=== PATIENT | male | born 1955 | race Caucasian/White ===

== ENCOUNTER 2021-06-15 01:34 | Emergency (ER) | payer MEDICARE, SELFPAY ==
[2021-06-15 01:37] VITALS: BP 161/86; PULSE 81; RESP 18; TEMP 37; O2SAT 100; BMI 30.7
--- NOTE | 2021-06-15 02:57 | ED_ITS ---
HPI - General Adult General Chief complaint: Dental/Oral Stated complaint: trouble swallowing and breathing Time Seen by Provider: 06/15/21 02:57 Source: patient Mode of arrival: ambulatory History of Present Illness HPI narrative: 66-year-old male presents with complaints of a long-time elongated uvula and states that recently it has been bothering him significantly as he states that causes him to have sleep difficulties in the feels like it prevents him from breathing at night while he is resting. The uvula has been evaluated by his primary care provider. Patient denies any facial/tongue/lip swelling and otherwise denies any hives/rash. Related Data Home Medications Medication Instructions Recorded Confirmed amlodipine 1 tab PO DAILY 06/15/21 06/15/21 diclofenac sodium 1 tab PO BID 06/15/21 06/15/21 flash glucose sensor [FreeStyle 06/15/21 06/15/21 Tip 14 Day Sensor] hydrochlorothiazide 1 tab PO DAILY 06/15/21 06/15/21 insulin glargine [Lantus Solostar See Protocol SUBCUT BIDAC 06/15/21 06/15/21 U-100 Insulin] metformin 750 mg PO TID 06/15/21 06/15/21 simvastatin 1 tab PO BEDTIME 06/15/21 06/15/21 sitagliptin [Januvia] 1 tab PO DAILY 06/15/21 06/15/21 valsartan 1 tab PO DAILY 06/15/21 06/15/21 Allergies Allergy/AdvReac Type Severity Reaction Status Date / Time cyclobenzaprine Allergy Itching Verified 06/15/21 01:42 [From Flexeril] Review of Systems Review of Systems: Pertinent positives and negatives as stated in HPI 10 point review of systems is otherwise negative. [facility] Past Medical History Source: nursing notes reviewed Medical History Anxiety Diabetes High cholesterol HTN (hypertension) Surgical History No history of previous surgery Social History Social History Alcohol intake: never Patient Tobacco Use Status: Never used Tobacco Use of substances other than those prescribed or required for medical reasons: No Advance Directives: No Advance Directives Information Provided: No Physical Exam Vital Signs: Vital Signs: Last Vital Signs Temp 98.6 F 06/15/21 01:37 Pulse 81 06/15/21 01:37 Resp 18 06/15/21 01:37 BP 161/86 H 06/15/21 01:37 Pulse Ox 100 06/15/21 01:37 Body Mass Index 30.7 VITAL SIGNS: Reviewed. GENERAL: Well developed, well nourished, in no acute distress. HEAD: Normocephalic/atraumatic EYES: PERRLA, EOMI OROPHARYNX: no oral lesions noted, posterior pharynx clear and a noted large uvula that does not appear to be infected or ulcerated, no facial/tongue/lip swelling NECK: Supple, no adenopathy LUNGS: Normal breath sounds. No adventitious sounds or accessory muscle use. SpO2<100> CARDIOVASCULAR: Regular rate and rhythm without noted murmurs ABDOMEN: Soft, non-tender, non-distended with bowel sounds. SKIN: Inspection of the skin reveals no rashes NEUROLOGIC: Alert and oriented x 4. Course Course Course Narrative: This is a 66-year-old male with history and clinical presentation consistent with large uvula that is likely contributing to SUMAN and patient would benefit from an evaluation by ENT for possible surgical option as well as further evaluation for SUMAN. Patient was reassured and instructed follow-up with his primary care provider and given a referral to see ENT. Discharge Plan Discharge Clinical Impression: Long uvula Patient Disposition: Home, Self-Care Instructions: Uvulitis (ED) Additional Instructions: 1. Resume all home medications as prescribed. 2. Increase water hydration. 3. Gargle with warm salt water (this is mixed with warm tap water and table salt), gargle for 5-10 minutes twice a day. 4. You have been provided with a referral to ENT. Return to the ER for acute worsening of symptoms. Prescriptions: No Action amlodipine 10 mg tablet 1 tab PO DAILY RF: 0 simvastatin 20 mg tablet 1 tab PO BEDTIME RF: 0 valsartan 320 mg tablet 1 tab PO DAILY RF: 0 diclofenac sodium 75 mg tablet,delayed release (DR/EC) 1 tab PO BID RF: 0 metformin 750 mg tablet extended release 24 hr 750 mg PO TID RF: 0 Januvia 25 mg tablet 1 tab PO DAILY RF: 0 hydrochlorothiazide 12.5 mg tablet 1 tab PO DAILY RF: 0 Lantus Solostar U-100 Insulin 100 unit/mL (3 mL) insulin pen See Protocol unit subcut BIDAC RF: 0 (DME) FreeStyle Tip 14 Day Sensor Kit topical Q OTHER DAY RF: 0 Referrals: Kang Love MD [Primary Care Provider] - 2 days (Please re-evaluate the patient for enlarged uvula, may benefit from ENT referral.) Warren Paul MD [Physician] - 2 days (Patient has an enlarged uvula, please evaluate)
== END 2021-06-15 03:33 | disposition home or self-care (01) ==
PROVIDERS: Emergency Provider Student in an Organized Health Care Education/Training Program; PCP Internal Medicine
DX: K13.79 Other lesions of oral mucosa (principal); I10 Essential (primary) hypertension; E11.9 Type 2 diabetes mellitus without complications; Z79.4 Long term (current) use of insulin; Z79.899 Other long term (current) drug therapy
CPT/HCPCS: 99282; 99284

== ENCOUNTER 2021-11-24 09:28 | Emergency (ER) | payer MEDICARE, SELFPAY ==
--- NOTE | ~2021-11-24 | MR_ITS ---
EXAMINATION: MRI OF THE BRAIN WITHOUT CONTRAST CLINICAL INFORMATION: Diplopia. COMPARISON: CT scan of the head earlier 11/24/2021.. TECHNIQUE: MRI of the brain was obtained using routine sequences without contrast. FINDINGS: No diffusion abnormalities are identified to suggest an acute or subacute infarct. No mass effect or midline shift is seen. There is mild commensurate prominence of the sulci. Brain parenchymal signal is unremarkable. No extra-axial fluid collections are seen. The brainstem and cerebellum are normal. No pathologic magnetic susceptibility artifact is identified on the gradient refocused acquisition. The craniovertebral junction, marrow signal, and midline structures are normal. There are spondylitic changes in the partially visualized cervical spine. The major intracranial flow-voids at the level of the [place] are preserved. The dural venous sinus flow-voids are maintained. Bilateral frontal sinuses are hypoplastic. The other paranasal sinuses are well-aerated. No fluid is demonstrated in the mastoid air cells. MR/MR head/brain wo con IMPRESSION: 1. There are no acute bleeds or territorial infarcts. No masses are demonstrated. There is mild diffuse volume loss. Brain parenchymal signal is unremarkable.
--- NOTE | ~2021-11-24 | CT_ITS ---
EXAMINATION: CT HEAD WITHOUT CONTRAST CLINICAL INFORMATION: Double vision. Diplopia. COMPARISON: None TECHNIQUE: Contiguous axial imaging was performed from the skull base to vertex without intravenous administration of contrast. This CT examination was performed using dose optimization techniques as appropriate, variously including the following: *Automated exposure control *Adjustment of mA and/or kV according to patient size (this includes techniques or standardized protocols for targeted exams where dose is matched to indication/reason for exam; i.e. extremities or head) *Use of iterative reconstruction technique DLP: 767 mGy-cm FINDINGS: Mild diffuse commensurate prominence of ventricles and sulci is noted. No intracranial hemorrhage, tumors or acute infarcts are noted. No focal parenchymal lesions of the brain are identified. The orbits and globes are normal in appearance. The left mastoid air cells are hypoplastic. CT/CT head/brain wo con IMPRESSION: *No acute intracranial abnormalities.
[2021-11-24 09:35] VITALS: BP 158/86; PULSE 88; RESP 20; TEMP 36.7; O2SAT 99; BMI 24.3
[2021-11-24 09:57] LABS: Glucose, Whole Blood 160 mg/dL (60-115)
[2021-11-24 10:30] LABS: MANUAL DIFF FLAG NO
[2021-11-24 10:32] LABS: Basophils Percent Auto 0.5 % (0-2); Eosinophils Absolute Auto 0.1 X10*3/uL (0.0-0.4); Eosinophils Percent Auto 1.6 % (0-4); Hematocrit 38.9 % (42.0-52.0); Hemoglobin 13.7 g/dl (14.0-18.0); Imm Gran Abs Auto 0.02 X10*3/uL (0.00-0.03); Imm Gran Pct Auto 0.4 % (0.0-0.4); Lymphocytes Absolute Auto 1.9 X10*3/uL (1.2-4.9); Mean Corpuscular HGB Conc 35.2 g/dl (31.0-36.0); Mean Corpuscular Hemoglobin 29.9 pg (27.0-33.0); Mean Corpuscular Volume 84.9 fL (80.0-98.0); Mean Platelet Volume 10.2 fL (9.4-12.4); Monocytes Absolute Auto 0.5 X10*3/uL (0.1-1.2); Monocytes Percent Auto 9.1 % (2-11); Neutrophils Absolute Auto 3.1 x10*3/uL (2.0-8.3); Neutrophils Percent Auto 54.4 % (45-73); Platelet Count 193 X10*3/uL (160-400); Red Blood Count 4.58 X10*6/uL (4.60-5.80); Red Cell Distribution Width 13.3 % (11.0-16.0); White Blood Count 5.7 X10*3/uL (4.8-10.8)
--- NOTE | 2021-11-24 10:36 | ED_ITS ---
HPI - General Adult General Chief complaint: General Medical Stated complaint: double vision Time Seen by Provider: 11/24/21 11:35 Source: patient Mode of arrival: ambulatory Limitations: no limitations History of Present Illness HPI narrative: 66-year-old male with history of diabetes and high blood pressure presents to the ED for diplopia since last night. Patient states seeing double. Patient denies any headache, facial droop, slurred speech, nausea, vomiting, dizziness, chest pain, loss of vision, eye pain, weakness in extremities, or shortness of breath. Patient states he has not seen his eye doctor for over year. Patient has not had any fingerstick to measure his glucose but has been compliant with his meds. Patient states when he covers 1 eye he no longer has diplopia and vision is clear. But when both eyes are open he has diplopia. Patient denies any eye pain or photophobia. Related Data Home Medications Medication Instructions Recorded Confirmed amlodipine 10 mg tablet 1 tab PO DAILY 06/15/21 06/15/21 diclofenac sodium 75 mg 1 tab PO BID 06/15/21 06/15/21 tablet,delayed release flash glucose sensor (FreeStyle 06/15/21 06/15/21 Tip 14 Day Sensor) hydrochlorothiazide 12.5 mg tablet 1 tab PO DAILY 06/15/21 06/15/21 insulin glargine 100 unit/mL (3 See Protocol SUBCUT BIDAC 06/15/21 06/15/21 mL) subcutaneous pen (Lantus Solostar U-100 Insulin) metformin 750 mg tablet,extended 750 mg PO TID 06/15/21 06/15/21 release 24 hr simvastatin 20 mg tablet 1 tab PO BEDTIME 06/15/21 06/15/21 sitagliptin 25 mg tablet (Januvia) 1 tab PO DAILY 06/15/21 06/15/21 valsartan 320 mg tablet 1 tab PO DAILY 06/15/21 06/15/21 Allergies Allergy/AdvReac Type Severity Reaction Status Date / Time cyclobenzaprine Allergy Itching Verified 06/15/21 01:42 [From Flexeril] Review of Systems Review of Systems: Yes all other systems are reviewed and are negative Constitutional: Constitutional: Reports as per HPI and Reports no additional constitutional complaints Eyes: Eyes: Reports as per HPI and Reports no additional eye complaints Comments: Diplopia in both eyes ENT: Reports system reviewed and no additional complaints, except as documented and Reports as per HPI Cardiovascular: Cardiovascular: Reports as per HPI and Reports no additional cardiovascular complaints Respiratory: Respiratory: Reports as per HPI and Reports no additional respiratory complaints Gastrointestinal: Gastrointestinal: Reports as per HPI and Reports no additional gastrointestinal complaints Genitourinary: Genitourinary: Reports no additional male genitourinary complaints and Reports as per HPI Psychiatric: Psychiatric: Reports no additional psychiatric complaints and Reports as per HPI Endocrine: Endocrine: Reports no additional endocrine complaints and Reports as per HPI [facility] Past Medical History Medical History (Updated 11/24/21 @ 14:50 by AMBER Galindo) Anxiety Diabetes High cholesterol HTN (hypertension) Social History Social History Alcohol intake: never Patient Tobacco Use Status: Never used Tobacco Advance Directives: No Advance Directives Information Provided: No Physical Exam Vital Signs: Vital Signs: Last Vital Signs Temp 98.0 F 11/24/21 13:50 Pulse 83 11/24/21 13:50 Resp 16 11/24/21 13:50 BP 138/78 11/24/21 13:50 Pulse Ox 98 11/24/21 13:50 BMI result Body Mass Index 24.3 Const: General: cooperative, healthy appearing, comfortable, no acute distress, well developed, alert, awake and Physically active Orientation/consciousness: patient oriented x3 HENMT: Head: Yes normal to inspection, Yes No palpable skull fracture present, Yes normocephalic, Yes atraumatic and No abrasion Eyes: Other: Patient able to see fingers in all visual sanchez. Physical exam shows horizontal diplopia and negative for vertical diplopia. Negative nystagmus. Both eyes negative for erythema of conjunctiva/scleral, negative for foreign body, and negative for any eyelid swelling. Left eye visual acuity 20/40 and right eye visual acuity 20/40. Both eyes together visual acuity is 20/40. Neck: Neck: Yes normal visual inspection, Yes full ROM, Yes no lymphadenopathy, Yes no meningeal signs, Yes trachea midline, Yes supple, No anterior neck swelling and No tender Chest: Chest palpation & inspection: normal inspection of the chest and normal palpation of entire chest wall Resp: Effort & Inspection: normal respiratory effort and able to speak in complete sentences Auscultation: clear to auscultation bilaterally Cardio: Jugular venous distension: no JVD Rhythm: regular rhythm Heart sounds: S1 normal heart sound present and S2 normal heart sound present GI: Inspection: Yes normal to inspection and No abdominal wall ecchymosis Palpation (GI): Soft to palpation, not firm, nontender, no guarding and not rigid : General: No CVA tenderness and Yes no CVA tenderness Back/Spine/Pelvis: Back: no CVA tenderness, No CVA tenderness and No back tenderness Skin: General skin exam: no rashes or lesions noted and elasticity normal Neuro: Other: Negative facial droop. Negative slurred speech. Negative pronator drift. All extremities equal strength 5+. [id number] and rapid hand movement intact. Negative Romberg. NIH Score 0 General: patient oriented x3, gait normal, no meningeal signs and CN's II-XI intact bilaterally Cranial nerves: Yes CN's II-XII intact bilaterally Extrem: General: Yes normal to inspection and Yes full ROM Psych: Appearance: grossly normal, well kempt and not disheveled NIH Stroke Scale Level of Consciousness: Alert Level of Consciousness Questions: Answers both questions correctly Level of Consciousness Commands: Performs both tasks correctly Best Gaze: Normal Visual: No visual loss Facial Palsy: Normal Motor Arm (Right): No drift Motor Arm (Left): No drift Motor Leg (Right): No drift Motor Leg (Left): No drift Limb Ataxia: Absent Sensory: Normal Best Language: No aphasia Dysarthia: Normal Extinction and Inattention: No abnormality Score: 0 Course Course Course Narrative: History physical exam does not indicate stroke. NIH score 0. Still do head CT scan. Will do basic labs. Patient denies any dizziness. No need for cardiac workup. When patient covers 1 eye he no longer has diplopia. Both eyes open together and patient has diplopia. Reevaluation(s) Reevaluation #1: Head CT scan came back negative. Labs are normal. Most likely diplopia due to eye muscle/ nerve issue. unlikely patient having stroke. case discussed with Dr. Gautam recommends due to age to do MRI to make sure there is no posterior cerebellar infarct although unlikely and most likely there is an eye muscle issue/nerve. Will send for MRI. Visual acuity each eye 20/40 and ey es together is 20/40. Time: 10:59 Reevaluation #2: MRI negative for stroke. Bedside ultrasound of both eyes negative for retinal detachment and negative for lens dislocation. Patient informed to follow-up with his ophthalmologis to check his eyes Time: 14:45 Medical Decision Making MDM Narrative Medical decision making narrative: Diplopia Lab Data Result diagrams: 11/24/21 10:21 11/24/21 10:21 Labs: Lab Results 11/24/21 11/24/21 11/24/21 Range/Units 09:53 10:21 10:21 WBC 5.7 (4.8-10.8) X10*3/uL RBC 4.58 L (4.60-5.80) X10*6/uL Hgb 13.7 L (14.0-18.0) g/dl Hct 38.9 L (42.0-52.0) % MCV 84.9 (80.0-98.0) fL MCH 29.9 (27.0-33.0) pg MCHC 35.2 (31.0-36.0) g/dl RDW 13.3 (11.0-16.0) % Plt Count 193 (160-400) X10*3/uL MPV 10.2 (9.4-12.4) fL Immature Gran % (Auto) 0.4 (0.0-0.4) % Neut % (Auto) 54.4 (45-73) % Lymph % (Auto) 34.0 (20-40) % [place] % (Auto) 9.1 (2-11) % Eos % (Auto) 1.6 (0-4) % Baso % (Auto) 0.5 (0-2) % Lymph # (Auto) 1.9 (1.2-4.9) X10*3/uL [place] # (Auto) 0.5 (0.1-1.2) X10*3/uL Eos # (Auto) 0.1 (0.0-0.4) X10*3/uL Baso # (Auto) 0.0 (0.0-0.2) X10*3/uL Abs Immat Gran (auto) 0.02 (0.00-0.03) X10*3/uL Absolute Neuts (auto) 3.1 (2.0-8.3) x10*3/uL Absolute Nucleated RBC 0.000 (0.0-0.012) X10*3/uL Nucleated RBC % (auto) 0.0 (0.0-0.2) /100WBC Sodium 138 (135-145) mmol/L Potassium 3.9 (3.3-5.1) mmol/L Chloride 103 (96-108) mmol/L Carbon Dioxide 24 (22-29) mmol/L Anion Gap 15 (12-20) BUN 22 H (9-16) mg/dL Creatinine 0.96 (0.5-1.4) mg/dL Estim Creat Clear Calc 71.7 Estimated GFR > 60 POC Glucose 160 H (60-115) mg/dL Random Glucose 162 H (60-115) mg/dL Calcium 9.4 (8.4-10.2) mg/dL Total Bilirubin 1.1 H (0.0-1.0) mg/dL AST 26 (5-37) U/L ALT 42 H (0-40) U/L Alkaline Phosphatase 79 (39-117) U/L Total Protein 7.2 (6.5-8.0) g/dL Albumin 4.3 (3.5-5.0) g/dL COVID-19 (DEE) (Negative) COVID-19 Clin Com 11/24/21 Range/Units 10:26 WBC (4.8-10.8) X10*3/uL RBC (4.60-5.80) X10*6/uL Hgb (14.0-18.0) g/dl Hct (42.0-52.0) % MCV (80.0-98.0) fL MCH (27.0-33.0) pg MCHC (31.0-36.0) g/dl RDW (11.0-16.0) % Plt Count (160-400) X10*3/uL MPV (9.4-12.4) fL Immature Gran % (Auto) (0.0-0.4) % Neut % (Auto) (45-73) % Lymph % (Auto) (20-40) % [place] % (Auto) (2-11) % Eos % (Auto) (0-4) % Baso % (Auto) (0-2) % Lymph # (Auto) (1.2-4.9) X10*3/uL [place] # (Auto) (0.1-1.2) X10*3/uL Eos # (Auto) (0.0-0.4) X10*3/uL Baso # (Auto) (0.0-0.2) X10*3/uL Abs Immat Gran (auto) (0.00-0.03) X10*3/uL Absolute Neuts (auto) (2.0-8.3) x10*3/uL Absolute Nucleated RBC (0.0-0.012) X10*3/uL Nucleated RBC % (auto) (0.0-0.2) /100WBC Sodium (135-145) mmol/L Potassium (3.3-5.1) mmol/L Chloride (96-108) mmol/L Carbon Dioxide (22-29) mmol/L Anion Gap (12-20) BUN (9-16) mg/dL Creatinine (0.5-1.4) mg/dL Estim Creat Clear Calc Estimated GFR POC Glucose (60-115) mg/dL Random Glucose (60-115) mg/dL Calcium (8.4-10.2) mg/dL Total Bilirubin (0.0-1.0) mg/dL AST (5-37) U/L ALT (0-40) U/L Alkaline Phosphatase (39-117) U/L Total Protein (6.5-8.0) g/dL Albumin (3.5-5.0) g/dL COVID-19 (DEE) Negative (Negative) COVID-19 Clin Com See Note Discharge Plan Discharge Clinical Impression: Diplopia Patient Disposition: Home, Self-Care Instructions: Diplopia (ED) Additional Instructions: Your head CT scan and MRI came back negative for stroke. You need to follow-up with the eye doctor in regards to diplopia. Return to the ED for any slurred speech, loss of vision, paralysis of extremities, loss of vision, headache, dizziness, facial droop, abdominal pain, tingling in extremities, chest pain, shortness of breath, or any other concerning symptoms. Prescriptions: No Action amlodipine 10 mg tablet 1 tab PO DAILY RF: 0 simvastatin 20 mg tablet 1 tab PO BEDTIME RF: 0 valsartan 320 mg tablet 1 tab PO DAILY RF: 0 diclofenac sodium 75 mg tablet,delayed release (DR/EC) 1 tab PO BID RF: 0 metformin 750 mg tablet extended release 24 hr 750 mg PO TID RF: 0 Januvia 25 mg tablet 1 tab PO DAILY RF: 0 hydrochlorothiazide 12.5 mg tablet 1 tab PO DAILY RF: 0 Lantus Solostar U-100 Insulin 100 unit/mL (3 mL) insulin pen See Protocol unit subcut BIDAC RF: 0 (DME) FreeStyle Tip 14 Day Sensor Kit topical Q OTHER DAY RF: 0 Referrals: Tyson Scott [Physician] - 2 days (Diplopia) Interventions: ED Discharge Assessment Last Done: 11/24/21 14:55 Discharge Date/Time: 11/24/21 14:55 Print Language: Scottish
[2021-11-24 11:01] LABS: COVID-19 Test Negative (Negative); IDNOW Serial# 9DD0AD1C
[2021-11-24 11:05] LABS: Alanine Aminotransferase 42 U/L (0-40); Albumin Level 4.3 g/dL (3.5-5.0); Alkaline Phosphatase 79 U/L (39-117); Anion Gap 15 (12-20); Aspartate Amino Transferase 26 U/L (5-37); Bilirubin Total 1.1 mg/dL (0.0-1.0); Blood Urea Nitrogen 22 mg/dL (9-16); Calcium 9.4 mg/dL (8.4-10.2); Carbon Dioxide 24 mmol/L (22-29); Chloride 103 mmol/L (96-108); Creatinine Clr Calc Pharmacy 71.7; Estimated Glomerular Filt Rate > 60; Glucose Random 162 mg/dL (60-115); Potassium 3.9 mmol/L (3.3-5.1); Sodium 138 mmol/L (135-145); Total Protein 7.2 g/dL (6.5-8.0)
[2021-11-24 13:50] VITALS: BP 138/78; PULSE 83; RESP 16; TEMP 36.7; O2SAT 98
== END 2021-11-24 14:55 | disposition home or self-care (01) ==
PROVIDERS: Physician Assistant; Emergency Provider Emergency Medicine; PCP Internal Medicine
DX: H53.2 Diplopia (principal); Z20.822 Contact with and (suspected) exposure to COVID-19; E11.9 Type 2 diabetes mellitus without complications; I10 Essential (primary) hypertension; E78.5 Hyperlipidemia, unspecified; Z79.4 Long term (current) use of insulin; Z79.02 Long term (current) use of antithrombotics/antiplatelets; Z79.899 Other long term (current) drug therapy
CPT/HCPCS: 36415; 70450; 70551; 80053; 82947; 85025; 87635; 99284; 99285

== ENCOUNTER 2021-12-21 10:50 | Outpatient (REF) | payer MEDICARE, SELFPAY ==
[2021-12-21 11:09] LABS: MANUAL DIFF FLAG NO
[2021-12-21 11:39] LABS: Basophils Percent Auto 0.6 % (0-2); Eosinophils Absolute Auto 0.1 X10*3/uL (0.0-0.4); Eosinophils Percent Auto 1.9 % (0-4); Hematocrit 40.6 % (42.0-52.0); Hemoglobin 13.9 g/dl (14.0-18.0); Imm Gran Abs Auto 0.02 X10*3/uL (0.00-0.03); Imm Gran Pct Auto 0.3 % (0.0-0.4); Lymphocytes Percent Auto 31.7 % (20-40); Mean Corpuscular HGB Conc 34.2 g/dl (31.0-36.0); Mean Corpuscular Hemoglobin 29.1 pg (27.0-33.0); Mean Corpuscular Volume 84.9 fL (80.0-98.0); Mean Platelet Volume 10.5 fL (9.4-12.4); Monocytes Absolute Auto 0.5 X10*3/uL (0.1-1.2); Monocytes Percent Auto 7.9 % (2-11); Neutrophils Absolute Auto 3.6 x10*3/uL (2.0-8.3); Neutrophils Percent Auto 57.6 % (45-73); Platelet Count 218 X10*3/uL (160-400); Red Blood Count 4.78 X10*6/uL (4.60-5.80); Red Cell Distribution Width 13.2 % (11.0-16.0); White Blood Count 6.3 X10*3/uL (4.8-10.8)
[2021-12-21 11:41] LABS: Estimated Average Glucose 200 mg/dL; Hemoglobin A1c % 8.6 %
[2021-12-21 12:14] LABS: Alanine Aminotransferase 34 U/L (0-40); Albumin Level 4.7 g/dL (3.5-5.0); Alkaline Phosphatase 81 U/L (39-117); Anion Gap 16 (12-20); Aspartate Amino Transferase 21 U/L (5-37); Bilirubin Total 0.7 mg/dL (0.0-1.0); Blood Urea Nitrogen 29 mg/dL (9-16); Calcium 10.4 mg/dL (8.4-10.2); Carbon Dioxide 26 mmol/L (22-29); Chloride 103 mmol/L (96-108); Cholesterol 146 mg/dL; Estimated Glomerular Filt Rate > 60; Glucose Fasting 190 mg/dL (60-99); HDL Cholesterol 42 mg/dL; LDL Cholesterol Calculated 84 mg/dl; Potassium 4.5 mmol/L (3.3-5.1); Sodium 140 mmol/L (135-145); Total Protein 7.8 g/dL (6.5-8.0); Triglycerides 101 mg/dL
[2021-12-21 12:47] LABS: Folate 12.9 ng/mL (> or = 4.0); Vitamin B12 605 pg/mL (200-900)
[2021-12-27 16:16] LABS: Vitamin D 25-OH, D2 <4 ng/mL; Vitamin D 25-OH, D3 14 ng/mL; Vitamin D 25-OH, Total 14 ng/mL (30-100)
== END 2021-12-21 10:51 | disposition home or self-care (01) ==
LOC: HO.LAB 10:50
PROVIDERS: PCP Internal Medicine; Visit Provider Nurse Practitioner Acute Care
DX: E11.9 Type 2 diabetes mellitus without complications (principal); E78.00 Pure hypercholesterolemia, unspecified; I10 Essential (primary) hypertension
CPT/HCPCS: 36415; 80053; 80061; 82306; 82607; 82746; 83036; 84443; 85025

== ENCOUNTER → 2022-02-21 09:57 | Outpatient (BNVA) | payer MEDICARE, SELFPAY | PROVIDERS: PCP Nurse Practitioner Acute Care; Visit Provider Internal Medicine | DX: E11.65 Type 2 diabetes mellitus with hyperglycemia (principal); E78.00 Pure hypercholesterolemia, unspecified; E55.9 Vitamin D deficiency, unspecified; I10 Essential (primary) hypertension; Z79.4 Long term (current) use of insulin | CPT/HCPCS: 82947; 99202 ==

== ENCOUNTER 2022-02-26 11:57 | Outpatient (REF) | payer MEDICARE, SELFPAY ==
[2022-02-26 13:11] LABS: Alanine Aminotransferase 37 U/L (0-40); Alkaline Phosphatase 90 U/L (39-117); Anion Gap 17 (12-20); Aspartate Amino Transferase 28 U/L (5-37); Bilirubin Total 0.8 mg/dL (0.0-1.0); Blood Urea Nitrogen 20 mg/dL (9-16); Calcium 10.3 mg/dL (8.4-10.2); Carbon Dioxide 27 mmol/L (22-29); Chloride 98 mmol/L (96-108); Estimated Glomerular Filt Rate > 60; Glucose Random 186 mg/dL (60-115); Sodium 138 mmol/L (135-145); Total Protein 8.4 g/dL (6.5-8.0)
[2022-02-26 13:33] LABS: Insulin 34 uU/mL (2-29); Vitamin D 25-OH Total 30.6 ng/mL (>30)
[2022-02-26 13:43] LABS: Microalbum/Creatinine Ratio Ur 52.3 ug/mg cr
[2022-02-26 13:47] LABS: Vitamin B12 573 pg/mL (200-900)
[2022-02-27 23:46] LABS: C Peptide 2.08 ng/mL (0.80-3.85)
[2022-03-01 16:22] LABS: Glutamic acid decarboxylase Ab <5 IU/mL (<5)
[2022-03-07 18:32] LABS: Insulinoma associated 2 aatb <5.4 U/mL (<5.4)
[2022-03-11 23:56] LABS: Islet Cell Antibody Screen NEGATIVE (NEGATIVE)
== END 2022-02-26 11:58 | disposition home or self-care (01) ==
LOC: HO.LAB 11:57
PROVIDERS: PCP Nurse Practitioner Acute Care; Visit Provider Internal Medicine
DX: E11.9 Type 2 diabetes mellitus without complications (principal); E55.9 Vitamin D deficiency, unspecified
CPT/HCPCS: 36415; 80053; 82043; 82306; 82607; 83525; 84681; 86255; 86341

== ENCOUNTER → 2022-03-08 08:58 | Outpatient (BNVA) | payer MEDICARE, SELFPAY | PROVIDERS: PCP Nurse Practitioner Acute Care; Visit Provider Dietitian, Registered | DX: E11.65 Type 2 diabetes mellitus with hyperglycemia (principal); I10 Essential (primary) hypertension; E78.00 Pure hypercholesterolemia, unspecified; F41.8 Other specified anxiety disorders; Z86.73 Personal history of transient ischemic attack (TIA), and cerebral infarction without residual deficits; Z88.8 Allergy status to other drugs, medicaments and biological substances; Z79.4 Long term (current) use of insulin | CPT/HCPCS: 97802 ==

== ENCOUNTER → 2022-04-06 08:43 | Outpatient (BNVA) | payer MEDICARE, SELFPAY | PROVIDERS: PCP Nurse Practitioner Acute Care; Visit Provider Dietitian, Registered | DX: E11.65 Type 2 diabetes mellitus with hyperglycemia (principal); Z79.4 Long term (current) use of insulin | CPT/HCPCS: 97803 ==

== ENCOUNTER → 2022-04-20 08:44 | Outpatient (BNVA) | payer MEDICARE, SELFPAY | PROVIDERS: PCP Nurse Practitioner Acute Care; Visit Provider Registered Nurse Diabetes Educator | DX: E11.65 Type 2 diabetes mellitus with hyperglycemia (principal); Z79.4 Long term (current) use of insulin | CPT/HCPCS: 99211 ==

== ENCOUNTER 2022-06-01 08:45 | Outpatient (REF) | payer MEDICARE, SELFPAY ==
[2022-06-01 09:58] LABS: Estimated Average Glucose 157 mg/dL; Hemoglobin A1c % 7.1 %
[2022-06-01 10:17] LABS: Alanine Aminotransferase 43 U/L (0-40); Albumin Level 4.6 g/dL (3.5-5.0); Alkaline Phosphatase 88 U/L (39-117); Anion Gap 16 (12-20); Aspartate Amino Transferase 36 U/L (5-37); Blood Urea Nitrogen 19 mg/dL (9-16); Calcium 9.9 mg/dL (8.4-10.2); Carbon Dioxide 27 mmol/L (22-29); Chloride 101 mmol/L (96-108); Cholesterol 138 mg/dL; Estimated Glomerular Filt Rate > 60; Glucose Random 108 mg/dL (60-115); HDL Cholesterol 42 mg/dL; LDL Cholesterol Calculated 79 mg/dl; Potassium 3.9 mmol/L (3.3-5.1); Sodium 140 mmol/L (135-145); Total Protein 7.7 g/dL (6.5-8.0); Triglycerides 89 mg/dL
[2022-06-03 04:52] LABS: LDL Cholesterol Direct 92 mg/dL (<100)
== END 2022-06-01 08:46 | disposition home or self-care (01) ==
LOC: HO.10HDL 08:45
PROVIDERS: Visit Provider Internal Medicine
DX: E11.65 Type 2 diabetes mellitus with hyperglycemia (principal); Z79.4 Long term (current) use of insulin
CPT/HCPCS: 36415; 80053; 80061; 83036; 83721

== ENCOUNTER → 2022-06-06 09:38 | Outpatient (BNVA) | payer MEDICARE, SELFPAY | PROVIDERS: PCP Nurse Practitioner Acute Care; Visit Provider Internal Medicine | DX: E11.65 Type 2 diabetes mellitus with hyperglycemia (principal); Z79.4 Long term (current) use of insulin; E78.00 Pure hypercholesterolemia, unspecified; I10 Essential (primary) hypertension; E55.9 Vitamin D deficiency, unspecified | CPT/HCPCS: Q3014 ==

== ENCOUNTER 2022-10-02 09:14 | Outpatient (REF) | payer MEDICARE, SELFPAY ==
[2022-10-02 10:55] LABS: Estimated Average Glucose 143 mg/dL; Hemoglobin A1c % 6.6 %
[2022-10-02 11:18] LABS: Alanine Aminotransferase 51 U/L (0-40); Albumin Level 4.6 g/dL (3.5-5.0); Alkaline Phosphatase 91 U/L (39-117); Anion Gap 18 (12-20); Aspartate Amino Transferase 37 U/L (5-37); Bilirubin Total 0.4 mg/dL (0.0-1.0); Blood Urea Nitrogen 24 mg/dL (9-16); Calcium 10.1 mg/dL (8.4-10.2); Carbon Dioxide 28 mmol/L (22-29); Chloride 99 mmol/L (96-108); Estimated Glomerular Filt Rate > 60; Glucose Random 198 mg/dL (60-115); Potassium 3.8 mmol/L (3.3-5.1); Sodium 141 mmol/L (135-145); Total Protein 7.4 g/dL (6.5-8.0)
== END 2022-10-02 09:15 | disposition home or self-care (01) ==
LOC: HO.10HDL 09:14
PROVIDERS: Visit Provider Internal Medicine
DX: E11.65 Type 2 diabetes mellitus with hyperglycemia (principal); Z79.4 Long term (current) use of insulin
CPT/HCPCS: 36415; 80053; 83036

== ENCOUNTER → 2022-10-04 14:36 | Outpatient (BNVA) | payer MEDICARE, SELFPAY | PROVIDERS: PCP Internal Medicine; Visit Provider Internal Medicine | DX: E11.65 Type 2 diabetes mellitus with hyperglycemia (principal); E78.00 Pure hypercholesterolemia, unspecified; E55.9 Vitamin D deficiency, unspecified; I10 Essential (primary) hypertension; Z79.4 Long term (current) use of insulin | CPT/HCPCS: 82947; 99212 ==

== ENCOUNTER → 2022-10-08 09:13 | Outpatient (BNVA) | payer MEDICARE, SELFPAY | PROVIDERS: PCP Internal Medicine; Visit Provider Dietitian, Registered | DX: E11.65 Type 2 diabetes mellitus with hyperglycemia (principal); Z79.4 Long term (current) use of insulin | CPT/HCPCS: 97803 ==

== ENCOUNTER → 2022-12-05 09:34 | Outpatient (BNVA) | payer MEDICARE, SELFPAY | PROVIDERS: PCP Internal Medicine; Visit Provider Registered Nurse Diabetes Educator | DX: E11.65 Type 2 diabetes mellitus with hyperglycemia (principal); Z79.4 Long term (current) use of insulin | CPT/HCPCS: 99211 ==

== ENCOUNTER 2023-01-15 09:16 | Outpatient (REF) | payer MEDICARE, SELFPAY ==
[2023-01-15 11:17] LABS: Alanine Aminotransferase 85 U/L (0-40); Albumin Level 4.2 g/dL (3.5-5.0); Alkaline Phosphatase 109 U/L (39-117); Anion Gap 16 (12-20); Aspartate Amino Transferase 66 U/L (5-37); Bilirubin Total 0.6 mg/dL (0.0-1.0); Blood Urea Nitrogen 30 mg/dL (9-16); Calcium 9.4 mg/dL (8.4-10.2); Carbon Dioxide 26 mmol/L (22-29); Chloride 104 mmol/L (96-108); Cholesterol 150 mg/dL; Estimated Glomerular Filt Rate > 60; Glucose Random 203 mg/dL (60-115); HDL Cholesterol 35 mg/dL; LDL Cholesterol Calculated 89 mg/dl; Potassium 4.6 mmol/L (3.3-5.1); Sodium 141 mmol/L (135-145); Triglycerides 134 mg/dL
[2023-01-15 11:23] LABS: Estimated Average Glucose 169 mg/dL; Hemoglobin A1c % 7.5 %
[2023-01-15 11:34] LABS: Creatinine Urine 125.53 mg/dL; Microalbum/Creatinine Ratio Ur 16.7 ug/mg cr
[2023-01-15 11:41] LABS: Vitamin B12 623 pg/mL (200-900)
[2023-01-17 07:54] LABS: LDL Cholesterol Direct 96 mg/dL (<100)
== END 2023-01-15 09:17 | disposition home or self-care (01) ==
LOC: HO.10HDL 09:16
PROVIDERS: Visit Provider Internal Medicine
DX: E11.65 Type 2 diabetes mellitus with hyperglycemia (principal); Z79.4 Long term (current) use of insulin
CPT/HCPCS: 36415; 80053; 80061; 82043; 82607; 83036; 83721

== ENCOUNTER → 2023-03-05 08:19 | Outpatient (BNVA) | payer MEDICARE, SELFPAY | PROVIDERS: PCP Internal Medicine; Visit Provider Physician Assistant | DX: K92.1 Melena (principal); R10.9 Unspecified abdominal pain; R11.2 Nausea with vomiting, unspecified; K58.9 Irritable bowel syndrome, unspecified; R19.8 Other specified symptoms and signs involving the digestive system and abdomen; E11.9 Type 2 diabetes mellitus without complications; Z79.4 Long term (current) use of insulin | CPT/HCPCS: 99202 ==

== ENCOUNTER 2023-03-05 09:19 | Outpatient (REF) | payer MEDICARE, SELFPAY ==
[2023-03-05 11:39] LABS: MANUAL DIFF FLAG NO
[2023-03-05 11:57] LABS: Basophils Absolute Auto 0.1 X10*3/uL (0.0-0.2); Basophils Percent Auto 0.8 % (0-2); Eosinophils Absolute Auto 0.2 X10*3/uL (0.0-0.4); Eosinophils Percent Auto 1.8 % (0-4); Hematocrit 44.8 % (42.0-52.0); Hemoglobin 15.5 g/dl (14.0-18.0); Imm Gran Abs Auto 0.04 X10*3/uL (0.00-0.03); Imm Gran Pct Auto 0.3 % (0.0-0.4); Lymphocytes Percent Auto 17.4 % (20-40); Mean Corpuscular HGB Conc 34.6 g/dl (31.0-36.0); Mean Corpuscular Hemoglobin 29.8 pg (27.0-33.0); Mean Corpuscular Volume 86.2 fL (80.0-98.0); Mean Platelet Volume 10.8 fL (9.4-12.4); Monocytes Absolute Auto 1.2 X10*3/uL (0.1-1.2); Monocytes Percent Auto 10.5 % (2-11); Neutrophils Absolute Auto 8.1 x10*3/uL (2.0-8.3); Neutrophils Percent Auto 69.2 % (45-73); Platelet Count 288 X10*3/uL (160-400); Red Cell Distribution Width 13.2 % (11.0-16.0); White Blood Count 11.6 X10*3/uL (4.8-10.8)
[2023-03-05 12:31] LABS: Alanine Aminotransferase 27 U/L (0-40); Albumin Level 4.8 g/dL (3.5-5.0); Alkaline Phosphatase 94 U/L (39-117); Anion Gap 23 (12-20); Aspartate Amino Transferase 20 U/L (5-37); Bilirubin Total 1.2 mg/dL (0.0-1.0); Blood Urea Nitrogen 49 mg/dL (9-16); Calcium 9.5 mg/dL (8.4-10.2); Carbon Dioxide 20 mmol/L (22-29); Chloride 100 mmol/L (96-108); Estimated Glomerular Filt Rate 30; Glucose Random 208 mg/dL (60-115); Potassium 3.9 mmol/L (3.3-5.1); Sodium 139 mmol/L (135-145); Thyroid Stimulating Hormone 1.32 uIU/mL (0.32-4.0); Total Protein 7.9 g/dL (6.5-8.0)
== END 2023-03-05 09:20 | disposition home or self-care (01) ==
LOC: HO.WFDLDS 09:19
PROVIDERS: Visit Provider Physician Assistant
DX: R10.9 Unspecified abdominal pain (principal); R19.8 Other specified symptoms and signs involving the digestive system and abdomen; K92.1 Melena; R11.2 Nausea with vomiting, unspecified; K58.9 Irritable bowel syndrome, unspecified
CPT/HCPCS: 36415; 80053; 84443; 85025

== ENCOUNTER → 2023-03-13 08:23 | Outpatient (BNVA) | payer MEDICARE, SELFPAY | PROVIDERS: PCP Internal Medicine; Visit Provider Physician Assistant ==

== ENCOUNTER 2023-03-13 09:10 | Outpatient (REF) | payer MEDICARE, SELFPAY ==
[2023-03-13 11:41] LABS: MANUAL DIFF FLAG NO
[2023-03-13 11:49] LABS: Basophils Absolute Auto 0.1 X10*3/uL (0.0-0.2); Basophils Percent Auto 0.7 % (0-2); Eosinophils Absolute Auto 0.2 X10*3/uL (0.0-0.4); Eosinophils Percent Auto 2.2 % (0-4); Hematocrit 42.6 % (42.0-52.0); Hemoglobin 14.4 g/dl (14.0-18.0); Imm Gran Abs Auto 0.02 X10*3/uL (0.00-0.03); Imm Gran Pct Auto 0.2 % (0.0-0.4); Lymphocytes Absolute Auto 2.7 X10*3/uL (1.2-4.9); Lymphocytes Percent Auto 30.1 % (20-40); Mean Corpuscular HGB Conc 33.8 g/dl (31.0-36.0); Mean Corpuscular Volume 85.9 fL (80.0-98.0); Mean Platelet Volume 10.8 fL (9.4-12.4); Monocytes Absolute Auto 0.6 X10*3/uL (0.1-1.2); Monocytes Percent Auto 7.3 % (2-11); Neutrophils Absolute Auto 5.2 x10*3/uL (2.0-8.3); Neutrophils Percent Auto 59.5 % (45-73); Platelet Count 238 X10*3/uL (160-400); Red Blood Count 4.96 X10*6/uL (4.60-5.80); White Blood Count 8.8 X10*3/uL (4.8-10.8)
[2023-03-13 12:23] LABS: Alanine Aminotransferase 39 U/L (0-40); Albumin Level 4.5 g/dL (3.5-5.0); Alkaline Phosphatase 93 U/L (39-117); Anion Gap 16 (12-20); Aspartate Amino Transferase 33 U/L (5-37); Bilirubin Total 0.5 mg/dL (0.0-1.0); Blood Urea Nitrogen 20 mg/dL (9-16); Calcium 10.1 mg/dL (8.4-10.2); Carbon Dioxide 31 mmol/L (22-29); Chloride 99 mmol/L (96-108); Estimated Glomerular Filt Rate > 60; Glucose Random 257 mg/dL (60-115); Potassium 4.5 mmol/L (3.3-5.1); Sodium 141 mmol/L (135-145); Total Protein 7.3 g/dL (6.5-8.0)
== END 2023-03-13 09:11 | disposition home or self-care (01) ==
LOC: HO.WFDLDS 09:10
PROVIDERS: Visit Provider Physician Assistant
DX: K58.9 Irritable bowel syndrome, unspecified (principal); K21.9 Gastro-esophageal reflux disease without esophagitis; R10.9 Unspecified abdominal pain; R11.2 Nausea with vomiting, unspecified
CPT/HCPCS: 36415; 80053; 85025; 99212

== ENCOUNTER → 2023-04-01 08:32 | Outpatient (BNVA) | payer MEDICARE, SELFPAY | PROVIDERS: PCP Internal Medicine; Visit Provider Dietitian, Registered | DX: E11.65 Type 2 diabetes mellitus with hyperglycemia (principal); Z79.4 Long term (current) use of insulin | CPT/HCPCS: 97803 ==

== ENCOUNTER → 2023-04-08 07:59 | Outpatient (BNVA) | payer MEDICARE, SELFPAY | PROVIDERS: PCP Internal Medicine; Visit Provider Internal Medicine | DX: E11.65 Type 2 diabetes mellitus with hyperglycemia (principal); E78.00 Pure hypercholesterolemia, unspecified; I10 Essential (primary) hypertension; E55.9 Vitamin D deficiency, unspecified; Z79.4 Long term (current) use of insulin; Z79.899 Other long term (current) drug therapy | CPT/HCPCS: 82947; 83036; 99212 ==

== ENCOUNTER → 2023-04-25 07:36 | Outpatient (REF) | payer MEDICARE, SELFPAY ==
--- NOTE | ~2023-04-25 | NM_ITS ---
EXAMINATION: NM RADIONUCLIDE SOLID FOOD GASTRIC EMPTYING 4-HOUR STUDY CLINICAL INFORMATION: Nausea with vomiting. COMPARISON: None available. TECHNIQUE: A standard meal consisting of 4 oz of Egg Beaters brand tagged with 1 microcuries Tc-99m Sulfur Colloid, 8 oz water and 2 slices of toast with jelly was administered orally to the patient. Images were obtained using a dual head gamma camera in the anterior and posterior projections over of the stomach immediately post ingestion and at hourly intervals up to 4 hours post ingestion. The anterior and posterior counts at each time interval were averaged using the geometric mean and expressed as percentage of the immediate post ingestion counts. FINDINGS: There is good visualization of activity in the stomach immediately post ingestion. As the study progresses, there is good clearance of activity from the stomach and visualization of progressively increasing small bowel activity. By the end of the study, there is almost no retention noted in the stomach. Retention in the stomach at each time interval was: 1 hour 74% (normal 37%-90%) 2 hours 52% (normal 30%-60%) 3 hours 33% 4 hours 28% (normal 0%-10%) NM/NM gastric emptying study IMPRESSION: Abnormal 4-hour solid food gastric emptying study.
== END ==
LOC: HO.NUCMED 07:36
PROVIDERS: PCP Internal Medicine; Visit Provider Physician Assistant
DX: R11.2 Nausea with vomiting, unspecified (principal); E11.9 Type 2 diabetes mellitus without complications
CPT/HCPCS: 78264; A9541

== ENCOUNTER 2023-04-25 12:10 | Outpatient (REF) | payer MEDICARE, SELFPAY ==
[2023-04-25 13:11] LABS: MANUAL DIFF FLAG NO
[2023-04-25 13:16] LABS: Basophils Absolute Auto 0.1 X10*3/uL (0.0-0.2); Basophils Percent Auto 0.6 % (0-2); Eosinophils Absolute Auto 0.2 X10*3/uL (0.0-0.4); Eosinophils Percent Auto 2.8 % (0-4); Hematocrit 42.6 % (42.0-52.0); Hemoglobin 14.9 g/dl (14.0-18.0); Imm Gran Abs Auto 0.02 X10*3/uL (0.00-0.03); Imm Gran Pct Auto 0.3 % (0.0-0.4); Lymphocytes Absolute Auto 3.1 X10*3/uL (1.2-4.9); Lymphocytes Percent Auto 39.7 % (20-40); Mean Corpuscular Hemoglobin 29.2 pg (27.0-33.0); Mean Corpuscular Volume 83.5 fL (80.0-98.0); Mean Platelet Volume 10.3 fL (9.4-12.4); Monocytes Absolute Auto 0.8 X10*3/uL (0.1-1.2); Monocytes Percent Auto 10.7 % (2-11); Neutrophils Absolute Auto 3.6 x10*3/uL (2.0-8.3); Neutrophils Percent Auto 45.9 % (45-73); Platelet Count 272 X10*3/uL (160-400); Red Cell Distribution Width 13.1 % (11.0-16.0); White Blood Count 7.7 X10*3/uL (4.8-10.8)
[2023-04-25 13:19] LABS: Appearance Urine Clear; Color Urine Yellow; Glucose Urine UA >=1000 mg/dL (Negative); Leukocyte Esterase Urine Negative (Negative); Nitrite Urine Negative (Negative); UMIC TRIGGER UACC YES; Urine Blood Negative (Negative); Urine Ketones 15 mg/dL (Negative); Urine Protein Negative (Neg-Trace)
[2023-04-25 13:26] LABS: Estimated Average Glucose 166 mg/dL; Hemoglobin A1c % 7.4 %
[2023-04-25 13:27] LABS: Bacteria Urine None Seen (None Seen); RBC Urine 0-2 /HPF (0-2); Squamous Epithelial Cell Urine 0-2 /HPF (0-2); WBC Urine 0-5 /HPF (0-5)
[2023-04-25 13:39] LABS: Alanine Aminotransferase 45 U/L (0-40); Albumin Level 4.6 g/dL (3.5-5.0); Alkaline Phosphatase 88 U/L (39-117); Anion Gap 16 (12-20); Aspartate Amino Transferase 29 U/L (5-37); Bilirubin Total 1.1 mg/dL (0.0-1.0); Blood Urea Nitrogen 31 mg/dL (9-16); Calcium 9.8 mg/dL (8.4-10.2); Carbon Dioxide 25 mmol/L (22-29); Chloride 102 mmol/L (96-108); Cholesterol 112 mg/dL; Estimated Glomerular Filt Rate 56; Glucose Fasting 204 mg/dL (60-99); HDL Cholesterol 36 mg/dL; LDL Cholesterol Calculated 60 mg/dl; Potassium 3.7 mmol/L (3.3-5.1); Sodium 139 mmol/L (135-145); Total Protein 7.6 g/dL (6.5-8.0); Triglycerides 82 mg/dL
[2023-04-25 13:54] LABS: TSH reflex Free T4 1.85 uIU/mL (0.32-4.0); Vitamin D 25-OH Total 42.5 ng/mL (>30)
[2023-04-25 14:12] LABS: Creatinine Urine 158.17 mg/dL; Microalbum/Creatinine Ratio Ur 25.2 ug/mg cr
== END 2023-04-25 12:11 | disposition home or self-care (01) ==
LOC: HO.10HDL 12:10
PROVIDERS: Visit Provider Internal Medicine
DX: E78.00 Pure hypercholesterolemia, unspecified (principal); I10 Essential (primary) hypertension; E11.9 Type 2 diabetes mellitus without complications; E55.9 Vitamin D deficiency, unspecified; R30.0 Dysuria; R11.2 Nausea with vomiting, unspecified
CPT/HCPCS: 36415; 80053; 80061; 81001; 82043; 82306; 83036; 84443; 85025

== ENCOUNTER → 2023-06-12 08:43 | Outpatient (BNVA) | payer MEDICARE, SELFPAY | PROVIDERS: PCP Internal Medicine; Visit Provider Physician Assistant ==

== ENCOUNTER 2023-07-25 10:02 | Outpatient (REF) | payer MEDICARE, SELFPAY ==
[2023-07-25 10:37] LABS: MANUAL DIFF FLAG NO
[2023-07-25 10:42] LABS: Basophils Percent Auto 0.6 % (0-2); Eosinophils Absolute Auto 0.2 X10*3/uL (0.0-0.4); Eosinophils Percent Auto 2.1 % (0-4); Hematocrit 41.7 % (42.0-52.0); Hemoglobin 14.4 g/dl (14.0-18.0); Imm Gran Abs Auto 0.03 X10*3/uL (0.00-0.03); Imm Gran Pct Auto 0.4 % (0.0-0.4); Lymphocytes Absolute Auto 2.3 X10*3/uL (1.2-4.9); Lymphocytes Percent Auto 31.7 % (20-40); Mean Corpuscular HGB Conc 34.5 g/dl (31.0-36.0); Mean Corpuscular Volume 83.9 fL (80.0-98.0); Mean Platelet Volume 10.2 fL (9.4-12.4); Monocytes Absolute Auto 0.6 X10*3/uL (0.1-1.2); Monocytes Percent Auto 7.9 % (2-11); Neutrophils Absolute Auto 4.1 x10*3/uL (2.0-8.3); Neutrophils Percent Auto 57.3 % (45-73); Platelet Count 221 X10*3/uL (160-400); Red Blood Count 4.97 X10*6/uL (4.60-5.80); White Blood Count 7.1 X10*3/uL (4.8-10.8)
[2023-07-25 10:59] LABS: Estimated Average Glucose 157 mg/dL; Hemoglobin A1c % 7.1 % (<6.0)
[2023-07-25 11:00] LABS: Alanine Aminotransferase 60 U/L (0-40); Albumin Level 4.7 g/dL (3.5-5.0); Alkaline Phosphatase 87 U/L (39-117); Anion Gap 14 (12-20); Aspartate Amino Transferase 48 U/L (5-37); Bilirubin Total 0.7 mg/dL (0.0-1.0); Blood Urea Nitrogen 17 mg/dL (9-16); Calcium 10.2 mg/dL (8.4-10.2); Carbon Dioxide 28 mmol/L (22-29); Chloride 102 mmol/L (96-108); Cholesterol 130 mg/dL (<200); Estimated Glomerular Filt Rate > 60; Glucose Random 178 mg/dL (60-115); HDL Cholesterol 42 mg/dL (>40); LDL Cholesterol Calculated 74 mg/dL (<100); Sodium 140 mmol/L (135-145); Total Protein 8.1 g/dL (6.5-8.0); Triglycerides 74 mg/dL (<150)
[2023-07-25 11:21] LABS: TSH reflex Free T4 2.71 uIU/mL (0.32-4.0); Vitamin D 25-OH Total 50.9 ng/mL (>30)
[2023-07-25 11:31] LABS: Folate 13.5 ng/mL (> or = 4.0); Vitamin B12 557 pg/mL (200-900)
[2023-07-26 18:38] LABS: LDL Cholesterol Direct 79 mg/dL (<100)
== END 2023-07-25 10:03 | disposition home or self-care (01) ==
LOC: HO.10HDL 10:02
PROVIDERS: Internal Medicine; Visit Provider Internal Medicine
DX: E11.9 Type 2 diabetes mellitus without complications (principal); I10 Essential (primary) hypertension; E11.65 Type 2 diabetes mellitus with hyperglycemia; E53.8 Deficiency of other specified B group vitamins; E55.9 Vitamin D deficiency, unspecified; Z79.4 Long term (current) use of insulin
CPT/HCPCS: 36415; 80053; 80061; 82306; 82607; 82746; 83036; 83721; 84443; 85025

== ENCOUNTER 2023-07-26 09:42 | Outpatient (REF) | payer MEDICARE, SELFPAY ==
[2023-07-26 10:59] LABS: Appearance Urine Clear; Color Urine Yellow; Glucose Urine UA 500 mg/dL (Negative); Leukocyte Esterase Urine Negative (Negative); Nitrite Urine Negative (Negative); PH 5.5 (5.0-9.0); Specific Gravity - Urine 1.025 (1.005-1.025); Urine Blood Negative (Negative); Urine Ketones Trace mg/dL (Negative); Urine Protein Trace mg/dL (Neg-Trace)
[2023-07-26 12:50] LABS: Creatinine Urine 199.63 mg/dL
== END 2023-07-26 09:43 | disposition home or self-care (01) ==
LOC: HO.10HDLNP 09:42
PROVIDERS: Internal Medicine; Visit Provider Internal Medicine
DX: R30.0 Dysuria (principal); E11.65 Type 2 diabetes mellitus with hyperglycemia; Z79.4 Long term (current) use of insulin
CPT/HCPCS: 81003; 82043

== ENCOUNTER 2023-08-22 09:00 | Day surgery (SDC) | payer MEDICARE, SELFPAY ==
[2023-08-20 15:08] VITALS: BMI 26.5
--- NOTE | 2023-08-21 12:05 | HO.ANESPROP2 ---
Documented by User: Kaitlin Gutiérrez NP 08/21/23 12:07 HPI - Anesthesia Eval Consult details Narrative: 68yo M for Upper Endoscopy and Colonoscopy [facility] Active Problems Active Problems: All Active Problems (Updated 08/20/23 @ 15:12 by Lashanda Abreu RN) History of adenomatous polyp of colon (Acute) Complaint of melena (Acute) Nausea & vomiting (Acute) Abdominal pain (Acute) Elevated LFTs (Acute) Acid reflux (Acute) Chronic left shoulder pain (Acute) Physical exam (Acute) Long-term insulin use in type 2 diabetes (Acute) Vitamin D deficiency (Acute) Arthritis (Acute) Hyperlipidemia (Acute) Diplopia (Acute) Type II diabetes mellitus (Acute) Diabetes (Acute) Overweight (BMI 25.0-29.9) (Acute) GERD (gastroesophageal reflux disease) (Acute) Pure hypercholesterolemia (Acute) Diabetes mellitus (Acute) Benign essential hypertension (Acute) CVA (cerebral vascular accident) (Acute) T2DM (type 2 diabetes mellitus) (Acute) Long-term insulin use (Acute) HTN (hypertension) (Acute) Anxiety (Acute) High cholesterol (Acute) Past Medical History Medical History (Updated 08/20/23 @ 15:12 by Lashanda Abreu RN) Overweight (BMI 25.0-29.9) GERD (gastroesophageal reflux disease) Pure hypercholesterolemia Benign essential hypertension CVA (cerebral vascular accident) T2DM (type 2 diabetes mellitus) Long-term insulin use High cholesterol HTN (hypertension) Anxiety Family History Family History Father No problems noted. Mother Pre-diabetes Thyroid disease Surgical History Surgical History (Updated 08/20/23 @ 15:04 by Lashanda Abreu RN) H/O colonoscopy H/O uvulectomy Social History Social History Housing: Apartment Are you a primary day care aide to a significant other at home: No Do you presently have visiting nurse or other home services: No Alcohol intake: never Patient Tobacco Use Status: Former Tobacco user Tobacco use type: Cigarette Cigarette Packs Per Day: 1 Years Smoked: 12 e-Cigarette/Vaping Use: Never Used Second Hand Smoke Exposure: Yes service: No Current occupational status: retired Cognitive needs: No Hearing needs: No Vision needs: Yes (glasses) Meds Allergies Allergy/AdvReac Type Severity Reaction Status Date / Time cyclobenzaprine Allergy Itching Verified 06/12/23 08:44 [From Flexeril] Home Medications Medication Instructions Recorded Confirmed Last Taken Type insulin lispro 100 unit/mL 8 unit subcut TID 01/15/23 08/20/23 Unknown History subcutaneous pen (Humalog KwikPen (U-100) Insulin) insulin glargine 100 unit/mL (3 15 unit subcut QPM 08/20/23 08/20/23 Unknown History mL) subcutaneous pen (Lantus Solostar U-100 Insulin) Exam Exam Date and Time: August 21, 2023 1205 Height,Weight and Vital Signs: Height 5 ft 7 in Weight 76.657 kg Pertinent Lab Results Pertinent Lab Results: Laboratory Tests 07/25/23 10:10 WBC 7.1 Hgb 14.4 Hct 41.7 L Plt Count 221 Sodium 140 Potassium 4.0 Chloride 102 Carbon Dioxide 28 BUN 17 H Creatinine 0.93 Assessment and Plan Assessment Anesthesia Assessment: Chart Reviewed Documented by User: Carson Carney MD 08/22/23 17:40 HPI - Anesthesia Eval Consult details Narrative: 68yo M for Upper Endoscopy and Colonoscopy TIA in 2020 , visual changes . DM [facility] Past Medical History Medical History (Updated 08/20/23 @ 15:12 by Lashanda Abreu RN) Overweight (BMI 25.0-29.9) GERD (gastroesophageal reflux disease) Pure hypercholesterolemia Benign essential hypertension CVA (cerebral vascular accident) T2DM (type 2 diabetes mellitus) Long-term insulin use High cholesterol HTN (hypertension) Anxiety Functional capacity: independent ambulation Family History Family History Father No problems noted. Mother Pre-diabetes Thyroid disease Family history of problems with anesthesia: No Surgical History Surgical History (Updated 08/20/23 @ 15:04 by Lashanda Abreu RN) H/O colonoscopy H/O uvulectomy History of Problems with Anesthesia: No Social History Social History Housing: Apartment Are you a primary day care aide to a significant other at home: No Do you presently have visiting nurse or other home services: No Alcohol intake: never Patient Tobacco Use Status: Former Tobacco user Tobacco use type: Cigarette Cigarette Packs Per Day: 1 Years Smoked: 12 e-Cigarette/Vaping Use: Never Used Second Hand Smoke Exposure: Yes service: No Current occupational status: retired Cognitive needs: No Hearing needs: No Vision needs: Yes (glasses) Meds Allergies Allergy/AdvReac Type Severity Reaction Status Date / Time cyclobenzaprine Allergy Itching Verified 06/12/23 08:44 [From Flexeril] Home Medications Medication Instructions Recorded Confirmed Last Taken Type insulin lispro 100 unit/mL 8 unit subcut TID 01/15/23 08/20/23 Unknown History subcutaneous pen (Humalog KwikPen (U-100) Insulin) insulin glargine 100 unit/mL (3 15 unit subcut QPM 08/20/23 08/20/23 Unknown History mL) subcutaneous pen (Lantus Solostar U-100 Insulin) Exam Airway Mallampati Class: IV Denture: Upper Partial: Lower Loose/Missing/Broken Teeth: Yes Assessment and Plan Assessment Anesthesia Assessment: Anesthesia Plan Discussed Final Anesthetic Review Family History of Problems with Anesthesia: No History of Problems with Anesthesia: No NPO: Yes ASA Class: III Final Preanesthetic Review: Meds/Allgs Chart Reviewed, Consent Obtained/Reviewed and Anes Risks/Benef Reviewed Patient Risk: Intermediate Procedure Risk: Intermediate Anesthetic Plan Anesthetic Plan: MAC: and Agree w/ Assess. and Plan Disposition: Standard PACU
[2023-08-22 11:02] VITALS: BP 140/68; PULSE 77; RESP 16; TEMP 36.3; O2SAT 99; BMI 26.6
[2023-08-22 11:03] LABS: Glucose, Whole Blood 157 mg/dL (60-115)
--- NOTE | 2023-08-22 11:44 | MHC.SHP ---
Pre-Procedural Eval Section A Date of Service: 08/22/23 Section B Chief Complaint: Personal history of colonic polyps, Nausea Relevant Family History (Specify if Yes): No Relevant Social History: None Present Medications: see Short Stay Collaborative assessment Medical History: Significant History (Overweight (BMI 25.0-29.9) GERD (gastroesophageal reflux disease) Pure hypercholesterolemia Benign essential hypertension CVA (cerebral vascular accident) T2DM (type 2 diabetes mellitus) Long-term insulin use High cholesterol HTN (hypertension) Anxiety) History of Previous Operations: Relevant previous surgery/procedure and date(s) (uvulectomy ) Allergies: Allergies Allergy/AdvReac Type Severity Reaction Status Date / Time cyclobenzaprine Allergy Itching Verified 06/12/23 08:44 [From Flexeril] Review of Systems Sugical H&P ROS: Negative: Constitution, Cardiovascular, Respiratory, Neurological, Psychiatric, Hem-Onc, Allergic/Immunologic, Gastrointestinal, Genitourinary, Musculoskeletal, Integumentary, Endocrine and Eyes/Ears/Nose/Throat Exam Surgical H&P Exam: Normal: HEENT, Normal: Heart, Normal: Lungs, Normal: Extremities, Normal: Abdomen, Normal: Skin and Normal: Neurological Plan Diagnosis/Plan: Unchanged I have reviewed the history and physical and performed a pertinent physical examination on my patient. No changes have occurred unless specified. Time Spent With Patient Time: Total time managing care of this patient today ____ minutes.
--- NOTE | 2023-08-22 11:46 | P.OP_ITS ---
Operative Note Operative Note Date of Service: 08/22/23 Narrative: Operative Information Procedure Description: EGD, Colonoscopy Indication: Nausea and hx of colon polyps Anesthesia: MAC FLEXIBLE TRANSORAL UPPER GASTROINTESTINAL ENDOSCOPY AND COLONOSCOPY PROCEDURE NOTE UPPER ENDOSCOPY Consent: Indications for the procedure and potential complications of bleeding, perforation, reaction to medications and missed diagnosis were discussed with the patient and informed consent was obtained. Instrument: Olympus GIF H 190 J mid size upper endoscope Monitoring: Vital signs and clinical assessment, continuous EKG monitoring, Pulse oximetry, Carbon Dioxide monitoring and blood pressure monitoring were done throughout the procedure. Procedure: The patient was placed in the left lateral decubitis position and pre-procedure medications were administered and a bite block was placed. The endoscope was inserted into the mouth and advanced under direct vision to the third part of duodenum. A careful inspection was made as the upper endoscope was withdrawn including a retroflexed examination of the proximal stomach; Findings and interventions are described below. Findings: Larynx:normal Esophagus: GE junction at 38 cm, diaphragm hiatus at 38 cm, erosive esophagitis noted at GEJ, bx taken, as well as from proximal and distal esophagus Stomach: PAtchy erythema. Biopsies were obtained. Grade 2 flap valve on retroflexed examination of the cardia. There appeared to be reduced gastric motility Duodenum: Mild erosive duodenitis, bx taken Intervention: Biopsies as noted above COLONOSCOPY Instrument: Olympus variable stiffness pediatric scope 190L Colonoscopy Monitoring: Vital signs and clinical assessment, continuous EKG monitoring, Pulse oximetry, Carbon Dioxide monitoring and blood pressure monitoring were done throughout the procedure. Colon withdrawal time was 10 minutes. Procedure: The patient was placed in the left lateral decubitis position and pre-procedure medications were administered. After a digital rectal examination of the ano-rectum, the video colonoscope was inserted into the rectum and advanced through the colon to the cecum/TI. The colonoscope was slowly withdrawn in a retrograde panoramic fashion and the colon mucosa was carefully examined including a retroflexed view of the rectum. Findings and interventions are described below. Procedure Difficulty:moderate, pressure applied LUQ Findings: Terminal Ileum-normal Cecum:normal Ascending Colon: normal Transverse Colon -normal Descending Colon:normal Sigmoid Colon: normal Rectum: Retroflexion with moderate sized, slightly inflammed internal hemorrhoids, grade I Anorectum - normal Colon preparation: Darwin Bowel Preparation Scale Right colon; 1-2 Transverse colon: 2 Left colon; 1-2 (0 = Unprepared colon segment with mucosa not seen due to solid stool that cannot be cleared. 1 = Portion of mucosa of the colon segment seen, but other areas of the colon segment not well seen due to staining, residual stool and/or opaque liquid. 2 = Minor amount of residual staining, small fragments of stool and/or opaque liquid, but mucosa of colon segment seen well. 3 = Entire mucosa of colon segment seen well with no residual staining, small fragments of stool or opaque liquid) Impression and Post Procedure Diagnosis: Endoscopy Findings: gastritis erosive esophagitis duodenitis possible gastroparesis Colonoscopy Findings: internal hemorrhoids Plan: Await Pathology results Repeat Colonoscopy in 3-4 years due to areas of fair prep or earlier if clinically indicated High fiber diet leaflet avoid straining at stool, epsom salts and sitz bath, anusol supps or cream If H pylori treat can consider low dose PPI, might need GES if ongoing sx Above findings were reviewed with the patient and relevant handouts were provided if indicated.
[2023-08-22 12:41] VITALS: BP 102/64; PULSE 83; RESP 13; TEMP 36.4; O2SAT 99
[2023-08-22 12:56] VITALS: BP 116/73; PULSE 84; RESP 16; TEMP 36.8; O2SAT 99
== END 2023-08-22 13:23 | disposition home or self-care (01) ==
PROVIDERS: PCP Internal Medicine; Visit Provider Internal Medicine Gastroenterology
PROC: (CPT 43239; principal; 2023-08-22 11:20)
DX: Z12.11 Encounter for screening for malignant neoplasm of colon (principal); Z86.010 Personal history of colon polyps; K64.0 First degree hemorrhoids; R11.2 Nausea with vomiting, unspecified; K29.70 Gastritis, unspecified, without bleeding; K29.80 Duodenitis without bleeding; K20.80 Other esophagitis without bleeding; K44.9 Diaphragmatic hernia without obstruction or gangrene; I10 Essential (primary) hypertension; F41.1 Generalized anxiety disorder; E78.00 Pure hypercholesterolemia, unspecified; E11.9 Type 2 diabetes mellitus without complications; Z79.4 Long term (current) use of insulin; Z79.899 Other long term (current) drug therapy; Z88.8 Allergy status to other drugs, medicaments and biological substances; Z86.73 Personal history of transient ischemic attack (TIA), and cerebral infarction without residual deficits; Z87.891 Personal history of nicotine dependence
CPT/HCPCS: 43239; G0105; 82947; 88305; 88342

== ENCOUNTER → 2023-08-22 09:00 | Outpatient (BNV) | payer MEDICARE, SELFPAY | PROVIDERS: PCP Internal Medicine; Visit Provider Internal Medicine Gastroenterology | DX: Z12.11 Encounter for screening for malignant neoplasm of colon (principal); Z86.010 Personal history of colon polyps; K29.70 Gastritis, unspecified, without bleeding; K29.80 Duodenitis without bleeding; K20.90 Esophagitis, unspecified without bleeding; K64.0 First degree hemorrhoids | CPT/HCPCS: 43239; G0105 ==

== ENCOUNTER 2023-09-05 10:35 | Outpatient (AMB) | payer MEDICARE, SELFPAY ==
--- NOTE | 2023-09-05 10:40 | MHC.OFFVIS ---
Intake Vital Signs 09/05/23 10:41 Height 5 ft 7 in Weight 169 lb 12.095 oz BMI 26.6 BP 136/70 Blood Pressure Location Lt brachial Position Sitting Pulse 78 Pulse Oximetry (%) 98 Intake Visit Reasons: s/p egd/colon- Yeager Intake Note: Edmond presents in the office as a follow up egd/colo. CC: He is not having any concerns today Allergies cyclobenzaprine [From Flexeril] Allergy (Verified 09/05/23 10:45) Itching Medication List - Last Reconciled 09/05/23 by Mildred Guadarrama PA-C amlodipine 10 mg PO DAILY 90 days blood pressure monitor As directed cholecalciferol (vitamin D3) 50 mcg PO DAILY 90 days flash glucose sensor (FreeStyle Tip 14 Day Sensor kit) As directed - 12 weeks' supply hydrochlorothiazide 12.5 mg PO DAILY 90 days insulin glargine (Lantus Solostar U-100 Insulin) 15 units See Protocol subcut QPM metformin 1,000 mg PO BID pantoprazole 20 mg PO DAILY peg-electrolyte soln 420 gram 240 mL PO ONCE 1 day simvastatin 20 mg PO BEDTIME 90 days valsartan 320 mg PO DAILY 90 days HPI HPI Comments History of Present Illness Details A 68 y/o male with reflux. early satiety f/u after EGD colonoscopy He has had no further issues with nausea or vomiting- he feels he is digesting well- Bowels have been normal. Reviewed procedure report, pathology and recommendation No nausea, vomiting, hematemesis, hematochezia fever chills PFSH Medical History (Updated 09/11/23 @ 08:15 by Mildred Guadarrama PA-C) Overweight (BMI 25.0-29.9) GERD (gastroesophageal reflux disease) Pure hypercholesterolemia Benign essential hypertension CVA (cerebral vascular accident) T2DM (type 2 diabetes mellitus) Long-term insulin use High cholesterol HTN (hypertension) Anxiety Surgical History (Updated 08/28/23 @ 14:42 by Suzanne Harris) History of esophagogastroduodenoscopy (EGD) H/O colonoscopy H/O uvulectomy Family History Father No problems noted. Mother Pre-diabetes Thyroid disease Social History Housing: Apartment Are you a primary health care / medical job titles to a significant other at home: No Do you presently have visiting nurse or other home services: No Alcohol intake: never Patient Tobacco Use Status: Former Tobacco user Tobacco use type: Cigarette Cigarette Packs Per Day: 1 Years Smoked: 12 e-Cigarette/Vaping Use: Never Used Second Hand Smoke Exposure: Yes service: No Current occupational status: retired Cognitive needs: No Hearing needs: No Vision needs: Yes (glasses) Review of Systems Const All systems reviewed & are unremarkable except as noted in HPI and below Card Denies chest pain and Denies dyspnea Resp Denies dyspnea GI Denies abdominal pain Physical Exam Vital Signs: Last Vital Signs Pulse 78 09/05/23 10:41 BP 136/70 09/05/23 10:41 Pulse Ox 98 09/05/23 10:41 BMI result Body Mass Index 26.6 Results Reviewed Results Reviewed: Endoscopy Findings: gastritis erosive esophagitis duodenitis possible gastroparesis Colonoscopy Findings: internal hemorrhoids Plan: Await Pathology results Repeat Colonoscopy in 3-4 years due to areas of fair prep or earlier if clinically indicated High fiber diet leaflet avoid straining at stool, epsom salts and sitz bath, anusol supps or cream If H pylori treat can consider low dose PPI, might need GES if ongoing sx Above findings were reviewed with the patient and relevant handouts were provided if indicated. e/Sex: 68/M Attending: Dustin Yeager MD : 1955 Submitted by: Dustin Yeager MD Copies to: Mayank Darling MD MR #: [id number] Status: [facility] Collected: 08/22/23 Location: [facility] Received: 08/22/23 Diagnosis A. Duodenum, biopsy: Chronic inactive duodenitis. B. Stomach, biopsy: Antral-type and oxyntic mucosa within normal limits; no Helicobacter organisms seen. C. GE junction, biopsy: - Anthony esophagus with background mild chronic inactive inflammation. - No dysplasia seen. - Squamous mucosa within normal limits. D. Esophagus, distal, biopsy: Squamous epithelium within normal limits; no inflammation seen. E. Esophagus, proximal, biopsy: Squamous epithelium within normal limits; no inflammation seen. Clinical History Pre-Op Dx: Personal history of colonic polyps, nausea Post-Op Dx: Duodenitis, esophagitis, hemorrhoids Microscopic Description A-E. Microscopic sections reviewed. Immunostain for H. pylori is non-reactive (B). Material Received A. Duodenum bx's B. Stomach bx's C. GE junction bx's D. Distal esophagus bx's E. 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
[2023-09-05 10:41] VITALS: BP 136/70; PULSE 78; O2SAT 98; BMI 26.6
== END 2023-09-05 11:26 | disposition home or self-care (01) ==
PROVIDERS: PCP Internal Medicine; Visit Provider Physician Assistant
DX: K22.70 Barrett's esophagus without dysplasia (principal)
CPT/HCPCS: 99213

== ENCOUNTER → 2023-09-05 10:35 | Outpatient (BNVA) | payer MEDICARE, SELFPAY | PROVIDERS: PCP Internal Medicine; Visit Provider Physician Assistant | DX: K22.70 Barrett's esophagus without dysplasia (principal); K29.70 Gastritis, unspecified, without bleeding; K29.80 Duodenitis without bleeding; K64.8 Other hemorrhoids; Z98.890 Other specified postprocedural states | CPT/HCPCS: 99212 ==

== ENCOUNTER 2023-09-16 14:22 | Outpatient (AMB) | payer MEDICARE, SELFPAY ==
[2023-09-16 14:26] VITALS: BP 120/62; PULSE 68; O2SAT 97; BMI 27.4
--- NOTE | 2023-09-16 14:26 | MHC.PC.OV ---
Vital Signs 09/16/23 14:26 Height 5 ft 7 in Weight 175 lb BMI 27.4 BP 120/62 Blood Pressure Location Lt brachial Position Sitting Pulse 68 Pulse Source Pulse Oximeter Pulse Oximetry (%) 97 Oxygen Delivery Method Room Air Intake Visit Reasons: DM, hyperlipidemia, HTN Credit Operations Processor Required: No Accompanied by: Self / Same As Patient Allergies cyclobenzaprine [From Flexeril] Allergy (Verified 09/16/23 15:09) Itching Medication List - Last Reconciled 09/16/23 by Mayank Darling MD amlodipine 10 mg PO DAILY 90 days blood pressure monitor As directed cholecalciferol (vitamin D3) 50 mcg PO DAILY 90 days flash glucose sensor (FreeStyle Tip 14 Day Sensor kit) As directed - 12 weeks' supply hydrochlorothiazide 12.5 mg PO DAILY 90 days insulin glargine (Lantus Solostar U-100 Insulin) 15 units See Protocol subcut QPM insulin lispro (Humalog KwikPen (U-100) Insulin) 4 to 12 units SQ TID with meals per sliding scale metformin 1,000 mg PO BID pantoprazole 20 mg PO DAILY simvastatin 20 mg PO BEDTIME 90 days valsartan 320 mg PO DAILY 90 days Tobacco use date assessed: 09/16/23 Fall risk assessment: No Falls in past year Last assessed Fall Risk: 09/16/23 Dental Screening Dental Screen Date: 09/16/23 Did you have a dental visit in the last 12 months?: Yes Did you have a dental problem in the last 6 months where you did not have access to dental care?: No Was dental information given to patient?: Patient has dentist HPI DM, hyperlipidemia, HTN HPI Details Patient comes in today for his follow up visit States that he feels okay Had his colonoscopy done by Dr. Yeager last month - was advised that he needs repeat colonoscopy in 3 to 4 years due to areas of fair prep He denies any headaches or dizziness Denies any chest pains, no SOB No nausea/vomiting, no abdominal pain No change in bowel habits noted Had his follow up labs done a couple of months ago together with labs ordered by Dr. Allred - to discuss his results [facility] Medical History Overweight (BMI 25.0-29.9) GERD (gastroesophageal reflux disease) Pure hypercholesterolemia Benign essential hypertension CVA (cerebral vascular accident) T2DM (type 2 diabetes mellitus) Long-term insulin use High cholesterol HTN (hypertension) Anxiety Surgical History History of esophagogastroduodenoscopy (EGD) H/O colonoscopy H/O uvulectomy Family History Father No problems noted. Mother Pre-diabetes Thyroid disease Social History Housing: Apartment Are you a primary respite care provider to a significant other at home: No Do you presently have visiting nurse or other home services: No Alcohol intake: never Patient Tobacco Use Status: Former Tobacco user Tobacco use type: Cigarette Cigarette Packs Per Day: 1 Years Smoked: 12 e-Cigarette/Vaping Use: Never Used Second Hand Smoke Exposure: Yes service: No Current occupational status: retired Cognitive needs: No Hearing needs: No Vision needs: Yes (glasses) Questionnaire PHQ-9 Over the last 2 weeks, how often have you been bothered by any of the following problems? 1. Little interest or pleasure in doing things: not at all 2. Feeling down, depressed, or hopeless: not at all 3. Trouble falling or staying asleep, or sleeping too much: not at all 4. Feeling tired or having little energy: not at all 5. Poor appetite or overeating: not at all 6. Feeling bad about yourself - or that you are a failure or have let yourself or your family down: not at all 7. Trouble concentrating on things, such as reading the newspaper or watching television: not at all 8. Moving or speaking so slowly that other people could have noticed. Or the opposite - being so fidgety or restless that you have been moving around a lot more than usual: not at all 9. Thoughts that you would be better off or of hurting yourself in some way: not at all Total score: 0 Depression Screening Interpretation: Negative Depression Screening Done: Yes 42586 - PHQ-9 Billing: Yes Source: Developed by Drs. Warren King, Daphne B.Jose Antonio Hester and colleagues, with an educational marla from [employer]. Thrive Questionnaire Date Thrive assessed: 09/16/23 I am a: Patient What is your living situation today?: I have a steady place to live Within the past 12 months, did the food you bought not last and you didn't have the money to get more?: Never true Within the past 12 months, did you worry whether your food would run out before you got money to buy more?: Never true Do you have trouble paying for medicines?: No Do you have trouble getting transportation to medical appointments?: No Do you have trouble paying your heating and electricity bill?: No Do you have trouble taking care of your child, family member or friend?: No Do you have trouble with day-to-day activities such as bathing, preparing meals, shopping, managing finances, etc.?: No Are you currently unemployed and looking for a job?: No Are you interested in more education?: No Please select the resources that you would like help with: None Currently or been in a relationship where the following occur: no concerns reported AUDIT C Alcohol Use Questionnaire (AUDIT-C) 1. How often do you have a drink containing alcohol?: Never 3. How often do you have six or more drinks on one occasion?: Never Total Score: 0 Score Reviewed/Action Taken: Yes DEYVI-7 AMB Questionnaire DEYVI-7 Date DEYVI - 7 assessed: 09/16/23 Feeling nervous, anxious, or on edge: 0 = Not at all Not being able to stop or control worryin = Not at all Worrying too much about different things: 0 = Not at all Trouble relaxin = Not at all Being so restless that it is hard to sit still: 0 = Not at all Becoming easily annoyed or irritable: 0 = Not at all Feeling afraid as if something awful might happen: 0 = Not at all Total DEYVI-7 score (0-4 normal; 5-9 mild; 10-14 moderate; 15-21 severe): 0 Source: Developed by Drs. Warren King, Jose Antonio Aponte and colleagues, with an educational marla from [employer]. Review of Systems Const Denies fatigue, Denies fever(s) and Denies headache(s) ENT Denies dysphagia, Denies dizziness, Denies otalgia, Denies headache(s), Denies odynophagia and Denies sore throat Card Denies chest pain, Denies palpitations and Denies dyspnea Resp Denies cough and Denies dyspnea GI Denies abdominal pain, Denies constipation, Denies dysphagia, Denies heartburn, Denies diarrhea, Denies nausea, Denies odynophagia and Denies vomiting Denies dysuria, Denies nocturia and Denies urinary frequency Musc Denies back pain Skin/Breast Denies rash Neuro Denies dizziness and Denies headache(s) Endo Denies fatigue and Denies palpitations Physical exam (Primary Care) Vital Signs: Last Vital Signs Pulse 68 09/16/23 14:26 BP 120/62 09/16/23 14:26 Pulse Ox 97 09/16/23 14:26 Oxygen Delivery Method Room Air 09/16/23 14:26 BMI result Body Mass Index 27.4 Tobacco/Smoking Status: Tobacco use Status Tobacco use date assessed 09/16/23 09/16/23 14:29 Patient Tobacco Use Status Former Tobacco user 09/16/23 14:29 Tobacco use type Cigarette 09/16/23 14:29 e-Cigarette/Vaping Use Never Used 09/16/23 14:29 PHQ-9: PHQ-9 Score PHQ-9: Total score 0 09/16/23 14:37 Depression Screening Interpretation: Negative Thrive Assessment: Date of Thrive Assessment Date Thrive assessed 09/16/23 09/16/23 14:29 Currently or been in a relationship where the following occur: no concerns reported Const General: no acute distress and alert HENMT Ears: TM's normal bilaterally and EAC's normal Throat: Yes posterior oropharynx normal and Yes tonsils normal (no TP congestion) Neck Neck: Yes no lymphadenopathy and Yes supple Resp Auscultation: clear to auscultation bilaterally, no rales and no wheezes Cardio Rate: regular rate Rhythm: regular rhythm Heart sounds: no murmurs GI Palpation (GI): Soft to palpation and nontender Auscultation: normal bowel sounds Back/Spine/Pelvis Thoracic/Lumbar Spine: No lumbar spinal tenderness Skin Rashes: no rashes Extrem General: Yes no clubbing, cyanosis or edema Results Reviewed Results Reviewed: Laboratory Tests 07/25/23 07/25/23 07/26/23 10:10 10:10 05:00 WBC 7.1 Hgb 14.4 Hct 41.7 L Plt Count 221 Sodium 140 Potassium 4.0 Creatinine 0.93 Estimated GFR > 60 Random Glucose 178 H Hemoglobin A1c % 7.1 H Calcium 10.2 AST 48 H ALT 60 H Triglycerides 74 Cholesterol 130 LDL Cholesterol Direct 79 LDL Cholesterol, Calc 74 Vitamin B12 557 25-OH Vitamin D Total 50.9 TSH 2.71 Ur Specific Baker 1.025 Urine Protein Trace Urine Glucose (UA) 500 H Urine Blood Negative Microalb/Creat Ratio 21.0 Assessment and Plan Assessment & Plan (1) Diabetes mellitus: Code(s): E11.9 - Type 2 diabetes mellitus without complications Qualifiers: Diabetes mellitus type: type 2 Diabetes mellitus assisted insulin use: with terminal gauger use Diabetes mellitus complication status: without complication Qualified Code(s): E11.9 - Type 2 diabetes mellitus without complications; Z79.4 - correction (current) use of insulin Plan: HgbA1c was at 7.1% on her labs done back in July 2023 (in-office HgbA1c was at 7.9% on his labs done at the diabetes clinic a few months previously) - goal is at least <7.5% Recalls that he was advised by endocrinology at a previous visit with them that his sugar was too tightly controlled based on his age and he needs to loosen his control a little bit Reinforced diabetic diet Continue Lantus at 10 to 15 units SQ QD and Humalog 4 to 12 units TID with meals; continue Metformin 1000 mg BID Was also on Ozempic 0.5 mg SQ once a week previously but he could not afford the co-pay - was reportedly being asked to pay around $1100 / month for the Rx Follow up with endocrinology as scheduled (2) Benign essential hypertension: Code(s): I10 - Essential (primary) hypertension Plan: Reinforced low sodium diet - goal is systolic BP of 120 to 130 mm or less Continue Valsartan 320 mg QD, HCTZ 12.5 mg QD and Amlodipine 10 mg QD (3) Pure hypercholesterolemia: Code(s): E78.00 - Pure hypercholesterolemia, unspecified Plan: Results of his labs done a couple of months ago reviewed and discussed with patient Reinforced low cholesterol diet Continue Simvastatin 20 mg QD Will recheck his labs and fasting lipids in 4 months for fo (4) Vitamin D deficiency: Code(s): E55.9 - Vitamin D deficiency, unspecified Plan: Continue Vitamin D3 2000 units QD Will recheck Vitamin D level in a few months for follow up (5) Diplopia: Code(s): H53.2 - Diplopia Plan: Transient; occurred back in November 2021 and spontaneously resolved with NO recurrence since CT and MRI of the brain done at the time both came back negative - unlikely that his symptoms at the time were from CVA but TIA cannot be entirely ruled out States that he was seen by ophthalmology as well back then and was advised that his eye exam came out normal Continue Aspirin 81 mg QD - patient was advised that he really does not need to continue this but states that he feels more comfortable continuing on it and it is not really bothering him (6) GERD (gastroesophageal reflux disease): Code(s): K21.9 - Gastro-esophageal reflux disease without esophagitis Qualifiers: Esophagitis presence: without esophagitis Qualified Code(s): K21.9 - Gastro-esophageal reflux disease without esophagitis Plan: Dietary restrictions reinforced Continue Pantoprazole 40 mg QD (7) Elevated LFTs: Code(s): R79.89 - Other specified abnormal findings of blood chemistry Plan: Cautioned that his LFTs were still slightly elevated on his labs done a couple of months ago although they are down from previous Will recheck his LFTs in 4 months for follow up Advised again that if his LFTs remain elevated or get worse, will need to send him for abdominal sonogram for further evaluation (8) Overweight (BMI 25.0-29.9): Code(s): E66.3 - Overweight Plan: Reinforced diet/exercise as tolerated/lose weight Plan Follow up in 4 months Orders: Orders Complete Blood Count Auto Diff 4 Months I10 - Essential (primary) hypertension Comprehensive [place]. Panel Fast 4 Months E78.00 - Pure hypercholesterolemia, unspecified Lipid Panel 4 Months E78.00 - Pure hypercholesterolemia, unspecified Hemoglobin A1c 4 Months E11.9 - Type 2 diabetes mellitus without complications TSH reflex Free T4 4 Months E78.00 - Pure hypercholesterolemia, unspecified UA CC w/rflx Micro + Cult 4 Months R30.0 - Dysuria Microalbumin, Random (w Creat) 4 Months E11.9 - Type 2 diabetes mellitus without complications Vitamin D 25-OH Total 4 Months E55.9 - Vitamin D deficiency, unspecified Coding Level of Care Code Est Pt Level 4 (25621) Diagnoses Type 2 diabetes mellitus without complication, with long-term current use of insulin E11.9; Z79.4 Diabetes mellitus type: type 2 Diabetes mellitus assisted insulin use: with terminal gauger use Diabetes mellitus complication status: without complication Benign essential hypertension I10 Pure hypercholesterolemia E78.00 Vitamin D deficiency E55.9 Diplopia H53.2 Gastroesophageal reflux disease without esophagitis K21.9 Esophagitis presence: without esophagitis Elevated LFTs R79.89 Overweight (BMI 25.0-29.9) E66.3
== END 2023-09-16 15:20 | disposition home or self-care (01) ==
PROVIDERS: PCP Internal Medicine; Visit Provider Internal Medicine
DX: E11.9 Type 2 diabetes mellitus without complications (principal); Z79.4 Long term (current) use of insulin; I10 Essential (primary) hypertension; E78.00 Pure hypercholesterolemia, unspecified; E55.9 Vitamin D deficiency, unspecified; H53.2 Diplopia; K21.9 Gastro-esophageal reflux disease without esophagitis; R79.89 Other specified abnormal findings of blood chemistry; E66.3 Overweight
CPT/HCPCS: 99214

== ENCOUNTER 2023-11-06 09:03 | Outpatient (AMB) | payer MEDICARE, SELFPAY ==
[2023-11-06 09:09] VITALS: BMI 27.4
--- NOTE | 2023-11-06 09:09 | A.OFFVIS_ITS ---
Intake VS Expanded 11/06/23 09:09 Height 5 ft 7 in Weight 175 lb 0.752 oz BMI 27.4 Intake Visit Reasons: DM Allergies cyclobenzaprine [From Flexeril] Allergy (Verified 09/16/23 15:09) Itching HPI Nutrition Presentation Details Pt presents for MNT for T2DM Pt reports having elevated blood glucose- No BG record available at this time Pt reports skipping Lantus at night if taking Lispro with the meal due to concerns of hypoglycemia. Pt reports typical meals B: coffee with half and half diet sugar 10 am: home baked bread 1-2 slices L: soup (chicken noodle) Dinner: pasta/sauce with chicken or chicken with rice and green beans, water or milk snack: cereal with milk or piece of pastry and milk fish : twice/wk fruits: 0-2 x/wk milk/yogurt: 1 /day hypoglycemia protocol: Pt reports following rule of 15, verbalizes rule of 15 physical activity: daily life activities Most Recent Diabetes Results: Microalb/Creat Ratio 21.0 ug/mg cr (<30) 07/26/23 Cholesterol 130 mg/dL (<200) 07/25/23 HDL Cholesterol 42 mg/dL (>40) 07/25/23 Triglycerides 74 mg/dL (<150) 07/25/23 Creatinine 0.93 mg/dL (0.5-1.4) 07/25/23 Blood Urea Nitrogen 17 mg/dL (9-16) H 07/25/23 Sodium 140 mmol/L (135-145) 07/25/23 Potassium 4.0 mmol/L (3.3-5.1) 07/25/23 Chloride 102 mmol/L (96-108) 07/25/23 Carbon Dioxide 28 mmol/L (22-29) 07/25/23 Calcium 10.2 mg/dL (8.4-10.2) 07/25/23 AST 48 U/L (5-37) H 07/25/23 ALT 60 U/L (0-40) H 07/25/23 Total Protein 8.1 g/dL (6.5-8.0) H 07/25/23 Albumin 4.7 g/dL (3.5-5.0) 07/25/23 [facility] Medical History Overweight (BMI 25.0-29.9) GERD (gastroesophageal reflux disease) Pure hypercholesterolemia Benign essential hypertension CVA (cerebral vascular accident) T2DM (type 2 diabetes mellitus) Long-term insulin use High cholesterol HTN (hypertension) Anxiety Surgical History History of esophagogastroduodenoscopy (EGD) H/O colonoscopy H/O uvulectomy Family History Father No problems noted. Mother Pre-diabetes Thyroid disease Social History Housing: Apartment Are you a primary pet care attendant to a significant other at home: No Do you presently have visiting nurse or other home services: No Alcohol intake: never Patient Tobacco Use Status: Former Tobacco user Tobacco use type: Cigarette Cigarette Packs Per Day: 1 Years Smoked: 12 e-Cigarette/Vaping Use: Never Used Second Hand Smoke Exposure: Yes service: No Current occupational status: retired Cognitive needs: No Hearing needs: No Vision needs: Yes (glasses) Assessment & Plan Assessment & Plan (1) Type II diabetes mellitus: Code(s): E11.9 - Type 2 diabetes mellitus without complications Plan: Educate Pt on healthy plate method, relationship of foods to BG and importance of med management. Pt needs review on medication management. Has appt with breaker machine tender in 2 weeks ? Used wt : 80 kg Est kcal as per MSJ: 1800 (40% carb, 30% fat/prot) Est fluid needs: 2000 ml/d (25 ml/kg bw) Rec fiber: increase to 8-10 g per day and gradually increase to 35 g as tolerated Rec Na: < 1500 mg /d Educate patient on: (R= Reviewed, V = verbalizes understanding N/R= Needs review N/A= not applicable) * Food sources of carbohydrates and serving adequate serving sizes : R V * Difference between complex carbohydrates and simple carbohydrates, role of fiber: R V * Low fat foods : Differences between fats (MUFA/PUFA/saturated fats, trans fats) and food sources of various fats: R V * Food sources of sodium and salt and healthy modifications for heart health and kidney health: R , * Vitamins and minerals: R * How to interpret food labels: V * Healthy Plate method concept: R V * Physical activity: benefits and precaution: R V * prevention of hyperglycemia :R Patient Instructions: have a fruit in place of pastries at night time or 1/2 sand and cup of milk in place of cereal Keep hydrated by having water, decaf tea, soups Take your medications as prescribed your doctor follow up with tobacco prevention health educator and breaker machine tender Coding Level of Care Code Nutr Indiv Subseq (71553) Diagnoses Type II diabetes mellitus E11.9 Time Spent (min) 30
== END 2023-11-06 09:38 | disposition home or self-care (01) ==
PROVIDERS: PCP Internal Medicine; Visit Provider Dietitian, Registered
DX: E11.9 Type 2 diabetes mellitus without complications (principal)

== ENCOUNTER → 2023-11-06 09:03 | Outpatient (BNVA) | payer MEDICARE, SELFPAY | PROVIDERS: PCP Internal Medicine; Visit Provider Dietitian, Registered | DX: E11.9 Type 2 diabetes mellitus without complications (principal) | CPT/HCPCS: 97803 ==

== ENCOUNTER 2023-12-09 09:22 | Outpatient (AMB) | payer MEDICARE, SELFPAY ==
--- NOTE | 2023-12-09 09:26 | MHC.OFFVIS ---
Intake Vital Signs 12/09/23 09:27 Height 5 ft 7 in Weight 178 lb BMI 27.9 BP 130/58 L Blood Pressure Location Rt brachial Position Sitting Pulse 78 Intake Visit Reasons: 3 month follow up Intake Note: Patient follow up for Anthony's esophagus Patient denies any GI issues. Cut Off Machine Helper Required: No Accompanied by: Self / Same As Patient Allergies cyclobenzaprine [From Flexeril] Allergy (Verified 12/09/23 09:26) Itching Medication List - Last Reconciled 12/09/23 by Mildred Guadarrama PA-C amlodipine 10 mg PO DAILY 90 days blood pressure monitor As directed cholecalciferol (vitamin D3) 50 mcg PO DAILY 90 days flash glucose sensor (FreeStyle Tip 14 Day Sensor kit) As directed - 12 weeks' supply hydrochlorothiazide 12.5 mg PO DAILY 90 days insulin glargine (Lantus Solostar U-100 Insulin) 15 units See Protocol subcut QPM insulin lispro (Humalog KwikPen (U-100) Insulin) 4 to 12 units SQ TID with meals per sliding scale metformin 1,000 mg PO BID pantoprazole 20 mg PO DAILY simvastatin 20 mg PO BEDTIME 90 days valsartan 320 mg PO DAILY 90 days HPI HPI Comments History of Present Illness Details A 68-year-old male with history of adenomatous colon polyps, Anthony's esophagus follows up for progress with acid reflux. Well controlled reflux- dietary modifications-appetite is good- No bowel issues. Stays home- ability issue He has no nausea, vomiting, hematemesis, hematochezia fever chills PFSH Medical History Overweight (BMI 25.0-29.9) GERD (gastroesophageal reflux disease) Pure hypercholesterolemia Benign essential hypertension CVA (cerebral vascular accident) T2DM (type 2 diabetes mellitus) Long-term insulin use High cholesterol HTN (hypertension) Anxiety Surgical History History of esophagogastroduodenoscopy (EGD) H/O colonoscopy H/O uvulectomy Family History Father No problems noted. Mother Pre-diabetes Thyroid disease Social History Housing: Apartment Are you a primary critical care nurse practitioner to a significant other at home: No Do you presently have visiting nurse or other home services: No Alcohol intake: never Patient Tobacco Use Status: Former Tobacco user Tobacco use type: Cigarette Cigarette Packs Per Day: 1 Years Smoked: 12 e-Cigarette/Vaping Use: Never Used Second Hand Smoke Exposure: Yes service: No Current occupational status: retired Cognitive needs: No Hearing needs: No Vision needs: Yes (glasses) Review of Systems Const All systems reviewed & are unremarkable except as noted in HPI and below Card Denies chest pain and Denies dyspnea Resp Denies dyspnea GI Denies abdominal pain, Denies change in bowel habits and Denies heartburn Physical Exam Vital Signs: Last Vital Signs Pulse 78 12/09/23 09:27 BP 130/58 L 12/09/23 09:27 BMI result Body Mass Index 27.9 Very good spirits Const General: cooperative, healthy appearing, comfortable and no acute distress Orientation/consciousness: patient oriented x3 Limitations: no limitations Eyes Sclerae: sclerae normal Resp Effort & Inspection: normal respiratory effort and able to speak in complete sentences Auscultation: clear to auscultation bilaterally, no rales, no rhonchi and no wheezes Cardio Rate: regular rate Rhythm: regular rhythm Heart sounds: S1 normal heart sound present and S2 normal heart sound present GI Palpation (GI): Soft to palpation and nontender Auscultation: normal bowel sounds Skin General skin exam: no rashes or lesions noted Neuro General: patient oriented x3 Extrem General: Yes full ROM Psych Appearance: grossly normal and well kempt Mental Status: mental status grossly normal Speech and movement: Normal speech and movement present and Clear speech present Affect: normal affect Attitude: cooperative Thought process: Normal thought process present Thought content: Normal thought content present Insight: Good insight present (Psych) Judgement: Good judgement present (Psych) Results Reviewed Results Reviewed: Attending: Dustin Yeager MD : 1955 Submitted by: Dustin Yeager MD Copies to: Mayank Darling MD MR #: [id number] Status: [facility] Collected: 08/22/23 Location: [facility] Received: 08/22/23 Diagnosis A. Duodenum, biopsy: Chronic inactive duodenitis. B. Stomach, biopsy: Antral-type and oxyntic mucosa within normal limits; no Helicobacter organisms seen. C. GE junction, biopsy: - Anthony esophagus with background mild chronic inactive inflammation. - No dysplasia seen. - Squamous mucosa within normal limits. D. Esophagus, distal, biopsy: Squamous epithelium within normal limits; no inflammation seen. E. Esophagus, proximal, biopsy: Squamous epithelium within normal limits; no inflammation seen. Clinical History Pre-Op Dx: Personal history of colonic polyps, nausea Post-Op Dx: Duodenitis, esophagitis, hemorrhoids Microscopic Description A-E. Microscopic sections reviewed. Immunostain for H. pylori is non-reactive (B). Material Received A. Duodenum bx's B. Stomach bx's C. GE junction bx's D. Distal esophagus bx's E. Proximal esophagus bx's Assessment & Plan Assessment & Plan (1) Anthony's esophagus determined by endoscopy: Comment: Continue PPI Repeat EGD-2025 Code(s): K22.70 - Anthony's esophagus without dysplasia (2) History of adenomatous polyp of colon: Code(s): Z86.010 - Personal history of colonic polyps Plan: Colonoscopy 2025 (3) Acid reflux: Code(s): K21.9 - Gastro-esophageal reflux disease without esophagitis Plan: reflux precautions Cont ppi= Plan Inadequate prep colonoscopy as well as Anthony's revealed pathology with EGD typically repeat 2-3 year Schedule EGD colonoscopy for 3 years- 08/2026 Continue PPI Avoid culprits Medications: Changed From pantoprazole 20 mg PO DAILY 60 tabs 2RF To pantoprazole 20 mg PO DAILY 90 days 90 tabs 4RF Patient Instructions: Repeat asymptomatic colonoscopy 2025 years due to inadequate prep Inadequate prep colonoscopy as well as Anthony's revealed pathology with EGD Schedule EGD colonoscopy for 3 years- 08/2026 Continue PPI-refill sent to pharmacy Continue to Avoid culprits, reflux precautions review Call with any questions or concerns Coding Level of Care Code Est Pt Level 3 (30293) Diagnoses Anthony's esophagus determined by endoscopy K22.70 History of adenomatous polyp of colon Z86.010 Acid reflux K21.9 Time Spent (min) 20
[2023-12-09 09:27] VITALS: BP 130/58; PULSE 78; BMI 27.9
== END 2023-12-09 10:35 | disposition home or self-care (01) ==
PROVIDERS: PCP Internal Medicine; Visit Provider Physician Assistant
DX: K22.70 Barrett's esophagus without dysplasia (principal); Z86.010 Personal history of colon polyps; K21.9 Gastro-esophageal reflux disease without esophagitis
CPT/HCPCS: 99213

== ENCOUNTER → 2023-12-09 09:22 | Outpatient (BNVA) | payer MEDICARE, SELFPAY | PROVIDERS: PCP Internal Medicine; Visit Provider Physician Assistant | DX: K22.70 Barrett's esophagus without dysplasia (principal); K21.9 Gastro-esophageal reflux disease without esophagitis; Z86.010 Personal history of colon polyps | CPT/HCPCS: 99212 ==

== ENCOUNTER 2024-01-17 10:19 | Outpatient (AMB) | payer MEDICARE, SELFPAY ==
[2024-01-17 10:21] VITALS: BP 136/80; PULSE 76; O2SAT 98; BMI 27.4
--- NOTE | 2024-01-17 10:21 | MHC.PC.OV ---
Vital Signs 01/17/24 10:21 Height 5 ft 7 in Weight 175 lb 4 oz BMI 27.4 BP 136/80 Blood Pressure Location Lt brachial Position Sitting Pulse 76 Pulse Source Pulse Oximeter Pulse Oximetry (%) 98 Oxygen Delivery Method Room Air Intake Visit Reasons: DM, hyperlipidemia, HTN, OA Jewel Waxer Required: No Accompanied by: Self / Same As Patient Allergies cyclobenzaprine [From Flexeril] Allergy (Verified 01/17/24 10:45) Itching Medication List - Last Reconciled 01/17/24 by Mayank Darling MD amlodipine 10 mg PO DAILY 90 days blood pressure monitor As directed cholecalciferol (vitamin D3) 50 mcg PO DAILY 90 days flash glucose sensor (FreeStyle Tip 14 Day Sensor kit) As directed - 12 weeks' supply hydrochlorothiazide 12.5 mg PO DAILY 90 days insulin glargine (Lantus Solostar U-100 Insulin) 15 units See Protocol subcut QPM insulin lispro (Humalog KwikPen (U-100) Insulin) 4 to 12 units SQ TID with meals per sliding scale metformin 1,000 mg PO BID pantoprazole 20 mg PO DAILY 90 days simvastatin 20 mg PO BEDTIME 90 days valsartan 320 mg PO DAILY 90 days Tobacco use date assessed: 01/17/24 Fall risk assessment: No Falls in past year Last assessed Fall Risk: 01/17/24 Dental Screening Dental Screen Date: 01/17/24 Did you have a dental visit in the last 12 months?: Yes Did you have a dental problem in the last 6 months where you did not have access to dental care?: No Was dental information given to patient?: Patient has dentist HPI DM, hyperlipidemia, HTN, OA HPI Details Patient comes in today for his follow up visit States that he's had a cold for about a week now, with (+) cough and congestion but states that his cough is mostly non-productive He denies any fever but reports (+) mild sore throat States that he got all of his COVID boosters, flu shot and even his RSV vaccine recently and he did not test himself for COVID recently He denies any headaches or dizziness Denies any chest pains, no SOB No nausea/vomiting, no abdominal pain at present although he states that he spent the whole day in bed a couple of days ago when he was very nauseous and threw up a few times but these have all cleared up by the next day Recalls that he did not eat anything all day then and that he checked his blood sugars and they were very high that day No change in bowel habits noted He was not able to get his follow up labs done prior to his visit today [facility] Medical History Overweight (BMI 25.0-29.9) GERD (gastroesophageal reflux disease) Pure hypercholesterolemia Benign essential hypertension CVA (cerebral vascular accident) T2DM (type 2 diabetes mellitus) Long-term insulin use High cholesterol HTN (hypertension) Anxiety Surgical History History of esophagogastroduodenoscopy (EGD) H/O colonoscopy H/O uvulectomy Family History Father No problems noted. Mother Pre-diabetes Thyroid disease Social History Housing: Apartment Are you a primary point of care technician to a significant other at home: No Do you presently have visiting nurse or other home services: No Alcohol intake: never Patient Tobacco Use Status: Former Tobacco user Tobacco use type: Cigarette Cigarette Packs Per Day: 1 Years Smoked: 12 e-Cigarette/Vaping Use: Never Used Second Hand Smoke Exposure: Yes service: No Current occupational status: retired Cognitive needs: No Hearing needs: No Vision needs: Yes (glasses) Questionnaire PHQ-9 Over the last 2 weeks, how often have you been bothered by any of the following problems? 1. Little interest or pleasure in doing things: not at all 2. Feeling down, depressed, or hopeless: not at all 3. Trouble falling or staying asleep, or sleeping too much: not at all 4. Feeling tired or having little energy: not at all 5. Poor appetite or overeating: not at all 6. Feeling bad about yourself - or that you are a failure or have let yourself or your family down: not at all 7. Trouble concentrating on things, such as reading the newspaper or watching television: not at all 8. Moving or speaking so slowly that other people could have noticed. Or the opposite - being so fidgety or restless that you have been moving around a lot more than usual: not at all 9. Thoughts that you would be better off or of hurting yourself in some way: not at all Total score: 0 Depression Screening Interpretation: Negative Depression Screening Done: Yes 90179 - PHQ-9 Billing: Yes Source: Developed by Drs. Warren King, Daphne Loredo, Jose Antonio Washington and colleagues, with an educational marla from [employer]. Thrive Questionnaire Date Thrive assessed: 01/17/24 I am a: Patient What is your living situation today?: I have a steady place to live Within the past 12 months, did the food you bought not last and you didn't have the money to get more?: Never true Within the past 12 months, did you worry whether your food would run out before you got money to buy more?: Never true Do you have trouble paying for medicines?: No Do you have trouble getting transportation to medical appointments?: No Do you have trouble paying your heating and electricity bill?: No Do you have trouble taking care of your child, family member or friend?: No Do you have trouble with day-to-day activities such as bathing, preparing meals, shopping, managing finances, etc.?: No Are you currently unemployed and looking for a job?: No Are you interested in more education?: No Please select the resources that you would like help with: None Currently or been in a relationship where the following occur: no concerns reported THRIVE Score: 0 AUDIT C Alcohol Use Questionnaire (AUDIT-C) 1. How often do you have a drink containing alcohol?: Never 3. How often do you have six or more drinks on one occasion?: Never Total Score: 0 Score Reviewed/Action Taken: Yes DEYVI-7 AMB Questionnaire DEYVI-7 Date DEYVI - 7 assessed: 01/17/24 Feeling nervous, anxious, or on edge: 0 = Not at all Not being able to stop or control worryin = Not at all Worrying too much about different things: 0 = Not at all Trouble relaxin = Not at all Being so restless that it is hard to sit still: 0 = Not at all Becoming easily annoyed or irritable: 0 = Not at all Feeling afraid as if something awful might happen: 0 = Not at all Total DEYVI-7 score (0-4 normal; 5-9 mild; 10-14 moderate; 15-21 severe): 0 Source: Developed by Drs. Warren King, Daphne Loredo, Jose Antonio Washington and colleagues, with an educational marla from [employer]. Review of Systems Const Denies chills, Denies fatigue, Denies fever(s) and Denies headache(s) ENT Denies dysphagia, Denies dizziness, Denies otalgia, Denies headache(s), Reports nasal congestion, Denies neck pain, Denies odynophagia and Reports sore throat (mild) Card Denies chest pain, Denies palpitations and Denies dyspnea Resp Reports chest congestion (mild), Reports cough (on and off, non-productive), Denies dyspnea and Denies wheezing GI Denies abdominal pain, Denies constipation, Denies dysphagia, Denies heartburn, Denies diarrhea, Denies nausea (although he did have N/V a couple of days ago), Denies odynophagia and Denies vomiting Denies dysuria, Denies nocturia and Denies urinary frequency Musc Denies back pain and Denies neck pain Skin/Breast Denies rash Neuro Denies dizziness and Denies headache(s) Endo Denies fatigue and Denies palpitations Aller/Immun Denies wheezing Physical exam (Primary Care) Vital Signs: Last Vital Signs Pulse 76 01/17/24 10:21 BP 136/80 01/17/24 10:21 Pulse Ox 98 01/17/24 10:21 Oxygen Delivery Method Room Air 01/17/24 10:21 BMI result Body Mass Index 27.4 Tobacco/Smoking Status: Tobacco use Status Tobacco use date assessed 01/17/24 01/17/24 10:23 Patient Tobacco Use Status Former Tobacco user 01/17/24 10:23 Tobacco use type Cigarette 01/17/24 10:23 e-Cigarette/Vaping Use Never Used 01/17/24 10:23 PHQ-9: PHQ-9 Score PHQ-9: Total score 0 01/17/24 10:23 Depression Screening Interpretation: Negative Thrive Assessment: Date of Thrive Assessment Date Thrive assessed 01/17/24 01/17/24 10:23 Currently or been in a relationship where the following occur: no concerns reported Const General: no acute distress and alert HENMT Ears: TM's normal bilaterally and EAC's normal Throat: Yes tonsils normal (no TP congestion) and Yes posterior oropharynx abnormal ((+) mild erythema ) Neck Neck: Yes no lymphadenopathy and Yes supple Resp Auscultation: no crackles, no rales, rhonchi (occasional) throughout and no wheezes Cardio Rate: regular rate Rhythm: regular rhythm Heart sounds: no murmurs GI Palpation (GI): Soft to palpation and nontender Auscultation: normal bowel sounds Back/Spine/Pelvis Thoracic/Lumbar Spine: No lumbar spinal tenderness Skin Rashes: no rashes Extrem General: Yes no clubbing, cyanosis or edema Assessment and Plan Assessment & Plan (1) Upper respiratory tract infection: Code(s): J06.9 - Acute upper respiratory infection, unspecified Qualifiers: URI type: unspecified URI Qualified Code(s): J06.9 - Acute upper respiratory infection, unspecified Plan: Will send him to the lab to check for RSV, flu and COVID Will start him empirically for now on Amoxicillin 875 mg BID x 10 days (2) Diabetes mellitus: Code(s): E11.9 - Type 2 diabetes mellitus without complications Qualifiers: Diabetes mellitus type: type 2 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: with shelter use Diabetes mellitus complication status: without complication Qualified Code(s): E11.9 - Type 2 diabetes mellitus without complications; Z79.4 - assisted (current) use of insulin Plan: HgbA1c was at 7.1% on her labs done back in July 2023 (in-office HgbA1c was at 7.9% on his labs done at the diabetes clinic previously) - goal is at least <7.5% Recalls that he was advised by endocrinology at a previous visit with them that his sugar was too tightly controlled based on his age and he needs to loosen his control a little bit Reinforced diabetic diet Continue Lantus at 10 to 15 units SQ QD and Humalog 4 to 12 units TID with meals; continue Metformin 1000 mg BID Was also on Ozempic 0.5 mg SQ once a week previously but he could not afford the co-pay - was reportedly being asked to pay around $1100 / month for the Rx Follow up with endocrinology as scheduled Have explained to patient that the reason his blood sugar was high when he was sick the other day even though he did not eat anything all day was that even if one does not eat his meals on time, one's body will try to keep the blood sugar from dropping too low by breaking down the body's stores but as he is a diabetic, this mechanism is impaired and his blood sugar regulation does not work That is why I always emphasize to diabetic patients that they should NEVER skip their meals even if they do not feel like eating (3) Benign essential hypertension: Code(s): I10 - Essential (primary) hypertension Plan: Reinforced low sodium diet - goal is systolic BP of 120 to 130 mm or less Continue Valsartan 320 mg QD, HCTZ 12.5 mg QD and Amlodipine 10 mg QD (4) Pure hypercholesterolemia: Code(s): E78.00 - Pure hypercholesterolemia, unspecified Plan: Patient was not able to get his follow up labs done prior to his appt today and will have him get these done BLAISE Reinforced low cholesterol diet Continue Simvastatin 20 mg QD Will recheck his labs and fasting lipids again in 4 months for fo (5) Vitamin D deficiency: Code(s): E55.9 - Vitamin D deficiency, unspecified Plan: Continue Vitamin D3 2000 units QD Will recheck Vitamin D level in a few months for follow up (6) Diplopia: Code(s): H53.2 - Diplopia Plan: Transient; occurred back in November 2021 and spontaneously resolved with NO recurrence since CT and MRI of the brain done at the time both came back negative - unlikely that his symptoms at the time were from CVA but TIA cannot be entirely ruled out States that he was seen by ophthalmology as well back then and was advised that his eye exam came out normal Continue Aspirin 81 mg QD - patient was advised that he really does not need to continue this but states that he feels more comfortable continuing on it and it is not really bothering him (7) GERD (gastroesophageal reflux disease): Code(s): K21.9 - Gastro-esophageal reflux disease without esophagitis Qualifiers: Esophagitis presence: without esophagitis Qualified Code(s): K21.9 - Gastro-esophageal reflux disease without esophagitis Plan: Dietary restrictions reinforced Continue Pantoprazole 40 mg QD (8) Elevated LFTs: Code(s): R79.89 - Other specified abnormal findings of blood chemistry Plan: Cautioned that his LFTs were still slightly elevated on his labs done a couple of months ago although they are down from previous - will have him get his labs done BLAISE Advised again that if his LFTs remain elevated or get worse, will need to send him for abdominal sonogram for further evaluation Will recheck his LFTs in 4 months for follow up (9) Overweight (BMI 25.0-29.9): Code(s): E66.3 - Overweight Plan: Reinforced diet/exercise as tolerated/lose weight Plan Follow up in 4 months Orders: Orders Comprehensive Lutz. Panel Fast 4 Months E78.00 - Pure hypercholesterolemia, unspecified Lipid Panel 4 Months E78.00 - Pure hypercholesterolemia, unspecified TSH reflex Free T4 4 Months E78.00 - Pure hypercholesterolemia, unspecified UA CC w/rflx Micro + Cult 4 Months R30.0 - Dysuria SARS-CoV2/FLU/RSV Today J98.8 - Other specified respiratory disorders Complete Blood Count Auto Diff 4 Months D64.9 - Anemia, unspecified Microalbumin, Random (w Creat) 4 Months E11.9 - Type 2 diabetes mellitus without complications Vitamin D 25-OH Total 4 Months E55.9 - Vitamin D deficiency, unspecified Hemoglobin A1c 4 Months E11.9 - Type 2 diabetes mellitus without complications Vitamin B12 and Folate 4 Months E53.8 - Deficiency of other specified B group vitamins Medications: New amoxicillin 875 mg PO BID 10 days 20 tabs 0RF Coding Level of Care Code Est Pt Level 4 (00972) Diagnoses Upper respiratory tract infection, unspecified type J06.9 URI type: unspecified URI Type 2 diabetes mellitus without complication, with long-term current use of insulin E11.9; Z79.4 Diabetes mellitus type: type 2 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
== END 2024-01-17 10:56 | disposition home or self-care (01) ==
PROVIDERS: PCP Internal Medicine; Visit Provider Internal Medicine
DX: E11.9 Type 2 diabetes mellitus without complications (principal); Z79.4 Long term (current) use of insulin; J06.9 Acute upper respiratory infection, unspecified; I10 Essential (primary) hypertension; E78.00 Pure hypercholesterolemia, unspecified; E55.9 Vitamin D deficiency, unspecified; H53.2 Diplopia; K21.9 Gastro-esophageal reflux disease without esophagitis; R79.89 Other specified abnormal findings of blood chemistry; E66.3 Overweight
CPT/HCPCS: 99214

== ENCOUNTER 2024-01-17 11:18 | Outpatient (REF) | payer MEDICARE, SELFPAY ==
[2024-01-17 13:24] LABS: Appearance Urine Clear; Color Urine Yellow; Glucose Urine UA 100 mg/dL (Negative); Leukocyte Esterase Urine Negative (Negative); MANUAL DIFF FLAG NO; Nitrite Urine Negative (Negative); PH 5.5 (5.0-9.0); Specific Gravity - Urine 1.025 (1.005-1.025); UMIC TRIGGER UACC YES; Urine Blood Negative (Negative); Urine Ketones 15 mg/dL (Negative); Urine Protein 30 (1+) mg/dL (Neg-Trace)
[2024-01-17 13:30] LABS: Bacteria Urine None Seen (None Seen); Hyaline Casts Urine 0-2 /LPF (0-2); RBC Urine 0-2 /HPF (0-2); Squamous Epithelial Cell Urine 0-2 /HPF (0-2); WBC Urine 0-5 /HPF (0-5)
[2024-01-17 13:32] LABS: Basophils Absolute Auto 0.1 X10*3/uL (0.0-0.2); Basophils Percent Auto 0.8 % (0-2); Eosinophils Absolute Auto 0.2 X10*3/uL (0.0-0.4); Eosinophils Percent Auto 2.5 % (0-4); Hematocrit 41.8 % (42.0-52.0); Hemoglobin 14.6 g/dl (14.0-18.0); Imm Gran Abs Auto 0.02 X10*3/uL (0.00-0.03); Imm Gran Pct Auto 0.3 % (0.0-0.4); Lymphocytes Absolute Auto 1.8 X10*3/uL (1.2-4.9); Lymphocytes Percent Auto 30.6 % (20-40); Mean Corpuscular HGB Conc 34.9 g/dl (31.0-36.0); Mean Corpuscular Hemoglobin 28.9 pg (27.0-33.0); Mean Corpuscular Volume 82.8 fL (80.0-98.0); Mean Platelet Volume 10.1 fL (9.4-12.4); Monocytes Absolute Auto 0.7 X10*3/uL (0.1-1.2); Monocytes Percent Auto 11.8 % (2-11); Neutrophils Absolute Auto 3.2 x10*3/uL (2.0-8.3); Platelet Count 194 X10*3/uL (160-400); Red Blood Count 5.05 X10*6/uL (4.60-5.80); Red Cell Distribution Width 13.2 % (11.0-16.0); White Blood Count 5.9 X10*3/uL (4.8-10.8)
[2024-01-17 13:39] LABS: Estimated Average Glucose 177 mg/dL; Hemoglobin A1c % 7.8 % (<6.0)
[2024-01-17 13:56] LABS: Alanine Aminotransferase 30 U/L (0-40); Albumin Level 4.4 g/dL (3.5-5.0); Alkaline Phosphatase 95 U/L (39-117); Anion Gap 16 (12-20); Aspartate Amino Transferase 22 U/L (5-37); Bilirubin Total 0.8 mg/dL (0.0-1.0); Blood Urea Nitrogen 20 mg/dL (9-16); Calcium 9.3 mg/dL (8.4-10.2); Carbon Dioxide 24 mmol/L (22-29); Chloride 102 mmol/L (96-108); Cholesterol 137 mg/dL (<200); Estimated Glomerular Filt Rate 58; Glucose Fasting 191 mg/dL (60-99); HDL Cholesterol 39 mg/dL (>40); LDL Cholesterol Calculated 78 mg/dL (<100); Potassium 3.7 mmol/L (3.3-5.1); Sodium 138 mmol/L (135-145); Total Protein 7.7 g/dL (6.5-8.0); Triglycerides 100 mg/dL (<150)
[2024-01-17 14:07] LABS: Creatinine Urine 225.28 mg/dL; Microalbum/Creatinine Ratio Ur 43.5 ug/mg cr (<30)
[2024-01-17 14:17] LABS: TSH reflex Free T4 2.01 uIU/mL (0.32-4.0); Vitamin D 25-OH Total 37.9 ng/mL (>30)
== END 2024-01-17 11:19 | disposition home or self-care (01) ==
LOC: HO.10HDL 11:18
PROVIDERS: Visit Provider Internal Medicine
DX: I10 Essential (primary) hypertension (principal); J98.8 Other specified respiratory disorders; E55.9 Vitamin D deficiency, unspecified; R30.0 Dysuria; E78.00 Pure hypercholesterolemia, unspecified; E11.9 Type 2 diabetes mellitus without complications
CPT/HCPCS: 36415; 80053; 80061; 81001; 82043; 82306; 82570; 83036; 84443; 85025

== ENCOUNTER 2024-02-05 09:29 | Outpatient (AMB) | payer MEDICARE, SELFPAY ==
[2024-02-05 10:01] VITALS: BMI 28.1
--- NOTE | 2024-02-05 10:01 | A.OFFVIS_ITS ---
Intake VS Expanded 02/05/24 10:01 Height 5 ft 7 in Weight 179 lb 7.3 oz BMI 28.1 Intake Visit Reasons: DM/CONFIRMED Allergies cyclobenzaprine [From Flexeril] Allergy (Verified 01/17/24 10:45) Itching HPI Nutrition Presentation Details Pt presents for MNT f/u for T2DM Pt reports having had low blood glucose over night over 2 weeks ago and sensor did not alarm him but he woke up to symptoms of low blood sugar. Sensor settings were reviewed and alarm was off, this was switched to on. Pt was advised to always review settings on sensor. Pt reported drinking juice , 6 oz and within 15 minutes bg was over 70 Pt reports feeling more comfortable with blood sugars over 200 and thus keeping his blood sugars over 200 Pt reports having 3 meals per day and snacks in between meals B: coffee with milk and diet sugar breakfast sand : ham/cheese egg on wheat or white bread or bowl of low sugar cereal with 1% milk or hot cereal made iwht 1% milk Lunch: shepherds pie or sand or meatballgrinder dinner same as lunch snack on fruit or crackers, or popcorn or muffin /cookie physical activity sedentary etoh/smoking denies Pt is requesting new referral to geriatric nurse- request sent to Dr. Almodovar Most Recent Diabetes Results: Microalb/Creat Ratio 43.5 ug/mg cr (<30) H 01/17/24 Cholesterol 137 mg/dL (<200) 01/17/24 HDL Cholesterol 39 mg/dL (>40) L 01/17/24 Triglycerides 100 mg/dL (<150) 01/17/24 Creatinine 1.25 mg/dL (0.5-1.4) 01/17/24 Blood Urea Nitrogen 20 mg/dL (9-16) H 01/17/24 Sodium 138 mmol/L (135-145) 01/17/24 Potassium 3.7 mmol/L (3.3-5.1) 01/17/24 Chloride 102 mmol/L (96-108) 01/17/24 Carbon Dioxide 24 mmol/L (22-29) 01/17/24 Calcium 9.3 mg/dL (8.4-10.2) 01/17/24 AST 22 U/L (5-37) 01/17/24 ALT 30 U/L (0-40) 01/17/24 Total Protein 7.7 g/dL (6.5-8.0) 01/17/24 Albumin 4.4 g/dL (3.5-5.0) 01/17/24 [facility] Medical History Overweight (BMI 25.0-29.9) GERD (gastroesophageal reflux disease) Pure hypercholesterolemia Benign essential hypertension CVA (cerebral vascular accident) T2DM (type 2 diabetes mellitus) Long-term insulin use High cholesterol HTN (hypertension) Anxiety Surgical History History of esophagogastroduodenoscopy (EGD) H/O colonoscopy H/O uvulectomy Family History Father No problems noted. Mother Pre-diabetes Thyroid disease Social History Housing: Apartment Are you a primary disabilities caregiver to a significant other at home: No Do you presently have visiting nurse or other home services: No Alcohol intake: never Patient Tobacco Use Status: Former Tobacco user Tobacco use type: Cigarette Cigarette Packs Per Day: 1 Years Smoked: 12 e-Cigarette/Vaping Use: Never Used Second Hand Smoke Exposure: Yes service: No Current occupational status: retired Cognitive needs: No Hearing needs: No Vision needs: Yes (glasses) Assessment & Plan Assessment & Plan (1) Type II diabetes mellitus: Code(s): E11.9 - Type 2 diabetes mellitus without complications Qualifiers: Diabetes mellitus halfway insulin use: with halfway use Diabetes mellitus complication status: with hyperglycemia Qualified Code(s): E11.65 - Type 2 diabetes mellitus with hyperglycemia; Z79.4 - MCC (current) use of insulin Plan: Used wt : 80 kg Est kcal as per MSJ: 1800 (40% carb, 30% fat/prot) Est fluid needs: 2000 ml/d (25 ml/kg bw) Rec fiber: increase to 8-10 g per day and gradually increase to 35 g as tolerated Rec Na: < 1500 mg /d Educate patient on: (R= Reviewed, V = verbalizes understanding N/R= Needs review N/A= not applicable) * Food sources of carbohydrates and serving adequate serving sizes : R V * Difference between complex carbohydrates and simple carbohydrates, role of fiber: R V * Low fat foods : Differences between fats (MUFA/PUFA/saturated fats, trans fats) and food sources of various fats: R V * Food sources of sodium and salt and healthy modifications for heart health and kidney health: R , * Vitamins and minerals: R * How to interpret food labels: V * Healthy Plate method concept: R V * Physical activity: benefits and precaution: R V * prevention of hyperglycemia :R, V Patient Instructions: Keep hydrated, have 2 additional cups of water a day (total 4 cups along with other liquids : low sodium soup, tea, decaf coffee) March in place, increasing physical activity even if 10 minutes daily to help with better glucose level Choose low fat food options , reducing on fried foods, pastries and similar f oods, have a fruit in place of pastries or bread consider taking a multivitamin Coding Level of Care Code Nutr Indiv Subseq (01210) Diagnoses Type 2 diabetes mellitus with hyperglycemia, with long-term current use of insulin E11.65; Z79.4 Diabetes mellitus halfway insulin use: with long chain quiller tender use Diabetes mellitus complication status: with hyperglycemia Time Spent (min) 30
== END 2024-02-05 10:29 | disposition home or self-care (01) ==
PROVIDERS: PCP Internal Medicine; Visit Provider Dietitian, Registered
DX: E11.65 Type 2 diabetes mellitus with hyperglycemia (principal); Z79.4 Long term (current) use of insulin

== ENCOUNTER → 2024-02-05 09:29 | Outpatient (BNVA) | payer MEDICARE, SELFPAY | PROVIDERS: PCP Internal Medicine; Visit Provider Dietitian, Registered | DX: E11.65 Type 2 diabetes mellitus with hyperglycemia (principal); Z79.4 Long term (current) use of insulin | CPT/HCPCS: 97803 ==

== ENCOUNTER 2024-03-26 12:57 | Outpatient (AMB) | payer MEDICARE, SELFPAY ==
--- NOTE | 2024-03-26 13:04 | MHC.OFFVIS ---
Vital Signs 03/26/24 13:17 Height 5 ft 7 in Weight 175 lb 0.752 oz BMI 27.4 BP 122/60 Blood Pressure Location Lt brachial Position Sitting Pulse 67 Pulse Source Pulse Oximeter Intake Visit Reasons: DM-lvm Intake Note: Patient presents today to follow up on DMT. Previously seen on 04/08/[address] Allred. Last Diabetic Eye exam: A month ago at [facility] Last Podiatry Visit: No, has been trying to get in to see one. Patient requesting a referral Random Glucose: 192 mg/dl HgA1c: 7.8% 01/17/24 Diamond Die Maker Required: No Accompanied by: Self / Same As Patient Allergies cyclobenzaprine [From Flexeril] Allergy (Verified 03/26/24 13:20) Itching Medication List - Last Reconciled 03/26/24 by Vani Gilliland RN amlodipine 10 mg PO DAILY 90 days amoxicillin 875 mg PO BID 10 days blood pressure monitor As directed cholecalciferol (vitamin D3) 50 mcg PO DAILY 90 days flash glucose sensor (FreeStyle Tip 14 Day Sensor kit) As directed - 12 weeks' supply hydrochlorothiazide 12.5 mg PO DAILY 90 days insulin glargine (Lantus Solostar U-100 Insulin) 15 units See Protocol subcut QPM insulin lispro (Humalog KwikPen (U-100) Insulin) 12 units (0.12 mL) subcut TID 90 days metformin 1,000 mg PO BID pantoprazole 20 mg PO DAILY 90 days simvastatin 20 mg PO BEDTIME 90 days valsartan 320 mg PO DAILY 90 days HPI Comments Details: 67 YO M with PMHx T2DM who is seen in F/U for T2DM.. The patient last saw Dr. Allred 04/08/2023 Initially diagnosed with T2DM in 1996. Was initially started on treatment with Metformin. Insulin was added in approximately 3 years later. Current regimen Metformin 1000 mg PO BID, Lantus 15 units qHS and Novolog 12 units AC. . Ozempic was too high a copay Uses CGM Freestyle Tip. 14 days of data downloaded from 03/13/2024 through 03/26/2023. This reveals an average glucose of 192, GMI of 7.9% and CV of 33.7%. he is at goal 44% of the time, above goal 64% of the time and below goal 2% of the time. No significant lows since his last visit. Treats lows with food or juice. Has CGM to monitor for rise after treatment. Has symptoms of sweats and tremors with hypoglycemia. . Very rare hypoglycemia after dinner Denies a family history of T2DM. Mother had prediabetes. Has eyes checked yearly, last eye exam [address] Devlin, unsure if retinopathy. Denies neuropathy, last foot exam 04/08/2023. Has nephropathy, on Valsartan 320 mg PO daily. UAC 16.7 01/15/2023. Has HLD, on Simvastatin 20 mg PO daily. Last LDL 96 01/15/2023. Denies CAD. Diet: Does not follow a low carb diet. Weight: Stable. Had diabetes education many years ago. Labs: Laboratory Tests 01/15/23 01/15/23 01/15/23 08:53 09:20 09:20 Sodium Potassium Creatinine Estimated GFR Hemoglobin A1c % 7.5 LDL Cholesterol Direct LDL Cholesterol, Calc 89 HDL Cholesterol 35 Vitamin B12 623 TSH Microalb/Creat Ratio 16.7 01/15/23 03/05/23 03/13/23 09:20 09:25 09:15 Sodium 141 Potassium 4.5 Creatinine 1.14 Estimated GFR > 60 Hemoglobin A1c % LDL Cholesterol Direct 96 LDL Cholesterol, Calc HDL Cholesterol Vitamin B12 TSH 1.32 Microalb/Creat Ratio [facility] Medical History Overweight (BMI 25.0-29.9) GERD (gastroesophageal reflux disease) Pure hypercholesterolemia Benign essential hypertension CVA (cerebral vascular accident) T2DM (type 2 diabetes mellitus) Long-term insulin use High cholesterol HTN (hypertension) Anxiety Surgical History History of esophagogastroduodenoscopy (EGD) H/O colonoscopy H/O uvulectomy Family History Father No problems noted. Mother Pre-diabetes Thyroid disease Social History Housing: Apartment Are you a primary managed care analyst to a significant other at home: No Do you presently have visiting nurse or other home services: No Alcohol intake: never Patient Tobacco Use Status: Former Tobacco user Tobacco use type: Cigarette Cigarette Packs Per Day: 1 Years Smoked: 12 e-Cigarette/Vaping Use: Never Used Second Hand Smoke Exposure: Yes service: No Current occupational status: retired Cognitive needs: No Hearing needs: No Vision needs: Yes (glasses) Physical Exam Absence of Cushingoid features. Absence of acromegalic features. Neck exam reveals nl size thyroid about 15 gms. No thyroid nodules palpable. No carotid bruits present. Lungs CTA. Heart S1 S2, Reg R/R. No M/R/ G. Skin exam reveals absence of vitiligo or acanthosis nigricans. Abdominal exam reveals Soft NT/ND with NA BS. No organomegaly present. Neck Other: . Extrem Other: Visual exam of foot performed. No ulcerations or open lesions. No onchomycosis, no callouses.Pulses 2 + distally Sensation intact to monofilament exam. Vibratory sensation sensed is idecreased with 128 Hz tuning fork Assessment & Plan Assessment & Plan (1) T2DM (type 2 diabetes mellitus): Code(s): E11.9 - Type 2 diabetes mellitus without complications Category: Medical Qualifiers: Diabetes mellitus terminal superintendent insulin use: with terminal superintendent use Diabetes mellitus complication status: with hyperglycemia Qualified Code(s): E11.65 - Type 2 diabetes mellitus with hyperglycemia; Z79.4 - joint terminal attack controller (current) use of insulin Plan: This is a 68-year-old white male with a history of type 2 diabetes being treated with metformin and basal-bolus insulin with fair glycemic control and known microvascular and macrovascular complications namely micro albuminuria and CVA. The plan is to reinitiate Ozempic 0.5 mg Q weekly. Went over side effects of Ozempic including but not limited to nausea, vomiting rare risk of pancreatitis. Told patient to report any episodes of hypoglycemia for further adjustment of insulin. We will decrease the NovoLog prior to dinner by 4 units to 8 units. If Ozempic does not control post-prandial lunch, may need to increase NovoLog prior to lunch. Patient will follow up with the hospice educator. Medications: New semaglutide 0.5 mg (0.374 mL) subcut QWEEK 1.5 mL 5RF Coding Level of Care Code Est Pt Level 4 (21759) Diagnoses Type 2 diabetes mellitus with hyperglycemia, with long-term current use of insulin E11.65; Z79.4 Diabetes mellitus fci insulin use: with terminal superintendent use Diabetes mellitus complication status: with hyperglycemia
[2024-03-26 13:17] VITALS: BP 122/60; PULSE 67; BMI 27.4
[2024-03-26 13:31] LABS: Glucose, Whole Blood 192 mg/dL (60-115)
== END 2024-03-26 13:46 | disposition home or self-care (01) ==
PROVIDERS: PCP Internal Medicine; Visit Provider Internal Medicine Endocrinology, Diabetes & Metabolism
DX: E11.65 Type 2 diabetes mellitus with hyperglycemia (principal); Z79.4 Long term (current) use of insulin
CPT/HCPCS: 99214

== ENCOUNTER → 2024-03-26 12:57 | Outpatient (BNVA) | payer MEDICARE, SELFPAY | PROVIDERS: PCP Internal Medicine; Visit Provider Internal Medicine Endocrinology, Diabetes & Metabolism | DX: E11.65 Type 2 diabetes mellitus with hyperglycemia (principal); Z79.4 Long term (current) use of insulin | CPT/HCPCS: 82947; 99212 ==

== ENCOUNTER 2024-04-09 13:00 | Outpatient (AMB) | payer MEDICARE, SELFPAY ==
--- NOTE | 2024-04-09 13:47 | A.OFFVIS_ITS ---
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 Required: No Accompanied by: Self / Same As Patient Allergies cyclobenzaprine [From Flexeril] Allergy (Verified 03/26/24 13:20) Itching HPI Comprehensive Diabetes Asmnt Most Recent Diabetes Results: Microalb/Creat Ratio 43.5 ug/mg cr (<30) H 01/17/24 Cholesterol 137 mg/dL (<200) 01/17/24 HDL Cholesterol 39 mg/dL (>40) L 01/17/24 Triglycerides 100 mg/dL (<150) 01/17/24 Creatinine 1.25 mg/dL (0.5-1.4) 01/17/24 Blood Urea Nitrogen 20 mg/dL (9-16) H 01/17/24 Sodium 138 mmol/L (135-145) 01/17/24 Potassium 3.7 mmol/L (3.3-5.1) 01/17/24 Chloride 102 mmol/L (96-108) 01/17/24 Carbon Dioxide 24 mmol/L (22-29) 01/17/24 Calcium 9.3 mg/dL (8.4-10.2) 01/17/24 AST 22 U/L (5-37) 01/17/24 ALT 30 U/L (0-40) 01/17/24 Total Protein 7.7 g/dL (6.5-8.0) 01/17/24 Albumin 4.4 g/dL (3.5-5.0) 01/17/24 [facility] Medical History Overweight (BMI 25.0-29.9) GERD (gastroesophageal reflux disease) Pure hypercholesterolemia Benign essential hypertension CVA (cerebral vascular accident) T2DM (type 2 diabetes mellitus) Long-term insulin use High cholesterol HTN (hypertension) Anxiety Surgical History History of esophagogastroduodenoscopy (EGD) H/O colonoscopy H/O uvulectomy Family History Father No problems noted. Mother Pre-diabetes Thyroid disease Social History Housing: Apartment Are you a primary pharmacy customer care specialist to a significant other at home: No Do you presently have visiting nurse or other home services: No Alcohol intake: never Patient Tobacco Use Status: Former Tobacco user Tobacco use type: Cigarette Cigarette Packs Per Day: 1 Years Smoked: 12 e-Cigarette/Vaping Use: Never Used Second Hand Smoke Exposure: Yes service: No Current occupational status: retired Cognitive needs: No Hearing needs: No Vision needs: Yes (glasses) Assessment & Plan Assessment & Plan (1) Long-term insulin use in type 2 diabetes: Code(s): E11.9 - Type 2 diabetes mellitus without complications; Z79.4 - halfway (current) use of insulin Plan: Learning objectives: The patient was provided with verbal and written education on the following topics as outlined below. Assess patient education level/literacy/barriers Patient questions/concerns, patient reports he is in the 1st week of his Ozempic 0.5 mg, he stopped Ozempic previously due to medication cost. patient is using freestyle Tip to test glucose Average glucose for the past 14 days 169 mg/dL Patient above target 41% Patient at target 58% Patient below target 1% Patient has several postprandial hypoglycemic events, patient reports treating hypoglycemia with honey or orange juice Recommended to patient he carry glucose tabs with him when exercising and driving in case of hypoglycemia Patient uses Lantus 12 units NovoLog sliding scale, patient did not have sliding scale with him at today's visit Instructed patient if he has an increase in hypoglycemia, after several more weeks of Ozempic to contact endoscopy tech or provider for insulin adjustment The patient met all learning objectives and was able to verbalize understanding and provide teach back of education topics discussed . The patient was provided with the opportunity to ask questions and all questions were answered. Topics covered in today?s session included: Medications (If applicable) * Name of medication? * Dosing/administration instructions? * Mechanism of action? * Potential side effects? * Potential adverse reaction and appropriate treatment? * Review onset, peak, duration Assess for concerns re: insurance coverage, cost, barriers to compliance Insulin/Injectables (If applicable) * Storage/care of insulin?? * Injection sites? * Site rotation? * Onset, peak, duration * Drawing up insulin? * Injecting insulin/other injectables? * Sharps disposal Continuous blood glucose monitoring (if applicable) Hypoglycemia and Hyperglycemia * Signs and symptoms? * Causes?? * Treatment? * Preventing hypoglycemia? * When to seek medical attention * Blood glucose targets and how you feel when your blood glucose is in and out of your target ranges. * Monitoring and knowing your A1C. * What can make blood glucose go up and down and preventing high and low blood glucose. * Review of blood sugar targets in expected goal range and outside of expected goal range. * Problem solving and preventing hyper/hypoglycemia. * Sick day management of diabetes. * Using blood sugar results in decision making process in managing diabetes. ?Patient was receptive to information provided and participated in the discussion. Asked?appropriate questions and demonstrated good understanding of the topics discussed.? ? Educational Materials: The patient was provided with the following written educational materials: Target Goal handout New Smart Goal: Patient Response to instructions: Comprehension of Instructions: good Readiness to make changes:? Action How confident they feel about making changes: positive Patient Instructions: Include regular daily activity. ADA recommends 30 minutes of exercise 5 days a week. Weight loss talk to PCP or Drapery Seamstress before starting new plan. Test blood sugar as directed; Fasting and 2hpp largest meal. Watch trends in results. Utilize results and to assess how food, physical activity and medications affect blood sugar results. Bring glucometer or CGM to next visit. Be knowledgeable about diabetes medication, its action, side effects, efficacy, toxicity, prescribed dosage, appropriate timing and frequency of administration, effect of missed and delayed doses and instructions for storage, travel and safety. Problem solving techniques to monitor hypo/hyperglycemia episodes and treatments. Reduce risk reduction behaviors, smoking cessation, regular eye, foot and dental examinations. Follow-up with endoscopy tech in 2 months or if hypoglycemic events increase move appointment up Coding Level of Care Code Est Pt Level 1 (19908) Diagnoses Long-term insulin use in type 2 diabetes E11.9; Z79.4
== END 2024-04-09 13:57 | disposition home or self-care (01) ==
PROVIDERS: PCP Internal Medicine; Visit Provider Registered Nurse Diabetes Educator
DX: E11.9 Type 2 diabetes mellitus without complications (principal); Z79.4 Long term (current) use of insulin

== ENCOUNTER → 2024-04-09 13:00 | Outpatient (BNVA) | payer MEDICARE, SELFPAY | PROVIDERS: PCP Internal Medicine; Visit Provider Registered Nurse Diabetes Educator | DX: E11.9 Type 2 diabetes mellitus without complications (principal); Z79.4 Long term (current) use of insulin | CPT/HCPCS: 99211 ==

== ENCOUNTER 2024-04-30 09:32 | Emergency (ER) | payer MEDICARE, SELFPAY ==
[2024-04-30] VITALS (8 sets, daily range): BP systolic 119–150; BP diastolic 65–89; PULSE 80–98; RESP 16–20; TEMP 36.1–37; O2SAT 97–100; BMI 26.0
--- NOTE | ~2024-04-30 | CT_ITS ---
EXAMINATION: CT ABDOMEN AND PELVIS WITHOUT CONTRAST CLINICAL INFORMATION: Abdominal pain with hernia COMPARISON: Ultrasound renal from TECHNIQUE: Multidetector volumetric imaging was performed from the superior aspect of the liver through the pubic symphysis. Sagittal and coronal reformatted images were obtained on the technologist's workstation. This CT examination was performed using dose optimization techniques as appropriate, variously including the following: *Automated exposure control *Adjustment of mA and/or kV according to patient size (this includes techniques or standardized protocols for targeted exams where dose is matched to indication/reason for exam; i.e. extremities or head) *Use of iterative reconstruction technique DLP: 503 mGy-cm FINDINGS: LUNG BASES: The visualized lung bases are unremarkable. LIVER, GALLBLADDER, AND BILIARY TREE: The liver is normal in size, shape, and attenuation. No focal hepatic lesion or biliary ductal dilatation is present. Cholelithiasis without wall thickening or pericholecystic fluid. PANCREAS: Fatty infiltration of the pancreas. SPLEEN: Unremarkable. ADRENAL GLANDS: Nonnodular thickening of the bilateral adrenal glands. KIDNEYS AND URETERS: Exophytic focus along the anterior aspect of the left renal interpolar region measuring 3.7 x 2.2 cm incompletely characterized though may reflect a hemorrhagic/proteinaceous cyst characterized previously on ultrasound from 2018 has a cyst. The kidneys are normal in size, shape, and attenuation. No hydronephrosis, hydroureter, or calculi seen. No perinephric stranding. BLADDER: Borderline circumferential bladder wall thickening. GASTROINTESTINAL TRACT: Small hiatal hernia. The small and large bowel are unremarkable. The appendix is unremarkable. ABDOMINAL WALL: Small fat filled bilateral inguinal hernias. LYMPH NODES: No enlarged lymph nodes per size criteria. VASCULAR: Abdominal aorta is nonaneurysmal. PELVIC VISCERA: Prostate measures 5.1 x 3.5 cm. Calcification bilateral vas deferens. OSSEOUS STRUCTURES: Multilevel degenerative changes of the thoracolumbar lumbosacral spine. CT/CT abdomen pelvis wo IV con IMPRESSION: 1. No acute process of the abdomen or pelvis identified. 2. Cholelithiasis without acute cholecystitis. 3. Exophytic focus along the anterior aspect of the left renal interpolar region measuring 3.7 x 2.2 cm incompletely characterized though may reflect a hemorrhagic/proteinaceous cyst characterized previously on ultrasound from 2018 has a cyst. 4. Small hiatal hernia. 5. Small fat filled bilateral inguinal hernias. 6. Enlarged prostate with mass effect upon the urinary bladder base and circumferential wall thickening of the urinary bladder.
[2024-04-30 10:52] LABS: MANUAL DIFF FLAG NO
[2024-04-30 10:53] LABS: Basophils Absolute Auto 0.1 X10*3/uL (0.0-0.2); Basophils Percent Auto 0.9 % (0-2); Eosinophils Absolute Auto 0.2 X10*3/uL (0.0-0.4); Eosinophils Percent Auto 2.2 % (0-4); Hematocrit 44.7 % (42.0-52.0); Imm Gran Abs Auto 0.04 X10*3/uL (0.00-0.03); Imm Gran Pct Auto 0.5 % (0.0-0.4); Lymphocytes Absolute Auto 2.9 X10*3/uL (1.2-4.9); Lymphocytes Percent Auto 33.1 % (20-40); Mean Corpuscular HGB Conc 35.8 g/dl (31.0-36.0); Mean Corpuscular Volume 81.1 fL (80.0-98.0); Mean Platelet Volume 10.3 fL (9.4-12.4); Monocytes Absolute Auto 0.7 X10*3/uL (0.1-1.2); Monocytes Percent Auto 8.4 % (2-11); Neutrophils Absolute Auto 4.8 x10*3/uL (2.0-8.3); Neutrophils Percent Auto 54.9 % (45-73); Platelet Count 244 X10*3/uL (160-400); Red Blood Count 5.51 X10*6/uL (4.60-5.80); Red Cell Distribution Width 13.1 % (11.0-16.0); White Blood Count 8.7 X10*3/uL (4.8-10.8)
[2024-04-30 11:10] LABS: Alanine Aminotransferase 43 U/L (0-40); Albumin Level 4.7 g/dL (3.5-5.0); Alkaline Phosphatase 93 U/L (39-117); Anion Gap 19 (12-20); Aspartate Amino Transferase 33 U/L (5-37); Bilirubin Total 0.9 mg/dL (0.0-1.0); Blood Urea Nitrogen 32 mg/dL (9-16); Calcium 9.5 mg/dL (8.4-10.2); Carbon Dioxide 21 mmol/L (22-29); Chloride 102 mmol/L (96-108); Creatinine Clr Calc Pharmacy 40.1; Estimated Glomerular Filt Rate 41; Glucose Random 162 mg/dL (60-115); Lipase 26 U/L (8-78); Potassium 4.1 mmol/L (3.3-5.1); Sodium 138 mmol/L (135-145); Total Protein 8.2 g/dL (6.5-8.0)
--- NOTE | 2024-04-30 15:51 | ED_ITS ---
HPI - Abdominal Pain General Chief Complaint: Abdominal Pain Stated Complaint: hasn't eaten since dizzy Time Seen by Provider: 04/30/24 16:25 Source: patient Mode of arrival: ambulatory Limitations: no limitations History of Present Illness HPI narrative: Patient is a 68-year-old male who presents emergency department for evaluation of abdominal pain. He reports a history of a hernia that has been present for ?a few years?. He reports that over the past year he typically experiences diffuse abdominal pain usually 1-2 times monthly with associated nausea and vomiting that typically last for a few days and then resolves. He has always attributed this to his hernia. However, he has been experiencing pain for the past 6 days, has associated anorexia, has no desire to eat food but also is nauseous and vomits any time that he eats. He denies any hematemesis, hematochezia, or melena. He denies any diarrhea or constipation. He states that he also has not been drinking fluids as he should be due to the nausea and vomiting, he typically has a few sips of water a day. Reports that over the past 4 days he has lost a total of 10 lb. He denies associated fevers, chills, chest pain, shortness of breath, difficulty breathing, any precipitating injury or abdominal trauma, genitourinary symptoms. Related Data Home Medications ?Medication ?Instructions ?Recorded ?Confirmed insulin glargine 100 unit/mL (3 15 unit subcut QPM 08/20/23 03/26/24 mL) subcutaneous pen (Lantus Solostar U-100 Insulin) Previous Rx's ?Medication ?Instructions ?Recorded blood pressure monitor #1 ea 04/16/22 simvastatin 20 mg tablet 20 mg PO BEDTIME 90 days #90 tabs 12/07/23 pantoprazole 20 mg tablet,delayed 20 mg PO DAILY 90 days #90 tabs 12/09/23 release cholecalciferol (vitamin D3) 50 50 mcg PO DAILY 90 days #90 caps 01/04/24 mcg (2,000 unit) capsule hydrochlorothiazide 12.5 mg tablet 12.5 mg PO DAILY 90 days #90 tabs 01/10/24 amoxicillin 875 mg tablet 875 mg PO BID 10 days #20 tabs 01/17/24 amlodipine 10 mg tablet 10 mg PO DAILY 90 days #90 tabs 02/02/24 flash glucose sensor (FreeStyle #6 ea 02/04/24 Tip 14 Day Sensor kit) insulin lispro 100 unit/mL 12 unit (0.12 mL) subcut TID 90 03/07/24 subcutaneous pen (Humalog #32.4 mL (U-100) Insulin) semaglutide 0.25 mg or 0.5 mg (2 0.5 mg (0.374 mL) subcut QWEEK 03/26/24 mg/1.5 mL) subcutaneous pen #1.5 mL injector valsartan 320 mg tablet 320 mg PO DAILY 90 days #90 tabs 03/26/24 metformin 1,000 mg tablet 1,000 mg PO BID #180 tabs 04/06/24 Allergies Allergy/AdvReac Type Severity Reaction Status Date / Time cyclobenzaprine Allergy Itching Verified 04/30/24 09:54 [From Flexeril] Review of Systems Review of Systems Yes all other systems are reviewed and are negative PMFSH Past Medical History Attestation statement: The following information was validated with the patient. Source: old records reviewed Medical History Overweight (BMI 25.0-29.9) GERD (gastroesophageal reflux disease) Pure hypercholesterolemia Benign essential hypertension CVA (cerebral vascular accident) T2DM (type 2 diabetes mellitus) Long-term insulin use High cholesterol HTN (hypertension) Anxiety Surgical History History of esophagogastroduodenoscopy (EGD) H/O colonoscopy H/O uvulectomy Family History Family History Father No problems noted. Mother Pre-diabetes Thyroid disease Social History Social History Housing: Apartment Are you a primary medicare contact specialist to a significant other at home: No Do you presently have visiting nurse or other home services: No Alcohol intake: never Patient Tobacco Use Status: Former Tobacco user Tobacco use type: Cigarette Cigarette Packs Per Day: 1 Years Smoked: 12 Smoked in Last 30 Days: No e-Cigarette/Vaping Use: Never Used Second Hand Smoke Exposure: Yes Use of substances other than those prescribed or required for medical reasons: No Advance Directives: No Advance Directives Information Provided: Yes service: No Current occupational status: retired Cognitive needs: No Hearing needs: No Vision needs: Yes (glasses) Physical Exam ED Vital Signs: Vital Signs - 24 hr 04/30/24 09:51 04/30/24 15:50 04/30/24 16:56 Temperature 97.8 F 96.9 F Pulse Rate 90 97 83 Respiratory Rate 20 18 Blood Pressure 140/79 H 150/89 H 124/70 Pulse Oximetry 100 98 Oxygen Delivery Method Room Air Room Air 04/30/24 16:58 04/30/24 17:00 04/30/24 17:23 Temperature 98.6 F Pulse Rate 91 98 82 Respiratory Rate 16 Blood Pressure 119/65 125/65 126/71 Pulse Oximetry 97 Oxygen Delivery Method Room Air 04/30/24 20:25 04/30/24 22:13 05/01/24 00:30 Temperature 98.6 F 98.4 F 98.4 F Pulse Rate 87 80 84 Respiratory Rate 16 16 18 Blood Pressure 128/71 125/68 114/68 Pulse Oximetry 99 98 98 Oxygen Delivery Method Room Air Room Air Room Air 05/01/24 00:35 Temperature 98.4 F Pulse Rate 84 Respiratory Rate 18 Blood Pressure 114/68 Pulse Oximetry 98 Oxygen Delivery Method Room Air BMI result Body Mass Index 26.0 Appearance: Alert.?Oriented to person, place and time. No acute distress.?Normal affect. Eyes: Pupils equal, round and reactive to light.? ENT: Pharynx normal.?? Neck: Normal inspection.? Neck supple.?? CVS: Heart sounds normal. Normal heart rate and rhythm.? Pulses normal.?? Respiratory: No respiratory distress.? Lung sounds clear to auscultation bilaterally?? Abdomen: Soft with diffuse tenderness upon palpation. Large midline abdominal hernia from epigastric region extending to level of the umbilicus, manually reproducible without overlying skin changes. Hypoactive bowel sounds. No pulsatile mass.??No CVA tenderness Skin: Skin warm and dry.? Normal skin color.? Extremities: No lower extremity edema.? Neuro: Moves all extremities spontaneously. Sensation intact bilaterally. Ambulates with normal steady gait. Course Course Course Narrative: This is an RME done by AMBER Taylor: Additional HPI, ROS, PE not included below will be deferred to primary provider. 68 yo m hx of barretts esophagus, DM II, HLD , GERD, HTN, anxiety presents w/ abd pain, nausea, vomiting thinks abd hernia is getting wrose. Hasn't been eating well since Saturday states he has lost 10 lbs in the past 4 days. Appearance: Alert.? Oriented X3.? No acute cardiopulmonary distress distress.? Head: Normocephalic, atraumatic, no step-offs or deformities Neck: Normal inspection.? Neck supple.? CVS: Pulses normal.? Respiratory: No respiratory distress.? Abdomen: Soft and diffuse tenderness .? Skin: ? Normal skin color. Extremities: 5/5 strength to bilateral upper and lower extremities Back: No midline tenderness, no C-spine tenderness, full range of motion, No CVA tenderness bilaterally Neuro: Oriented X 3.? No motor deficit.? No sensory deficit. Reevaluation(s) Reevaluation #1: CT of the abdomen and pelvis is without acute pathology, cholelithiasis but no evidence of cholecystitis, on exam does not have overt right upper quadrant tenderness upon palpation, negative Escobar sign, LFTs and lipase within normal range, would defer ultrasound at this time have low suspicion for acute cholecystitis. CT reveals an exophytic focus along the left renal interval, may reflect a cyst previously seen on ultrasound in 2018. CT with evidence of small hiatal hernia, bilateral inguinal hernias, enlarged prostate with mass effect on the urinary bladder and circumferential wall thickening of the bladder. Urinalysis is pending at this time Time: 20:05 Reevaluation #2: ANASTACIO resolved with IV fluids. Tolerating oral intake. Urinalysis without evidence of infection. At this time feel that he is stable for discharge home, outpatient follow-up with primary care provider, discussed strict return precautions. All questions answered. Medical Decision Making Medical Decision Making MDM Narrative: Patient is a 68-year-old male with past medical history of Anthony's esophagus, type 2 diabetes, hyperlipidemia, GERD, hypertension, anxiety who presents to the emergency department for evaluation of abdominal pain that he has personally attributed to a known hernia. As per physical exam portion of this no he does have a notable mid abdominal hernia that is quite large however it is reproducible, without overlying skin changes, I have less concern for strangulation/incarceration. He has tenderness diffusely throughout his abdomen. Will obtain CBC to evaluate for leukocytosis/ anemia, CMP and lipase to evaluate for abnormal electrolytes /abnormal renal function/ abnormal hepatic/biliary function, and Urinalysis. Patient received 1 L normal saline IV fluid, Zofran IV, morphine IV Differential Diagnosis Differential Diagnoses: The differential diagnosis associated with the presentation includes (In addition to the narrative above; cholecystitis pancreatitis, SBO, diverticulitis, appendicitis, colitis, obstruction) Admission/Observation Consideration of admission/observation: Escalation of care including admission/observation considered Lab Data MDM Lab Attestation statement: I reviewed the patient's lab results. CBC is without leukocytosis or anemia, no thrombocytosis or thrombocytopenia. No electrolyte derangement. As an ANASTACIO, non-anion gap hyperglycemia with glucose of 162. LFTs overall unremarkable, lipase within normal range. 04/30/24 10:46 04/30/24 22:14 Labs: Lab Results 04/30/24 04/30/24 04/30/24 Range/Units 10:46 20:18 22:14 WBC 8.7 (4.8-10.8) X10*3/uL RBC 5.51 (4.60-5.80) X10*6/uL Hgb 16.0 (14.0-18.0) g/dl Hct 44.7 (42.0-52.0) % MCV 81.1 (80.0-98.0) fL MCH 29.0 (27.0-33.0) pg MCHC 35.8 (31.0-36.0) g/dl RDW 13.1 (11.0-16.0) % Plt Count 244 D (160-400) X10*3/uL MPV 10.3 (9.4-12.4) fL Immature Gran % (Auto) 0.5 H (0.0-0.4) % Neut % (Auto) 54.9 (45-73) % Lymph % (Auto) 33.1 (20-40) % [place] % (Auto) 8.4 (2-11) % Eos % (Auto) 2.2 (0-4) % Baso % (Auto) 0.9 (0-2) % Lymph # (Auto) 2.9 (1.2-4.9) X10*3/uL [place] # (Auto) 0.7 (0.1-1.2) X10*3/uL Eos # (Auto) 0.2 (0.0-0.4) X10*3/uL Baso # (Auto) 0.1 (0.0-0.2) X10*3/uL Abs Immat Gran (auto) 0.04 H (0.00-0.03) X10*3/uL Absolute Neuts (auto) 4.8 (2.0-8.3) x10*3/uL Absolute Nucleated RBC 0.000 (0.0-0.012) X10*3/uL Nucleated RBC % (auto) 0.0 (0.0-0.2) /100WBC Sodium 138 139 (135-145) mmol/L Potassium 4.1 4.1 (3.3-5.1) mmol/L Chloride 102 107 (96-108) mmol/L Carbon Dioxide 21 L 20 L (22-29) mmol/L Anion Gap 19 16 (12-20) BUN 32 H 31 H (9-16) mg/dL Creatinine 1.67 H 1.32 (0.5-1.4) mg/dL Estim Creat Clear Calc 40.1 50.7 Estimated GFR 41 54 Random Glucose 162 H 108 (60-115) mg/dL Calcium 9.5 9.1 (8.4-10.2) mg/dL Total Bilirubin 0.9 (0.0-1.0) mg/dL AST 33 (5-37) U/L ALT 43 H (0-40) U/L Alkaline Phosphatase 93 (39-117) U/L Total Protein 8.2 H (6.5-8.0) g/dL Albumin 4.7 (3.5-5.0) g/dL Lipase 26 (8-78) U/L Urine Color Dark Yellow Urine Appearance Clear Urine pH 5.0 (5.0-9.0) Ur Specific [place] 1.025 (1.005-1.025) Urine Protein 30 (1+) H (Neg-Trace) mg/dL Urine Glucose (UA) Negative (Negative) mg/dL Urine Ketones 15 (Negative) mg/dL Urine Blood Negative (Negative) Urine Nitrite Negative (Negative) Ur Leukocyte Esterase Negative (Negative) Urine RBC 0-2 (0-2) /HPF Urine WBC 0-5 (0-5) /HPF Ur Squamous Epith Cells 3-5 (0-2) /HPF Urine Bacteria None Seen (None Seen) Hyaline Casts >20 (0-2) /LPF Radiology Impression Discussion of test interpretation with radiology: I have reviewed the radiologist's reading. Radiologist Impression: CT/CT abdomen pelvis wo IV con IMPRESSION: 1. No acute process of the abdomen or pelvis identified. 2. Cholelithiasis without acute cholecystitis. 3. Exophytic focus along the anterior aspect of the left renal interpolar region measuring 3.7 x 2.2 cm incompletely characterized though may reflect a hemorrhagic/proteinaceous cyst characterized previously on ultrasound from 2018 has a cyst. 4. Small hiatal hernia. 5. Small fat filled bilateral inguinal hernias. 6. Enlarged prostate with mass effect upon the urinary bladder base and circumferential wall thickening of the urinary bladder. External Record Review External record reviewed: Outpatient record Medications Administered Discontinued Medications Generic Name Dose Route Start Last Admin Trade Name Freq PRN Reason Stop Dose Admin Sodium Chloride 1,000 mls @ 999 mls/hr 04/30/24 16:00 04/30/24 18:47 Ns IV 04/30/24 17:00 Infused .Q1H1M EVELIO Infusion Sodium Chloride 1,000 mls @ 999 mls/hr 04/30/24 20:15 04/30/24 22:19 Ns IV 04/30/24 21:15 Infused .Q1H1M EVELIO Infusion Morphine Sulfate 4 mg 04/30/24 16:49 04/30/24 17:07 Morphine Sulfate 4 Mg/Ml Cartridge IVPUSH 04/30/24 16:50 4 mg ONCE ONE Administration Protocol Ondansetron HCl 4 mg 04/30/24 16:49 04/30/24 17:07 Ondansetron Hcl 4 Mg/2 Ml Vial IVPUSH 04/30/24 16:50 4 mg ONCE ONE Administration Discharge Plan Discharge Clinical Impression: Abdominal pain Patient Disposition: Home, Self-Care Instructions: Abdominal Pain (ED) Additional Instructions: Your CT scan today does not show an obvious cause for the pain that you have been experiencing. As discussed, you can experience pain associated with the hernia, but there is no sign of obstruction from the hernia. You were able to tolerate eating while in the emergency department which is reassuring. It is important that you stay well hydrated, your kidney function was elevated today this is due to dehydration. After receiving IV fluids it has returned to normal. Please be sure that you are eating small frequent meals even if you do not feel hungry. Your urine test today does not show any sign of infection. Please follow-up with your primary care provider within 2-3 days. Return back to emergency department any new or worsening symptoms or concerns. Prescriptions: No Action simvastatin 20 mg tablet 20 mg PO BEDTIME 90 Days Qty: 90 1RF cholecalciferol (vitamin D3) 50 mcg (2,000 unit) capsule 50 mcg PO DAILY 90 Days Qty: 90 3RF hydrochlorothiazide 12.5 mg tablet 12.5 mg PO DAILY 90 Days Qty: 90 1RF amlodipine 10 mg tablet 10 mg PO DAILY 90 Days Qty: 90 1RF (DME) FreeStyle Tip 14 Day Sensor Kit topical Q OTHER DAY Qty: 6 3RF Rx Instructions: As directed - 12 weeks' supply insulin lispro [Humalog KwikPen Insulin] 100 unit/mL insulin pen 12 unit subcut TID 90 Days Qty: 32.4 3RF valsartan 320 mg tablet 320 mg PO DAILY 90 Days Qty: 90 1RF metformin 1,000 mg tablet 1,000 mg PO BID Qty: 180 3RF insulin glargine [Lantus Solostar U-100 Insulin] 100 unit/mL (3 mL) insulin pen 15 unit subcut QPM Protocol: Insulin Correction Scale Less than or equal to 110 ---- Give (units): 0 111 to 150 Give (units): 0 151 to 200 Give (units): 2 201 to 250 Give (units): 4 251 to 300 Give (units): 6 301 to 350 Give (units): 8 Greater than 350 Give (units): 10 Call MD if Blood Glucose > : 350 (DME) blood pressure monitor Kit See Rx Instructions .Route Qty: 1 0RF Rx Instructions: As directed amoxicillin 875 mg tablet 875 mg PO BID 10 Days Qty: 20 0RF pantoprazole 20 mg tablet,delayed release (DR/EC) 20 mg PO DAILY 90 Days Qty: 90 4RF semaglutide 0.25 mg or 0.5 mg(2 mg/1.5 mL) pen injector 0.5 mg subcut QWEEK Qty: 1.5 5RF Referrals: Mayank Darling MD [Primary Care Provider] - Interventions: ED Discharge Assessment Last Done: 05/01/24 00:35 Discharge Date/Time: 05/01/24 00:35 Print Language: Croatian
[2024-04-30] MEDS: 0.9 % Sodium Chloride 1,000 ML 999 ML IV ×2 (17:06→20:18)
[2024-04-30] MEDS: ondansetron HCL 4 MG/2 ML VIAL IVPUSH (17:07)
[2024-04-30] MEDS: Morphine Sulfate 4 MG/ML CARTRIDGE IVPUSH (17:07)
--- NOTE | 2024-04-30 20:20 | PC.NURSE ---
urine collected, IVF infusing. attempting PO trial
[2024-04-30 20:28] LABS: Appearance Urine Clear; Color Urine Dark Yellow; Glucose Urine UA Negative (Negative); Leukocyte Esterase Urine Negative (Negative); Nitrite Urine Negative (Negative); Specific Gravity - Urine 1.025 (1.005-1.025); UMIC TRIGGER UACC YES; Urine Blood Negative (Negative); Urine Ketones 15 mg/dL (Negative); Urine Protein 30 (1+) mg/dL (Neg-Trace)
[2024-04-30 20:39] LABS: Bacteria Urine None Seen (None Seen); Hyaline Casts Urine >20 /LPF (0-2); RBC Urine 0-2 /HPF (0-2); WBC Urine 0-5 /HPF (0-5)
[2024-04-30 22:41] LABS: Anion Gap 16 (12-20); Blood Urea Nitrogen 31 mg/dL (9-16); Calcium 9.1 mg/dL (8.4-10.2); Carbon Dioxide 20 mmol/L (22-29); Chloride 107 mmol/L (96-108); Creatinine Clr Calc Pharmacy 50.7; Estimated Glomerular Filt Rate 54; Glucose Random 108 mg/dL (60-115); Potassium 4.1 mmol/L (3.3-5.1); Sodium 139 mmol/L (135-145)
--- NOTE | 2024-05-01 00:28 | PC.NURSE ---
pt tolerated PO intake
[2024-05-01 00:30] VITALS: BP 114/68; PULSE 84; RESP 18; TEMP 36.9; O2SAT 98
[2024-05-01 00:35] VITALS: BP 114/68; PULSE 84; RESP 18; TEMP 36.9; O2SAT 98
== END 2024-05-01 00:35 | disposition home or self-care (01) ==
PROVIDERS: Nurse Practitioner Family; Emergency Provider Emergency Medicine; PCP Internal Medicine
DX: R10.9 Unspecified abdominal pain (principal); K40.20 Bilateral inguinal hernia, without obstruction or gangrene, not specified as recurrent; K80.20 Calculus of gallbladder without cholecystitis without obstruction; R11.2 Nausea with vomiting, unspecified; E11.8 Type 2 diabetes mellitus with unspecified complications; I10 Essential (primary) hypertension; E78.00 Pure hypercholesterolemia, unspecified; Z79.4 Long term (current) use of insulin; Z79.84 Long term (current) use of oral hypoglycemic drugs; Z87.891 Personal history of nicotine dependence
CPT/HCPCS: 36415; 74176; 80048; 80053; 81001; 83690; 85025; 96361; 96374; 96375; 99284; J2270; J2405

== ENCOUNTER 2024-05-04 15:05 | Outpatient (AMB) | payer MEDICARE, SELFPAY ==
--- NOTE | 2024-05-04 15:20 | MHC.PC.OV ---
Vital Signs 05/04/24 15:22 Height 5 ft 7 in Weight 168 lb 4 oz BMI 26.3 BP 140/70 H Blood Pressure Location Rt brachial Position Sitting Pulse 78 Pulse Source Pulse Oximeter Pulse Oximetry (%) 98 Oxygen Delivery Method Room Air Intake Visit Reasons: [facility] [place] Abdominal Pain Intake Note: Patient is here to follow-up after a visit the emergency department at [facility] [place] [facility] on 05/01/24 [employer] Supervisor Required: No Slitter And Rewinder: Not Required per policy Accompanied by: Self / Same As Patient Allergies cyclobenzaprine [From Flexeril] Allergy (Verified 05/14/24 10:55) Itching Medication List - Last Reconciled 05/04/24 by Mayank Darling MD amlodipine 10 mg PO DAILY 90 days blood pressure monitor As directed cholecalciferol (vitamin D3) 50 mcg PO DAILY 90 days flash glucose sensor (FreeStyle Tip 14 Day Sensor kit) As directed - 12 weeks' supply hydrochlorothiazide 12.5 mg PO DAILY 90 days insulin glargine (Lantus Solostar U-100 Insulin) 15 units See Protocol subcut QPM insulin lispro (Humalog KwikPen (U-100) Insulin) 12 units (0.12 mL) subcut TID 90 days metformin 1,000 mg PO BID pantoprazole 20 mg PO DAILY 90 days semaglutide 0.5 mg (0.374 mL) subcut QWEEK simvastatin 20 mg PO BEDTIME 90 days valsartan 320 mg PO DAILY 90 days Tobacco use date assessed: 05/04/24 Fall risk assessment: No Falls in past year Last assessed Fall Risk: 05/04/24 Dental Screening Dental Screen Date: 01/17/24 [facility] Abdominal Pain HPI Details Patient comes in today for his F follow up He went to the ER a few days ago for increasing abdominal pain, nausea and vomiting x 5 to 6 days He was concerned that his symptoms were related to a hernia that he's had for years He reported not eating or drinking much for several days prior to going to the ER due to his GI symptoms His labs done at the ER were mostly normal except for some findings of ANASTACIO Abdominal and pelvic CT were also mostly normal with no evidence of infection or obstruction He was able to tolerate some oral feedings and fluids while he was awaiting evaluation in the ER and as his symptoms appear to be improving, he was eventually discharged home with instructions to follow up with his PCP as soon as possible Patient currently feels okay although he states that his stomach does not feel completely well yet - still feels queasy at times He denies any fever; denies any headaches or dizziness Denies any chest pains, no SOB No nausea/vomiting, no abdominal pain No change in bowel habits noted [facility] Medical History (Updated 05/14/24 @ 14:23 by Mayank Darling MD) Overweight (BMI 25.0-29.9) GERD (gastroesophageal reflux disease) Pure hypercholesterolemia Benign essential hypertension CVA (cerebral vascular accident) T2DM (type 2 diabetes mellitus) Long-term insulin use Anxiety Surgical History (Updated 05/14/24 @ 10:59 by Mayank Darling MD) History of esophagogastroduodenoscopy (EGD) H/O colonoscopy H/O uvulectomy Family History Father No problems noted. Mother Pre-diabetes Thyroid disease Social History Housing: Apartment Are you a primary care nurse rn to a significant other at home: No Do you presently have visiting nurse or other home services: No Alcohol intake: never Patient Tobacco Use Status: Former Tobacco user Tobacco use type: Cigarette Cigarette Packs Per Day: 1 Years Smoked: 12 e-Cigarette/Vaping Use: Never Used Second Hand Smoke Exposure: Yes service: No Current occupational status: retired Cognitive needs: No Hearing needs: No Vision needs: Yes (glasses) Questionnaire Thrive Questionnaire Date Thrive assessed: 01/17/24 DEYVI-7 AMB Questionnaire DEYVI-7 Date DEYVI - 7 assessed: 01/17/24 Source: Developed by Drs. Warren King, Daphne Loredo, Jose Antonio Washington and colleagues, with an educational marla from [employer]. Review of Systems Const Denies chills, Denies fatigue, Denies fever(s) and Denies headache(s) ENT Denies dysphagia, Denies dizziness, Denies otalgia, Denies headache(s), Denies neck pain, Denies odynophagia and Denies sore throat Card Denies chest pain, Denies palpitations and Denies dyspnea Resp Denies cough and Denies dyspnea GI Denies abdominal pain (but stomach still feels queasy and bloated at times), Reports bloating (at times), Denies constipation, Denies dysphagia, Denies heartburn, Denies diarrhea, Denies nausea, Denies odynophagia and Denies vomiting Denies dysuria, Denies nocturia and Denies urinary frequency Musc Denies back pain and Denies neck pain Skin/Breast Denies rash Neuro Denies dizziness and Denies headache(s) Endo Denies fatigue and Denies palpitations Physical exam (Primary Care) Vital Signs: Last Vital Signs Pulse 78 05/04/24 15:22 BP 140/70 H 05/04/24 15:22 Pulse Ox 98 05/04/24 15:22 Oxygen Delivery Method Room Air 05/04/24 15:22 BMI result Body Mass Index 26.3 Tobacco/Smoking Status: Tobacco use Status Tobacco use date assessed 05/04/24 05/04/24 15:27 Patient Tobacco Use Status Former Tobacco user 05/04/24 15:27 Tobacco use type Cigarette 05/04/24 15:27 e-Cigarette/Vaping Use Never Used 05/04/24 15:27 Thrive Assessment: Date of Thrive Assessment Date Thrive assessed 01/17/24 05/04/24 15:27 Const General: no acute distress and alert HENMT Ears: TM's normal bilaterally and EAC's normal Throat: Yes posterior oropharynx normal and Yes tonsils normal (no TP congestion) Neck Neck: Yes no lymphadenopathy and Yes supple Thyroid: Thyroid normal Resp Auscultation: clear to auscultation bilaterally, no rales and no wheezes Cardio Rate: regular rate Rhythm: regular rhythm Heart sounds: no murmurs GI Palpation (GI): Soft to palpation and nontender (but (+) mild epigastric discomfort on palpation) Auscultation: normal bowel sounds General: Yes no CVA tenderness Back/Spine/Pelvis Back: no CVA tenderness Skin Rashes: no rashes Extrem General: Yes no clubbing, cyanosis or edema Assessment and Plan Assessment & Plan (1) Gastritis: Code(s): K29.70 - Gastritis, unspecified, without bleeding Qualifiers: Gastritis type: unspecified gastritis Chronicity: unspecified Gastritis bleeding: without bleeding Qualified Code(s): K29.70 - Gastritis, unspecified, without bleeding Plan: Patient is advised that he has Anthony's esophagitis and that is a possible etiology of his recent symptoms but gastritis is also a likely consideration Reinforced dietary restrictions Will start patient on Pantoprazole 40 mg QD Plan To return as scheduled next week for his annual physical examination Medications: Changed From pantoprazole 20 mg PO DAILY 90 days 90 tabs 4RF K22.70 - Anthony's esophagus without dysplasia To pantoprazole 40 mg PO .QD 90 tabs 3RF 90 days K22.70 - Anthony's esophagus without dysplasia Coding Level of Care Code Est Pt Level 3 (14715) Diagnoses Gastritis without bleeding, unspecified chronicity, unspecified gastritis type K29.70 Gastritis type: unspecified gastritis Chronicity: unspecified Gastritis bleeding: without bleeding
[2024-05-04 15:22] VITALS: BP 140/70; PULSE 78; O2SAT 98; BMI 26.3
== END 2024-05-04 16:10 | disposition home or self-care (01) ==
PROVIDERS: PCP Internal Medicine; Visit Provider Internal Medicine
DX: K29.70 Gastritis, unspecified, without bleeding (principal)
CPT/HCPCS: 99213

== ENCOUNTER 2024-05-07 09:25 | Outpatient (AMB) | payer MEDICARE, SELFPAY ==
--- NOTE | 2024-05-07 09:47 | A.OFFVIS_ITS ---
VS Expanded 05/07/24 09:47 Weight 173 lb 15.115 oz Intake Visit Reasons: DM Allergies cyclobenzaprine [From Flexeril] Allergy (Verified 05/04/24 16:03) Itching Nutrition Presentation Details: Pt presents for MNT f/u for T2DM Pt reports he was at the ER a week ago due to not able to eat and vomiting, became dehydrated, lost about 12 lbs. Today he reports his appetite is better. Pt reports having 3 meals per day 9-10 am B: low sugar cereal (cheerios) banan and 2% milk 1 pm L: sandwich with turkey/cheese/tomato, water or milk 5-6 pm dinner varies: pasta/chicken/tomato sauce or mashed potato/beef salad , [place] sprout,w ater snack: crackers with peanut butter or sandw or cookies , yogurt physical activity: daily life activates MVI not taking etoh/smoking: denies BS Monitoring Most Recent Diabetes Results: Microalb/Creat Ratio 43.5 ug/mg cr (<30) H 01/17/24 Cholesterol 137 mg/dL (<200) 01/17/24 HDL Cholesterol 39 mg/dL (>40) L 01/17/24 Triglycerides 100 mg/dL (<150) 01/17/24 Creatinine 1.32 mg/dL (0.5-1.4) 04/30/24 Blood Urea Nitrogen 31 mg/dL (9-16) H 04/30/24 Sodium 139 mmol/L (135-145) 04/30/24 Potassium 4.1 mmol/L (3.3-5.1) 04/30/24 Chloride 107 mmol/L (96-108) 04/30/24 Carbon Dioxide 20 mmol/L (22-29) L 04/30/24 Calcium 9.1 mg/dL (8.4-10.2) 04/30/24 AST 33 U/L (5-37) 04/30/24 ALT 43 U/L (0-40) H 04/30/24 Total Protein 8.2 g/dL (6.5-8.0) H 04/30/24 Albumin 4.7 g/dL (3.5-5.0) 04/30/24 [facility] Medical History Overweight (BMI 25.0-29.9) GERD (gastroesophageal reflux disease) Pure hypercholesterolemia Benign essential hypertension CVA (cerebral vascular accident) T2DM (type 2 diabetes mellitus) Long-term insulin use High cholesterol HTN (hypertension) Anxiety Surgical History History of esophagogastroduodenoscopy (EGD) H/O colonoscopy H/O uvulectomy Family History Father No problems noted. Mother Pre-diabetes Thyroid disease Social History Housing: Apartment Are you a primary care services manager to a significant other at home: No Do you presently have visiting nurse or other home services: No Alcohol intake: never Patient Tobacco Use Status: Former Tobacco user Tobacco use type: Cigarette Cigarette Packs Per Day: 1 Years Smoked: 12 e-Cigarette/Vaping Use: Never Used Second Hand Smoke Exposure: Yes service: No Current occupational status: retired Cognitive needs: No Hearing needs: No Vision needs: Yes (glasses) Assessment & Plan Assessment & Plan (1) Type II diabetes mellitus: Code(s): E11.9 - Type 2 diabetes mellitus without complications Category: Medical Qualifiers: 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: with skilled nursing use Diabetes mellitus complication status: with hyperglycemia Qualified Code(s): E11.65 - Type 2 diabetes mellitus with hyperglycemia; 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 Plan: Used wt : 78 kg Est kcal as per MSJ: 1800 (40% carb, 30% fat/prot) Est fluid needs: 2000 ml/d (25 ml/kg bw) Rec fiber: increase to 8-10 g per day and gradually increase to 35 g as tolerated Rec Na: < 1500 mg /d Educate patient on: (R= Reviewed, V = verbalizes understanding N/R= Needs review N/A= not applicable) * Food sources of carbohydrates and serving adequate serving sizes : R V * Difference between complex carbohydrates and simple carbohydrates, role of fiber: R V * Low fat foods : Differences between fats (MUFA/PUFA/saturated fats, trans fats) and food sources of various fats: R V * Food sources of sodium and salt and healthy modifications for heart health and kidney health: R , * Vitamins and minerals: R * How to interpret food labels: V * Healthy Plate method concept: R V * Physical activity: benefits and precaution: R V * prevention of hyperglycemia :R, V Patient Instructions: Choose low acid foods and low fat food options Choose smaller portions of meals and have 4-6 small meals per day see meal ideas and options Discuss medication and GI side effects with your doctor Coding Level of Care Code Nutr Indiv Subseq (70650) Diagnoses Type 2 diabetes mellitus with hyperglycemia, with long-term current use of insulin E11.65; Z79.4 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: with skilled nursing use Diabetes mellitus complication status: with hyperglycemia Time Spent (min) 30
== END 2024-05-07 10:08 | disposition home or self-care (01) ==
PROVIDERS: PCP Internal Medicine; Visit Provider Dietitian, Registered
DX: E11.65 Type 2 diabetes mellitus with hyperglycemia (principal); Z79.4 Long term (current) use of insulin

== ENCOUNTER → 2024-05-07 09:25 | Outpatient (BNVA) | payer MEDICARE, SELFPAY | PROVIDERS: PCP Internal Medicine; Visit Provider Dietitian, Registered | DX: E11.65 Type 2 diabetes mellitus with hyperglycemia (principal); Z79.4 Long term (current) use of insulin | CPT/HCPCS: 97803 ==

== ENCOUNTER 2024-05-08 08:30 | Outpatient (REF) | payer MEDICARE, SELFPAY ==
[2024-05-08 10:59] LABS: Appearance Urine Clear; Color Urine Yellow; Glucose Urine UA 250 mg/dL (Negative); Leukocyte Esterase Urine Negative (Negative); MANUAL DIFF FLAG NO; Nitrite Urine Negative (Negative); PH 5.5 (5.0-9.0); Specific Gravity - Urine 1.015 (1.005-1.025); Urine Blood Negative (Negative); Urine Ketones Negative (Negative); Urine Protein Negative (Neg-Trace)
[2024-05-08 11:08] LABS: Basophils Absolute Auto 0.1 X10*3/uL (0.0-0.2); Basophils Percent Auto 0.9 % (0-2); Eosinophils Absolute Auto 0.1 X10*3/uL (0.0-0.4); Eosinophils Percent Auto 2.5 % (0-4); Hematocrit 38.1 % (42.0-52.0); Hemoglobin 13.2 g/dl (14.0-18.0); Imm Gran Abs Auto 0.01 X10*3/uL (0.00-0.03); Imm Gran Pct Auto 0.2 % (0.0-0.4); Lymphocytes Absolute Auto 2.3 X10*3/uL (1.2-4.9); Lymphocytes Percent Auto 40.3 % (20-40); Mean Corpuscular HGB Conc 34.6 g/dl (31.0-36.0); Mean Corpuscular Hemoglobin 28.3 pg (27.0-33.0); Mean Corpuscular Volume 81.8 fL (80.0-98.0); Mean Platelet Volume 10.8 fL (9.4-12.4); Monocytes Absolute Auto 0.5 X10*3/uL (0.1-1.2); Monocytes Percent Auto 8.9 % (2-11); Neutrophils Absolute Auto 2.7 x10*3/uL (2.0-8.3); Neutrophils Percent Auto 47.2 % (45-73); Platelet Count 197 X10*3/uL (160-400); Red Blood Count 4.66 X10*6/uL (4.60-5.80); White Blood Count 5.6 X10*3/uL (4.8-10.8)
[2024-05-08 11:10] LABS: Estimated Average Glucose 166 mg/dL; Hemoglobin A1c % 7.4 % (<6.0)
[2024-05-08 11:14] LABS: Creatinine Urine 88.95 mg/dL; Microalbum/Creatinine Ratio Ur 30.3 ug/mg cr (<30)
[2024-05-08 11:51] LABS: Alanine Aminotransferase 25 U/L (0-40); Albumin Level 4.2 g/dL (3.5-5.0); Alkaline Phosphatase 80 U/L (39-117); Anion Gap 13 (12-20); Aspartate Amino Transferase 20 U/L (5-37); Bilirubin Total 0.3 mg/dL (0.0-1.0); Blood Urea Nitrogen 17 mg/dL (9-16); Calcium 9.9 mg/dL (8.4-10.2); Carbon Dioxide 31 mmol/L (22-29); Chloride 102 mmol/L (96-108); Cholesterol 116 mg/dL (<200); Estimated Glomerular Filt Rate > 60; Glucose Fasting 162 mg/dL (60-99); HDL Cholesterol 40 mg/dL (>40); LDL Cholesterol Calculated 57 mg/dL (<100); Potassium 3.8 mmol/L (3.3-5.1); Sodium 142 mmol/L (135-145); TSH reflex Free T4 1.38 uIU/mL (0.32-4.0); Total Protein 7.3 g/dL (6.5-8.0); Triglycerides 95 mg/dL (<150); Vitamin D 25-OH Total 38.5 ng/mL (>30)
[2024-05-08 11:59] LABS: Folate 6.1 ng/mL (> or = 4.0); Vitamin B12 425 pg/mL (200-900)
== END 2024-05-08 08:31 | disposition home or self-care (01) ==
LOC: HO.10HDL 08:30
PROVIDERS: Visit Provider Internal Medicine
DX: E78.00 Pure hypercholesterolemia, unspecified (principal); E11.9 Type 2 diabetes mellitus without complications; E53.8 Deficiency of other specified B group vitamins; R30.0 Dysuria; D64.9 Anemia, unspecified; E55.9 Vitamin D deficiency, unspecified
CPT/HCPCS: 36415; 80053; 80061; 81003; 82043; 82306; 82570; 82607; 82746; 83036; 84443; 85025

== ENCOUNTER 2024-05-14 09:45 | Outpatient (AMB) | payer MEDICARE, SELFPAY ==
--- NOTE | 2024-05-14 10:03 | A.OFFPC_ITS ---
Vital Signs 05/14/24 10:05 Height 5 ft 7 in Weight 174 lb BMI 27.2 BP 120/68 Blood Pressure Location Lt brachial Position Sitting Pulse 75 Pulse Source Pulse Oximeter Pulse Oximetry (%) 97 Oxygen Delivery Method Room Air Intake Visit Reasons: Annual Physical Intake Note: Patient here for an annual physical exam Truck Hop Required: No Accompanied by: Self / Same As Patient Allergies cyclobenzaprine [From Flexeril] Allergy (Verified 05/14/24 10:55) Itching Medication List - Last Reconciled 05/14/24 by Mayank Darling MD amlodipine 10 mg PO DAILY 90 days blood pressure monitor As directed cholecalciferol (vitamin D3) 50 mcg PO DAILY 90 days flash glucose sensor (FreeStyle Tip 14 Day Sensor kit) As directed - 12 weeks' supply hydrochlorothiazide 12.5 mg PO DAILY 90 days insulin glargine (Lantus Solostar U-100 Insulin) 15 units See Protocol subcut QPM insulin lispro (Humalog KwikPen (U-100) Insulin) 12 units (0.12 mL) subcut TID 90 days metformin 1,000 mg PO BID pantoprazole 40 mg PO .QD 90 days semaglutide 0.5 mg (0.374 mL) subcut QWEEK simvastatin 20 mg PO BEDTIME 90 days valsartan 320 mg PO DAILY 90 days Tobacco use date assessed: 05/04/24 Fall risk assessment: No Falls in past year Last assessed Fall Risk: 05/14/24 Dental Screening Dental Screen Date: 05/14/24 Did you have a dental visit in the last 12 months?: Yes Did you have a dental problem in the last 6 months where you did not have access to dental care?: No Was dental information given to patient?: Patient has dentist HPI Annual Physical HPI Details Patient comes in today for his annual physical examination States that he feels okay He denies any headaches or dizziness Denies any chest pains, no SOB No nausea/vomiting, no abdominal pain No change in bowel habits noted He denies any acute urinary symptoms He had his follow up labs done last week - to discuss his results He had his screening colonoscopy last done with Dr. Yeager last year on 08/22/2023 - was advised repeat colonoscopy in 3 to 4 years due to fair [facility] Medical History (Updated 05/14/24 @ 13:32 by Mayank Darling MD) Overweight (BMI 25.0-29.9) GERD (gastroesophageal reflux disease) Pure hypercholesterolemia Benign essential hypertension CVA (cerebral vascular accident) T2DM (type 2 diabetes mellitus) Long-term insulin use Anxiety Surgical History (Updated 05/14/24 @ 10:59 by Mayank Darling MD) History of esophagogastroduodenoscopy (EGD) H/O colonoscopy H/O uvulectomy Family History Father No problems noted. Mother Pre-diabetes Thyroid disease Social History Housing: Apartment Are you a primary home care assistant to a significant other at home: No Do you presently have visiting nurse or other home services: No Alcohol intake: never Patient Tobacco Use Status: Former Tobacco user Tobacco use type: Cigarette Cigarette Packs Per Day: 1 Years Smoked: 12 e-Cigarette/Vaping Use: Never Used Second Hand Smoke Exposure: Yes service: No Current occupational status: retired Cognitive needs: No Hearing needs: No Vision needs: Yes (glasses) Questionnaire Thrive Questionnaire Date Thrive assessed: 05/14/24 I am a: Patient What is your living situation today?: I have a steady place to live Within the past 12 months, did the food you bought not last and you didn't have the money to get more?: Never true Within the past 12 months, did you worry whether your food would run out before you got money to buy more?: Never true Do you have trouble paying for medicines?: No Do you have trouble getting transportation to medical appointments?: No Do you have trouble paying your heating and electricity bill?: No Do you have trouble taking care of your child, family member or friend?: No Do you have trouble with day-to-day activities such as bathing, preparing meals, shopping, managing finances, etc.?: No Are you currently unemployed and looking for a job?: No Are you interested in more education?: No Please select the resources that you would like help with: None Currently or been in a relationship where the following occur: no concerns reported THRIVE Score: 0 DEYVI-7 AMB Questionnaire DEYVI-7 Date DEYVI - 7 assessed: 05/14/24 Feeling nervous, anxious, or on edge: 0 = Not at all Not being able to stop or control worryin = Not at all Worrying too much about different things: 0 = Not at all Trouble relaxin = Not at all Being so restless that it is hard to sit still: 0 = Not at all Becoming easily annoyed or irritable: 0 = Not at all Feeling afraid as if something awful might happen: 0 = Not at all Total DEYVI-7 score (0-4 normal; 5-9 mild; 10-14 moderate; 15-21 severe): 0 Source: Developed by Drs. Warren King, Daphne Loredo, Jose Antonio Washington and colleagues, with an educational marla from [employer] ([employer]: [place]). Review of Systems Const Denies chills, Denies fatigue, Denies fever(s) and Denies headache(s) Eyes Denies blurry vision, Denies change in vision, Denies irritation and Denies itchy eyes ENT Denies dysphagia, Denies dizziness, Denies otalgia, Denies headache(s), Denies neck pain, Denies odynophagia and Denies sore throat Card Denies chest pain, Denies palpitations and Denies dyspnea Resp Denies cough, Denies dyspnea and Denies wheezing GI Denies abdominal pain, Denies bloating, Denies constipation, Denies dysphagia, Denies heartburn, Denies diarrhea, Denies nausea, Denies odynophagia and Denies vomiting Denies hematuria, Denies difficulty urinating, Denies dysuria, Denies nocturia, Denies urinary frequency and Denies urinary urgency Musc Denies back pain and Denies neck pain Skin/Breast Denies rash Neuro Denies dizziness and Denies headache(s) Endo Denies fatigue and Denies palpitations Aller/Immun Denies itchy eyes and Denies wheezing Physical exam (Primary Care) Vital Signs: Last Vital Signs Pulse 75 05/14/24 10:05 BP 120/68 05/14/24 10:05 Pulse Ox 97 05/14/24 10:05 Oxygen Delivery Method Room Air 05/14/24 10:05 BMI result Body Mass Index 27.2 Tobacco/Smoking Status: Tobacco use Status Tobacco use date assessed 05/04/24 05/14/24 10:09 Patient Tobacco Use Status Former Tobacco user 05/14/24 10:09 Tobacco use type Cigarette 05/14/24 10:09 e-Cigarette/Vaping Use Never Used 05/14/24 10:09 Thrive Assessment: Date of Thrive Assessment Date Thrive assessed 05/14/24 05/14/24 10:09 Currently or been in a relationship where the following occur: no concerns reported Const General: no acute distress, alert and awake Orientation/consciousness: patient oriented x3 HENMT Head: Yes normocephalic and Yes atraumatic Ears: external ears normal, TM's normal bilaterally and EAC's normal General nose exam: No nasal discharge present Face and sinus: Yes normal facial exam and Yes sinuses nontender Teeth and gingiva: dentition normal Throat: Yes posterior oropharynx normal and Yes tonsils normal (no TP congestion) Eyes Eyelids: Yes eyelids normal Conjunctivae: conjunctivae normal Pupils: Equal, round and reactive pupils present EOM: EOMs intact bilaterally Neck Neck: Yes no lymphadenopathy and Yes supple Thyroid: Thyroid normal Resp Auscultation: clear to auscultation bilaterally, no rales and no wheezes Cardio Rate: regular rate Rhythm: regular rhythm Heart sounds: no murmurs GI Palpation (GI): Soft to palpation, nontender and No hepatosplenomegaly present Auscultation: normal bowel sounds General: Yes no CVA tenderness Back/Spine/Pelvis Back: no CVA tenderness Thoracic/Lumbar Spine: thoracic and lumbar spine normal to inspection Skin Lesions: no lesions Rashes: no rashes Neuro General: patient oriented x3, moves all extremities, no focal motor deficits and CN's II-XI intact bilaterally Cranial nerves: Yes Equal, round and reactive pupils present Cognition (Neuro): normal cognition Gait exam (Neuro): Normal gait present Extrem General: Yes no clubbing, cyanosis or edema Results Reviewed Results Reviewed: Laboratory Tests 05/08/24 05/08/24 08:34 08:39 WBC 5.6 Hgb 13.2 L Hct 38.1 L Plt Count 197 Sodium 142 Potassium 3.8 Creatinine 1.11 Estimated GFR > 60 Fasting Glucose 162 H Hemoglobin A1c % 7.4 H Calcium 9.9 D AST 20 ALT 25 Triglycerides 95 Cholesterol 116 LDL Cholesterol, Calc 57 HDL Cholesterol 40 L Vitamin B12 425 25-OH Vitamin D Total 38.5 TSH 1.38 Ur Specific [place] 1.015 Urine Protein Negative Urine Glucose (UA) 250 H Urine Blood Negative Urine Nitrite Negative Ur Leukocyte Esterase Negative Microalb/Creat Ratio 30.3 H Assessment and Plan Assessment & Plan (1) Annual physical exam: Code(s): Z00.00 - Encounter for general adult medical examination without abnormal findings Plan: Results of his labs done last week reviewed and discussed with patient He is up-to-date with his cancer screenings - had his colonoscopy done with Dr. Yeager last year and recommended repeat colonoscopy in 3 to 4 years due to fair prep (2) Diabetes mellitus: Code(s): E11.9 - Type 2 diabetes mellitus without complications Qualifiers: Diabetes mellitus type: type 2 Diabetes mellitus fdc insulin use: with fdc use Diabetes mellitus complication status: without complication Qualified Code(s): E11.9 - Type 2 diabetes mellitus without complications; Z79.4 - detention (current) use of insulin Plan: His HgbA1c was at 7.4% on his labs done last week (was at 7.8% a few months ago) - goal is at least <7.5% Recalls that he was advised by endocrinology at a previous visit with them a few months ago that his blood sugar was too tightly controlled based on his age and he needs to loosen his control a little bit Reinforced diabetic diet Continue Lantus at 10 to 15 units SQ QD and Humalog 4 to 12 units TID with meals; continue Metformin 1000 mg BID He was also on Ozempic 0.5 mg SQ once a week previously but he could not afford the co-pay - was reportedly being asked to pay around $1100 / month for the Rx Follow up with endocrinology as scheduled (3) Benign essential hypertension: Code(s): I10 - Essential (primary) hypertension Plan: Reinforced low sodium diet - goal is systolic BP of 120 to 130 mm or less Continue Valsartan 320 mg QD, HCTZ 12.5 mg QD and Amlodipine 10 mg QD (4) Pure hypercholesterolemia: Code(s): E78.00 - Pure hypercholesterolemia, unspecified Plan: Reinforced low cholesterol diet Continue Simvastatin 20 mg QD Will recheck his labs and fasting lipids in 4 months for follow up (5) Vitamin D deficiency: Code(s): E55.9 - Vitamin D deficiency, unspecified Plan: Continue Vitamin D3 2000 units QD (6) Diplopia: Code(s): H53.2 - Diplopia Plan: Transient; occurred back in November 2021 and spontaneously resolved with NO recurrence since CT and MRI of the brain done at the time both came back negative - unlikely that his symptoms at the time were from CVA but TIA cannot be entirely ruled out States that he was seen by ophthalmology back then and was advised that his eye exam came out normal Continue Aspirin 81 mg QD - patient was advised that he really does not need to continue this but states that he feels more comfortable staying on it and it is not really bothering him (7) GERD (gastroesophageal reflux disease): Code(s): K21.9 - Gastro-esophageal reflux disease without esophagitis Qualifiers: Esophagitis presence: without esophagitis Qualified Code(s): K21.9 - Gastro-esophageal reflux disease without esophagitis Plan: Dietary restrictions reinforced Continue Pantoprazole 40 mg QD (8) Elevated LFTs: Code(s): R79.89 - Other specified abnormal findings of blood chemistry Plan: Patient is advised that his LFTs are now back to normal on his recent labs done last week Will monitor/recheck his LFTs in 4 months for follow up (9) Overweight (BMI 25.0-29.9): Code(s): E66.3 - Overweight Plan: Reinforced diet/exercise as tolerated/lose weight Plan Follow up in 4 months Orders: Orders Complete Blood Count Auto Diff 4 Months D64.9 - Anemia, unspecified Comprehensive Deputy. Panel Fast 4 Months E78.00 - Pure hypercholesterolemia, unspecified Microalbumin, Random (w Creat) 4 Months E11.9 - Type 2 diabetes mellitus without complications UA CC w/rflx Micro + Cult 4 Months R30.0 - Dysuria Vitamin D 25-OH Total 4 Months E55.9 - Vitamin D deficiency, unspecified Hemoglobin A1c 4 Months E11.9 - Type 2 diabetes mellitus without complications Lipid Panel 4 Months E78.00 - Pure hypercholesterolemia, unspecified TSH reflex Free T4 4 Months E78.00 - Pure hypercholesterolemia, unspecified Vitamin B12 and Folate 4 Months E53.8 - Deficiency of other specified B group vitamins Coding Level of Care Code Est Pt Prev Care >65y(52532) Diagnoses Annual physical exam Z00.00 Type 2 diabetes mellitus without complication, with long-term current use of insulin E11.9; Z79.4 Diabetes mellitus type: type 2 Diabetes mellitus long term care social worker insulin use: with fdc use Diabetes mellitus complication status: without complication Benign essential hypertension I10 Pure hypercholesterolemia E78.00 Vitamin D deficiency E55.9 Diplopia H53.2 Gastroesophageal reflux disease without esophagitis K21.9 Esophagitis presence: without esophagitis Elevated LFTs R79.89 Overweight (BMI 25.0-29.9) E66.3
[2024-05-14 10:05] VITALS: BP 120/68; PULSE 75; O2SAT 97; BMI 27.2
== END 2024-05-14 11:07 | disposition home or self-care (01) ==
PROVIDERS: PCP Internal Medicine; Visit Provider Internal Medicine
DX: Z00.00 Encounter for general adult medical examination without abnormal findings (principal); E11.9 Type 2 diabetes mellitus without complications; Z79.4 Long term (current) use of insulin; I10 Essential (primary) hypertension; E78.00 Pure hypercholesterolemia, unspecified; E55.9 Vitamin D deficiency, unspecified; H53.2 Diplopia; K21.9 Gastro-esophageal reflux disease without esophagitis; R79.89 Other specified abnormal findings of blood chemistry; E66.3 Overweight
CPT/HCPCS: 99397

== ENCOUNTER 2024-06-09 12:25 | Outpatient (AMB) | payer MEDICARE, SELFPAY ==
--- NOTE | 2024-06-09 13:46 | MHC.AMDMED ---
Intake Intake Visit Reasons: CGM-confirmed Transmission Assembler Required: No Accompanied by: Self / Same As Patient Allergies cyclobenzaprine [From Flexeril] Allergy (Verified 05/14/24 10:55) Itching HPI Comprehensive Diabetes Asmnt Most Recent Diabetes Results: Microalb/Creat Ratio 30.3 ug/mg cr (<30) H 05/08/24 Cholesterol 116 mg/dL (<200) 05/08/24 HDL Cholesterol 40 mg/dL (>40) L 05/08/24 Triglycerides 95 mg/dL (<150) 05/08/24 Creatinine 1.11 mg/dL (0.5-1.4) 05/08/24 Blood Urea Nitrogen 17 mg/dL (9-16) H 05/08/24 Sodium 142 mmol/L (135-145) 05/08/24 Potassium 3.8 mmol/L (3.3-5.1) 05/08/24 Chloride 102 mmol/L (96-108) 05/08/24 Carbon Dioxide 31 mmol/L (22-29) H 05/08/24 Calcium 9.9 mg/dL (8.4-10.2) 05/08/24 AST 20 U/L (5-37) 05/08/24 ALT 25 U/L (0-40) 05/08/24 Total Protein 7.3 g/dL (6.5-8.0) 05/08/24 Albumin 4.2 g/dL (3.5-5.0) 05/08/24 [facility] Medical History (Updated 05/14/24 @ 14:23 by Mayank Darling MD) Overweight (BMI 25.0-29.9) GERD (gastroesophageal reflux disease) Pure hypercholesterolemia Benign essential hypertension CVA (cerebral vascular accident) T2DM (type 2 diabetes mellitus) Long-term insulin use Anxiety Surgical History (Updated 05/14/24 @ 10:59 by Mayank Darling MD) History of esophagogastroduodenoscopy (EGD) H/O colonoscopy H/O uvulectomy Family History Father No problems noted. Mother Pre-diabetes Thyroid disease Social History Housing: Apartment Are you a primary child care supervisor to a significant other at home: No Do you presently have visiting nurse or other home services: No Alcohol intake: never Patient Tobacco Use Status: Former Tobacco user Tobacco use type: Cigarette Cigarette Packs Per Day: 1 Years Smoked: 12 e-Cigarette/Vaping Use: Never Used Second Hand Smoke Exposure: Yes service: No Current occupational status: retired Cognitive needs: No Hearing needs: No Vision needs: Yes (glasses) Assessment & Plan Assessment & Plan (1) Long-term insulin use in type 2 diabetes: Code(s): E11.9 - Type 2 diabetes mellitus without complications; Z79.4 - long term care administrator (current) use of insulin Plan: Personal Continuous Glucose Monitor: Patients CGM information reviewed Reviewed patient's sensor data: Hypoglycemia: ? 1% Hyperglycemia:? 89% Time in Range:? 10% Average glucose for the last 2 weeks 134? mg/dL Overall patient is glycemic control is good, last A1c in 05/21/2024 7.4% Patient is having episodes of overnight or bench grinder hypoglycemia Currently taking Lantus 12 units Humalog 10-12 units prior to meals Metformin 1000 mg b.i.d. Patient is prescribed Ozempic 0.5 mg weekly, however has been having difficulty getting due to medication being out of stock. Patient did report that Ozempic has been causing uncontrollable hiccups, and because he is on Medicare he frequently stops taking when he is in the doughnut hole. Recommended to patient he reduce Lantus to 10 units daily, if overnight and morning hypoglycemia does not resolve reduce Lantus to 8 units At visit with Dr. Almodovar in 07/2024, have discussion about cost of Ozempic, and if there is a less expensive alternative Reviewed target goals patient's A1c in glucose numbers, Patient also is viewing glucose information through the [employer] link dexter not the [employer] 2 dexter so he is unable to use alerts Recommended to patient when changing next sensor to download [employer] 2 dexter, and start sensor with [employer] 2 dexter in order to be able to use high and low alerts Reviewed how to interpret trend arrows Reminded patient that to check finger sticks if symptoms do not match sensor reading. Discussed lag time between finger stick and sensor data.? Patient able to insert sensor independently at home without issue.? Portions of this note were created using voice recognition software, please excuse any words or phrases that may have been misinterpreted. Patient Instructions: Reduce Lantus to 10 units, 8 if low glucose continues Follow-up with Diabetes Education nurse in 3 months Coding Level of Care Code Est Pt Level 1 (87392) Diagnoses Long-term insulin use in type 2 diabetes E11.9; Z79.4
== END 2024-06-09 13:53 | disposition home or self-care (01) ==
PROVIDERS: PCP Internal Medicine; Visit Provider Registered Nurse Diabetes Educator
DX: E11.9 Type 2 diabetes mellitus without complications (principal); Z79.4 Long term (current) use of insulin

== ENCOUNTER → 2024-06-09 12:25 | Outpatient (BNVA) | payer MEDICARE, SELFPAY | PROVIDERS: PCP Internal Medicine; Visit Provider Registered Nurse Diabetes Educator | DX: E11.9 Type 2 diabetes mellitus without complications (principal); Z79.4 Long term (current) use of insulin | CPT/HCPCS: 99211 ==

== ENCOUNTER 2024-07-27 09:38 | Outpatient (AMB) | payer MEDICARE, SELFPAY ==
--- NOTE | 2024-07-27 08:42 | A.OFFVIS_ITS ---
Vital Signs 07/27/24 09:56 Height 5 ft 7 in Weight 174 lb 2.643 oz BMI 27.3 BP 122/86 Blood Pressure Location Rt brachial Position Sitting Pulse 75 Pulse Source Pulse Oximeter Intake Visit Reasons: T2DM/LVM Intake Note: New patient presents today for [facility] office visit. Last Diabetic Eye exam: a few months ago Last Podiatry Visit: Patient does not see a Checkerer Hand Random Glucose: 170 mg/dL HgA1c: % 05/08/24 Air Brake Operator Required: No Accompanied by: Self / Same As Patient Allergies cyclobenzaprine [From Flexeril] Allergy (Verified 07/27/24 09:43) Itching Medication List - Last Reconciled 07/27/24 by Martha Ferrari PA-C amlodipine 10 mg PO DAILY 90 days blood pressure monitor As directed cholecalciferol (vitamin D3) 50 mcg PO DAILY 90 days flash glucose sensor (FreeStyle Tip 14 Day Sensor kit) As directed - 12 weeks' supply hydrochlorothiazide 12.5 mg PO DAILY 90 days insulin glargine (Lantus Solostar U-100 Insulin) 10 units See Protocol subcut QPM insulin lispro (Humalog KwikPen (U-100) Insulin) 4 units subcut TID metformin 1,000 mg PO BID pantoprazole 40 mg PO .QD 90 days simvastatin 20 mg PO BEDTIME 90 days valsartan 320 mg PO DAILY 90 days HPI HPI T2DM/LVM: Details: Patient is a 69-year-old male with a significant past medical history of hypertension, hyperlipidemia, obesity, type 2 diabetes uncontrolled, prior CVA, anxiety , and Anthony's esophagus presenting today for a follow-up of his diabetes. He last saw Dr. Almodovar in March. Endo: DM-his last A1c was 7.4. He is currently on Lantus 10 units nightly, Humalog 3-10 units sliding scale t.i.d., metformin 1000 mg twice a day. Previously was on Ozempic with stopped this due to high co-pays, belching, nausea, and supply issues. Last saw Tawanna in June with a sensor download showing usage 93% of the time, GMI 6.5, average glucose 134. Hyperglycemia was loaded 10%, in range 89%, hypoglycemia at 1%. She reduced his dosage of the Lantus to 10 units and reduced his Humalog. cgm- Very hyperglycemic 14%, hypergylcemic 25%, in range 69%, hypoglycemic 3% -he states that he uses a sliding scale and gets worried sometimes about correcting with insulin and and using insulin more than 3 times a day. He states that he tries to follow the scale but will sometimes underdosed the insulin and then a few hours later after give himself some more insulin. hypoglycemia- 5-6 AM, states resolves almost instantly with his coffee and toast. He has glucose tabs at home and oj. He can feel the low blood sugars sweaty and shaky. -He gets up most mornings 4-5 AM to start his day. hyperglycemia- 6 PM (and with meals but highest around supper time) CV: Blood pressure today in the office is 122/86. He is currently on amlodipine 10 mg, hydrochlorothiazide 12.5 mg daily, and valsartan 320 mg. He is compliant with simvastatin 20 mg at bedtime. Last lipids WNL. [facility] Medical History (Updated 07/27/24 @ 09:53 by Martha Ferrari PA-C) Overweight (BMI 25.0-29.9) GERD (gastroesophageal reflux disease) Pure hypercholesterolemia Benign essential hypertension CVA (cerebral vascular accident) Anxiety Surgical History (Updated 05/14/24 @ 10:59 by Mayank Darling MD) History of esophagogastroduodenoscopy (EGD) H/O colonoscopy H/O uvulectomy Family History Father No problems noted. Mother Pre-diabetes Thyroid disease Social History Housing: Apartment Are you a primary assurance services manager health care to a significant other at home: No Do you presently have visiting nurse or other home services: No Alcohol intake: never Patient Tobacco Use Status: Former Tobacco user Tobacco use type: Cigarette Cigarette Packs Per Day: 1 Years Smoked: 12 e-Cigarette/Vaping Use: Never Used Second Hand Smoke Exposure: Yes service: No Current occupational status: retired Cognitive needs: No Hearing needs: No Vision needs: Yes (glasses) Physical Exam Const Orientation/consciousness: patient oriented x3 Neck Neck: Yes no lymphadenopathy Thyroid: Thyroid normal Carotids: no bruits Resp Auscultation: clear to auscultation bilaterally Cardio Rate: regular rate Rhythm: regular rhythm Heart sounds: S1 normal heart sound present and S2 normal heart sound present Peripheral pulses: dorsalis pedis present Neuro General: patient oriented x3, gait normal and no focal motor deficits Extrem Other: Skin intact. General: Yes normal to inspection Results Reviewed Results Reviewed: Laboratory Tests 05/08/24 05/08/24 08:34 08:39 Sodium 142 Potassium 3.8 Chloride 102 Carbon Dioxide 31 H Anion Gap 13 BUN 17 H Creatinine 1.11 Estimated GFR > 60 Fasting Glucose 162 H Hemoglobin A1c % 7.4 H Calcium 9.9 D AST 20 ALT 25 Alkaline Phosphatase 80 Total Protein 7.3 Triglycerides 95 Cholesterol 116 LDL Cholesterol, Calc 57 HDL Cholesterol 40 L Assessment & Plan Assessment & Plan (1) Type II diabetes mellitus: Code(s): E11.9 - Type 2 diabetes mellitus without complications Category: Medical Qualifiers: Diabetes mellitus complication status: with hyperglycemia Diabetes mellitus care home insulin use: with care home use Qualified Code(s): E11.65 - Type 2 diabetes mellitus with hyperglycemia; Z79.4 - FPC (current) use of insulin Plan: Start trulicity 0.75 mg weekly. Discussed risks and adverse effects such as n/v. Increased risk of pancreatitis. Reduce humalog to 4 units TID. folllow up 1 month or sooner prn. Reviewed signs and symptoms of hypoglycemia. Glucose tabs order. (2) Benign essential hypertension: Code(s): I10 - Essential (primary) hypertension Category: Medical Plan: Continue current regimen (3) Pure hypercholesterolemia: Code(s): E78.00 - Pure hypercholesterolemia, unspecified Category: Medical Plan: As above. Medications: New dulaglutide (Trulicity) 0.75 mg (0.5 mL) subcut QWEEK 2 mL 3RF ROSY Hartman glucose (Dex4 Glucose) until symptoms of low blood sugar are controlled 16 grams (4 x 4 gram) PO Q15M 30 days PRN 100 tabs 3RF hypoglycemia Martha Ferrari PA-C Changed From insulin lispro (Humalog KwikPen (U-100) Insulin) 12 units (0.12 mL) subcut TID 90 days 32.4 mL 3RF To insulin lispro (Humalog KwikPen (U-100) Insulin) 4 units subcut TID Cristin Velasquez MD Coding Level of Care Code Est Pt Level 4 (38624) Diagnoses Type 2 diabetes mellitus with hyperglycemia, with long-term current use of insulin E11.65; Z79.4 Diabetes mellitus complication status: with hyperglycemia Diabetes mellitus care home insulin use: with ferry terminal supervisor use Benign essential hypertension I10 Pure hypercholesterolemia E78.00
[2024-07-27 09:54] LABS: Glucose, Whole Blood 170 mg/dL (60-115)
[2024-07-27 09:56] VITALS: BP 122/86; PULSE 75; BMI 27.3
== END 2024-07-27 10:16 | disposition home or self-care (01) ==
PROVIDERS: PCP Internal Medicine; Visit Provider Physician Assistant
DX: E11.65 Type 2 diabetes mellitus with hyperglycemia (principal); Z79.4 Long term (current) use of insulin; I10 Essential (primary) hypertension; E78.00 Pure hypercholesterolemia, unspecified
CPT/HCPCS: 99214

== ENCOUNTER → 2024-07-27 09:38 | Outpatient (BNVA) | payer MEDICARE, SELFPAY | PROVIDERS: PCP Internal Medicine; Visit Provider Physician Assistant | DX: E11.65 Type 2 diabetes mellitus with hyperglycemia (principal); E78.00 Pure hypercholesterolemia, unspecified; I10 Essential (primary) hypertension; Z79.4 Long term (current) use of insulin | CPT/HCPCS: 82947; 99212 ==

== ENCOUNTER 2024-08-06 10:08 | Outpatient (AMB) | payer MEDICARE, SELFPAY ==
[2024-08-06 10:39] VITALS: BMI 27.4
--- NOTE | 2024-08-06 10:39 | MHC.AMNUTRGE ---
VS Expanded 08/06/24 10:39 Height 5 ft 7 in Weight 175 lb 4.28 oz BMI 27.4 Intake Visit Reasons: T2DM/LVM Allergies cyclobenzaprine [From Flexeril] Allergy (Verified 07/27/24 09:43) Itching Nutrition Presentation Details: Pt presents for MNT f/u for T2DM Pt reports doing well fish : twice/wk, peanut butter fruits : 1-2 /d vegetables: 3x/wk pastries: 1-2/week beverages: water/gatorate/juice BS Monitoring Most Recent Diabetes Results: Microalb/Creat Ratio 30.3 ug/mg cr (<30) H 05/08/24 Cholesterol 116 mg/dL (<200) 05/08/24 HDL Cholesterol 40 mg/dL (>40) L 05/08/24 Triglycerides 95 mg/dL (<150) 05/08/24 Creatinine 1.11 mg/dL (0.5-1.4) 05/08/24 Blood Urea Nitrogen 17 mg/dL (9-16) H 05/08/24 Sodium 142 mmol/L (135-145) 05/08/24 Potassium 3.8 mmol/L (3.3-5.1) 05/08/24 Chloride 102 mmol/L (96-108) 05/08/24 Carbon Dioxide 31 mmol/L (22-29) H 05/08/24 Calcium 9.9 mg/dL (8.4-10.2) 05/08/24 AST 20 U/L (5-37) 05/08/24 ALT 25 U/L (0-40) 05/08/24 Total Protein 7.3 g/dL (6.5-8.0) 05/08/24 Albumin 4.2 g/dL (3.5-5.0) 05/08/24 [facility] Medical History (Updated 07/27/24 @ 09:53 by Martha Ferrari PA-C) Overweight (BMI 25.0-29.9) GERD (gastroesophageal reflux disease) Pure hypercholesterolemia Benign essential hypertension CVA (cerebral vascular accident) Anxiety Surgical History (Updated 05/14/24 @ 10:59 by Mayank Darling MD) History of esophagogastroduodenoscopy (EGD) H/O colonoscopy H/O uvulectomy Family History Father No problems noted. Mother Pre-diabetes Thyroid disease Social History Housing: Apartment Are you a primary patient centered care specialist to a significant other at home: No Do you presently have visiting nurse or other home services: No Alcohol intake: never Patient Tobacco Use Status: Former Tobacco user Tobacco use type: Cigarette Cigarette Packs Per Day: 1 Years Smoked: 12 e-Cigarette/Vaping Use: Never Used Second Hand Smoke Exposure: Yes service: No Current occupational status: retired Cognitive needs: No Hearing needs: No Vision needs: Yes (glasses) Assessment & Plan Assessment & Plan (1) Type II diabetes mellitus: Code(s): E11.9 - Type 2 diabetes mellitus without complications Category: Medical Qualifiers: Diabetes mellitus complication status: with hyperglycemia Diabetes mellitus fci insulin use: with director of undergraduate admissions use Qualified Code(s): E11.65 - Type 2 diabetes mellitus with hyperglycemia; Z79.4 - materials planner/production planner (current) use of insulin Plan: Used wt : 79 kg(08/25) Est kcal as per MSJ: 1800 (40% carb, 30% fat/prot) Est fluid needs: 2000 ml/d (25 ml/kg bw) Rec fiber: increase to 8-10 g per day and gradually increase to 35 g as tolerated Rec Na: < 1500 mg /d Educate patient on: (R= Reviewed, V = verbalizes understanding N/R= Needs review N/A= not applicable) Food sources of carbohydrates and serving adequate serving sizes : R V Difference between complex carbohydrates and simple carbohydrates, role of fiber: R V Low fat foods : Differences between fats (MUFA/PUFA/saturated fats, trans fats) and food sources of various fats: R V Food sources of sodium and salt and healthy modifications for heart health and kidney health: R , Vitamins and minerals: R How to interpret food labels: V Healthy Plate method concept: R V Physical activity: benefits and precaution: R V prevention of hyperglycemia :R, V Patient Instructions: Have a cup of milk at bedtime keep hydrated Mindful of high salt/sodium foods/beverages Coding Level of Care Code Nutr Indiv Subseq (09596) Diagnoses Type 2 diabetes mellitus with hyperglycemia, with long-term current use of insulin E11.65; Z79.4 Diabetes mellitus complication status: with hyperglycemia Diabetes mellitus fci insulin use: with director of undergraduate admissions use Time Spent (min) 25
== END 2024-08-06 10:58 | disposition home or self-care (01) ==
PROVIDERS: PCP Internal Medicine; Visit Provider Dietitian, Registered
DX: E11.65 Type 2 diabetes mellitus with hyperglycemia (principal); Z79.4 Long term (current) use of insulin

== ENCOUNTER → 2024-08-06 10:08 | Outpatient (BNVA) | payer MEDICARE, SELFPAY | PROVIDERS: PCP Internal Medicine; Visit Provider Dietitian, Registered | DX: E11.65 Type 2 diabetes mellitus with hyperglycemia (principal); Z71.3 Dietary counseling and surveillance; Z79.4 Long term (current) use of insulin | CPT/HCPCS: 97803 ==

== ENCOUNTER 2024-08-24 10:08 | Outpatient (AMB) | payer MEDICARE, SELFPAY ==
[2024-08-24 10:22] VITALS: BP 100/60; PULSE 91; BMI 25.1
--- NOTE | 2024-08-24 10:22 | MHC.OFFVIS ---
Vital Signs 08/24/24 10:22 Height 5 ft 7 in Weight 160 lb 0.889 oz BMI 25.1 BP 100/60 Blood Pressure Location Lt brachial Position Sitting Pulse 91 Pulse Source Pulse Oximeter Intake Visit Reasons: DM/LVM Intake Note: Patient presents today for D2MT follow up visit. Last Diabetic Eye exam: 01/2024 Last Podiatry Visit: 01/2024 Random Glucose: 139 mg/dl HgA1c: 7.5% Brass Molder Required: No Accompanied by: Self / Same As Patient Allergies cyclobenzaprine [From Flexeril] Allergy (Verified 08/24/24 10:27) Itching Medication List - Last Reconciled 08/24/24 by Martha Ferrari PA-C amlodipine 10 mg PO DAILY 90 days blood pressure monitor As directed cholecalciferol (vitamin D3) 50 mcg PO DAILY 90 days flash glucose sensor (FreeStyle Tip 14 Day Sensor kit) As directed - 12 weeks' supply glucose (Dex4 Glucose) 16 grams (4 x 4 gram) PO Q15M PRN 30 days hydrochlorothiazide 12.5 mg PO DAILY 90 days insulin glargine (Lantus Solostar U-100 Insulin) 10 units See Protocol subcut QPM metformin 1,000 mg PO BID pantoprazole 40 mg PO .QD 90 days simvastatin 20 mg PO BEDTIME 90 days valsartan 320 mg PO DAILY 90 days HPI HPI DM/LVM: Details: Patient is a 69-year-old male with a significant past medical history of hypertension, hyperlipidemia, obesity, type 2 diabetes uncontrolled, prior CVA, anxiety , and Anthony's esophagus presenting today for a follow-up of his diabetes. Endo: DM-his A1c is 7.5. He was diagnosed with diabetes 25 years ago. States that his mother had type 2 diabetes/prediabetes for a long time. He is currently on Lantus 10 units nightly, Humalog 4 units t.i.d., metformin 1000 mg twice a day, and Trulicity 0.75 mg weekly. tolerating the trulicity well. -Previously was on Ozempic with stopped this due to high co-pays, belching, nausea, and supply issues. CGM- showing usage 93% of the time, GMI 6.5, average glucose 134. Hyperglycemia was loaded 9%, in range 90%, hypoglycemia at 1%. hypoglycemia- rare but overnight, evening, or morning. He has glucose tabs at home and oj. He can feel the low blood sugars sweaty and shaky. -He gets up most mornings 4-5 AM to start his day. CV: Blood pressure today in the office is 100/60. He is currently on amlodipine 10 mg, hydrochlorothiazide 12.5 mg daily, and valsartan 320 mg. He is compliant with simvastatin 20 mg at bedtime. Last lipids WNL. [facility] Medical History (Updated 08/24/24 @ 10:48 by Martha Ferrari PA-C) Overweight (BMI 25.0-29.9) GERD (gastroesophageal reflux disease) Pure hypercholesterolemia Benign essential hypertension CVA (cerebral vascular accident) Anxiety Surgical History (Updated 05/14/24 @ 10:59 by Mayank Darling MD) History of esophagogastroduodenoscopy (EGD) H/O colonoscopy H/O uvulectomy Family History Father No problems noted. Mother Pre-diabetes Thyroid disease Social History Housing: Apartment Are you a primary care transition coordinator to a significant other at home: No Do you presently have visiting nurse or other home services: No Alcohol intake: never Patient Tobacco Use Status: Former Tobacco user Tobacco use type: Cigarette Cigarette Packs Per Day: 1 Years Smoked: 12 e-Cigarette/Vaping Use: Never Used Second Hand Smoke Exposure: Yes service: No Current occupational status: retired Cognitive needs: No Hearing needs: No Vision needs: Yes (glasses) Physical Exam Vital Signs: Last Vital Signs Pulse 91 08/24/24 10:22 BP 100/60 08/24/24 10:22 BMI result Body Mass Index 25.1 Const Orientation/consciousness: patient oriented x3 Neck Neck: Yes no lymphadenopathy Thyroid: Thyroid normal Carotids: no bruits Resp Auscultation: clear to auscultation bilaterally Cardio Rate: regular rate Rhythm: regular rhythm Heart sounds: S1 normal heart sound present and S2 normal heart sound present Peripheral pulses: dorsalis pedis present Neuro General: patient oriented x3, gait normal and no focal motor deficits Extrem Other: Skin intact. General: Yes normal to inspection Office Procedures Glucose Monitoring Details Details: See HPI 03660 - Glucose monitoring, continuous-physician I&R Procedure code (CPT) selection complete Results AMB Hemoglobin A1c AMB Hemoglobin A1c 7.5 % Last Edit by MORENITA Betts on 08/24/24 10:43 Results Reviewed Results Reviewed: Laboratory Last Values Glucose (Clinic) 139 mg/dL (60-115) H 08/24/24 10:30 Hgb A1c (Clinic) 7.5 % (4.0-6.0) H 08/24/24 10:42 Laboratory Tests 05/08/24 05/08/24 07/27/24 08:34 08:39 09:52 Sodium 142 Potassium 3.8 Chloride 102 Carbon Dioxide 31 H Anion Gap 13 BUN 17 H Creatinine 1.11 Estimated GFR > 60 Glucose (Clinic) 170 H Hemoglobin A1c % 7.4 H AST 20 ALT 25 Triglycerides 95 Cholesterol 116 LDL Cholesterol, Calc 57 HDL Cholesterol 40 L Assessment & Plan Assessment & Plan (1) Uncontrolled type 2 diabetes mellitus with hyperglycemia, with long-term current use of insulin: Code(s): E11.65 - Type 2 diabetes mellitus with hyperglycemia; Z79.4 - custodial (current) use of insulin Category: Medical Plan: I will increase the Trulicity to 1.5 mg weekly. Continue metformin. Continue Lantus 10 units. We will discontinue the Humalog. Advised patient to contact me if he still has any hypoglycemic events. He has glucose tabs at home. Does not need a refill. Understands the rule of 15. (2) Benign essential hypertension: Code(s): I10 - Essential (primary) hypertension Category: Medical Plan: WNL. Continue current regimen (3) Pure hypercholesterolemia: Code(s): E78.00 - Pure hypercholesterolemia, unspecified Category: Medical Plan: Continue simvastatin. Orders: Orders AMB Hemoglobin A1c Today E11.65 - Type 2 diabetes mellitus with hyperglycemia, Z13.9 - Encounter for screening, unspecified, Z79.4 - custodial (current) use of insulin Medications: New dulaglutide (Trulicity) 1.5 mg (0.5 mL) subcut QWEEK 2 mL 4RF Coding Level of Care Code Est Pt Level 4 (65220) Diagnoses Uncontrolled type 2 diabetes mellitus with hyperglycemia, with long-term current use of insulin E11.65; Z79.4 Benign essential hypertension I10 Pure hypercholesterolemia E78.00 CPT Codes Details - CPT: 11916 - Glucose monitoring, continuous-physician I&R ([id number])
[2024-08-24 10:33] LABS: Glucose, Whole Blood 139 mg/dL (60-115)
== END 2024-08-24 10:49 | disposition home or self-care (01) ==
PROVIDERS: PCP Internal Medicine; Visit Provider Physician Assistant
DX: E11.65 Type 2 diabetes mellitus with hyperglycemia (principal); Z79.4 Long term (current) use of insulin; I10 Essential (primary) hypertension; E78.00 Pure hypercholesterolemia, unspecified; Z13.9 Encounter for screening, unspecified

== ENCOUNTER → 2024-08-24 10:08 | Outpatient (BNVA) | payer MEDICARE, SELFPAY | PROVIDERS: PCP Internal Medicine; Visit Provider Physician Assistant | DX: E11.65 Type 2 diabetes mellitus with hyperglycemia (principal); I10 Essential (primary) hypertension; E78.00 Pure hypercholesterolemia, unspecified; Z79.4 Long term (current) use of insulin; Z71.3 Dietary counseling and surveillance | CPT/HCPCS: 82947; 83036; 99212 ==

== ENCOUNTER 2024-09-07 09:12 | Outpatient (REF) | payer MEDICARE, SELFPAY ==
[2024-09-07 10:37] LABS: MANUAL DIFF FLAG NO
[2024-09-07 10:44] LABS: Basophils Absolute Auto 0.1 X10*3/uL (0.0-0.2); Eosinophils Absolute Auto 0.1 X10*3/uL (0.0-0.4); Eosinophils Percent Auto 2.1 % (0-4); Hematocrit 37.3 % (42.0-52.0); Imm Gran Abs Auto 0.02 X10*3/uL (0.00-0.03); Imm Gran Pct Auto 0.3 % (0.0-0.4); Lymphocytes Absolute Auto 2.3 X10*3/uL (1.2-4.9); Lymphocytes Percent Auto 37.2 % (20-40); Mean Corpuscular HGB Conc 34.9 g/dl (31.0-36.0); Mean Corpuscular Hemoglobin 29.3 pg (27.0-33.0); Mean Platelet Volume 10.5 fL (9.4-12.4); Monocytes Absolute Auto 0.6 X10*3/uL (0.1-1.2); Monocytes Percent Auto 8.9 % (2-11); Neutrophils Absolute Auto 3.2 x10*3/uL (2.0-8.3); Neutrophils Percent Auto 50.5 % (45-73); Platelet Count 219 X10*3/uL (160-400); Red Blood Count 4.44 X10*6/uL (4.60-5.80); Red Cell Distribution Width 13.3 % (11.0-16.0); White Blood Count 6.3 X10*3/uL (4.8-10.8)
[2024-09-07 10:53] LABS: Estimated Average Glucose 148 mg/dL; Hemoglobin A1C 169.6952 umol/L; Hemoglobin A1c % 6.8 % (<6.0)
[2024-09-07 10:55] LABS: Appearance Urine Clear; Color Urine Yellow; Glucose Urine UA >=1000 mg/dL (Negative); Leukocyte Esterase Urine Negative (Negative); Nitrite Urine Negative (Negative); PH 5.5 (5.0-9.0); Specific Gravity - Urine 1.025 (1.005-1.025); UMIC TRIGGER UACC YES; Urine Blood Negative (Negative); Urine Ketones Negative (Negative); Urine Protein Negative (Neg-Trace)
[2024-09-07 11:01] LABS: Bacteria Urine None Seen (None Seen); Hyaline Casts Urine 0-2 /LPF (0-2); RBC Urine 0-2 /HPF (0-2); Squamous Epithelial Cell Urine 0-2 /HPF (0-2); WBC Urine 0-5 /HPF (0-5)
[2024-09-07 11:09] LABS: Creatinine Urine 74.14 mg/dL; Microalbum/Creatinine Ratio Ur 20.2 ug/mg cr (<30)
[2024-09-07 11:15] LABS: Alanine Aminotransferase 28 U/L (0-40); Albumin Level 4.4 g/dL (3.5-5.0); Alkaline Phosphatase 95 U/L (39-117); Anion Gap 14 (12-20); Aspartate Amino Transferase 19 U/L (5-37); Bilirubin Total 0.3 mg/dL (0.0-1.0); Blood Urea Nitrogen 28 mg/dL (9-16); Calcium 10.2 mg/dL (8.4-10.2); Carbon Dioxide 27 mmol/L (22-29); Chloride 107 mmol/L (96-108); Cholesterol 115 mg/dL (<200); Estimated Glomerular Filt Rate 60; Glucose Fasting 177 mg/dL (60-99); HDL Cholesterol 44 mg/dL (>40); LDL Cholesterol Calculated 54 mg/dL (<100); Potassium 3.5 mmol/L (3.3-5.1); Sodium 144 mmol/L (135-145); Total Protein 7.5 g/dL (6.5-8.0); Triglycerides 88 mg/dL (<150)
[2024-09-07 11:22] LABS: TSH reflex Free T4 1.23 uIU/mL (0.32-4.0); Vitamin D 25-OH Total 45.3 ng/mL (>30)
[2024-09-07 11:31] LABS: Vitamin B12 418 pg/mL (200-900)
== END 2024-09-07 09:13 | disposition home or self-care (01) ==
LOC: HO.10HDL 09:12
PROVIDERS: Visit Provider Internal Medicine
DX: D64.9 Anemia, unspecified (principal); E53.8 Deficiency of other specified B group vitamins; E78.00 Pure hypercholesterolemia, unspecified; E11.9 Type 2 diabetes mellitus without complications; E55.9 Vitamin D deficiency, unspecified; R30.0 Dysuria
CPT/HCPCS: 36415; 80053; 80061; 81001; 82043; 82306; 82570; 82607; 82746; 83036; 84443; 85025

== ENCOUNTER 2024-09-09 11:04 | Outpatient (AMB) | payer MEDICARE, SELFPAY ==
--- NOTE | 2024-09-09 11:28 | A.OFFVIS_ITS ---
Intake Vital Signs 09/09/24 11:37 Weight 172 lb 4 oz Intake Visit Reasons: DM-conf Personnel Consultant Required: No Accompanied by: Self / Same As Patient Allergies cyclobenzaprine [From Flexeril] Allergy (Verified 08/24/24 10:27) Itching HPI Comprehensive Diabetes Asmnt Most Recent Diabetes Results: Microalb/Creat Ratio 20.2 ug/mg cr (<30) 09/07/24 Cholesterol 115 mg/dL (<200) 09/07/24 HDL Cholesterol 44 mg/dL (>40) 09/07/24 Triglycerides 88 mg/dL (<150) 09/07/24 Creatinine 1.21 mg/dL (0.5-1.4) 09/07/24 Blood Urea Nitrogen 28 mg/dL (9-16) H 09/07/24 Sodium 144 mmol/L (135-145) 09/07/24 Potassium 3.5 mmol/L (3.3-5.1) 09/07/24 Chloride 107 mmol/L (96-108) 09/07/24 Carbon Dioxide 27 mmol/L (22-29) 09/07/24 Calcium 10.2 mg/dL (8.4-10.2) 09/07/24 AST 19 U/L (5-37) 09/07/24 ALT 28 U/L (0-40) 09/07/24 Total Protein 7.5 g/dL (6.5-8.0) 09/07/24 Albumin 4.4 g/dL (3.5-5.0) 09/07/24 [facility] Medical History (Updated 08/24/24 @ 10:48 by Martha Ferrari PA-C) Overweight (BMI 25.0-29.9) GERD (gastroesophageal reflux disease) Pure hypercholesterolemia Benign essential hypertension CVA (cerebral vascular accident) Anxiety Surgical History History of esophagogastroduodenoscopy (EGD) H/O colonoscopy H/O uvulectomy Family History Father No problems noted. Mother Pre-diabetes Thyroid disease Social History Housing: Apartment Are you a primary primary care nurse to a significant other at home: No Do you presently have visiting nurse or other home services: No Alcohol intake: never Patient Tobacco Use Status: Former Tobacco user Tobacco use type: Cigarette Cigarette Packs Per Day: 1 Years Smoked: 12 e-Cigarette/Vaping Use: Never Used Second Hand Smoke Exposure: Yes service: No Current occupational status: retired Cognitive needs: No Hearing needs: No Vision needs: Yes (glasses) Assessment & Plan Assessment & Plan (1) Long-term insulin use in type 2 diabetes: Code(s): E11.9 - Type 2 diabetes mellitus without complications; Z79.4 - [facility] (current) use of insulin Plan: Personal Continuous Glucose Monitor: Patients CGM information reviewed Reviewed patient's sensor data: Hypoglycemia: ? 0% Hyperglycemia:? 23% Time in Range:? 77% Average glucose for the last 2 weeks? 153 mg/dL Last A1c on 06/10/2024 6.8% Patient reports he has been taken mealtime insulin, but is still occasionally using when he is experiencing hyperglycemia. Reviewed with patient action Humalog, caution patient using Humalog as correction, instead of before meals Reviewed with patient to treat hypoglycemia with rule of 15s Following topics discussed at today's visit Hypoglycemia and Hyperglycemia * Signs and symptoms * Causes * Treatment * Preventing hypoglycemia * When to seek medical attentionMedical alert bracelet Lifestyle * Work * Travel * Stress management * Problem solving Know your goals * A1C * Blood sugar targets * Blood pressure * Cholesterol/LDLUrine microalbumin Patient giving AADE Reducing Risk handout Patient able to insert sensor independently at home without issue.? Portions of this note were created using voice recognition software, please excuse any words or phrases that may have been misinterpreted. Patient Instructions: People with diabetes can develop many different foot problems. Even ordinary problems can get worse and lead to serious complications. Foot problems most often happen when there is nerve damage, also called neuropathy. This can cause tingling, pain (burning or stinging), or weakness in the foot. It can also cause loss of feeling in the foot, so you can injure it and not know it. Poor blood flow or changes in the shape of your feet or toes may also cause problems. Take good care of your feet and see your doctor right away if you see any signs of foot problems. Take care of your feet. When you have diabetes, caring for your feet is very important in avoiding serious foot complications. Take care of your feet by doing the following:? * Wash your feet thoroughly everyday * Dry them thoroughly, and don?t forget to dry between your toes * Moisturize your feet, but avoid moisturizing between your toes? * Keep your toenails trim, and use an emery board to file down sharp edges * Check your feet for sores, cuts, blisters, corns, or redness daily. Let your doctor know if you find any of these.? * Wear moisture-wicking socks? * Before putting your shoes on, check for sharp objects (i.e. small rocks)? * Wear shoes that fit well and don?t rub your feet While you?re at it, avoid these: * Don?t walk around barefoot * Don?t soak your feet * Don?t smoke [email or web address] Patient will follow-up with certified diabetes educator as needed Coding Level of Care Code Est Pt Level 1 (15572) Diagnoses Long-term insulin use in type 2 diabetes E11.9; Z79.4
== END 2024-09-09 11:39 | disposition home or self-care (01) ==
PROVIDERS: PCP Internal Medicine; Visit Provider Registered Nurse Diabetes Educator
DX: E11.9 Type 2 diabetes mellitus without complications (principal); Z79.4 Long term (current) use of insulin

== ENCOUNTER → 2024-09-09 11:04 | Outpatient (BNVA) | payer MEDICARE, SELFPAY | PROVIDERS: PCP Internal Medicine; Visit Provider Registered Nurse Diabetes Educator | DX: E11.9 Type 2 diabetes mellitus without complications (principal); Z71.89 Other specified counseling; Z79.4 Long term (current) use of insulin | CPT/HCPCS: 99211 ==

== ENCOUNTER 2024-09-14 12:06 | Outpatient (AMB) | payer MEDICARE, SELFPAY ==
[2024-09-14 12:32] VITALS: BP 112/68; PULSE 70; O2SAT 98; BMI 27.1
--- NOTE | 2024-09-14 12:32 | A.OFFPC_ITS ---
Vital Signs 09/14/24 12:32 Height 5 ft 7 in Weight 173 lb BMI 27.1 BP 112/68 Blood Pressure Location Lt brachial Position Sitting Pulse 70 Pulse Source Pulse Oximeter Pulse Oximetry (%) 98 Oxygen Delivery Method Room Air Intake Visit Reasons: DM, hyperlipidemia, HTN Energy Audit Advisor Required: No Accompanied by: Self / Same As Patient Allergies cyclobenzaprine [From Flexeril] Allergy (Verified 09/14/24 12:49) Itching Medication List - Last Reconciled 09/14/24 by Mayank Darling MD amlodipine 10 mg PO DAILY 90 days blood pressure monitor As directed cholecalciferol (vitamin D3) 50 mcg PO DAILY 90 days dulaglutide (Trulicity) 1.5 mg (0.5 mL) subcut QWEEK flash glucose sensor (FreeStyle Tip 14 Day Sensor kit) As directed - 12 weeks' supply glucose (Dex4 Glucose) 16 grams (4 x 4 gram) PO Q15M PRN 30 days hydrochlorothiazide 12.5 mg PO DAILY 90 days insulin glargine (Lantus Solostar U-100 Insulin) 10 units See Protocol subcut QPM metformin 1,000 mg PO BID pantoprazole 40 mg PO .QD 90 days simvastatin 20 mg PO BEDTIME 90 days valsartan 320 mg PO DAILY 90 days Tobacco use date assessed: 09/14/24 Fall risk assessment: No Falls in past year Last assessed Fall Risk: 09/14/24 Dental Screening Dental Screen Date: 09/14/24 Did you have a dental visit in the last 12 months?: Yes Did you have a dental problem in the last 6 months where you did not have access to dental care?: No Was dental information given to patient?: Patient has dentist HPI DM, hyperlipidemia, HTN HPI Details Patient comes in today for his follow up visit States that he feels okay He denies any headaches or dizziness Denies any chest pains, no SOB No nausea/vomiting, no abdominal pain No change in bowel habits noted He was seen by endocrinology about 3 weeks ago and had his Trulicity dose increased to 1.5 mg Q week and Humalog discontinued He had his follow up labs done last week - to discuss his results [facility] Medical History (Updated 09/14/24 @ 13:00 by Mayank Darling MD) Diabetes mellitus Overweight (BMI 25.0-29.9) GERD (gastroesophageal reflux disease) Pure hypercholesterolemia Benign essential hypertension CVA (cerebral vascular accident) Anxiety Surgical History History of esophagogastroduodenoscopy (EGD) H/O colonoscopy H/O uvulectomy Family History Father No problems noted. Mother Pre-diabetes Thyroid disease Social History Housing: Apartment Are you a primary director of healthcare systems to a significant other at home: No Do you presently have visiting nurse or other home services: No Alcohol intake: never Patient Tobacco Use Status: Former Tobacco user Tobacco use type: Cigarette Cigarette Packs Per Day: 1 Years Smoked: 12 e-Cigarette/Vaping Use: Never Used Second Hand Smoke Exposure: Yes service: No Current occupational status: retired Cognitive needs: No Hearing needs: No Vision needs: Yes (glasses) Questionnaire PHQ-9 Over the last 2 weeks, how often have you been bothered by any of the following problems? 1. Little interest or pleasure in doing things: not at all 2. Feeling down, depressed, or hopeless: not at all 3. Trouble falling or staying asleep, or sleeping too much: not at all 4. Feeling tired or having little energy: not at all 5. Poor appetite or overeating: not at all 6. Feeling bad about yourself - or that you are a failure or have let yourself or your family down: not at all 7. Trouble concentrating on things, such as reading the newspaper or watching television: not at all 8. Moving or speaking so slowly that other people could have noticed. Or the opposite - being so fidgety or restless that you have been moving around a lot more than usual: not at all 9. Thoughts that you would be better off or of hurting yourself in some way: not at all Total score: 0 Depression Screening Interpretation: Negative Depression Screening Done: Yes 25108 - PHQ-9 Billing: Yes Source: Developed by Drs. Warren King, Daphne Loredo, Jose Antonio Washington and colleagues, with an educational marla from [employer]. Thrive Questionnaire Date Thrive assessed: 09/14/24 I am a: Patient What is your living situation today?: I have a steady place to live Within the past 12 months, did the food you bought not last and you didn't have the money to get more?: Never true Within the past 12 months, did you worry whether your food would run out before you got money to buy more?: Never true Do you have trouble paying for medicines?: No Do you have trouble getting transportation to medical appointments?: No Do you have trouble paying your heating and electricity bill?: No Do you have trouble taking care of your child, family member or friend?: No Do you have trouble with day-to-day activities such as bathing, preparing meals, shopping, managing finances, etc.?: No Are you currently unemployed and looking for a job?: No Are you interested in more education?: No Please select the resources that you would like help with: None Currently or been in a relationship where the following occur: No concerns reported THRIVE Score: 0 AUDIT C Alcohol Use Questionnaire (AUDIT-C) 1. How often do you have a drink containing alcohol?: Never 3. How often do you have six or more drinks on one occasion?: Never Total Score: 0 Score Reviewed/Action Taken: Yes DEYVI-7 AMB Questionnaire DEYVI-7 Date DEYVI - 7 assessed: 09/14/24 Feeling nervous, anxious, or on edge: 0 = Not at all Not being able to stop or control worryin = Not at all Worrying too much about different things: 0 = Not at all Trouble relaxin = Not at all Being so restless that it is hard to sit still: 0 = Not at all Becoming easily annoyed or irritable: 0 = Not at all Feeling afraid as if something awful might happen: 0 = Not at all Total DEYVI-7 score (0-4 normal; 5-9 mild; 10-14 moderate; 15-21 severe): 0 Source: Developed by Drs. Warren King, Daphne Loredo, Jose Antonio Washington and colleagues, with an educational marla from [employer]. Review of Systems Const Denies chills, Denies fatigue, Denies fever(s) and Denies headache(s) ENT Denies dysphagia, Denies dizziness, Denies otalgia, Denies headache(s), Denies neck pain, Denies odynophagia and Denies sore throat Card Denies chest pain, Denies palpitations and Denies dyspnea Resp Denies cough, Denies dyspnea and Denies wheezing GI Denies abdominal pain, Denies constipation, Denies dysphagia, Denies heartburn, Denies diarrhea, Denies nausea, Denies odynophagia and Denies vomiting Denies dysuria, Denies nocturia, Denies urinary frequency and Denies urinary urgency Musc Denies back pain and Denies neck pain Skin/Breast Denies rash Neuro Denies dizziness and Denies headache(s) Endo Denies fatigue and Denies palpitations Aller/Immun Denies wheezing Physical exam (Primary Care) Vital Signs: Last Vital Signs Pulse 70 09/14/24 12:32 BP 112/68 09/14/24 12:32 Pulse Ox 98 09/14/24 12:32 Oxygen Delivery Method Room Air 09/14/24 12:32 BMI result Body Mass Index 27.1 Tobacco/Smoking Status: Tobacco use Status Tobacco use date assessed 09/14/24 09/14/24 12:37 Patient Tobacco Use Status Former Tobacco user 09/14/24 12:37 Tobacco use type Cigarette 09/14/24 12:37 e-Cigarette/Vaping Use Never Used 09/14/24 12:37 PHQ-9: PHQ-9 Score PHQ-9: Total score 0 09/14/24 12:53 Depression Screening Interpretation: Negative Thrive Assessment: Date of Thrive Assessment Date Thrive assessed 09/14/24 09/14/24 12:37 Currently or been in a relationship where the following occur: No concerns reported Const General: no acute distress and alert HENMT Ears: TM's normal bilaterally and EAC's normal Throat: Yes posterior oropharynx normal and Yes tonsils normal (no TP congestion) Neck Neck: Yes no lymphadenopathy and Yes supple Thyroid: Thyroid normal Resp Auscultation: clear to auscultation bilaterally, no rales and no wheezes Cardio Rate: regular rate Rhythm: regular rhythm Heart sounds: no murmurs GI Palpation (GI): Soft to palpation and nontender Auscultation: normal bowel sounds General: Yes no CVA tenderness Back/Spine/Pelvis Back: no CVA tenderness Thoracic/Lumbar Spine: No lumbar spinal tenderness Skin Rashes: no rashes Extrem General: Yes no clubbing, cyanosis or edema Office Procedures Flu Questionnaire Does the patient have a severe egg allergy?: No Immunizations Fluarix Triv [id number] (PF) 45 mcg (15 mcg x 3)/0.5 mL IM syringe Performing Provider: Mayank Darling MD [place] [facility] [place] [facility] Documented (not given) by: MORENITA Gee on 09/14/24 12:38 Reason Not Given: Received Previously Results Reviewed Results Reviewed: Laboratory Tests 09/07/24 09/07/24 09:10 09:16 WBC 6.3 Hgb 13.0 L Hct 37.3 L Plt Count 219 Sodium 144 Potassium 3.5 Creatinine 1.21 Estimated GFR 60 Fasting Glucose 177 H Hemoglobin A1c % 6.8 H Calcium 10.2 AST 19 ALT 28 Triglycerides 88 Cholesterol 115 LDL Cholesterol, Calc 54 HDL Cholesterol 44 Vitamin B12 418 25-OH Vitamin D Total 45.3 TSH 1.23 Ur Specific [place] 1.025 Urine Protein Negative Urine Glucose (UA) >=1000 H Urine Blood Negative Urine Nitrite Negative Ur Leukocyte Esterase Negative Microalb/Creat Ratio 20.2 Coding Level of Care Code Est Pt Level 4 (88848) Diagnoses Type 2 diabetes mellitus without complication, with long-term current use of insulin E11.9; Z79.4 Diabetes mellitus type: type 2 Diabetes mellitus 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 Diabetes mellitus complication status: without complication Pure hypercholesterolemia E78.00 Benign essential hypertension I10 Vitamin D deficiency E55.9 Diplopia H53.2 Gastroesophageal reflux disease without esophagitis K21.9 Esophagitis presence: without esophagitis Elevated LFTs R79.89 Overweight (BMI 25.0-29.9) E66.3 Assessment & Plan Assessment & Plan (1) Diabetes mellitus: Code(s): E11.9 - Type 2 diabetes mellitus without complications Category: Medical Qualifiers: Diabetes mellitus type: type 2 Diabetes mellitus usp insulin use: with usp use Diabetes mellitus complication status: without complication Qualified Code(s): E11.9 - Type 2 diabetes mellitus without complications; Z79.4 - USP (current) use of insulin Plan: His HgbA1c was at 6.8% on his labs done last week (was at 7.4% a few months ago) - goal is at least <7.5% Recalls that he was advised by endocrinology at a previous visit with them a few months ago that his blood sugar was too tightly controlled based on his age and he needs to loosen his control a little bit Reinforced diabetic diet Continue Lantus at 10 units SQ QD, Trulicity, which was increased to 1.5 mg once a week and Metformin 1000 mg BID; his Humalog 4 to 12 units TID with meals was discontinued Follow up with endocrinology as scheduled (2) Pure hypercholesterolemia: Code(s): E78.00 - Pure hypercholesterolemia, unspecified Category: Medical Plan: Results of his labs done last week reviewed and discussed with patient Reinforced low cholesterol diet Continue Simvastatin 20 mg QD Will recheck his labs and fasting lipids in 4 months for follow up (3) Benign essential hypertension: Code(s): I10 - Essential (primary) hypertension Category: Medical Plan: Reinforced low sodium diet - goal is systolic BP of 120 to 130 mm or less Continue Valsartan 320 mg QD, HCTZ 12.5 mg QD and Amlodipine 10 mg QD (4) Vitamin D deficiency: Code(s): E55.9 - Vitamin D deficiency, unspecified Category: Medical Plan: Continue Vitamin D3 2000 units QD (5) Diplopia: Code(s): H53.2 - Diplopia Category: Medical Plan: Transient; occurred back in November 2021 and spontaneously resolved with NO recurrence since CT and MRI of the brain done at the time both came back negative - unlikely that his symptoms at the time were from CVA but TIA cannot be entirely ruled out States that he was seen by ophthalmology back then and was advised that his eye exam came out normal Continue Aspirin 81 mg QD - patient was advised that he really does not need to continue this but states that he feels more comfortable staying on it and it is not really bothering him (6) GERD (gastroesophageal reflux disease): Code(s): K21.9 - Gastro-esophageal reflux disease without esophagitis Category: Medical Qualifiers: Esophagitis presence: without esophagitis Qualified Code(s): K21.9 - Gastro-esophageal reflux disease without esophagitis Plan: Dietary restrictions reinforced Continue Pantoprazole 40 mg QD (7) Elevated LFTs: Code(s): R79.89 - Other specified abnormal findings of blood chemistry Category: Medical Plan: His LFTs have remained normal on his recent labs - were likely related to his weight Will continue to monitor his LFTs regularly (8) Overweight (BMI 25.0-29.9): Code(s): E66.3 - Overweight Category: Medical Plan: Reinforced diet/exercise as tolerated/lose weight Plan Follow up in 4 months Orders: Orders Influenza [id number] Immunization Today Z23 - Encounter for immunization Complete Blood Count Auto Diff 4 Months D64.9 - Anemia, unspecified Lipid Panel 4 Months E78.00 - Pure hypercholesterolemia, unspecified Comprehensive [place]. Panel Fast 4 Months E78.00 - Pure hypercholesterolemia, unspecified Hemoglobin A1c 4 Months E11.9 - Type 2 diabetes mellitus without complications Vitamin D 25-OH Total 4 Months E55.9 - Vitamin D deficiency, unspecified Vitamin B12 and Folate 4 Months E53.8 - Deficiency of other specified B group vitamins UA CC w/rflx Micro + Cult 4 Months R30.0 - Dysuria Microalbumin, Random (w Creat) 4 Months E11.9 - Type 2 diabetes mellitus without complications TSH reflex Free T4 4 Months E78.00 - Pure hypercholesterolemia, unspecified
== END 2024-09-14 12:58 | disposition home or self-care (01) ==
PROVIDERS: PCP Internal Medicine; Visit Provider Internal Medicine
DX: E11.9 Type 2 diabetes mellitus without complications (principal); Z79.4 Long term (current) use of insulin; E78.00 Pure hypercholesterolemia, unspecified; I10 Essential (primary) hypertension; E55.9 Vitamin D deficiency, unspecified; H53.2 Diplopia; K21.9 Gastro-esophageal reflux disease without esophagitis; R79.89 Other specified abnormal findings of blood chemistry; E66.3 Overweight; Z23 Encounter for immunization

== ENCOUNTER → 2024-09-14 12:06 | Outpatient (BNVA) | payer MEDICARE, SELFPAY | PROVIDERS: PCP Internal Medicine; Visit Provider Internal Medicine | DX: E11.9 Type 2 diabetes mellitus without complications (principal); Z79.4 Long term (current) use of insulin; E78.00 Pure hypercholesterolemia, unspecified; E55.9 Vitamin D deficiency, unspecified; I10 Essential (primary) hypertension; K21.9 Gastro-esophageal reflux disease without esophagitis; R79.89 Other specified abnormal findings of blood chemistry; E66.3 Overweight | CPT/HCPCS: 90471; 96127; 99212 ==

== ENCOUNTER 2024-09-21 09:13 | Outpatient (AMB) | payer MEDICARE, SELFPAY ==
--- NOTE | 2024-09-21 09:16 | A.OFFVIS_ITS ---
Vital Signs 09/21/24 09:23 Height 5 ft 7 in Weight 171 lb 15.369 oz BMI 26.9 BP 120/68 Blood Pressure Location Rt brachial Position Sitting Pulse 80 Pulse Source Pulse Oximeter Intake Visit Reasons: DM/CONFIRMED Intake Note: Patient presents today for D2CT follow up visit. 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: No Accompanied by: Self / Same As Patient Allergies cyclobenzaprine [From Flexeril] Allergy (Verified 09/14/24 12:49) Itching Medication List - Last Reconciled 09/21/24 by Martha Ferrari PA-C amlodipine 10 mg PO DAILY 90 days blood pressure monitor As directed cholecalciferol (vitamin D3) 50 mcg PO DAILY 90 days dulaglutide (Trulicity) 3 mg (0.5 mL) subcut QWEEK flash glucose sensor (FreeStyle Tip 14 Day Sensor kit) As directed - 12 weeks' supply glucose (Dex4 Glucose) 16 grams (4 x 4 gram) PO Q15M PRN 30 days hydrochlorothiazide 12.5 mg PO DAILY 90 days insulin glargine (Lantus Solostar U-100 Insulin) 10 units See Protocol subcut QPM metformin 1,000 mg PO BID pantoprazole 40 mg PO .QD 90 days simvastatin 20 mg PO BEDTIME 90 days valsartan 320 mg PO DAILY 90 days HPI HPI DM/CONFIRMED: Details: Patient is a 69-year-old male with a significant past medical history of hypertension, hyperlipidemia, obesity, type 2 diabetes uncontrolled, prior CVA, anxiety , and Anthony's esophagus presenting today for a follow-up of his diabetes. Endo: DM-his A1c is 6.8. He was diagnosed with diabetes 25 years ago. States that his mother had type 2 diabetes/prediabetes for a long time. He is currently on Lantus 10 units nightly, metformin 1000 mg twice a day, and Trulicity 1.5 mg weekly. -At our last visit I d/c'd the humalog due to hypogylcemia. He states overall it has been fine but using 2-4 units of humalog if needed with larger meals. He has only needed it a few times a week at most. -Previously was on Ozempic with stopped this due to high co-pays, belching, nausea, and supply issues. CGM- showing usage 89% of the time, GMI 7.5, average glucose 174. H yperglycemia was loaded 41%, in range 59%, hypoglycemia at 0%. hypoglycemia- rare but overnight, evening, or morning. He has glucose tabs at home and oj. He can feel the low blood sugars sweaty and shaky. -He gets up most mornings 4-5 AM to start his day. CV: Blood pressure today in the office is 120/68. He is currently on amlodipine 10 mg, hydrochlorothiazide 12.5 mg daily, and valsartan 320 mg. He is compliant with simvastatin 20 mg at bedtime. Last lipids WNL. [facility] Medical History (Updated 09/14/24 @ 13:00 by Mayank Darling MD) Diabetes mellitus Overweight (BMI 25.0-29.9) GERD (gastroesophageal reflux disease) Pure hypercholesterolemia Benign essential hypertension CVA (cerebral vascular accident) Anxiety Surgical History History of esophagogastroduodenoscopy (EGD) H/O colonoscopy H/O uvulectomy Family History Father No problems noted. Mother Pre-diabetes Thyroid disease Social History Housing: Apartment Are you a primary director of healthcare systems to a significant other at home: No Do you presently have visiting nurse or other home services: No Alcohol intake: never Patient Tobacco Use Status: Former Tobacco user Tobacco use type: Cigarette Cigarette Packs Per Day: 1 Years Smoked: 12 e-Cigarette/Vaping Use: Never Used Second Hand Smoke Exposure: Yes service: No Current occupational status: retired Cognitive needs: No Hearing needs: No Vision needs: Yes (glasses) Physical Exam Vital Signs: Last Vital Signs Pulse 80 09/21/24 09:23 BP 120/68 09/21/24 09:23 BMI result Body Mass Index 26.9 Office Procedures Glucose Monitoring Details Details: See HPI 32044 - Glucose monitoring, continuous-physician I&R Procedure code (CPT) selection complete Results Reviewed Results Reviewed: Laboratory Tests 08/24/24 09/07/24 09/07/24 10:42 09:10 09:16 Sodium 144 Potassium 3.5 Chloride 107 Carbon Dioxide 27 Anion Gap 14 BUN 28 H Creatinine 1.21 Estimated GFR 60 Glucose (Clinic) Hgb A1c (Clinic) 7.5 H Hemoglobin A1c % 6.8 H AST 19 ALT 28 Triglycerides 88 Cholesterol 115 LDL Cholesterol, Calc 54 HDL Cholesterol 44 09/21/24 09:24 Sodium Potassium Chloride Carbon Dioxide Anion Gap BUN Creatinine Estimated GFR Glucose (Clinic) 100 Hgb A1c (Clinic) Hemoglobin A1c % AST ALT Triglycerides Cholesterol LDL Cholesterol, Calc HDL Cholesterol Laboratory Tests 09/07/24 09:16 Urine Creatinine 74.14 Urine Microalbumin 15.0 Microalb/Creat Ratio 20.2 Assessment & Plan Assessment & Plan (1) Uncontrolled type 2 diabetes mellitus with hyperglycemia, with long-term current use of insulin: Code(s): E11.65 - Type 2 diabetes mellitus with hyperglycemia; Z79.4 - terminal clerk (current) use of insulin Category: Medical Plan: Continue lantus 10 units, metformin 1000 mg bid, humalog prn. Increase trulicity to 3 mg week. Follow up in 3 months. Sooner if needed. Labs prior to appointment. (2) Benign essential hypertension: Code(s): I10 - Essential (primary) hypertension Category: Medical Plan: WNL. Continue current regimen (3) Pure hypercholesterolemia: Code(s): E78.00 - Pure hypercholesterolemia, unspecified Category: Medical Plan: Well-controlled. Reviewed last labs with patient today. Orders: Orders Basic Metabolic Panel 3 Months E11.65 - Type 2 diabetes mellitus with hyperglycemia, E78.00 - Pure hypercholesterolemia, unspecified, I10 - Essential (primary) hypertension, Z79.4 - care home (current) use of insulin Hemoglobin A1c 3 Months E11.65 - Type 2 diabetes mellitus with hyperglycemia, E78.00 - Pure hypercholesterolemia, unspecified, I10 - Essential (primary) hypertension, Z79.4 - care home (current) use of insulin B Type Natriuretic Peptide 3 Months E11.65 - Type 2 diabetes mellitus with hyperglycemia, E78.00 - Pure hypercholesterolemia, unspecified, I10 - Essential (primary) hypertension, Z79.4 - terminal clerk (current) use of insulin Medications: New dulaglutide (Trulicity) 3 mg (0.5 mL) subcut QWEEK 2 mL 6RF insulin lispro (Humalog KwikPen (U-100) Insulin) with meals 2 units (0.02 mL) subcut TID 15 mL 2RF Discontinued dulaglutide (Trulicity) Discontinued Reason: Doctor's Order 1.5 mg (0.5 mL) subcut QWEEK 2 mL 4RF Coding Level of Care Code Est Pt Level 4 (63432) Diagnoses Uncontrolled type 2 diabetes mellitus with hyperglycemia, with long-term current use of insulin E11.65; Z79.4 Benign essential hypertension I10 Pure hypercholesterolemia E78.00 CPT Codes Details - CPT: 51515 - Glucose monitoring, continuous-physician I&R ([id number])
[2024-09-21 09:23] VITALS: BP 120/68; PULSE 80; BMI 26.9
[2024-09-21 09:29] LABS: Glucose, Whole Blood 100 mg/dL (60-115)
== END 2024-09-21 09:51 | disposition home or self-care (01) ==
PROVIDERS: PCP Internal Medicine; Visit Provider Physician Assistant
DX: E11.65 Type 2 diabetes mellitus with hyperglycemia (principal); Z79.4 Long term (current) use of insulin; I10 Essential (primary) hypertension; E78.00 Pure hypercholesterolemia, unspecified

== ENCOUNTER → 2024-09-21 09:13 | Outpatient (BNVA) | payer MEDICARE, SELFPAY | PROVIDERS: PCP Internal Medicine; Visit Provider Physician Assistant | DX: E11.65 Type 2 diabetes mellitus with hyperglycemia (principal); I10 Essential (primary) hypertension; E78.00 Pure hypercholesterolemia, unspecified; Z79.4 Long term (current) use of insulin | CPT/HCPCS: 82947; 99212 ==

== ENCOUNTER 2024-12-28 12:31 | Outpatient (AMB) | payer MEDICARE, SELFPAY ==
[2024-12-28 12:53] VITALS: BP 120/52; PULSE 69; BMI 25.9
--- NOTE | 2024-12-28 12:53 | A.OFFVIS_ITS ---
Vital Signs 12/28/24 12:53 Height 5 ft 7 in Weight 165 lb 9.074 oz BMI 25.9 BP 120/52 L Blood Pressure Location Rt brachial Position Sitting Pulse 69 Pulse Source Pulse Oximeter Intake Visit Reasons: DM Intake Note: Patient present today for Type 2 Diabetes Mellitus Last Diabetic eye exam: 01/2024 Last Podiatry Visit: Doesn't have one Random Glucose: 275 mg/dl HgA1C: 8.1% Dye Stand Loader Required: No Accompanied by: Self / Same As Patient Allergies cyclobenzaprine [From Flexeril] Allergy (Verified 12/28/24 12:57) Itching Medication List - Last Reconciled 12/28/24 by Martha Ferrari PA-C amlodipine 10 mg PO DAILY 90 days blood pressure monitor As directed cholecalciferol (vitamin D3) 50 mcg PO DAILY 90 days dulaglutide (Trulicity) 0.75 mg (0.5 mL) subcut QWEEK flash glucose sensor (FreeStyle Tip 14 Day Sensor kit) As directed - 12 weeks' supply glucose (Dex4 Glucose) 16 grams (4 x 4 gram) PO Q15M PRN 30 days hydrochlorothiazide 12.5 mg PO DAILY 90 days insulin glargine (Lantus Solostar U-100 Insulin) 14 units See Protocol subcut QPM 90 days insulin lispro (Humalog KwikPen (U-100) Insulin) 4 units (0.04 mL) subcut BID metformin 1,000 mg PO BID pantoprazole 40 mg PO .QD 90 days simvastatin 20 mg PO BEDTIME 90 days valsartan 320 mg PO DAILY 90 days HPI HPI DM: Details: Patient is a 69-year-old male with a significant past medical history of hypertension, hyperlipidemia, obesity, type 2 diabetes uncontrolled, prior CVA, anxiety , and Anthony's esophagus presenting today for a follow-up of his diabetes. Endo: DM-his A1c is 8.1 from 6.8. He was diagnosed with diabetes 25 years ago. States that his mother had type 2 diabetes/prediabetes for a long time. He is currently on Lantus 10 units nightly, Humalog 2 units with dinner, and metformin 1000 mg twice a day. -Previously was on Trulicity but states that it was too expensive last month. He has been off of it for a couple of months. Ozempic with stopped this due to high co-pays, belching, nausea, and supply issues. CGM- showing usage 88% of the time, GMI 7.4, average glucose 170. Very Hyperglycemia 8%, hypergylcemia 28%, in range 64%, hypoglycemia at 0%. hypoglycemia- has not noted any hypoglycemia since stopping Trulicity. -He gets up most mornings 4-5 AM to start his day. CV: Blood pressure today in the office is 120/52. He is currently on amlodipine 10 mg, hydrochlorothiazide 12.5 mg daily, and valsartan 320 mg. He is compliant with simvastatin 20 mg at bedtime. Last lipids WNL. [facility] Medical History (Updated 12/28/24 @ 13:32 by Martha Ferrari PA-C) Diabetes mellitus Overweight (BMI 25.0-29.9) GERD (gastroesophageal reflux disease) Pure hypercholesterolemia Benign essential hypertension CVA (cerebral vascular accident) Anxiety Surgical History History of esophagogastroduodenoscopy (EGD) H/O colonoscopy H/O uvulectomy Family History Father No problems noted. Mother Pre-diabetes Thyroid disease Social History Housing: Apartment Are you a primary career information specialist to a significant other at home: No Do you presently have visiting nurse or other home services: No Alcohol intake: never Patient Tobacco Use Status: Former Tobacco user Tobacco use type: Cigarette Cigarette Packs Per Day: 1 Years Smoked: 12 e-Cigarette/Vaping Use: Never Used Second Hand Smoke Exposure: Yes service: No Current occupational status: retired Cognitive needs: No Hearing needs: No Vision needs: Yes (glasses) Physical Exam Vital Signs: Last Vital Signs Pulse 69 12/28/24 12:53 BP 120/52 L 12/28/24 12:53 BMI result Body Mass Index 25.9 Const Orientation/consciousness: patient oriented x3 Neck Neck: Yes no lymphadenopathy Thyroid: Thyroid normal Carotids: no bruits Resp Auscultation: clear to auscultation bilaterally Cardio Rate: regular rate Rhythm: regular rhythm Heart sounds: S1 normal heart sound present and S2 normal heart sound present Neuro General: patient oriented x3, gait normal and no focal motor deficits Results AMB Hemoglobin A1c AMB Hemoglobin A1c 8.1 % Last Edit by MORENITA Betts on 12/28/24 13:11 Results Reviewed Results Reviewed: Laboratory Last Values Glucose (Clinic) 275 mg/dL (60-115) H 12/28/24 13:00 Hgb A1c (Clinic) 8.1 % (4.0-6.0) H 12/28/24 13:04 Laboratory Tests 09/07/24 09/07/24 09/21/24 09:10 09:16 09:24 Creatinine 1.21 Estimated GFR 60 Glucose (Clinic) 100 Hemoglobin A1c % 6.8 H Triglycerides 88 Cholesterol 115 LDL Cholesterol, Calc 54 HDL Cholesterol 44 Urine Creatinine 74.14 Urine Microalbumin 15.0 Microalb/Creat Ratio 20.2 Assessment & Plan Assessment & Plan (1) Uncontrolled type 2 diabetes mellitus with hyperglycemia, with long-term current use of insulin: Code(s): E11.65 - Type 2 diabetes mellitus with hyperglycemia; Z79.4 - extermination inspector (current) use of insulin Category: Medical Plan: increase lantus to 14 units nightly be consistent with humalog 4 units with lunch and dinner continue metformin will resend in [facility] and let me know if too expensive. If it is not covered, he will call me and not pick it up. complete labs prior to next appointment. (2) HTN (hypertension): Code(s): I10 - Essential (primary) hypertension Category: Medical Qualifiers: Hypertension type: primary hypertension Qualified Code(s): I10 - Essential (primary) hypertension Plan: bp on lower side today. will see pcp in a couple weeks and adjust meds if needed. Last time bp was wnl. (3) High cholesterol: Code(s): E78.00 - Pure hypercholesterolemia, unspecified Category: Medical Plan: Continue current regimen. Orders: Orders AMB Hemoglobin A1c Today E11.65 - Type 2 diabetes mellitus with hyperglycemia, Z13.9 - Encounter for screening, unspecified, Z79.4 - extermination inspector (current) use of insulin Medications: New dulaglutide (Trulicity) 0.75 mg (0.5 mL) subcut QWEEK 2 mL 4RF Changed From insulin glargine (Lantus Solostar U-100 Insulin) 10 units See Protocol subcut QPM 90 days 15 mL 0RF To insulin glargine (Lantus Solostar U-100 Insulin) 14 units See Protocol subcut QPM 90 days 15 mL 3RF From insulin lispro (Humalog KwikPen (U-100) Insulin) with meals 2 units (0.02 mL) subcut TID 15 mL 2RF To insulin lispro (Humalog KwikPen (U-100) Insulin) with lunch and supper 4 units (0.04 mL) subcut BID 15 mL 2RF Discontinued dulaglutide (Trulicity) Discontinued Reason: Doctor's Order 3 mg (0.5 mL) subcut QWEEK 2 mL 6RF Coding Level of Care Code Est Pt Level 4 (41889) Complex EM visit Add On G2211 Diagnoses Uncontrolled type 2 diabetes mellitus with hyperglycemia, with long-term current use of insulin E11.65; Z79.4 Primary hypertension I10 Hypertension type: primary hypertension High cholesterol E78.00
[2024-12-28 13:05] LABS: Glucose, Whole Blood 275 mg/dL (60-115)
--- OUTSIDE RECORDS SUMMARY | 2024-12-28 17:15 | XMS_ITS | Clinical Summary ---
Author Organization [facility] it Address [address] [place] [address] Care Team Providers Care Adviser Sales Name Role Phone Kang Love MD Primary Care Provider [phone] Surgical History Surgery Date Site/Laterality Comments COLONOSCOPY 06/24/2006 PROCEDURE: HISTORICAL COLONOSCOPY; COMMENT: hyperplastic polyp; diverticulosis COLONOSCOPY 11/19/2018 PROCEDURE: HISTORICAL COLONOSCOPY; COMMENT: colon polyp-tubular adenoma; path report only Medical History Medical History Date Comments HTN (hypertension) DX:HTN (hyper tension) Hyperlipidemia DX:Hyperlipidemi a Tubular adenoma of colon 06/11/2019 DX:Tubu lar adenoma of colon Microalbuminuria 06/11/2019 DX:Microalbumin uria Type 2 diabetes mellitus wit h renal manifestations (CMS/HCC) DX:Type 2 diabetes mellitus with renal manifestations (HCC) Diverticulosis 06/11/2019 DX:Diverticulosi s Family History Medical History Relation Name Comments Heart attack Father Lung cancer Father Relation Name Status Comments Father Social History Tobacco Use Types Packs/Day Years Used Date Smoking Tobacco: Former Cigarettes Q uit: 08/22/1984 Smokeless Tobacco: Never Alcohol Use Standard Drinks/Week Comments Yes 1 (1 standard drink = 0.6 oz pur e alcohol) Sex and Gender Information Value Date Recorded Sex Assigned at Not on file Gender Identity Not on file Sexual Orientation Not on file Obstetrics History Plan of Treatment Health Maintenance Due Date Last Done Comments Diabetes: Annual GFR (Glomerular Filtration Rate) 1956 Diabetes: Annual Foot Exam 1966 Diabetes: Annual Retina Eye Exam 1966 Zoster Vaccines (1 of 2) 2006 RSV Immunization Patients 60 + Years Old (1 - Risk 60-74 years 1-dose series) 2016 Pneumococcal Vaccine: 65+ Years (2 of 2 - PCV) 10/03/2021 10/03/2020, 10/31/2007 COVID-19 Vaccine ( - 2023-2 5 season) 2024 Influenza Vaccine (#1) 2024 9, 07/23/2018 Abdominal Aortic Aneurysm (AAA) Screen 10/25/2024 Cholesterol Screening (Lipid Panel) 10/25/2024 Depression Screening 10/25/2024 Diabetes: Annual Urine Albumin-Creatinine Ratio (uACR) 10/25/2024 Diabetes: Blood Sugar Contro l Test (HGBA1C) 10/25/2024 Falls Risk Assessment 10/25/2024 Hepatitis C Screening 10/25/2024 Hypertension/CHF/CAD Annual BMP Blood Test 10/25/2024 Social Influencers of Health Screening 10/25/2024 Colorectal Cancer Screening: Colonoscopy 11/01/2025 11/01/2020 DTaP,Tdap,and Td Vaccines (3 - Td or Tdap) 10/03/2030 10/03/2020, 08/14/2006 HIB Vaccines Aged Out No longer eligi ble based on patient's age to complete this topic HPV Vaccines Aged Out No longer eligi ble based on patient's age to complete this topic Hepatitis A Vaccines Aged Out No long er eligible based on patient's age to complete this topic Hepatitis B Vaccines Aged Out No long er eligible based on patient's age to complete this topic IPV Vaccines Aged Out No longer eligi ble based on patient's age to complete this topic MMR Vaccines Aged Out No longer eligi ble based on patient's age to complete this topic Meningococcal ACWY Vaccine Aged Out N o longer eligible based on patient's age to complete this topic RSV Immunization Patients Under 20 months Aged Out No longer eligible b ased on patient's age to complete this topic Varicella Vaccines Aged Out No longer eligible based on patient's age to complete this topic Care Teams Adviser Sales Relationship Specialty Start Date End Date Kang Love MD PCP - General Internal Medicine 02/16/19
== END 2024-12-28 13:35 | disposition home or self-care (01) ==
PROVIDERS: PCP Internal Medicine; Visit Provider Physician Assistant
DX: E11.65 Type 2 diabetes mellitus with hyperglycemia (principal); Z79.4 Long term (current) use of insulin; I10 Essential (primary) hypertension; E78.00 Pure hypercholesterolemia, unspecified; Z13.9 Encounter for screening, unspecified

== ENCOUNTER → 2024-12-28 12:31 | Outpatient (BNVA) | payer MEDICARE, SELFPAY | PROVIDERS: PCP Internal Medicine; Visit Provider Physician Assistant | DX: E11.65 Type 2 diabetes mellitus with hyperglycemia (principal); E78.00 Pure hypercholesterolemia, unspecified; I10 Essential (primary) hypertension; Z79.4 Long term (current) use of insulin | CPT/HCPCS: 82947; 83036; 99212 ==

== ENCOUNTER 2025-01-13 07:38 | Outpatient (REF) | payer MEDICARE, SELFPAY ==
--- OUTSIDE RECORDS SUMMARY | 2025-01-13 07:40 | XMS_ITS | Clinical Summary ---
Author Organization [facility] it Address [address] [place] [address] Care Team Providers Care Frame Gate Mortiser Operator Name Role Phone Kang Love MD Primary Care Provider [phone] Surgical History Surgery Date Site/Laterality Comments COLONOSCOPY [...] Recorded Sex Assigned at Not on file Legal Sex Male 5:38 PM EST Gender Identity Not on file Sexual Orientation Not on file Obstetrics History Plan of Treatment Health Maintenance Due Date Last Done Comments Diabetes: Annual GFR (Glomerular Filtration Rate) 1956 Diabetes: Annual Foot Exam 1966 Diabetes: Annual Retina Eye Exam 1966 Zoster Vaccines (1 of 2) 2006 RSV Immunization Patients 60 + Years Old (1 - Risk 60-74 years 1-dose series) 2016 Pneumococcal Vaccine: 50+ Years (2 of 2 - PCV) 10/03/2021 [...] age to complete this topic Care Teams Frame Gate Mortiser Operator Relationship Specialty Start Date End Date Kang Love MD PCP - General Internal Medicine 02/16/19
[2025-01-13 07:57] LABS: MANUAL DIFF FLAG NO
[2025-01-13 08:27] LABS: Basophils Percent Auto 0.7 % (0-2); Eosinophils Absolute Auto 0.2 X10*3/uL (0.0-0.4); Eosinophils Percent Auto 2.6 % (0-4); Hematocrit 38.8 % (42.0-52.0); Hemoglobin 13.3 g/dl (14.0-18.0); Imm Gran Abs Auto 0.01 X10*3/uL (0.00-0.03); Imm Gran Pct Auto 0.2 % (0.0-0.4); Lymphocytes Absolute Auto 2.1 X10*3/uL (1.2-4.9); Lymphocytes Percent Auto 35.7 % (20-40); Mean Corpuscular HGB Conc 34.3 g/dl (31.0-36.0); Mean Corpuscular Hemoglobin 28.7 pg (27.0-33.0); Mean Corpuscular Volume 83.6 fL (80.0-98.0); Monocytes Absolute Auto 0.4 X10*3/uL (0.1-1.2); Monocytes Percent Auto 7.2 % (2-11); Neutrophils Absolute Auto 3.2 x10*3/uL (2.0-8.3); Neutrophils Percent Auto 53.6 % (45-73); Platelet Count 203 X10*3/uL (160-400); Red Blood Count 4.64 X10*6/uL (4.60-5.80); Red Cell Distribution Width 13.2 % (11.0-16.0); White Blood Count 5.9 X10*3/uL (4.8-10.8)
[2025-01-13 08:37] LABS: Estimated Average Glucose 180 mg/dL; Hemoglobin A1C 218.3924 umol/L; Hemoglobin A1c % 7.9 % (<6.0); Total Hemoglobin (HGBA1C) 3460.8255 umol/L
[2025-01-13 09:07] LABS: B Type Natriuretic Peptide 69 pg/mL (<100)
[2025-01-13 09:08] LABS: Alanine Aminotransferase 42 U/L (0-40); Albumin Level 4.5 g/dL (3.5-5.0); Alkaline Phosphatase 98 U/L (39-117); Anion Gap 15 (12-20); Aspartate Amino Transferase 34 U/L (5-37); Bilirubin Total 0.4 mg/dL (0.0-1.0); Blood Urea Nitrogen 24 mg/dL (9-16); Calcium 9.6 mg/dL (8.4-10.2); Carbon Dioxide 26 mmol/L (22-29); Chloride 104 mmol/L (96-108); Cholesterol 151 mg/dL (<200); Estimated Glomerular Filt Rate > 60; Glucose Fasting 191 mg/dL (60-99); HDL Cholesterol 46 mg/dL (>40); LDL Cholesterol Calculated 90 mg/dL (<100); Potassium 4.8 mmol/L (3.3-5.1); Sodium 140 mmol/L (135-145); Triglycerides 78 mg/dL (<150)
[2025-01-13 09:28] LABS: TSH reflex Free T4 2.74 uIU/mL (0.32-4.0); Vitamin D 25-OH Total 45.5 ng/mL (>30)
[2025-01-13 09:41] LABS: Folate 7.6 ng/mL (> or = 4.0); Vitamin B12 419 pg/mL (200-900)
[2025-01-13 09:50] LABS: Appearance Urine Clear; Color Urine Yellow; Glucose Urine UA >=1000 mg/dL (Negative); Leukocyte Esterase Urine Negative (Negative); Nitrite Urine Negative (Negative); PH 5.5 (5.0-9.0); UMIC TRIGGER UACC YES; Urine Blood Negative (Negative); Urine Ketones Negative (Negative); Urine Protein Negative (Neg-Trace)
[2025-01-13 09:55] LABS: Bacteria Urine None Seen (None Seen); Hyaline Casts Urine 0-2 /LPF (0-2); RBC Urine 0-2 /HPF (0-2); Squamous Epithelial Cell Urine 0-2 /HPF (0-2); WBC Urine 0-5 /HPF (0-5)
[2025-01-13 11:20] LABS: Creatinine Urine 72.06 mg/dL; Microalbum/Creatinine Ratio Ur 49.9 ug/mg cr (<30)
== END 2025-01-13 07:39 | disposition home or self-care (01) ==
LOC: HO.LAB 07:38
PROVIDERS: Physician Assistant; PCP Internal Medicine; Visit Provider Internal Medicine
DX: E11.65 Type 2 diabetes mellitus with hyperglycemia (principal); D64.9 Anemia, unspecified; E78.00 Pure hypercholesterolemia, unspecified; E55.9 Vitamin D deficiency, unspecified; E53.8 Deficiency of other specified B group vitamins; Z79.4 Long term (current) use of insulin; I10 Essential (primary) hypertension
CPT/HCPCS: 36415; 80053; 80061; 81001; 82043; 82306; 82570; 82607; 82746; 83036; 83880; 84443; 85025

== ENCOUNTER 2025-01-15 12:02 | Outpatient (AMB) | payer MEDICARE, SELFPAY ==
[2025-01-15 12:30] VITALS: BP 120/74; PULSE 74; O2SAT 98; BMI 26.0
--- NOTE | 2025-01-15 12:30 | A.OFFPC_ITS ---
Vital Signs 01/15/25 12:30 Height 5 ft 7 in Weight 166 lb 4 oz BMI 26.0 BP 120/74 Blood Pressure Location Lt brachial Position Sitting Pulse 74 Pulse Source Pulse Oximeter Pulse Oximetry (%) 98 Oxygen Delivery Method Room Air Intake Visit Reasons: DM, hyperlipidemia Mammographer Required: No Accompanied by: Self / Same As Patient Allergies cyclobenzaprine [From Flexeril] Allergy (Verified 01/15/25 12:48) Itching Medication List - Last Reconciled 01/15/25 by Mayank Darling MD amlodipine 10 mg PO DAILY 90 days blood pressure monitor As directed cholecalciferol (vitamin D3) 50 mcg PO DAILY 90 days flash glucose sensor (FreeStyle Tip 14 Day Sensor kit) As directed - 12 weeks' supply glucose (Dex4 Glucose) 16 grams (4 x 4 gram) PO Q15M PRN 30 days hydrochlorothiazide 12.5 mg PO DAILY 90 days insulin glargine (Lantus Solostar U-100 Insulin) 14 units See Protocol subcut QPM 90 days insulin lispro (Humalog KwikPen (U-100) Insulin) 4 units (0.04 mL) subcut BID metformin 1,000 mg PO BID pantoprazole 40 mg PO .QD 90 days simvastatin 20 mg PO BEDTIME 90 days valsartan 320 mg PO DAILY 90 days Tobacco use date assessed: 01/15/25 Fall risk assessment: No Falls in past year Last assessed Fall Risk: 01/15/25 Dental Screening Dental Screen Date: 01/15/25 Did you have a dental visit in the last 12 months?: Yes Did you have a dental problem in the last 6 months where you did not have access to dental care?: No Was dental information given to patient?: Patient has dentist HPI DM, hyperlipidemia HPI Details Patient comes in today for his follow up visit States that he feels okay He denies any headaches or dizziness Denies any chest pains, no SOB No nausa/vomiting, no abdominal pain No change in bowel habits noted States that he has not been able to get his Trulicity Rx filled as he is being asked to put up a co-pay of over $400 per Rx States that h tried arguing with his insurance company over the phone for a period of time recently and was supposedly told that he has no other choice but to pay up or !?! He had his follow up labs done a couple of days ago - to discuss his results [facility] Medical History Diabetes mellitus Overweight (BMI 25.0-29.9) GERD (gastroesophageal reflux disease) Pure hypercholesterolemia Benign essential hypertension CVA (cerebral vascular accident) Anxiety Surgical History History of esophagogastroduodenoscopy (EGD) H/O colonoscopy H/O uvulectomy Family History Father No problems noted. Mother Pre-diabetes Thyroid disease Social History Housing: Apartment Are you a primary healthcare network consultant to a significant other at home: No Do you presently have visiting nurse or other home services: No Alcohol intake: never Patient Tobacco Use Status: Former Tobacco user Tobacco use type: Cigarette Cigarette Packs Per Day: 1 Years Smoked: 12 e-Cigarette/Vaping Use: Never Used Second Hand Smoke Exposure: Yes service: No Current occupational status: retired Cognitive needs: No Hearing needs: No Vision needs: Yes (glasses) Questionnaire PHQ-9 Over the last 2 weeks, how often have you been bothered by any of the following problems? 1. Little interest or pleasure in doing things: not at all 2. Feeling down, depressed, or hopeless: not at all 3. Trouble falling or staying asleep, or sleeping too much: not at all 4. Feeling tired or having little energy: not at all 5. Poor appetite or overeating: not at all 6. Feeling bad about yourself - or that you are a failure or have let yourself or your family down: not at all 7. Trouble concentrating on things, such as reading the newspaper or watching television: not at all 8. Moving or speaking so slowly that other people could have noticed. Or the opposite - being so fidgety or restless that you have been moving around a lot more than usual: not at all 9. Thoughts that you would be better off or of hurting yourself in some way: not at all Total score: 0 Depression Screening Interpretation: Negative Depression Screening Done: Yes 52336 - PHQ-9 Billing: Yes Source: Developed by Drs. Warren King, Daphne Loredo, Jose Antonio Washington and colleagues, with an educational marla from [employer]. Thrive Questionnaire Date Thrive assessed: 01/15/25 I am a: Patient What is your living situation today?: I have a steady place to live Within the past 12 months, did the food you bought not last and you didn't have the money to get more?: Never true Within the past 12 months, did you worry whether your food would run out before you got money to buy more?: Never true Do you have trouble paying for medicines?: No Do you have trouble getting transportation to medical appointments?: No Do you have trouble paying your heating and electricity bill?: No Do you have trouble taking care of your child, family member or friend?: No Do you have trouble with day-to-day activities such as bathing, preparing meals, shopping, managing finances, etc.?: No Are you currently unemployed and looking for a job?: No Are you interested in more education?: No Please select the resources that you would like help with: None Currently or been in a relationship where the following occur: No concerns reported THRIVE Score: 0 AUDIT C Alcohol Use Questionnaire (AUDIT-C) 1. How often do you have a drink containing alcohol?: Monthly or less 2. How many drinks containing alcohol do you have on a typical day when you are drinking?: 1 or 2 3. How often do you have six or more drinks on one occasion?: Never Total Score: 1 Score Reviewed/Action Taken: Yes DEYVI-7 AMB Questionnaire DEYVI-7 Date DEYVI - 7 assessed: 01/15/25 Feeling nervous, anxious, or on edge: 0 = Not at all Not being able to stop or control worryin = Not at all Worrying too much about different things: 0 = Not at all Trouble relaxin = Not at all Being so restless that it is hard to sit still: 0 = Not at all Becoming easily annoyed or irritable: 0 = Not at all Feeling afraid as if something awful might happen: 0 = Not at all Total DEYVI-7 score (0-4 normal; 5-9 mild; 10-14 moderate; 15-21 severe): 0 Source: Developed by Drs. Warren King, Daphne Loredo, Jose Antonio Washington and colleagues, with an educational marla from [employer]. Review of Systems Const Denies chills, Denies fatigue, Denies fever(s) and Denies headache(s) ENT Denies dysphagia, Denies dizziness, Denies otalgia, Denies headache(s), Denies neck pain, Denies odynophagia and Denies sore throat Card Denies chest pain, Denies palpitations and Denies dyspnea Resp Denies chest congestion, Denies cough and Denies dyspnea GI Denies abdominal pain, Denies constipation, Denies dysphagia, Denies heartburn, Denies diarrhea, Denies nausea, Denies odynophagia and Denies vomiting Denies dysuria, Denies nocturia, Denies urinary frequency and Denies urinary urgency Musc Denies back pain and Denies neck pain Skin/Breast Denies rash Neuro Denies dizziness and Denies headache(s) Endo Denies fatigue and Denies palpitations Physical exam (Primary Care) Vital Signs: Last Vital Signs Pulse 74 01/15/25 12:30 BP 120/74 01/15/25 12:30 Pulse Ox 98 01/15/25 12:30 Oxygen Delivery Method Room Air 01/15/25 12:30 BMI result Body Mass Index 26.0 Tobacco/Smoking Status: Tobacco use Status Tobacco use date assessed 01/15/25 01/15/25 12:33 Patient Tobacco Use Status Former Tobacco user 01/15/25 12:33 Tobacco use type Cigarette 01/15/25 12:33 e-Cigarette/Vaping Use Never Used 01/15/25 12:33 PHQ-9: PHQ-9 Score PHQ-9: Total score 0 01/15/25 12:33 Depression Screening Interpretation: Negative Thrive Assessment: Date of Thrive Assessment Date Thrive assessed 01/15/25 01/15/25 12:33 Currently or been in a relationship where the following occur: No concerns reported Const General: no acute distress and alert HENMT Ears: TM's normal bilaterally and EAC's normal Throat: Yes posterior oropharynx normal and Yes tonsils normal (no TP congestion) Neck Neck: Yes no lymphadenopathy and Yes supple Thyroid: Thyroid normal Resp Auscultation: clear to auscultation bilaterally, no rales and no wheezes Cardio Rate: regular rate Rhythm: regular rhythm Heart sounds: no murmurs GI Palpation (GI): Soft to palpation and nontender Auscultation: normal bowel sounds General: Yes no CVA tenderness Back/Spine/Pelvis Back: no CVA tenderness Thoracic/Lumbar Spine: No lumbar spinal tenderness Skin Rashes: no rashes Extrem General: Yes no clubbing, cyanosis or edema Results Reviewed Results Reviewed: Laboratory Tests 01/13/25 01/13/25 07:54 07:55 WBC 5.9 Hgb 13.3 L Hct 38.8 L Plt Count 203 Sodium 140 Potassium 4.8 D Creatinine 1.12 Estimated GFR > 60 Fasting Glucose 191 H Hemoglobin A1c % 7.9 H Calcium 9.6 AST 34 ALT 42 H B-Natriuretic Peptide 69 Triglycerides 78 Cholesterol 151 LDL Cholesterol, Calc 90 HDL Cholesterol 46 Vitamin B12 419 25-OH Vitamin D Total 45.5 TSH 2.74 Ur Specific [place] 1.020 Urine Protein Negative Urine Glucose (UA) >=1000 H Urine Blood Negative Urine Nitrite Negative Ur Leukocyte Esterase Negative Microalb/Creat Ratio 49.9 H Coding Level of Care Code Est Pt Level 4 (22481) Diagnoses Type 2 diabetes mellitus without complication, with long-term current use of insulin E11.9; Z79.4 Diabetes mellitus type: type 2 Diabetes mellitus nursing home insulin use: with nursing home use Diabetes mellitus complication status: without complication Pure hypercholesterolemia E78.00 Benign essential hypertension I10 Vitamin D deficiency E55.9 Diplopia H53.2 Gastroesophageal reflux disease without esophagitis K21.9 Esophagitis presence: without esophagitis Elevated LFTs R79.89 Overweight (BMI 25.0-29.9) E66.3 Additional Codes PHQ-9 - 91219 - PHQ-9 Billing: Yes ([id number]) Assessment & Plan Assessment & Plan (1) Diabetes mellitus: Code(s): E11.9 - Type 2 diabetes mellitus without complications Category: Medical Qualifiers: Diabetes mellitus type: type 2 Diabetes mellitus computer terminal operator insulin use: with computer terminal operator use Diabetes mellitus complication status: without complication Qualified Code(s): E11.9 - Type 2 diabetes mellitus without complications; Z79.4 - senior care (current) use of insulin Plan: His HgbA1c was at 7.9% on his labs done a couple of weeks ago (he was previously at 6.8% a few months ago although it went up to 8.1% last month when he was seen by endocrinology) - goal is at least <7.5% Recalls that he was advised by endocrinology at a previous visit with them a few months ago that his blood sugar was too tightly controlled based on his age and he needs to loosen his control a little bit but his numbers are now significantly up, likely due to his being unable to afford his Trulicity Rx for the past few months Reinforced diabetic diet Continue Lantus at 14 units SQ QD, Metformin 1000 mg BID and Humalog 4 units BID He has been advised to reach out to endocrinology BLAISE about alternative(s) to his Trulicity Follow up with endocrinology as scheduled (2) Pure hypercholesterolemia: Code(s): E78.00 - Pure hypercholesterolemia, unspecified Category: Medical Plan: Results of his labs done a couple of days ago reviewed and discussed with patient - he is cautioned that his cholesterol levels have increased significantly from previous Reinforced low cholesterol diet - patient admits to some indiscretions over holidays Continue Simvastatin 20 mg QD Will recheck his labs and fasting lipids in 4 months for follow up (3) Benign essential hypertension: Code(s): I10 - Essential (primary) hypertension Category: Medical Plan: Reinforced low sodium diet - goal is systolic BP of 120 to 130 mm or less Continue Valsartan 320 mg QD, HCTZ 12.5 mg QD and Amlodipine 10 mg QD (4) Vitamin D deficiency: Code(s): E55.9 - Vitamin D deficiency, unspecified Category: Medical Plan: Continue Vitamin D3 2000 units QD (5) Diplopia: Code(s): H53.2 - Diplopia Category: Medical Plan: Transient; occurred back in November 2021 and spontaneously resolved with NO recurrence since CT and MRI of the brain done at the time both came back negative - unlikely that his symptoms at the time were from CVA but TIA cannot be entirely ruled out States that he was seen by ophthalmology back then and was advised that his eye exam came out normal Continue Aspirin 81 mg QD - patient was advised that he really does not need to continue this but states that he feels more comfortable staying on it and that the Rx is not really bothering him at all (6) GERD (gastroesophageal reflux disease): Code(s): K21.9 - Gastro-esophageal reflux disease without esophagitis Category: Medical Qualifiers: Esophagitis presence: without esophagitis Qualified Code(s): K21.9 - Gastro-esophageal reflux disease without esophagitis Plan: Dietary restrictions reinforced Continue Pantoprazole 40 mg QD (7) Elevated LFTs: Code(s): R79.89 - Other specified abnormal findings of blood chemistry Category: Medical Plan: His LFTs have remained normal on his recent labs - were likely related to his weight Will continue to monitor his LFTs regularly (8) Overweight (BMI 25.0-29.9): Code(s): E66.3 - Overweight Category: Medical Plan: Reinforced diet/exercise as tolerated/lose weight Plan Follow up in 4 months Orders: Orders Comprehensive [place]. Panel Fast 4 Months E78.00 - Pure hypercholesterolemia, unspecified Lipid Panel 4 Months E78.00 - Pure hypercholesterolemia, unspecified Hemoglobin A1c 4 Months E11.9 - Type 2 diabetes mellitus without complications TSH reflex Free T4 4 Months E78.00 - Pure hypercholesterolemia, unspecified UA CC w/rflx Micro + Cult 4 Months R30.0 - Dysuria Complete Blood Count Auto Diff 4 Months D64.9 - Anemia, unspecified Microalbumin, Random (w Creat) 4 Months E11.9 - Type 2 diabetes mellitus without complications Vitamin D 25-OH Total 4 Months E55.9 - Vitamin D deficiency, unspecified
--- OUTSIDE RECORDS SUMMARY | 2025-01-15 12:41 | XMS_ITS | Clinical Summary ---
Author Organization [facility] it Address [address] [place] [address] Care Team Providers Care Shale Miner Blasting Name Role Phone Kang Love MD Primary Care Provider [phone] Surgical History Surgery Date Site/Laterality Comments COLONOSCOPY [...] - PCV) 10/03/2021 10/03/2020, 10/31/2007 COVID-19 Vaccine (2023-2 5 season) 2024 Influenza Vaccine (#1) 2024 [...] patient's age to complete this topic Meningococcal B Vacine Aged Out No lo nger eligible based on patient's age to complete this topic RSV Immunization Patients Under 20 months Aged Out No longer eligible b ased on patient's age to complete this topic Varicella Vaccines Aged Out No longer eligible based on patient's age to complete this topic Care Teams Shale [employer]er Blasting Relationship Specialty Start Date End Date Kang Love MD PCP - General Internal Medicine 02/16/19
== END 2025-01-15 13:00 | disposition home or self-care (01) ==
PROVIDERS: PCP Internal Medicine; Visit Provider Internal Medicine
DX: E11.9 Type 2 diabetes mellitus without complications (principal); Z79.4 Long term (current) use of insulin; E78.00 Pure hypercholesterolemia, unspecified; I10 Essential (primary) hypertension; E55.9 Vitamin D deficiency, unspecified; H53.2 Diplopia; K21.9 Gastro-esophageal reflux disease without esophagitis; R79.89 Other specified abnormal findings of blood chemistry; E66.3 Overweight

== ENCOUNTER → 2025-01-15 12:02 | Outpatient (BNVA) | payer MEDICARE, SELFPAY | PROVIDERS: PCP Internal Medicine; Visit Provider Internal Medicine | DX: E11.9 Type 2 diabetes mellitus without complications (principal); Z79.4 Long term (current) use of insulin; E78.00 Pure hypercholesterolemia, unspecified; I10 Essential (primary) hypertension; E55.9 Vitamin D deficiency, unspecified; H53.2 Diplopia; K21.9 Gastro-esophageal reflux disease without esophagitis; R79.89 Other specified abnormal findings of blood chemistry; E66.3 Overweight | CPT/HCPCS: 96127; 99212 ==

== ENCOUNTER 2025-02-03 10:12 | Outpatient (AMB) | payer MEDICARE, SELFPAY ==
[2025-02-03 10:45] VITALS: BMI 27.1
--- NOTE | 2025-02-03 10:45 | A.OFFVIS_ITS ---
VS Expanded 02/03/25 10:45 02/11/25 21:30 Height 5 ft 6 in 5 ft 6 in Weight 167 lb 15.876 oz 168 lb BMI 27.1 27.1 Intake Visit Reasons: T2DM Allergies cyclobenzaprine [From Flexeril] Allergy (Verified 01/15/25 12:48) Itching Nutrition Presentation Details: Pt presents for MNT f/u for T2DM Pt reports doing ok, no concerns expressed today Reports having 3 meal/day food frequency fruits: 0-1/d vex/d dairy : 0-1/d starches >16 servings/d fish :0-1/wk, poultry majority of the time pastries and similar >1/d Fluids: water, diet beverages, juice : 25 oz/d Etoh: reports abstaining diarrhea/constipation: denies BS Monitoring Most Recent Diabetes Results: Microalb/Creat Ratio 49.9 ug/mg cr (<30) H 01/13/25 Cholesterol 151 mg/dL (<200) 01/13/25 HDL Cholesterol 46 mg/dL (>40) 01/13/25 Triglycerides 78 mg/dL (<150) 01/13/25 Creatinine 1.12 mg/dL (0.5-1.4) 01/13/25 Blood Urea Nitrogen 24 mg/dL (9-16) H 01/13/25 Sodium 140 mmol/L (135-145) 01/13/25 Potassium 4.8 mmol/L (3.3-5.1) 01/13/25 Chloride 104 mmol/L (96-108) 01/13/25 Carbon Dioxide 26 mmol/L (22-29) 01/13/25 Calcium 9.6 mg/dL (8.4-10.2) 01/13/25 AST 34 U/L (5-37) 01/13/25 ALT 42 U/L (0-40) H 01/13/25 Total Protein 8.0 g/dL (6.5-8.0) 01/13/25 Albumin 4.5 g/dL (3.5-5.0) 01/13/25 [facility] Equation Height: 5 ft 6 in Weight: 168 lb Resting Metabolic Rate: 1479.46 Calculated Activity Level: Sedentary Calories Needed to Maintain Weight: 1775.35 [facility] Medical History Diabetes mellitus Overweight (BMI 25.0-29.9) GERD (gastroesophageal reflux disease) Pure hypercholesterolemia Benign essential hypertension CVA (cerebral vascular accident) Anxiety Surgical History History of esophagogastroduodenoscopy (EGD) H/O colonoscopy H/O uvulectomy Family History Father No problems noted. Mother Pre-diabetes Thyroid disease Social History Housing: Apartment Are you a primary plant health care technician to a significant other at home: No Do you presently have visiting nurse or other home services: No Alcohol intake: never Patient Tobacco Use Status: Former Tobacco user Tobacco use type: Cigarette Cigarette Packs Per Day: 1 Years Smoked: 12 e-Cigarette/Vaping Use: Never Used Second Hand Smoke Exposure: Yes service: No Current occupational status: retired Cognitive needs: No Hearing needs: No Vision needs: Yes (glasses) Assessment & Plan Assessment & Plan (1) Type II diabetes mellitus: Code(s): E11.9 - Type 2 diabetes mellitus without complications Category: Medical Qualifiers: Diabetes mellitus complication status: with hyperglycemia Diabetes mellitus ocean transportation intermediary insulin use: with ocean transportation intermediary use Qualified Code(s): E11.65 - Type 2 diabetes mellitus with hyperglycemia; Z79.4 - intermodal customer service (current) use of insulin Plan: Used wt : 76 kg(08/25), 76 kg (02/23) Est kcal as per MSJ: 1800 (40% carb, 30% fat/prot) Est fluid needs: 2000 ml/d (25 ml/kg bw) Rec fiber: increase to 8-10 g per day and gradually increase to 35 g as tolerated Rec Na: < 1500 mg /d Educate patient on: (R= Reviewed, V = verbalizes understanding N/R= Needs review N/A= not applicable) * Food sources of carbohydrates and serving adequate serving sizes : R V * Difference between complex carbohydrates and simple carbohydrates, role of fiber: R V * Low fat foods : Differences between fats (MUFA/PUFA/saturated fats, trans fats) and food sources of various fats: R V * Food sources of sodium and salt and healthy modifications for heart health and kidney health: R , * Vitamins and minerals: R * How to interpret food labels: V * Healthy Plate method concept: R V * Physical activity: benefits and precaution: R V * prevention of hyperglycemia :R, V Patient Instructions: Keep hydrated by having water/juice diluted with water, milk, soups keep physically active, walking goal 150 minutes/wk or as tolerated Coding Level of Care Code Nutr Indiv Subseq (50344) Diagnoses Type 2 diabetes mellitus with hyperglycemia, with long-term current use of insulin E11.65; Z79.4 Diabetes mellitus complication status: with hyperglycemia Diabetes mellitus penitentiary insulin use: with ocean transportation intermediary use Time Spent (min) 30
--- OUTSIDE RECORDS SUMMARY | 2025-02-03 12:04 | XMS_ITS | Clinical Summary ---
Author Organization [facility] it Address [address] [place] [address] Care Team Providers Care Gate Person Name Role Phone Kang Love MD Primary Care Provider [phone] Surgical History Surgery Date Site/Laterality Comments COLONOSCOPY [...] age to complete this topic Care Teams Gate Person Relationship Specialty Start Date End Date Kang Love MD PCP - General Internal Medicine 02/16/19
[2025-02-11 21:30] VITALS: BMI 27.1
== END 2025-02-03 11:00 | disposition home or self-care (01) ==
PROVIDERS: PCP Internal Medicine; Visit Provider Dietitian, Registered
DX: E11.65 Type 2 diabetes mellitus with hyperglycemia (principal); Z79.4 Long term (current) use of insulin

== ENCOUNTER → 2025-02-03 10:12 | Outpatient (BNVA) | payer MEDICARE, SELFPAY | PROVIDERS: PCP Internal Medicine; Visit Provider Dietitian, Registered | DX: E11.65 Type 2 diabetes mellitus with hyperglycemia (principal); Z71.3 Dietary counseling and surveillance; Z79.4 Long term (current) use of insulin | CPT/HCPCS: 97803 ==

== ENCOUNTER 2025-03-29 12:27 | Outpatient (AMB) | payer MEDICARE, SELFPAY ==
[2025-03-29 12:43] VITALS: BP 114/78; PULSE 71; O2SAT 98; BMI 28.0
--- NOTE | 2025-03-29 12:43 | A.OFFVIS_ITS ---
Vital Signs 03/29/25 12:43 Height 5 ft 6 in Weight 173 lb 8.061 oz BMI 28.0 BP 114/78 Blood Pressure Location Rt brachial Position Sitting Pulse 71 Pulse Source Pulse Oximeter Pulse Oximetry (%) 98 Oxygen Delivery Method Room Air Intake Visit Reasons: DM Intake Note: Patient present today for Type 2 Diabetes Mellitus Last Diabetic eye exam: 01/2024 Last Podiatry Visit: Doesn't have one Random Glucose: 218 mg/dl HgA1C: 7.9% 01/13/25 Software Lead Required: No Accompanied by: Self / Same As Patient Allergies cyclobenzaprine [From Flexeril] Allergy (Verified 03/29/25 12:47) Itching Medication List - Last Reconciled 03/29/25 by Martha Ferrari PA-C amlodipine 10 mg PO DAILY 90 days blood pressure monitor As directed cholecalciferol (vitamin D3) 50 mcg PO DAILY 90 days glucose (Dex4 Glucose) 16 grams (4 x 4 gram) PO Q15M PRN 30 days hydrochlorothiazide 12.5 mg PO DAILY 90 days insulin glargine (Lantus Solostar U-100 Insulin) 14 units See Protocol subcut QPM 90 days insulin lispro (Humalog KwikPen (U-100) Insulin) 4 units (0.04 mL) subcut BID metformin 1,000 mg PO BID pantoprazole 40 mg PO .QD 90 days simvastatin 20 mg PO BEDTIME 90 days valsartan 320 mg PO DAILY 90 days HPI HPI DM: Details: Patient is a 69-year-old male with a significant past medical history of hypert ension, hyperlipidemia, obesity, type 2 diabetes uncontrolled, prior CVA, anxiety , and Anthony's esophagus presenting today for a follow-up of his diabetes. Endo: DM-his A1c was 7.9. He was diagnosed with diabetes around 1999. States that his mother had type 2 diabetes/prediabetes for a long time. He is currently on Lantus 14 units nightly, Humalog 4-6 units BID, and metformin 1000 mg twice a day. -Previously was on Trulicity but states that it was too expensive last month. He has been off of it for a couple of months. Ozempic with stopped this due to high co-pays, belching, nausea, and supply issues. Januvia stopped due to cost. CGM- showing usage 86% of the time, GMI 7.8, average glucose 187. Very Hyperglycemia 15%, hypergylcemia 37%, in range 48%, hypoglycemia at 0%. -He gets up most mornings 4-5 AM to start his day. CV: Blood pressure today in the office is 114/78. He is currently on amlodipine 10 mg, hydrochlorothiazide 12.5 mg daily, and valsartan 320 mg. He is compliant with simvastatin 20 mg at bedtime. Last lipids WNL. Psych: He has had some increase stressors with the passing of an old ex- fiance and this causing issues with his current . He does have an appointment booked with . COUNT INCLUDES [facility] Medical History Diabetes mellitus Overweight (BMI 25.0-29.9) GERD (gastroesophageal reflux disease) Pure hypercholesterolemia Benign essential hypertension CVA (cerebral vascular accident) Anxiety Surgical History History of esophagogastroduodenoscopy (EGD) H/O colonoscopy H/O uvulectomy Family History Father No problems noted. Mother Pre-diabetes Thyroid disease Social History Housing: Apartment Are you a primary wound care coordinator to a significant other at home: No Do you presently have visiting nurse or other home services: No Alcohol intake: never Patient Tobacco Use Status: Former Tobacco user Tobacco use type: Cigarette Cigarette Packs Per Day: 1 Years Smoked: 12 e-Cigarette/Vaping Use: Never Used Second Hand Smoke Exposure: Yes service: No Current occupational status: retired Cognitive needs: No Hearing needs: No Vision needs: Yes (glasses) Physical Exam Vital Signs: Last Vital Signs Pulse 71 03/29/25 12:43 BP 114/78 03/29/25 12:43 Pulse Ox 98 03/29/25 12:43 Oxygen Delivery Method Room Air 03/29/25 12:43 BMI result Body Mass Index 28.0 Const Orientation/consciousness: patient oriented x3 Neck Neck: Yes no lymphadenopathy Thyroid: Thyroid normal Carotids: no bruits Resp Auscultation: clear to auscultation bilaterally Cardio Rate: regular rate Rhythm: regular rhythm Heart sounds: S1 normal heart sound present and S2 normal heart sound present Peripheral pulses: dorsalis pedis present Neuro General: patient oriented x3, gait normal and no focal motor deficits Extrem Other: Monofilament sensation intact bilaterally. Vibratory sensation intact bilaterally. Skin intact. 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 discussed risks and benefits and adverse effects. advised to contact me for any UTI sx/yeast infections. check bmp in 2-3 weeks after starting it labs ordered f/u 2-3 months sooner if needed (2) HTN (hypertension): Code(s): I10 - Essential (primary) hypertension Category: Medical Qualifiers: Hypertension type: primary hypertension Qualified Code(s): I10 - Essential (primary) hypertension Plan: wnl continue current plan (3) High cholesterol: Code(s): E78.00 - Pure hypercholesterolemia, unspecified Category: Medical Plan: continue current plan Orders: Orders Comprehensive [place]. 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 of insulin Hemoglobin A1c Today E11.65 - Type 2 diabetes mellitus with hyperglycemia, E78.00 - Pure hypercholesterolemia, unspecified, I10 - Essential (primary) hypertension, R73.01 - Impaired fasting glucose, Z79.4 - jail (current) use of insulin Microalbumin, Random (w Creat) Today E11.65 - Type 2 diabetes mellitus with hyperglycemia, E78.00 - Pure hypercholesterolemia, unspecified, I10 - Essential (primary) hypertension, Z79.4 - termite inspector (current) use of insulin Medications: New empagliflozin (Jardiance) 10 mg PO QAM 90 tabs 0RF Changed From insulin glargine (Lantus Solostar U-100 Insulin) 14 units See Protocol subcut QPM 90 days 15 mL 3RF To insulin glargine (Lantus Solostar U-100 Insulin) 20 units See Protocol subcut QPM 90 days 18 mL 3RF Coding Level of Care Code Est Pt Level 4 (00990) Complex EM visit Add On G2211 Diagnoses Uncontrolled type 2 diabetes mellitus with hyperglycemia, with long-term current use of insulin E11.65; Z79.4 Primary hypertension I10 Hypertension type: primary hypertension High cholesterol E78.00
[2025-03-29 12:52] LABS: Glucose, Whole Blood 218 mg/dL (60-115)
--- OUTSIDE RECORDS SUMMARY | 2025-03-29 14:52 | XMS_ITS | Clinical Summary ---
Author Organization [facility] it Address [address] [place] [address] Care Team Providers Care Senior Sales Director Name Role Phone Kang Love MD Primary Care Provider [phone] Surgical History Surgery Date Site/Laterality Comments COLONOSCOPY 06/24/2006 PROCEDURE: HISTORICAL COLONOSCOPY; COMMENT: hyperplastic polyp; diverticulosis COLONOSCOPY 11/19/2018 PROCEDURE: HISTORICAL COLONOSCOPY; COMMENT: colon polyp-tubular adenoma; path report only Medical History Medical History Date Comments HTN (hypertension) DX:HTN (hyper tension) Hyperlipidemia DX:Hyperlipidemi a Tubular adenoma of colon 06/11/2019 DX:Tubu lar adenoma of colon Microalbuminuria 06/11/2019 DX:Microalbumin uria Type 2 diabetes mellitus wit h renal manifestations (CMS/HCC V24, CMS/HCC V28) DX:Type 2 diabetes mellitus with renal manifestations [...] Vaccines (1 of 2) 2006 RSV Immunization Adult Patients (1 - Risk 60-74 years 1-dose series) 2016 Pneumococcal Vaccine: 50+ Years (2 of 2 - PCV) 10/03/2021 10/03/2020, 10/31/2007 COVID-19 Vaccine ( - 2023-2 5 season) 2024 Abdominal Aortic Aneurysm (AAA) Screen 10/25/2024 Cholesterol Screening (Lipid Panel) 10/25/2024 Depression Screening 10/25/2024 Diabetes: Annual Urine Albumin-Creatinine Ratio (uACR) 10/25/2024 Diabetes: Blood Sugar Contro l Test (HGBA1C) 10/25/2024 Falls Risk Assessment 10/25/2024 Hepatitis C Screening 10/25/2024 Hypertension/CHF/CAD Annual BMP Blood Test 10/25/2024 Social Influencers of Health Screening 10/25/2024 Influenza Vaccine (Season Ended) 2025 10/09/2019, 07/23/2018 Colorectal Cancer Screening: Colonoscopy 11/01/2025 11/01/2020 DTaP,Tdap,and [...] age to complete this topic Meningococcal B Vaccine Aged Out No l onger eligible based on patient's age to complete this topic RSV Immunization Patients Under 20 months Aged Out No longer eligible b ased on patient's age to complete this topic Varicella Vaccines Aged Out No longer eligible based on patient's age to complete this topic Care Teams Senior Sales Director Relationship Specialty Start Date End Date Kang Love MD PCP - General Internal Medicine 02/16/19
== END 2025-03-29 13:31 | disposition home or self-care (01) ==
LOC: HO.ENCR 12:28
PROVIDERS: PCP Internal Medicine; Visit Provider Physician Assistant
DX: E11.65 Type 2 diabetes mellitus with hyperglycemia (principal); Z79.4 Long term (current) use of insulin; I10 Essential (primary) hypertension; E78.00 Pure hypercholesterolemia, unspecified

== ENCOUNTER → 2025-03-29 12:27 | Outpatient (BNVA) | payer MEDICARE, SELFPAY | PROVIDERS: PCP Internal Medicine; Visit Provider Physician Assistant | DX: E11.65 Type 2 diabetes mellitus with hyperglycemia (principal); I10 Essential (primary) hypertension; E78.00 Pure hypercholesterolemia, unspecified; Z79.4 Long term (current) use of insulin | CPT/HCPCS: 82947; 99212 ==

== ENCOUNTER 2025-05-06 09:14 | Outpatient (REF) | payer MEDICARE, SELFPAY ==
--- OUTSIDE RECORDS SUMMARY | 2025-05-06 09:56 | XMS_ITS | Clinical Summary ---
Author Organization [facility] it Address [address] [place] [address] Care Team Providers Care Marine Engineer Name Role Phone Kang Love MD Primary Care Provider [phone] Surgical History Surgery Date Site/Laterality Comments COLONOSCOPY [...] age to complete this topic Care Teams Marine Engineer Relationship Specialty Start Date End Date Kang Love MD PCP - General Internal Medicine 02/16/19
[2025-05-06 10:22] LABS: MANUAL DIFF FLAG NO
[2025-05-06 10:39] LABS: Appearance Urine Clear; Color Urine Yellow; Glucose Urine UA Negative (Negative); Leukocyte Esterase Urine Negative (Negative); Nitrite Urine Negative (Negative); PH 6.5 (5.0-9.0); Urine Blood Negative (Negative); Urine Ketones Negative (Negative); Urine Protein Negative (Neg-Trace)
[2025-05-06 10:43] LABS: Estimated Average Glucose 192 mg/dL; Hemoglobin A1c % 8.3 % (<6.0)
[2025-05-06 10:44] LABS: Basophils Absolute Auto 0.1 X10*3/uL (0.0-0.2); Basophils Percent Auto 0.8 % (0-2); Eosinophils Absolute Auto 0.2 X10*3/uL (0.0-0.4); Hemoglobin 12.9 g/dl (14.0-18.0); Imm Gran Abs Auto 0.02 X10*3/uL (0.00-0.03); Imm Gran Pct Auto 0.3 % (0.0-0.4); Lymphocytes Absolute Auto 2.5 X10*3/uL (1.2-4.9); Lymphocytes Percent Auto 33.6 % (20-40); Mean Corpuscular HGB Conc 33.9 g/dl (31.0-36.0); Mean Corpuscular Hemoglobin 27.7 pg (27.0-33.0); Mean Corpuscular Volume 81.5 fL (80.0-98.0); Mean Platelet Volume 10.4 fL (9.4-12.4); Monocytes Absolute Auto 0.6 X10*3/uL (0.1-1.2); Monocytes Percent Auto 8.5 % (2-11); Neutrophils Absolute Auto 4.1 x10*3/uL (2.0-8.3); Neutrophils Percent Auto 54.8 % (45-73); Platelet Count 244 X10*3/uL (160-400); Red Blood Count 4.66 X10*6/uL (4.60-5.80); Red Cell Distribution Width 13.6 % (11.0-16.0); White Blood Count 7.4 X10*3/uL (4.8-10.8)
[2025-05-06 11:11] LABS: Alanine Aminotransferase 26 U/L (0-40); Albumin Level 4.6 g/dL (3.5-5.0); Alkaline Phosphatase 95 U/L (39-117); Anion Gap 13 (12-20); Aspartate Amino Transferase 29 U/L (5-37); Bilirubin Total 0.5 mg/dL (0.0-1.0); Blood Urea Nitrogen 21 mg/dL (9-16); Calcium 10.1 mg/dL (8.4-10.2); Carbon Dioxide 28 mmol/L (22-29); Chloride 103 mmol/L (96-108); Cholesterol 144 mg/dL (<200); Estimated Glomerular Filt Rate > 60; Glucose Fasting 151 mg/dL (60-99); HDL Cholesterol 37 mg/dL (>40); LDL Cholesterol Calculated 85 mg/dL (<100); Potassium 4.1 mmol/L (3.3-5.1); Sodium 140 mmol/L (135-145); TSH reflex Free T4 1.74 uIU/mL (0.32-4.0); Total Protein 7.8 g/dL (6.5-8.0); Triglycerides 111 mg/dL (<150); Vitamin D 25-OH Total 53.8 ng/mL (>30)
[2025-05-06 11:21] LABS: Creatinine Urine 77.84 mg/dL; Microalbum/Creatinine Ratio Ur 53.9 ug/mg cr (<30)
== END 2025-05-06 09:15 | disposition home or self-care (01) ==
LOC: HO.10HDL 09:14
PROVIDERS: Visit Provider Internal Medicine
DX: D64.9 Anemia, unspecified (principal); E78.00 Pure hypercholesterolemia, unspecified; E11.9 Type 2 diabetes mellitus without complications; R30.0 Dysuria; E55.9 Vitamin D deficiency, unspecified
CPT/HCPCS: 36415; 80053; 80061; 81003; 82043; 82306; 82570; 83036; 84443; 85025

== ENCOUNTER 2025-05-18 11:07 | Outpatient (REF) | payer MEDICARE, SELFPAY ==
--- NOTE | ~2025-05-18 | XR_ITS ---
EXAMINATION: XR ELBOW, LEFT CLINICAL INFORMATION: M25.522 - Pain in left elbow COMPARISON: None available. TECHNIQUE: AP, lateral, and oblique views of the left elbow. FINDINGS: The bones and soft tissues are normal. No fracture or joint effusion. Alignment is anatomic. Joint spaces are maintained. Trace spurring of the ulnar coronoid process. Minimal enthesopathic spurring of the lateral epicondyle. XR/XR elbow LT 2V IMPRESSION: No acute findings left elbow. Electronically signed by: Can Godinez MD 05/18/2025 12:40 PM EDT
== END 2025-05-18 11:08 | disposition home or self-care (01) ==
LOC: HO.XRAY 11:07
PROVIDERS: PCP Internal Medicine
DX: Z00.01 Encounter for general adult medical examination with abnormal findings (principal); H61.23 Impacted cerumen, bilateral; M25.522 Pain in left elbow; E55.9 Vitamin D deficiency, unspecified; H53.2 Diplopia; E66.3 Overweight; K21.9 Gastro-esophageal reflux disease without esophagitis; E78.00 Pure hypercholesterolemia, unspecified; I10 Essential (primary) hypertension; E11.9 Type 2 diabetes mellitus without complications; R79.89 Other specified abnormal findings of blood chemistry; Z86.73 Personal history of transient ischemic attack (TIA), and cerebral infarction without residual deficits; Z79.4 Long term (current) use of insulin; Z79.82 Long term (current) use of aspirin; Z79.84 Long term (current) use of oral hypoglycemic drugs; Z79.899 Other long term (current) drug therapy; Z13.30 Encounter for screening examination for mental health and behavioral disorders, unspecified; Z13.31 Encounter for screening for depression
CPT/HCPCS: 69210; 73070; 96127; 99397

== ENCOUNTER 2025-05-18 11:07 | Outpatient (AMB) | payer MEDICARE, SELFPAY ==
[2025-05-18 11:10] VITALS: BP 152/64; PULSE 81; RESP 20; TEMP 36.8; O2SAT 96; BMI 28.4
--- NOTE | 2025-05-18 11:10 | MHC.PC.OV ---
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 Required: No Accompanied by: Self / Same As Patient Allergies cyclobenzaprine (From Flexeril) Allergy (Verified 05/26/25 00:33) Itching Medication List - Last Reconciled 05/18/25 by JORGE L Soto amlodipine 10 mg PO DAILY 90 days blood pressure monitor As directed cholecalciferol (vitamin D3) 50 mcg PO DAILY 90 days glucose (Dex4 Glucose) 16 grams (4 x 4 gram) PO Q15M PRN 30 days hydrochlorothiazide 12.5 mg PO DAILY 90 days insulin glargine (Lantus Solostar U-100 Insulin) 20 units See Protocol subcut QPM insulin lispro (Humalog KwikPen (U-100) Insulin) 4 units (0.04 mL) subcut BID metformin 1,000 mg PO BID pantoprazole 40 mg PO .QD 90 days simvastatin 20 mg PO BEDTIME 90 days valsartan 320 mg PO DAILY 90 days Tobacco use date assessed: 05/18/25 Fall risk assessment: No Falls in past year Last assessed Fall Risk: 05/18/25 Dental Screening Dental Screen Date: 05/18/25 Did you have a dental visit in the last 12 months?: Yes Did you have a dental problem in the last 6 months where you did not have access to dental care?: No Was dental information given to patient?: Patient has dentist HPI annual exam HPI Details Dentist: up to date, went couple months Eye:up to date Snellen: Right: Left: Corrected vision: yes, glasses STI screening:n/a Colonoscopy: due 2026 Pap Smer:n/a PHQ-9: Flu: up to date COVID: x4 Tdap:completed 2019 Diet: Tries to limit sugar in his diet Exercise:walks about 2-3 times a week left elbow pain: reports that it feels like bone fragments in his arm scraping with movements reports that this had been going on for the last 2 months. reports that he thought that he bumped it and thought that it would get better tx: tried heating pad, ice, aspercreme without any changes in the pain Reports that the pain is intermittent and when it happens, he feel numbness done the anterior portion of the arm reports that this arm feels weaker and he feels like he is unable to push off with it bilateral ear impaction: removed the superficial wax with lighted curette. Will start debrox and return for ear cleaning [facility] Medical History Diabetes mellitus Overweight (BMI 25.0-29.9) GERD (gastroesophageal reflux disease) Pure hypercholesterolemia Benign essential hypertension CVA (cerebral vascular accident) Anxiety Surgical History History of esophagogastroduodenoscopy (EGD) H/O colonoscopy H/O uvulectomy Family History Father No problems noted. Mother Pre-diabetes Thyroid disease Social History Housing: Apartment Are you a primary nonfarm animal caretaker to a significant other at home: No Do you presently have visiting nurse or other home services: No Alcohol intake: never Patient Tobacco Use Status: Former Tobacco user Tobacco use type: Cigarette Cigarette Packs Per Day: 1 Cigarettes Per Day: 20 Years Smoked: 12 Smoked in Last 30 Days: No e-Cigarette/Vaping Use: Never Used Second Hand Smoke Exposure: Yes Use of substances other than those prescribed or required for medical reasons: No Advance Directives: No Advance Directives Information Provided: Yes Do you have a plan to hurt others: No Plan service: No Current occupational status: retired Cognitive needs: No Hearing needs: No Vision needs: Yes (glasses) Questionnaire PHQ-9 Over the last 2 weeks, how often have you been bothered by any of the following problems? 1. Little interest or pleasure in doing things: not at all 2. Feeling down, depressed, or hopeless: not at all 3. Trouble falling or staying asleep, or sleeping too much: not at all 4. Feeling tired or having little energy: not at all 5. Poor appetite or overeating: not at all 6. Feeling bad about yourself - or that you are a failure or have let yourself or your family down: not at all 7. Trouble concentrating on things, such as reading the newspaper or watching television: not at all 8. Moving or speaking so slowly that other people could have noticed. Or the opposite - being so fidgety or restless that you have been moving around a lot more than usual: not at all 9. Thoughts that you would be better off or of hurting yourself in some way: not at all Total score: 0 Depression Screening Interpretation: Negative Depression Screening Done: Yes Source: Developed by Drs. Warren King, Daphne Loredo, Jose Antonio Washington and colleagues, with an educational marla from [employer]. Thrive Questionnaire Date Thrive assessed: 05/18/25 I am a: Patient What is your living situation today?: I have a steady place to live Within the past 12 months, did the food you bought not last and you didn't have the money to get more?: Never true Within the past 12 months, did you worry whether your food would run out before you got money to buy more?: Sometimes True Do you have trouble paying for medicines?: Yes Do you have trouble getting transportation to medical appointments?: No Do you have trouble paying your heating and electricity bill?: No Do you have trouble taking care of your child, family member or friend?: Yes Do you have trouble with day-to-day activities such as bathing, preparing meals, shopping, managing finances, etc.?: No Are you currently unemployed and looking for a job?: No Are you interested in more education?: No Please select the resources that you would like help with: Paying for medicine and Daily support Currently or been in a relationship where the following occur: No concerns reported THRIVE Score: 1 AUDIT C Alcohol Use Questionnaire (AUDIT-C) 1. How often do you have a drink containing alcohol?: Never Total Score: 0 Score Reviewed/Action Taken: No DEYVI-7 AMB Questionnaire DEYVI-7 Date DEYVI - 7 assessed: 05/18/25 Feeling nervous, anxious, or on edge: 1 = Several days Not being able to stop or control worryin = Not at all Worrying too much about different things: 0 = Not at all Trouble relaxin = Several days Being so restless that it is hard to sit still: 1 = Several days Becoming easily annoyed or irritable: 1 = Several days Feeling afraid as if something awful might happen: 0 = Not at all Total DEYVI-7 score (0-4 normal; 5-9 mild; 10-14 moderate; 15-21 severe): 4 Source: Developed by Drs. Warren King, Daphne Loredo, Jose Antonio Washington and colleagues, with an educational marla from [employer]. Review of Systems Const Denies headache(s) Eyes Denies loss of vision ENT Denies vertigo, Denies dizziness, Denies headache(s) and Denies sore throat Card Denies chest pain, Denies leg edema and Denies lightheadedness Resp Denies cough, Denies hemoptysis and Denies wheezing GI Denies abdominal pain, Denies melena, Denies constipation, Denies diarrhea and Denies vomiting Denies dysuria, Denies urinary frequency and Denies urinary urgency Musc Reports arthralgias (Left elbow), Denies joint swelling, Denies numbness and Denies tingling Neuro Denies behavioral changes, Denies vertigo, Denies dizziness, Denies headache(s), Denies loss of vision, Denies memory loss, Denies numbness and Denies tingling Psych Denies anxiety, Denies behavioral changes, Denies depression, Denies memory loss and Denies panic attacks William/Lymph Denies easy bleeding and Denies easy bruising Aller/Immun Denies wheezing Physical exam (Primary Care) Vital Signs: Last Vital Signs Temp 98.3 F 05/18/25 11:10 Pulse 81 05/18/25 11:10 Resp 20 05/18/25 11:10 BP 142/68 H 05/18/25 11:55 Pulse Ox 96 05/18/25 11:10 Oxygen Delivery Method Room Air 05/18/25 11:10 BMI result Body Mass Index 28.4 Tobacco/Smoking Status: Tobacco use Status Tobacco use date assessed 05/18/25 05/18/25 11:12 Patient Tobacco Use Status Former Tobacco user 05/18/25 11:12 Tobacco use type Cigarette 05/18/25 11:12 e-Cigarette/Vaping Use Never Used 05/18/25 11:12 PHQ-9: PHQ-9 Score PHQ-9: Total score 0 05/18/25 11:29 Depression Screening Interpretation: Negative Thrive Assessment: Date of Thrive Assessment Date Thrive assessed 05/18/25 05/18/25 11:12 Currently or been in a relationship where the following occur: No concerns reported Results Reviewed Results Reviewed: Laboratory Tests 05/06/25 09:18 WBC 7.4 RBC 4.66 Hgb 12.9 L Hct 38.0 L MCV 81.5 MCH 27.7 MCHC 33.9 RDW 13.6 Plt Count 244 Sodium 140 Potassium 4.1 Chloride 103 Carbon Dioxide 28 Anion Gap 13 BUN 21 H Creatinine 1.15 Estimated GFR > 60 Fasting Glucose 151 H Estimat Average Glucose 192 Hemoglobin A1c % 8.3 H Calcium 10.1 Total Bilirubin 0.5 AST 29 ALT 26 Alkaline Phosphatase 95 Total Protein 7.8 Albumin 4.6 Triglycerides 111 Cholesterol 144 LDL Cholesterol, Calc 85 HDL Cholesterol 37 L 25-OH Vitamin D Total 53.8 TSH 1.74 Urine Color Yellow Urine Appearance Clear Urine pH 6.5 Ur Specific Lebeau 1.010 Urine Protein Negative Urine Glucose (UA) Negative Urine Ketones Negative Urine Blood Negative Urine Nitrite Negative Ur Leukocyte Esterase Negative Urine Creatinine 77.84 Urine Microalbumin 42.0 Microalb/Creat Ratio 53.9 H Coding Level of Care Code Est Pt Prev Care >65y(85964) Diagnoses Annual physical exam Z00.00 Vitamin D deficiency E55.9 Diplopia H53.2 Overweight (BMI 25.0-29.9) E66.3 Gastroesophageal reflux disease without esophagitis K21.9 Esophagitis presence: without esophagitis Pure hypercholesterolemia E78.00 Benign essential hypertension I10 Cerebrovascular accident (CVA), unspecified mechanism I63.9 CVA mechanism: unspecified Primary hypertension I10 Hypertension type: primary hypertension Type 2 diabetes mellitus without complication, with long-term current use of insulin E11.9; Z79.4 Diabetes mellitus type: type 2 Diabetes mellitus nursing home insulin use: with cellular biologist use Diabetes mellitus complication status: without complication Elevated LFTs R79.89 Time Spent (min) 35 Assessment & Plan Assessment & Plan (1) Annual physical exam: Code(s): Z00.00 - Encounter for general adult medical examination without abnormal findings Category: Medical Plan: Preventive guideline and recent labs reviewed with patient (2) Vitamin D deficiency: Code(s): E55.9 - Vitamin D deficiency, unspecified Category: Medical Plan: Continue Vitamin D3 50 mcg QD (3) Diplopia: Code(s): H53.2 - Diplopia Category: Medical Plan: Transient; occurred back in November 2021 and spontaneously resolved with NO recurrence since CT and MRI of the brain done at the time both came back negative - unlikely that his symptoms at the time were from CVA but TIA cannot be entirely ruled out States that he was seen by ophthalmology back then and was advised that his eye exam came out normal Continue Aspirin 81 mg QD - patient was advised that he really does not need to continue this but states that he feels more comfortable staying on it and that the Rx is not really bothering him at all (4) Overweight (BMI 25.0-29.9): Code(s): E66.3 - Overweight Category: Medical Plan: Reinforced diet/exercise as tolerated/lose weight (5) GERD (gastroesophageal reflux disease): Code(s): K21.9 - Gastro-esophageal reflux disease without esophagitis Category: Medical Qualifiers: Esophagitis presence: without esophagitis Qualified Code(s): K21.9 - Gastro-esophageal reflux disease without esophagitis Plan: Dietary restrictions reinforced Continue Pantoprazole 40 mg QD (6) Pure hypercholesterolemia: Code(s): E78.00 - Pure hypercholesterolemia, unspecified Category: Medical Plan: Results of his recent labs reviewed, mild decreased from last labs Reinforced low cholesterol diet Continue Simvastatin 20 mg QD Will recheck his labs and fasting lipids in 4 months for follow up (7) Benign essential hypertension: Code(s): I10 - Essential (primary) hypertension Category: Medical Plan: Reinforced low sodium diet - goal is systolic BP of 120 to 130 mm or less Continue Valsartan 320 mg QD, HCTZ 12.5 mg QD and Amlodipine 10 mg QD (8) CVA (cerebral vascular accident): Comment: possible TIA 2020-see PCP note 05/15/23 Code(s): I63.9 - Cerebral infarction, unspecified Category: Medical Qualifiers: CVA mechanism: unspecified Qualified Code(s): I63.9 - Cerebral infarction, unspecified (9) HTN (hypertension): Code(s): I10 - Essential (primary) hypertension Category: Medical Qualifiers: Hypertension type: primary hypertension Qualified Code(s): I10 - Essential (primary) hypertension (10) Diabetes mellitus: Code(s): E11.9 - Type 2 diabetes mellitus without complications Category: Medical Qualifiers: Diabetes mellitus type: type 2 Diabetes mellitus cellular biologist insulin use: with nursing home use Diabetes mellitus complication status: without complication Qualified Code(s): E11.9 - Type 2 diabetes mellitus without complications; Z79.4 - thermodynamics engineer (current) use of insulin Plan: His HgbA1c was at 8.3% on his labs done a couple of weeks ago (he was previously at 7.9% a few months ago goal is at least <7.5% Reinforced your sugar/carbohydrate diet and activity as tolerated He saw endocrine recently and his Lantus was increased to 20 units SQ QD, Metformin 1000 mg BID and Humalog 4 units BID Endocrine also ordered Jardiance 10 mg but the patient did not start this medication Follow up with endocrinology as scheduled (11) Elevated LFTs: Code(s): R79.89 - Other specified abnormal findings of blood chemistry Category: Medical Plan: His LFTs have remained normal on his recent labs - were likely related to his weight Will continue to monitor his LFTs regularly Plan Follow up in 4 months Orders: Orders Lipid Panel 4 Months JORGE L Soto E11.65 - Type 2 diabetes mellitus with hyperglycemia, Z79.4 - group home (current) use of insulin, R79.89 - Other specified abnormal findings of blood chemistry, E55.9 - Vitamin D deficiency, unspecified, E66.3 - Overweight, K21.9 - Gastro-esophageal reflux disease without esophagitis, E78.00 - Pure hypercholesterolemia, unspecified, I10 - Essential (primary) hypertension, F41.9 - Anxiety disorder, unspecified TSH reflex Free T4 4 Months JORGE L Soto E11.65 - Type 2 diabetes mellitus with hyperglycemia, Z79.4 - group home (current) use of insulin, R79.89 - Other specified abnormal findings of blood chemistry, E55.9 - Vitamin D deficiency, unspecified, E66.3 - Overweight, K21.9 - Gastro-esophageal reflux disease without esophagitis, E78.00 - Pure hypercholesterolemia, unspecified, I10 - Essential (primary) hypertension, F41.9 - Anxiety disorder, unspecified UA CC w/rflx Micro + Cult 4 Months JORGE L Soto E11.65 - Type 2 diabetes mellitus with hyperglycemia, Z79.4 - group home (current) use of insulin, R79.89 - Other specified abnormal findings of blood chemistry, E55.9 - Vitamin D deficiency, unspecified, E66.3 - Overweight, K21.9 - Gastro-esophageal reflux disease without esophagitis, E78.00 - Pure hypercholesterolemia, unspecified, I10 - Essential (primary) hypertension, F41.9 - Anxiety disorder, unspecified Microalbumin, Random (w Creat) 4 Months JORGE L Soto E11.65 - Type 2 diabetes mellitus with hyperglycemia, Z79.4 - group home (current) use of insulin, R79.89 - Other specified abnormal findings of blood chemistry, E55.9 - Vitamin D deficiency, unspecified, E66.3 - Overweight, K21.9 - Gastro-esophageal reflux disease without esophagitis, E78.00 - Pure hypercholesterolemia, unspecified, I10 - Essential (primary) hypertension, F41.9 - Anxiety disorder, unspecified Hemoglobin A1c 4 Months JORGE L Soto E11.65 - Type 2 diabetes mellitus with hyperglycemia, Z79.4 - thermodynamics engineer (current) use of insulin, R79.89 - Other specified abnormal findings of blood chemistry, E55.9 - Vitamin D deficiency, unspecified, E66.3 - Overweight, K21.9 - Gastro-esophageal reflux disease without esophagitis, E78.00 - Pure hypercholesterolemia, unspecified, I10 - Essential (primary) hypertension, F41.9 - Anxiety disorder, unspecified Complete Blood Count Auto Diff 4 Months JORGE L Soto E11.65 - Type 2 diabetes mellitus with hyperglycemia, Z79.4 - group home (current) use of insulin, R79.89 - Other specified abnormal findings of blood chemistry, E55.9 - Vitamin D deficiency, unspecified, E66.3 - Overweight, K21.9 - Gastro-esophageal reflux disease without esophagitis, E78.00 - Pure hypercholesterolemia, unspecified, I10 - Essential (primary) hypertension, F41.9 - Anxiety disorder, unspecified Comprehensive [place]. Panel Fast 4 Months ZONIA SotoC E11.65 - Type 2 diabetes mellitus with hyperglycemia, Z79.4 - thermodynamics engineer (current) use of insulin, R79.89 - Other specified abnormal findings of blood chemistry, E55.9 - Vitamin D deficiency, unspecified, E66.3 - Overweight, K21.9 - Gastro-esophageal reflux disease without esophagitis, E78.00 - Pure hypercholesterolemia, unspecified, I10 - Essential (primary) hypertension, F41.9 - Anxiety disorder, unspecified Vitamin D 25-OH Total 4 Months ZONIA SotoC E11.65 - Type 2 diabetes mellitus with hyperglycemia, Z79.4 - group home (current) use of insulin, R79.89 - Other specified abnormal findings of blood chemistry, E55.9 - Vitamin D deficiency, unspecified, E66.3 - Overweight, K21.9 - Gastro-esophageal reflux disease without esophagitis, E78.00 - Pure hypercholesterolemia, unspecified, I10 - Essential (primary) hypertension, F41.9 - Anxiety disorder, unspecified XR elbow LT 2V 05/18/25 ZONIA SotoC M25.522 - Pain in left elbow Medications: Changed From insulin glargine 20 units See Protocol subcut QPM 90 days 18 mL 3RF To insulin glargine (Lantus Solostar U-100 Insulin) 20 units See Protocol subcut QPM Martha Ferrari PA-C
[2025-05-18 11:55] VITALS: BP 142/68
== END 2025-05-18 12:06 | disposition home or self-care (01) ==
LOC: HO.HMCH 11:08
PROVIDERS: PCP Internal Medicine
DX: Z00.00 Encounter for general adult medical examination without abnormal findings (principal); E11.9 Type 2 diabetes mellitus without complications; I63.9 Cerebral infarction, unspecified; Z79.4 Long term (current) use of insulin; E55.9 Vitamin D deficiency, unspecified; H53.2 Diplopia; E66.3 Overweight; K21.9 Gastro-esophageal reflux disease without esophagitis; E78.00 Pure hypercholesterolemia, unspecified; I10 Essential (primary) hypertension; R79.89 Other specified abnormal findings of blood chemistry

== ENCOUNTER → 2025-05-18 12:19 | Outpatient (BNV) | payer MEDICARE, SELFPAY | PROVIDERS: PCP Internal Medicine; Visit Provider Radiology Diagnostic Radiology | DX: M25.522 Pain in left elbow (principal) | CPT/HCPCS: 73070 ==

== ENCOUNTER 2025-05-24 12:22 | Outpatient (AMB) | payer MEDICARE, SELFPAY ==
--- NOTE | 2025-05-24 12:42 | A.OFFPC_ITS ---
Vital Signs 05/24/25 12:44 Height 5 ft 6 in Weight 175 lb 4 oz BMI 28.3 BP 122/68 Blood Pressure Location Rt brachial Position Sitting Pulse 74 Pulse Source Pulse Oximeter Temp 96.8 F Temp Source Temporal Artery Scan Pulse Oximetry (%) 95 Oxygen Delivery Method Room Air Intake Visit Reasons: ear cleaning per [facility] Intake Note: Patient is here to follow up on Ear cleaning. 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 [facility] Medical History Diabetes mellitus Overweight (BMI 25.0-29.9) GERD (gastroesophageal reflux disease) Pure hypercholesterolemia Benign essential hypertension CVA (cerebral vascular accident) Anxiety Surgical History History of esophagogastroduodenoscopy (EGD) H/O colonoscopy H/O uvulectomy Family History Father No problems noted. Mother Pre-diabetes Thyroid disease Social History Housing: Apartment Are you a primary care process manager to a significant other at home: No Do you presently have visiting nurse or other home services: No Alcohol intake: never Patient Tobacco Use Status: Former Tobacco user Tobacco use type: Cigarette Cigarette Packs Per Day: 1 Cigarettes Per Day: 20 Years Smoked: 12 e-Cigarette/Vaping Use: Never Used Second Hand Smoke Exposure: Yes service: No Current occupational status: retired Cognitive needs: No Hearing needs: No Vision needs: Yes (glasses) Questionnaire Thrive Questionnaire Date Thrive assessed: 05/11/25 I am a: Patient What is your living situation today?: I have a steady place to live Within the past 12 months, did the food you bought not last and you didn't have the money to get more?: Never true Within the past 12 months, did you worry whether your food would run out before you got money to buy more?: Sometimes True Do you have trouble paying for medicines?: Yes Do you have trouble getting transportation to medical appointments?: No Do you have trouble paying your heating and electricity bill?: No Do you have trouble taking care of your child, family member or friend?: Yes Do you have trouble with day-to-day activities such as bathing, preparing meals, shopping, managing finances, etc.?: No Are you currently unemployed and looking for a job?: No Are you interested in more education?: No Currently or been in a relationship where the following occur: No concerns reported THRIVE Score: 1 DEYVI-7 AMB Questionnaire DEYVI-7 Date DEYVI - 7 assessed: 05/18/25 Source: Developed by Drs. Warren King, Daphne Loredo, Jose Antonio Washington and colleagues, with an educational marla from [employer]. Review of Systems ENT Details: Ear clogged feeling and decreased hearing bilaterally Physical exam (Primary Care) Vital Signs: Last Vital Signs Temp 96.8 F 05/24/25 12:44 Pulse 74 05/24/25 12:44 BP 122/68 05/24/25 12:44 Pulse Ox 95 05/24/25 12:44 Oxygen Delivery Method Room Air 05/24/25 12:44 BMI result Body Mass Index 28.3 Tobacco/Smoking Status: Tobacco use Status Tobacco use date assessed 05/24/25 05/24/25 12:50 Patient Tobacco Use Status Former Tobacco user 05/24/25 12:50 Tobacco use type Cigarette 05/24/25 12:50 e-Cigarette/Vaping Use Never Used 05/24/25 12:50 Thrive Assessment: Date of Thrive Assessment Date Thrive assessed 05/11/25 05/24/25 12:50 Currently or been in a relationship where the following occur: No concerns reported Const General: cooperative, healthy appearing, comfortable and no acute distress Orientation/consciousness: patient oriented x3 HENMT Head: Yes normocephalic Ears: hearing grossly normal bilaterally and Abnormal EAC present excessive cerumen bilateral General nose exam: Normal external nose present Resp Effort & Inspection: normal respiratory effort Cardio Rate: regular rate Neuro General: patient oriented x3 Gait exam (Neuro): Normal gait present Psych Affect: normal affect Attitude: cooperative Office Procedures Cerumen Removal From which ear canal was the cerumen removed: bilateral Removal: irrigation and cerumen loop/spoon Notes: patient tolerated procedure well, no complications and ear canal clear [id number] Irrigation/Lavage Coding Level of Care Code Procedure Only Diagnoses Impacted cerumen, bilateral H61.23 CPT Codes Office Procedure - CPT: 10792-Duu Irrigation/Lavage ([id number]) Assessment & Plan Assessment & Plan (1) Impacted cerumen, bilateral: Code(s): H61.23 - Impacted cerumen, bilateral Category: Medical Plan: Cerumen was successfully removed using lighted curette and irrigation. Patient tolerated the procedure well and TMs were visualized as intact with well aerated middle ear spaces without perforation or retraction. Ear canals are clean. Follow up as needed for this concern Plan This note was constructed using voice recognition software. While every effort has been made to ensure accuracy and installer metal flooring, still areas may have been included sometimes these areas may affect the content or meeting of the given symptoms. Total time spent caring for the patient today was 20 minutes. This includes time spent before the visit reviewing the chart, time spent during the visit, and time spent after the visit and documentation.
[2025-05-24 12:44] VITALS: BP 122/68; PULSE 74; TEMP 36; O2SAT 95; BMI 28.3
--- OUTSIDE RECORDS SUMMARY | 2025-05-24 13:43 | XMS_ITS | Encounter Summary ---
Author Organization [employer] [facility] Address [address] [place] [address] Care Team Providers Care Day Care Supervisor Name Role Phone Kang Love MD Primary Care Provider [phone] Encounter Details Date Type Department Care Team Description 02/26/2019 Release of Information Medical Records [address] [place] [id number] Abstract, Provider Social History Tobacco Use Types Packs/Day Years Used Date Smoking Tobacco: Former Smokeless Tobacco: Never Alcohol Use Standard Drinks/Week Comments Yes 1 (1 standard drink = 0.6 oz pur e alcohol) 1-2 times a week Sex Assigned at Date Recorded Not on file documented as of this encounter Plan of Treatment Not on file documented as of this encounter Visit Diagnoses Not on filedocumented in this encounter Care Teams Day Care Supervisor Relationship Specialty Start Date End Date Kang Love MD PCP - General Internal Medicine 02/16/19 documented as of this encounter
== END 2025-05-24 13:24 | disposition home or self-care (01) ==
LOC: HO.HMCH 12:23
PROVIDERS: PCP Internal Medicine
DX: H61.23 Impacted cerumen, bilateral (principal)

== ENCOUNTER → 2025-05-24 12:22 | Outpatient (BNVA) | payer MEDICARE, SELFPAY | PROVIDERS: PCP Internal Medicine | DX: H61.23 Impacted cerumen, bilateral (principal) | CPT/HCPCS: 69210; 99212 ==

== ENCOUNTER 2025-05-26 00:26 | Emergency (ER) | payer MEDICARE, SELFPAY ==
--- NOTE | ~2025-05-26 | XR_ITS ---
CLINICAL HISTORY: feels like food is stuck 2 view soft tissue neck Comparison: None Findings: Visualized airway appears widely patent. There is no evidence of a radiopaque foreign body. Epiglottis is not well profiled, but grossly within normal limits. There is no prevertebral soft tissue swelling. There are degenerative changes of the cervical spine. IMPRESSION: No evidence of a radiopaque foreign body. This document has been electronically signed by: William Hilario MD on 05/26/2025 02:19:24
[2025-05-26 00:30] VITALS: BP 138/72; PULSE 73; RESP 24; TEMP 36.1; O2SAT 98; BMI 26.6
[2025-05-26 00:48] VITALS: BP 149/74; PULSE 70; RESP 22; TEMP 36.5; O2SAT 98
[2025-05-26 02:29] VITALS: BP 130/72; PULSE 61; RESP 18; TEMP 36.4; O2SAT 95
--- NOTE | 2025-05-26 02:55 | ED.GENADULT ---
HPI - General Adult General Chief complaint: Skin/Abscess/Foreign Body Stated complaint: throat swelling Time Seen by Provider: 05/26/25 01:50 History of Present Illness ED Provider: lyndsey HPI narrative: 70-year-old male with a history of a uvulectomy reports the subjective sensation of something stuck in his throat. Patient had a cookie about an hour prior to feeling this sensation now he feels right sided foreign body sensation with swallowing. He had a transient episode at home of difficulty breathing that was 1-2 seconds long. He is swallowing tolerating p.o. well prior to my evaluation. Denies cough voice change difficulty breathing stridor. Related Data Home Medications ?Medication ?Instructions ?Recorded ?Confirmed insulin glargine 100 unit/mL (3 20 unit subcut QPM 05/18/25 05/18/25 mL) subcutaneous pen (Lantus Solostar U-100 Insulin) Previous Rx's ?Medication ?Instructions ?Recorded blood pressure monitor #1 ea 04/16/22 glucose 4 gram chewable tablet 16 g (4 x 4 gram) PO Q15M PRN 07/27/24 (Dex4 Glucose) hypoglycemia 30 days #100 tabs cholecalciferol (vitamin D3) 50 50 mcg PO DAILY 90 days #90 caps 12/20/24 mcg (2,000 unit) capsule insulin lispro 100 unit/mL 4 unit (0.04 mL) subcut BID #15 mL 12/28/24 subcutaneous pen (Humalog KwikPen (U-100) Insulin) hydrochlorothiazide 12.5 mg tablet 12.5 mg PO DAILY 90 days #90 tabs 01/11/25 amlodipine 10 mg tablet 10 mg PO DAILY 90 days #90 tabs 02/05/25 metformin 1,000 mg tablet 1,000 mg PO BID #180 tabs 02/23/25 simvastatin 20 mg tablet 20 mg PO BEDTIME 90 days #90 tabs 03/15/25 valsartan 320 mg tablet 320 mg PO DAILY 90 days #90 tabs 03/15/25 pantoprazole 40 mg tablet,delayed 40 mg PO .QD 90 days #90 tabs 04/27/25 release Allergies Allergy/AdvReac Type Severity Reaction Status Date / Time cyclobenzaprine (From Allergy Itching Verified 05/26/25 00:33 Flexeril) [facility] Past Medical History Medical History Diabetes mellitus Overweight (BMI 25.0-29.9) GERD (gastroesophageal reflux disease) Pure hypercholesterolemia Benign essential hypertension CVA (cerebral vascular accident) Anxiety Surgical History History of esophagogastroduodenoscopy (EGD) H/O colonoscopy H/O uvulectomy Family History Family History Father No problems noted. Mother Pre-diabetes Thyroid disease Social History Social History Housing: Apartment Are you a primary ocular care technician to a significant other at home: No Do you presently have visiting nurse or other home services: No Alcohol intake: never Patient Tobacco Use Status: Former Tobacco user Tobacco use type: Cigarette Cigarette Packs Per Day: 1 Cigarettes Per Day: 20 Years Smoked: 12 Smoked in Last 30 Days: No e-Cigarette/Vaping Use: Never Used Second Hand Smoke Exposure: Yes Use of substances other than those prescribed or required for medical reasons: No Advance Directives: No Advance Directives Information Provided: Yes Do you have a plan to hurt others: No Plan service: No Current occupational status: retired Cognitive needs: No Hearing needs: No Vision needs: Yes (glasses) Physical Exam ED Vital Signs: Vital Signs - 24 hr 05/26/25 00:30 05/26/25 00:48 05/26/25 02:29 Temperature 97 F 97.7 F 97.6 F Pulse Rate 73 70 61 Respiratory Rate 24 H 22 H 18 Blood Pressure 138/72 149/74 H 130/72 Pulse Oximetry 98 98 95 Oxygen Delivery Method Room Air Room Air Room Air BMI result Body Mass Index 26.6 Const Other: EXAM: Gen: Alert, awake, well appearing, well hydrated. Head: Atraumatic Eyes: Anicteric, Normal conjunctiva. ENT: Moist mucosa, no pallor. ?Status post uvulectomy. No soft palate petechia exudates or masses. Patent oropharynx. Well visualized posterior oropharynx which is normal. The neck is supple. He has no neck masses or lymph nodes. Trachea is midline voice is clear there was no stridor he is swallowing liquids easily Neck: Supple. Skin: ?No observable rash or bruising on exposed or examined skin Respiratory: Breathing comfortably, No distress.Clear to auscultation bilaterally, symmetric chest expansion, No wheeze, rales, ronchi. Cardiovascular: Regular rate and rhythm. No murmurs or rub. Well perfused periphery, warm extremities. No edema. ? Abdominal: No FOCAL TENDERNESS. Soft, no objective distension. No palpable masses or obvious organomegaly. ?No guarding, no rebound tenderness or other peritoneal findings. : No flank tenderness. Neuro: Alert. Gross movement of all extremities intact. ? Psych: Calm. Cooperative. MSK: No grossly visible deformity. Vital signs: See flowsheet Medications Administered Discontinued Medications Generic Name Dose Route Start Last Admin Trade Name Freq PRN Reason Stop Dose Admin Benzonatate 200 mg 05/26/25 02:56 05/26/25 03:08 Benzonatate 100 Mg Capsule PO 05/26/25 02:57 200 mg ONCE ONE Administration Lidocaine HCl 15 ml 05/26/25 03:05 05/26/25 03:08 Lidocaine Hcl Viscous 2 % 15 Ml Solution MUCOUS MEM 05/26/25 03:06 15 ml ONCE ONE Administration Medical Decision Making Medical Decision Making MDM Narrative: This is a 70-year-old male with a history of uvulectomy. Feels a scratch or foreign body sensation in the right mid throat. He had a transient sensation that he could not breathe when lying flat earlier but currently feels his voice is normal and he looks well he has no drooling no signs of epiglottitis or retroperitoneal inflammation or edema on x-ray. He is tolerating mirella barbi while in the ED. Strict return precautions were provided but you can be discharged Differential Diagnosis Differential Diagnoses: The differential diagnosis associated with the presentation includes Foreign body in the pharynx, pharyngeal abrasion, pharyngitis Independent Interpretation I performed an independent interpretation of an: Plain X-Ray (No evidence of RPA. Normal epiglottis, no radiopaque foreign body) Discharge Plan Discharge Clinical Impression: Abrasion of pharynx Patient Disposition: Home, Self-Care Instructions: Abrasion (ED) Additional Instructions: DISCHARGE DIAGNOSES: Suspected abrasion or scratch of the back of the throat HISTORY OF PRESENTATION: ?Sensation of foreign body in the throat EMERGENCY DEPARTMENT COURSE,TESTS, TREATMENTS: While in the ED today you had a reassuring x-ray and examination. You were given lidocaine and Tessalon Perle to anesthetize the throat and airway DISCHARGE MEDICATIONS: ?[We have made no changes to your regular medication regimen] FOLLOW-UP: ?Call your primary or general physician soon as possible to discuss your symptoms, your ED visit and to discuss follow up plans Call your primary doctor for follow up INSTRUCTIONS ?& RETURN PRECAUTIONS: If any symptoms change first call your primary physician, if it is after-hours your primary doctors office should have a provider cash applications analyst you can speak with. If the symptoms are severe or very concerning to you then call 911 or return to the ED. If you still feel that you have something in your throat and several days call ENT for follow up ENT follow up: [facility]?[phone] Phani Narayan MD Emergency Physician [facility] Prescriptions: No Action cholecalciferol (vitamin D3) 50 mcg (2,000 unit) capsule 50 mcg PO DAILY 90 Days Qty: 90 3RF hydrochlorothiazide 12.5 mg tablet 12.5 mg PO DAILY 90 Days Qty: 90 1RF amlodipine 10 mg tablet 10 mg PO DAILY 90 Days Qty: 90 1RF metformin 1,000 mg tablet 1,000 mg PO BID Qty: 180 3RF simvastatin 20 mg tablet 20 mg PO BEDTIME 90 Days Qty: 90 1RF valsartan 320 mg tablet 320 mg PO DAILY 90 Days Qty: 90 1RF pantoprazole 40 mg tablet,delayed release (DR/EC) 40 mg PO .QD 90 Days Qty: 90 3RF (DME) blood pressure monitor Kit See Rx Instructions .Route Qty: 1 0RF Rx Instructions: As directed glucose [Dex4 Glucose] 4 gram tablet,chewable 16 g PO Q15M PRN (Reason: hypoglycemia) 30 Days Qty: 100 3RF Rx Instructions: until symptoms of low blood sugar are controlled insulin lispro [Humalog KwikPen Insulin] 100 unit/mL insulin pen 4 unit subcut BID Qty: 15 2RF Rx Instructions: with lunch and supper insulin glargine [Lantus Solostar U-100 Insulin] 100 unit/mL (3 mL) insulin pen 20 unit subcut QPM Protocol: Insulin Correction Scale Less than or equal to 110 ---- Give (units): 0 111 to 150 Give (units): 0 151 to 200 Give (units): 2 201 to 250 Give (units): 4 251 to 300 Give (units): 6 301 to 350 Give (units): 8 Greater than 350 Give (units): 10 Call MD if Blood Glucose > : 350 Interventions: ED Discharge Assessment Last Done: 05/26/25 03:15 Discharge Date/Time: 05/26/25 03:16 Print Language: Japanese
[2025-05-26] MEDS: Lidocaine HCl Viscous 2 % 15 ML SOLUTION MUCOUS MEM (03:08)
[2025-05-26] MEDS: Benzonatate 100 MG CAPSULE 200 MG PO (03:08)
[2025-05-26 03:15] VITALS: BP 130/72; PULSE 61; RESP 18; TEMP 36.4; O2SAT 95
== END 2025-05-26 03:16 | disposition home or self-care (01) ==
PROVIDERS: Emergency Provider Emergency Medicine; PCP Internal Medicine
DX: S10.11XA Abrasion of throat, initial encounter (principal); M54.2 Cervicalgia; X58.XXXA Exposure to other specified factors, initial encounter; Y93.9 Activity, unspecified; Y92.9 Unspecified place or not applicable; Y99.8 Other external cause status
CPT/HCPCS: 70360; 99283; 99284

== ENCOUNTER → 2025-05-26 00:27 | Outpatient (BNV) | payer MEDICARE, SELFPAY | PROVIDERS: Emergency Provider Emergency Medicine; PCP Internal Medicine; Visit Provider Radiology Diagnostic Radiology | DX: R09.A2 Foreign body sensation, throat (principal) | CPT/HCPCS: 70360 ==

== ENCOUNTER 2025-06-28 13:07 | Outpatient (AMB) | payer MEDICARE, SELFPAY ==
[2025-06-28 13:17] VITALS: BP 130/62; PULSE 80; O2SAT 96; BMI 27.5
--- NOTE | 2025-06-28 13:17 | A.OFFVIS_ITS ---
Vital Signs 06/28/25 13:17 Height 5 ft 7 in Weight 175 lb 11.335 oz BMI 27.5 BP 130/62 Blood Pressure Location Lt brachial Position Sitting Pulse 80 Pulse Source Pulse Oximeter Pulse Oximetry (%) 96 Oxygen Delivery Method Room Air Intake Visit Reasons: DM Intake Note: Patient present today for Type 2 Diabetes Mellitus Last Diabetic eye exam: 05/2025 Last Podiatry Visit: Doesn't have one Random Glucose: 206 mg/dl HgA1C: 8.3% 05/06/25 Picking Belt Operator Required: No Accompanied by: Self / Same As Patient Allergies cyclobenzaprine (From Flexeril) Allergy (Verified 06/28/25 13:26) Itching Medication List - Last Reconciled 06/28/25 by Martha Ferrari PA-C amlodipine 10 mg PO DAILY 90 days blood pressure monitor As directed cholecalciferol (vitamin D3) 50 mcg PO DAILY 90 days flash glucose sensor (FreeStyle Tip 14 Day Sensor kit) As directed glucose (Dex4 Glucose) 16 grams (4 x 4 gram) PO Q15M PRN 30 days hydrochlorothiazide 12.5 mg PO DAILY 90 days insulin glargine (Lantus Solostar U-100 Insulin) 20 units See Protocol subcut QPM insulin lispro (Humalog KwikPen (U-100) Insulin) 4 units (0.04 mL) subcut BID metformin 1,000 mg PO BID pantoprazole 40 mg PO .QD 90 days simvastatin 20 mg PO BEDTIME 90 days valsartan 320 mg PO DAILY 90 days HPI HPI DM: Details: Patient is a 69-year-old male with a significant past medical history of hypertension, hyperlipidemia, obesity, type 2 diabetes uncontrolled, prior CVA, anxiety , and Anthony's esophagus presenting today for a follow-up of his diabetes. Endo: DM-his A1c was 8.3. He was diagnosed with diabetes around 1999. States that his mother had type 2 diabetes/prediabetes for a long time. He is currently on Lantus 20 units nightly, Humalog 4 units BID, and metformin 1000 mg twice a day. -Previously was on Trulicity but expensive and caused nausea. He has been off of it for a couple of months. Ozempic with stopped this due to high co-pays, belching, nausea, and supply issues. Januvia stopped due to cost. CGM- showing usage 86% of the time, GMI 7.8, average glucose 187. Very Hypergl ycemia 12%, hypergylcemia 48%, in range 40%, hypoglycemia at 0%. -He states that his blood sugars have been more elevated recently because of the increased stress at home. 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 CV: Blood pressure today in the office is 130/62. He is currently on amlodipine 10 mg, hydrochlorothiazide 12.5 mg daily, and valsartan 320 mg. He is compliant with simvastatin 20 mg at bedtime. Last lipids WNL. Psych: He has had some increase stressors with the passing of an old ex- fiance and this causing issues with his current . He does have an appointment booked with . [facility] Medical History Diabetes mellitus Overweight (BMI 25.0-29.9) GERD (gastroesophageal reflux disease) Pure hypercholesterolemia Benign essential hypertension CVA (cerebral vascular accident) Anxiety Surgical History History of esophagogastroduodenoscopy (EGD) H/O colonoscopy H/O uvulectomy Family History Father No problems noted. Mother Pre-diabetes Thyroid disease Social History Housing: Apartment Are you a primary home health care social worker to a significant other at home: No Do you presently have visiting nurse or other home services: No Alcohol intake: never Patient Tobacco Use Status: Former Tobacco user Tobacco use type: Cigarette Cigarette Packs Per Day: 1 Cigarettes Per Day: 20 Years Smoked: 12 e-Cigarette/Vaping Use: Never Used Second Hand Smoke Exposure: Yes service: No Current occupational status: retired Cognitive needs: No Hearing needs: No Vision needs: Yes (glasses) Physical Exam Const Orientation/consciousness: patient oriented x3 HEENT Ears: hearing grossly normal bilaterally Neck Thyroid: Thyroid normal Lymphatic: no lymphadenopathy noted Resp Auscultation: clear to auscultation bilaterally Cardio Rate: regular rate Rhythm: regular rhythm Heart sounds: S1 normal heart sound present and S2 normal heart sound present Skin General skin exam: no rashes or lesions noted Neuro General: patient oriented x3, gait normal and no focal motor deficits Results Reviewed Results Reviewed: Laboratory Tests 05/06/25 09:18 Sodium 140 Potassium 4.1 Chloride 103 Carbon Dioxide 28 Anion Gap 13 BUN 21 H Creatinine 1.15 Estimated GFR > 60 Fasting Glucose 151 H Estimat Average Glucose 192 Hemoglobin A1c % 8.3 H AST 29 ALT 26 Triglycerides 111 Cholesterol 144 LDL Cholesterol, Calc 85 HDL Cholesterol 37 L Urine Creatinine 77.84 Urine Microalbumin 42.0 Microalb/Creat Ratio 53.9 H Assessment & Plan Assessment & Plan (1) Uncontrolled type 2 diabetes mellitus with hyperglycemia, with long-term current use of insulin: Code(s): E11.65 - Type 2 diabetes mellitus with hyperglycemia; Z79.4 - ad terminal makeup operator (current) use of insulin Category: Medical Plan: We will try Mounjaro. He will let me know if this is too expensive. We reviewed risks and benefits and adverse effects such as nausea and vomiting. He will let me know if he develops any complications using this medication. I have increase Lantus to 30 units Increase Humalog to 6 units Continue metformin Upgrade from Tip 2 to Tip 3+. Reviewed how to use this on his phone Back up testing supplies ordered Reviewed rule of 15 Follow up in 3 months. Labs prior. (2) HTN (hypertension): Code(s): I10 - Essential (primary) hypertension Category: Medical Qualifiers: Hypertension type: primary hypertension Qualified Code(s): I10 - Essential (primary) hypertension Plan: WNL. Continue current regimen (3) Pure hypercholesterolemia: Code(s): E78.00 - Pure hypercholesterolemia, unspecified Category: Medical Plan: Continue current regimen Medications: New lancets (FreeStyle Lancets) use daily as directed to check blood glucose 100 ea 3RF E11.65 - Type 2 diabetes mellitus with hyperglycemia, Z79.4 - ad terminal makeup operator (current) use of insulin tirzepatide (Mounjaro) for 4 weeks 2.5 mg (0.5 mL) subcut QWEEK 2 mL 3RF blood-glucose sensor (365 Retail MarketsStyle Tip 3 Plus Sensor device) Use daily As directed to monitor glucose 6 ea 3RF E08.29 - Diabetes mellitus due to underlying condition with other diabetic kidney complication, R80.9 - Proteinuria, unspecified, Z79.4 - care home (current) use of insulin blood sugar diagnostic (FreeStyle Lite Strips) Use daily As directed to check blood glucose 100 ea 3RF E11.9 - Type 2 diabetes mellitus without complications Changed From insulin lispro (Humalog KwikPen (U-100) Insulin) with lunch and supper 4 units (0.04 mL) subcut BID 15 mL 2RF To insulin lispro (Humalog KwikPen (U-100) Insulin) with lunch and supper 6 units (0.06 mL) subcut BID 15 mL 2RF From insulin glargine (Lantus Solostar U-100 Insulin) 20 units See Protocol subcut QPM To insulin glargine (Lantus Solostar U-100 Insulin) 30 units See Protocol subcut QPM Coding Level of Care Code Est Pt Level 4 (34771) Complex EM visit Add On G2211 Diagnoses Uncontrolled type 2 diabetes mellitus with hyperglycemia, with long-term current use of insulin E11.65; Z79.4 Primary hypertension I10 Hypertension type: primary hypertension Pure hypercholesterolemia E78.00
[2025-06-28 13:29] LABS: Glucose, Whole Blood 206 mg/dL (60-115)
--- OUTSIDE RECORDS SUMMARY | 2025-06-28 13:47 | XMS_ITS | Clinical Summary ---
Author Organization [facility] it Address [address] [place] [address] Care Team Providers Care Metal Grader Name Role Phone Kang Love MD Primary Care Provider Surgical History Surgery Date Site/Laterality Comments COLONOSCOPY [...] Screen 10/25/2024 Cholesterol Screening (Lipid Panel) 10/25/2024 Diabetes: Annual Urine Albumin-Creatinine Ratio (uACR) 10/25/2024 Diabetes: Blood Sugar Contro l Test (HGBA1C) 10/25/2024 Falls Risk Assessment 10/25/2024 Hepatitis C Screening 10/25/2024 Hypertension/CHF/CAD Annual BMP Blood Test 10/25/2024 Social Influencers of Health Screening 10/25/2024 Depression Screening 12/02/2024 Influenza Vaccine (#1) 2025 9, 07/23/2018 Colorectal Cancer Screening: Colonoscopy 11/01/2025 11/01/2020 [...] age to complete this topic Care Teams Metal Grader Relationship Specialty Start Date End Date Kang Love MD PCP - General Internal Medicine 02/16/19
== END 2025-06-28 14:25 | disposition home or self-care (01) ==
LOC: HO.ENCR 13:08
PROVIDERS: PCP Internal Medicine; Visit Provider Physician Assistant
DX: E11.65 Type 2 diabetes mellitus with hyperglycemia (principal); Z79.4 Long term (current) use of insulin; I10 Essential (primary) hypertension; E78.00 Pure hypercholesterolemia, unspecified

== ENCOUNTER → 2025-06-28 13:07 | Outpatient (BNVA) | payer MEDICARE, SELFPAY | PROVIDERS: PCP Internal Medicine; Visit Provider Physician Assistant | DX: E11.65 Type 2 diabetes mellitus with hyperglycemia (principal); I10 Essential (primary) hypertension; E78.00 Pure hypercholesterolemia, unspecified; Z79.4 Long term (current) use of insulin | CPT/HCPCS: 82947; 99212 ==

== ENCOUNTER 2025-08-05 09:17 | Outpatient (AMB) | payer MEDICARE, SELFPAY ==
--- OUTSIDE RECORDS SUMMARY | 2025-08-05 09:54 | XMS_ITS | Clinical Summary ---
Author Organization [facility] it Address [address] [place] [address] Care Team Providers Care Mammography Tech Name Role Phone Kang Love MD Primary Care Provider Unavailab le Surgical History Surgery Date Site/Laterality Comments COLONOSCOPY [...] of 2 - PCV) 10/03/2021 10/03/2020, 10/31/2007 Abdominal Aortic Aneurysm (AAA) Screen 10/25/2024 Cholesterol Screening (Lipid Panel) 10/25/2024 Diabetes: Annual Urine Albumin-Creatinine Ratio (uACR) 10/25/2024 Diabetes: Blood Sugar Contro l Test (HGBA1C) 10/25/2024 Falls Risk Assessment 10/25/2024 Hepatitis C Screening 10/25/2024 Hypertension/CHF/CAD Annual BMP Blood Test 10/25/2024 Social Influencers of Health Screening 10/25/2024 Depression Screening 12/02/2024 COVID-19 Vaccine (1 - 2023-2 5 season) 2025 Influenza Vaccine (#1) 2025 9, 07/23/2018 Colorectal [...] age to complete this topic Care Teams Mammography Tech Relationship Specialty Start Date End Date Kang Love MD PCP - General Internal Medicine 02/16/19
[2025-08-05 10:11] VITALS: BMI 27.3
--- NOTE | 2025-08-05 10:11 | A.OFFVIS_ITS ---
VS Expanded 08/05/25 10:11 Height 5 ft 7 in Weight 174 lb 6.17 oz BMI 27.3 Intake Visit Reasons: T2DM Allergies cyclobenzaprine (From Flexeril) Allergy (Verified 06/28/25 13:26) Itching Nutrition Presentation Details: Pt presents for MNT f/u for T2DM Pt has freestyle karlos 3 gluc sensor and 14 d bg average at 169 mg/dl 65% within range, no hypoglycemia , 32% between 180-250 , 3% above 250 mg/dl food frequency dairy: cottage cheese/yogurt /milk, daily 2-3/d fruits: 0-1/d fish : 2x/kw veg: daily beverages: water, milk ,diet soda Noted elevated bg at 200s from noon until 3 pm , pt reports typically keeping sedentary post lunch meal or having higher fat meals or snacks s Participates in senior center/community activities: no , 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 Mother Pre-diabetes Thyroid disease Social History Housing: Apartment Are you a primary day care attendant to a significant other at home: No Do you presently have visiting nurse or other home services: No Alcohol intake: never Patient Tobacco Use Status: Former Tobacco user Tobacco use type: Cigarette Cigarette Packs Per Day: 1 Cigarettes Per Day: 20 Years Smoked: 12 e-Cigarette/Vaping Use: Never Used Second Hand Smoke Exposure: Yes service: No Current occupational status: retired Cognitive needs: No Hearing needs: No Vision needs: Yes (glasses) Assessment & Plan Assessment & Plan (1) Type II diabetes mellitus: Code(s): E11.9 - Type 2 diabetes mellitus without complications Category: Medical Qualifiers: Diabetes mellitus watermelon inspector insulin use: with watermelon inspector use Diabetes mellitus complication status: with hyperglycemia Qualified Code(s): E11.65 - Type 2 diabetes mellitus with hyperglycemia; Z79.4 - nursing home (current) use of insulin Plan: Used wt : 76 kg(08/25), 76 kg (02/23) Est kcal as per MSJ: 1800 (40% carb, 30% fat/prot) Est fluid needs: 2000 ml/d (25 ml/kg bw) Rec fiber: increase to 8-10 g per day and gradually increase to 35 g as tolerated Rec Na: < 1500 mg /d Educate patient on: (R= Reviewed, V = verbalizes understanding N/R= Needs review N/A= not applicable) * Food sources of carbohydrates and serving adequate serving sizes : R V * Difference between complex carbohydrates and simple carbohydrates, role of fiber: R V * Low fat foods : Differences between fats (MUFA/PUFA/saturated fats, trans fats) and food sources of various fats: R V * Food sources of sodium and salt and healthy modifications for heart health and kidney health: R , * Vitamins and minerals: R * How to interpret food labels: V * Healthy Plate method concept: R V * Physical activity: benefits and precaution: R V * prevention of hyperglycemia :R, V Patient Instructions: have a baked potato or mashed vs fried 2 times a week at lunch time Engage in pjysical activity daily walk 30-40 minutes or as tolerated unless otherwise specified by MD Coding Level of Care Code Nutr Indiv Subseq (41244) Diagnoses Type 2 diabetes mellitus with hyperglycemia, with long-term current use of insulin E11.65; Z79.4 Diabetes mellitus fpc insulin use: with watermelon inspector use Diabetes mellitus complication status: with hyperglycemia Time Spent (min) 30
== END 2025-08-05 11:17 | disposition home or self-care (01) ==
LOC: HO.ENCR 09:17
PROVIDERS: PCP Internal Medicine; Visit Provider Dietitian, Registered
DX: E11.65 Type 2 diabetes mellitus with hyperglycemia (principal); Z79.4 Long term (current) use of insulin

== ENCOUNTER → 2025-08-05 09:17 | Outpatient (BNVA) | payer MEDICARE, SELFPAY | PROVIDERS: PCP Internal Medicine; Visit Provider Dietitian, Registered | DX: E11.65 Type 2 diabetes mellitus with hyperglycemia (principal); Z79.4 Long term (current) use of insulin; Z71.3 Dietary counseling and surveillance | CPT/HCPCS: 97803 ==

== ENCOUNTER 2025-09-14 08:01 | Outpatient (REF) | payer MEDICARE, SELFPAY ==
--- OUTSIDE RECORDS SUMMARY | 2025-09-14 08:03 | XMS_ITS | Clinical Summary ---
Author Organization [facility] it Address [address] [place] [address] Care Team Providers Care Reimbursement Counselor Name Role Phone Kang Love MD Primary Care Provider [phone] Surgical History Surgery Date Site/Laterality Comments COLONOSCOPY [...] 1966 Diabetes: Annual Retina Eye Exam 1966 RSV Immunization Adult Patients (1 - Risk 50-74 years 1-dose series) 2006 Zoster Vaccines (1 of 2) 2006 Pneumococcal Vaccine: 50+ Years (2 of 2 [...] age to complete this topic Care Teams Reimbursement Counselor Relationship Specialty Start Date End Date Kang Love MD PCP - General Internal Medicine 02/16/19
[2025-09-14 09:46] LABS: MANUAL DIFF FLAG NO
[2025-09-14 09:52] LABS: Appearance Urine Clear; Glucose Urine UA 500 mg/dL (Negative); PH 5.5 (5.0-9.0); Specific Gravity - Urine 1.015 (1.005-1.025)
[2025-09-14 09:54] LABS: Hematocrit 41.3 % (42.0-52.0); Hemoglobin 13.5 g/dl (14.0-18.0); Imm Gran Abs Auto 0.01 X10*3/uL (0.00-0.03); Imm Gran Pct Auto 0.2 % (0.0-0.4); Lymphocytes Absolute Auto 2.4 X10*3/uL (1.2-4.9); Mean Corpuscular HGB Conc 32.7 g/dl (31.0-36.0); Mean Corpuscular Hemoglobin 27.1 pg (27.0-33.0); Mean Corpuscular Volume 82.9 fL (80.0-98.0); NRBC Abs Auto 0.000 X10*3/uL (0.0-0.012); NRBC Pct Auto 0.0 /100WBC (0.0-0.2); Platelet Count 237 X10*3/uL (160-400); Red Blood Count 4.98 X10*6/uL (4.60-5.80); White Blood Count 6.4 X10*3/uL (4.8-10.8)
[2025-09-14 10:02] LABS: Hemoglobin A1C 204.9570 umol/L; Total Hemoglobin (HGBA1C) 3504.7421 umol/L
[2025-09-14 10:06] LABS: Alanine Aminotransferase 43 U/L (0-40); Albumin Level 4.9 g/dL (3.5-5.0); Alkaline Phosphatase 104 U/L (39-117); Anion Gap 15 (12-20); Aspartate Amino Transferase 32 U/L (5-37); Blood Urea Nitrogen 19 mg/dL (9-16); Calcium 9.5 mg/dL (8.4-10.2); Carbon Dioxide 27 mmol/L (22-29); Chloride 103 mmol/L (96-108); Cholesterol 158 mg/dL (<200); Estimated Glomerular Filt Rate > 60; HDL Cholesterol 40 mg/dL (>40); Potassium 3.8 mmol/L (3.3-5.1); Sodium 141 mmol/L (135-145); Total Protein 7.9 g/dL (6.5-8.0); Triglycerides 112 mg/dL (<150)
[2025-09-14 10:40] LABS: Microalbum/Creatinine Ratio Ur 56.5 ug/mg cr (<30)
== END 2025-09-14 08:02 | disposition home or self-care (01) ==
LOC: HO.10HDL 08:01
DX: I10 Essential (primary) hypertension (principal); F41.9 Anxiety disorder, unspecified; E78.00 Pure hypercholesterolemia, unspecified; K21.9 Gastro-esophageal reflux disease without esophagitis; E66.3 Overweight; E55.9 Vitamin D deficiency, unspecified; R79.89 Other specified abnormal findings of blood chemistry; E11.65 Type 2 diabetes mellitus with hyperglycemia; Z79.4 Long term (current) use of insulin
CPT/HCPCS: 36415; 80053; 80061; 81003; 82043; 82306; 82570; 83036; 84443; 85025

== ENCOUNTER 2025-09-17 13:57 | Outpatient (AMB) | payer MEDICARE, SELFPAY ==
--- NOTE | 2025-09-17 13:58 | MHC.PC.OV ---
Vital Signs 09/17/25 13:59 Height 5 ft 7 in Weight 180 lb 6 oz BMI 28.2 BP 130/72 Blood Pressure Location Lt brachial Position Sitting Pulse 74 Pulse Source Pulse Oximeter Pulse Oximetry (%) 97 Oxygen Delivery Method Room Air Intake Visit Reasons: DM/HTN/HLD Level Vial Inside Grinder Required: No Accompanied by: Self / Same As Patient Allergies cyclobenzaprine (From Flexeril) Allergy (Verified 09/17/25 14:34) Itching Medication List - Last Reconciled 09/17/25 by Mayank Darling MD amlodipine 10 mg PO DAILY 90 days blood pressure monitor As directed blood sugar diagnostic (FreeStyle Lite Strips) Use daily As directed to check blood glucose blood-glucose sensor (FreeStyle Tip 3 Plus Sensor device) Use daily As directed to monitor glucose cholecalciferol (vitamin D3) 50 mcg PO DAILY 90 days glucose (Dex4 Glucose) 16 grams (4 x 4 gram) PO Q15M PRN 30 days hydrochlorothiazide 12.5 mg PO DAILY 90 days insulin glargine (Lantus Solostar U-100 Insulin) 30 units See Protocol subcut QPM insulin lispro (Humalog KwikPen (U-100) Insulin) 6 units (0.06 mL) subcut BID lancets (FreeStyle Lancets) use daily as directed to check blood glucose metformin 1,000 mg PO BID pantoprazole 40 mg PO .QD 90 days simvastatin 20 mg PO BEDTIME 90 days valsartan 320 mg PO DAILY 90 days Tobacco use date assessed: 09/17/25 Last assessed Fall Risk: 09/17/25 Dental Screening Dental Screen Date: 09/17/25 HPI DM/HTN/HLD HPI Details Patient comes in today for his follow up visit States that he feels okay He denies any headaches or dizziness Denies any chest pains, no SOB No nausea/vomiting, no abdominal pain No change in bowel habits noted States that he continues to have trouble sleeping at night - wakes up after 3 hours of sleep and states that he has trouble going back to sleep States that he has tried some OTC Sleep aids recently but he feels groggy and drowsy the next day and states that they really do not help much in terms of his sleep He had his follow up labs done a few days ago - to discuss his results PFSH Medical History (Updated 09/17/25 @ 14:56 by Mayank Darling MD) Insomnia Diabetes mellitus Overweight (BMI 25.0-29.9) GERD (gastroesophageal reflux disease) Pure hypercholesterolemia Benign essential hypertension CVA (cerebral vascular accident) Anxiety Surgical History History of esophagogastroduodenoscopy (EGD) H/O colonoscopy H/O uvulectomy Family History Father No problems noted. Mother Pre-diabetes Thyroid disease Social History Housing: Apartment Are you a primary caregiver services home to a significant other at home: No Do you presently have visiting nurse or other home services: No Alcohol intake: never Patient Tobacco Use Status: Former Tobacco user Tobacco use type: Cigarette Cigarette Packs Per Day: 1 Cigarettes Per Day: 20 Years Smoked: 12 e-Cigarette/Vaping Use: Never Used Second Hand Smoke Exposure: Yes service: No Current occupational status: retired Cognitive needs: No Hearing needs: No Vision needs: Yes (glasses) Questionnaire Thrive Questionnaire Date Thrive assessed: 05/11/25 I am a: Patient What is your living situation today?: I have a steady place to live Within the past 12 months, did the food you bought not last and you didn't have the money to get more?: Never true Within the past 12 months, did you worry whether your food would run out before you got money to buy more?: Sometimes True Do you have trouble paying for medicines?: Yes Do you have trouble getting transportation to medical appointments?: No Do you have trouble paying your heating and electricity bill?: No Do you have trouble taking care of your child, family member or friend?: Yes Do you have trouble with day-to-day activities such as bathing, preparing meals, shopping, managing finances, etc.?: No Are you currently unemployed and looking for a job?: No Are you interested in more education?: No Currently or been in a relationship where the following occur: No concerns reported THRIVE Score: 1 AUDIT C Alcohol Use Questionnaire (AUDIT-C) 1. How often do you have a drink containing alcohol?: Never 3. How often do you have six or more drinks on one occasion?: Never Total Score: 0 Score Reviewed/Action Taken: Yes DEYVI-7 AMB Questionnaire DEYVI-7 Date DEYVI - 7 assessed: 05/18/25 Source: Developed by Drs. Warren King, Daphne Loredo, Jose Antonio Washington and colleagues, with an educational marla from [employer]. Review of Systems Const Denies chills, Reports difficulty sleeping (see HPI), Denies fatigue, Denies fever(s) and Denies headache(s) ENT Denies dysphagia, Denies dizziness, Denies otalgia, Denies headache(s), Denies neck pain, Denies odynophagia and Denies sore throat Card Denies chest pain, Denies palpitations and Denies dyspnea Resp Denies chest congestion, Denies cough and Denies dyspnea GI Denies abdominal pain, Denies constipation, Denies dysphagia, Denies heartburn, Denies diarrhea, Denies nausea, Denies odynophagia and Denies vomiting Denies difficulty urinating, Denies dysuria, Denies nocturia, Denies urinary frequency and Denies urinary urgency Musc Denies back pain and Denies neck pain Skin/Breast Denies rash Neuro Denies dizziness and Denies headache(s) Psych Denies anxiety Endo Denies fatigue and Denies palpitations Physical exam (Primary Care) Vital Signs: Last Vital Signs Pulse 74 09/17/25 13:59 BP 130/72 09/17/25 13:59 Pulse Ox 97 09/17/25 13:59 Oxygen Delivery Method Room Air 09/17/25 13:59 BMI result Body Mass Index 28.2 Tobacco/Smoking Status: Tobacco use Status Tobacco use date assessed 09/17/25 09/17/25 14:00 Patient Tobacco Use Status Former Tobacco user 09/17/25 14:00 Tobacco use type Cigarette 09/17/25 14:00 e-Cigarette/Vaping Use Never Used 09/17/25 14:00 Thrive Assessment: Date of Thrive Assessment Date Thrive assessed 05/11/25 09/17/25 14:00 Currently or been in a relationship where the following occur: No concerns reported Const General: no acute distress and alert HENMT Ears: TM's normal bilaterally and EAC's normal Throat: Yes posterior oropharynx normal and Yes tonsils normal (no TP congestion) Neck Neck: Yes supple and No lymphadenopathy Thyroid: Thyroid normal Resp Auscultation: clear to auscultation bilaterally, no rales and no wheezes Cardio Rate: regular rate Rhythm: regular rhythm Heart sounds: no murmurs GI Palpation (GI): Soft to palpation and nontender Auscultation: normal bowel sounds General: Yes no CVA tenderness Back/Spine/Pelvis Back: no CVA tenderness Thoracic/Lumbar Spine: No lumbar spinal tenderness Skin Rashes: no rashes Extrem General: Yes no clubbing, cyanosis or edema Results Reviewed Results Reviewed: Laboratory Tests 09/14/25 08:06 WBC 6.4 Hgb 13.5 L Hct 41.3 L Plt Count 237 Sodium 141 Potassium 3.8 Creatinine 1.11 Estimated GFR > 60 Fasting Glucose 246 H Hemoglobin A1c % 7.5 H Calcium 9.5 AST 32 ALT 43 H Triglycerides 112 Cholesterol 158 LDL Cholesterol, Calc 96 HDL Cholesterol 40 L 25-OH Vitamin D Total 56.7 TSH 3.58 Ur Specific [place] 1.015 Urine Protein Negative Urine Glucose (UA) 500 H Urine Blood Negative Urine Nitrite Negative Ur Leukocyte Esterase Negative Microalb/Creat Ratio 56.5 H Coding Level of Care Code Est Pt Level 4 (78121) Diagnoses Type 2 diabetes mellitus without complication, with long-term current use of insulin E11.9; Z79.4 Diabetes mellitus type: type 2 Diabetes mellitus termite technician insulin use: with custodial use Diabetes mellitus complication status: without complication Pure hypercholesterolemia E78.00 Benign essential hypertension I10 Vitamin D deficiency E55.9 Diplopia H53.2 Gastroesophageal reflux disease without esophagitis K21.9 Esophagitis presence: without esophagitis Elevated LFTs R79.89 Insomnia, unspecified type G47.00 Insomnia type: unspecified Overweight (BMI 25.0-29.9) E66.3 Assessment & Plan Assessment & Plan (1) Diabetes mellitus: Code(s): E11.9 - Type 2 diabetes mellitus without complications Category: Medical Qualifiers: Diabetes mellitus type: type 2 Diabetes mellitus termite technician insulin use: with custodial use Diabetes mellitus complication status: without complication Qualified Code(s): E11.9 - Type 2 diabetes mellitus without complications; Z79.4 - FDC (current) use of insulin Plan: His HgbA1c was at 7.5% on his labs done a few days ago (he was previously at 8.3% a few months ago) - goal is at least <7.5% Reinforced diabetic diet Continue Lantus 30 units SQ QD, Metformin 1000 mg BID and Humalog 6 units TID with meals per sliding scale States that endocrinology has tried him on a couple of GLP-1s a few months ago but he could not afford the co-pay on these Rx Follow up with endocrinology as scheduled (2) Pure hypercholesterolemia: Code(s): E78.00 - Pure hypercholesterolemia, unspecified Category: Medical Plan: Results of his labs done a few days ago reviewed and discussed with patient Reinforced low cholesterol diet Continue Simvastatin 20 mg QD Will recheck his labs and fasting lipids in 4 months for follow up (3) Benign essential hypertension: Code(s): I10 - Essential (primary) hypertension Category: Medical Plan: Reinforced low sodium diet - goal is systolic BP of 120 to 130 mm or less Continue Valsartan 320 mg QD, HCTZ 12.5 mg QD and Amlodipine 10 mg QD (4) Vitamin D deficiency: Code(s): E55.9 - Vitamin D deficiency, unspecified Category: Medical Plan: Continue Vitamin D3 2000 units QD (5) Diplopia: Code(s): H53.2 - Diplopia Category: Medical Plan: Transient; occurred back in November 2021 and spontaneously resolved with NO recurrence since CT and MRI of the brain done at the time both came back negative - unlikely that his symptoms at the time were from CVA but TIA cannot be entirely ruled out States that he was seen by ophthalmology back then and was advised that his eye exam came out normal Continue Aspirin 81 mg QD - patient was advised that he really does not need to continue this but states that he feels more comfortable staying on it and that the Rx is not really bothering him at all (6) GERD (gastroesophageal reflux disease): Code(s): K21.9 - Gastro-esophageal reflux disease without esophagitis Category: Medical Qualifiers: Esophagitis presence: without esophagitis Qualified Code(s): K21.9 - Gastro-esophageal reflux disease without esophagitis Plan: Dietary restrictions reinforced Continue Pantoprazole 40 mg QD (7) Elevated LFTs: Code(s): R79.89 - Other specified abnormal findings of blood chemistry Category: Medical Plan: His LFTs have remained normal on his recent labs - were likely related to his weight Will continue to monitor his LFTs regularly (8) Insomnia: Code(s): G47.00 - Insomnia, unspecified Category: Medical Qualifiers: Insomnia type: unspecified Qualified Code(s): G47.00 - Insomnia, unspecified Plan: Sleep hygiene discussed Will start him on a trial of Trazodone 50 mg Q HS PRN (9) Overweight (BMI 25.0-29.9): Code(s): E66.3 - Overweight Category: Medical Plan: Reinforced diet/exercise as tolerated/lose weight Plan Follow up in 4 months Orders: Orders Hemoglobin A1c 4 Months E11.9 - Type 2 diabetes mellitus without complications Lipid Panel 4 Months E78.00 - Pure hypercholesterolemia, unspecified Vitamin D 25-OH Total 4 Months E55.9 - Vitamin D deficiency, unspecified Microalbumin, Random (w Creat) 4 Months E11.9 - Type 2 diabetes mellitus without complications Complete Blood Count Auto Diff 4 Months D64.9 - Anemia, unspecified Comprehensive [place]. Panel Fast 4 Months E78.00 - Pure hypercholesterolemia, unspecified TSH reflex Free T4 4 Months E78.00 - Pure hypercholesterolemia, unspecified UA CC w/rflx Micro + Cult 4 Months R30.0 - Dysuria Vitamin B12 and Folate 4 Months E53.8 - Deficiency of other specified B group vitamins Medications: New trazodone 50 mg PO BEDTIME PRN 30 tabs 3RF sleep 30 days
[2025-09-17 13:59] VITALS: BP 130/72; PULSE 74; O2SAT 97; BMI 28.2
--- OUTSIDE RECORDS SUMMARY | 2025-09-17 16:25 | XMS_ITS | Encounter Summary ---
Author Organization [facility] Address [address] [place] [address] Care Team Providers Care Industrial Equipment Mechanic Name Role Phone Kang Love MD Primary Care Provider [phone] Encounter Details Date Type Department Care Team Description 02/26/2019 Release of Information Medical Records [address] [place] [id number] Abstract, Provider Social History Tobacco Use Types [...] on filedocumented in this encounter Care Teams Industrial Equipment Mechanic Relationship Specialty Start Date End Date Kang Love MD PCP - General Internal Medicine 02/16/19 documented as of this encounter
--- OUTSIDE RECORDS SUMMARY | 2025-09-17 16:26 | XMS_ITS | Encounter Summary ---
Author Organization [facility] Address [address] [place] [address] Care Team Providers Care Players Club Representative Name Role Phone Kang Love MD Primary Care Provider [phone] Reason for Visit * Reason Comments E-prescribe Rx Request Encounter Details Date Type Department Care Team Description 08/01/2020 Refill Adult Med - [place] [address] [place], [place] [id number] Kang Love MD [address] [place], [place] [phone] E-prescribe Rx Request Social History Tobacco Use Types Packs/Day Years Used Date Smoking Tobacco: Former Smokeless Tobacco: Never Alcohol Use Standard Drinks/Week Comments Yes 1 (1 standard drink = 0.6 oz pur e alcohol) 1-2 times a week Sex Assigned at Date Recorded Not on file documented as of this encounter Miscellaneous Notes * Telephone Encounter - Deepa Ivey M.A. - 08/02/2020 10:44 AM EDT BP Readings from Last 3 Encounters: 01/15/20 (!) 158/81 09/17/19 116/72 08/05/19 (!) 144/78 Lab Results Component Value Date NA 134 01/15/2020 K 3.9 01/15/2020 CO2 29 01/15/2020 CL 100 01/15/2020 BUN 20 01/15/2020 CREAT 0.93 01/15/2020 GLU 269 01/15/2020 CA 10.0 01/15/2020 GFR > 60 01/15/2020 * Telephone Encounter - Shani Paresh - 08/02/2020 10:40 AM EDT ERICA 04/20/2020 NOV 08/22/2020 One 30 and one 90 day supply documented in this encounter Plan of Treatment Not on file documented as of this encounter Visit Diagnoses Not on filedocumented in this encounter Care Teams Players Club Representative Relationship Specialty Start Date End Date Kang Love MD PCP - General Internal Medicine 02/16/19 documented as of this encounter
--- OUTSIDE RECORDS SUMMARY | 2025-09-17 16:26 | XMS_ITS | Encounter Summary ---
Author Organization [facility] Address [address] [place] [address] Care Team Providers Care Paper Pattern Folder Name Role Phone Kang Love MD Primary Care Provider [phone] Reason for Visit * Reason Comments E-prescribe Rx Request Encounter Details Date Type Department Care Team Description 12/19/2019 Refill Adult Med - [place] [address] [place], [place] [phone] Radha Magaña PA-C E-prescribe Rx Request Social History Tobacco Use Types Packs/Day Years Used Date Smoking Tobacco: Former Smokeless Tobacco: Never Alcohol Use Standard Drinks/Week Comments Yes 1 (1 standard drink = 0.6 oz pur e alcohol) 1-2 times a week Sex Assigned at Date Recorded Not on file documented as of this encounter Miscellaneous Notes * Telephone Encounter - Edinson Gasca M.A. - 12/21/2019 1:37 PM EST Covering provider Pt contacted about provider and an appt., refill due beginning of January * Telephone Encounter - Samantha Ana - 12/21/2019 1:03 PM EST Patient would like script to be: E-PRESCRIBED/FAXED TO PHARMACY WHEN WAS THE PATIENT'S LAST APPOINTMENT IN ADULT MEDICINE? 9.4.19 WHEN WAS THE LAST TIME THE PATIENT SAW THEIR PCP? Same as above Does patient have an upcoming appointment? [facility]ill [facility]. Appt due (THE MEDICATION REQUESTED IS ON THE MED LIST ABOVE) All of the medications requested were on the CURRENT MEDS list Did you check the Pharmacy information above?: YES Patient wants: 30 -day supply Is this a mail order prescription request ? NO If the refill is from a FAXED refill request what is the RX # listed on the fax? N/A Patients current [facility] is: [facility] / Plan: [facility] SILVER TYPE 3 / Product Type: HMO [id number] documented in this encounter Plan of Treatment Not on file documented as of this encounter Visit Diagnoses Not on filedocumented in this encounter Care Teams Paper Pattern Folder Relationship Specialty Start Date End Date Kang Love MD PCP - General Internal Medicine 02/16/19 documented as of this encounter
--- OUTSIDE RECORDS SUMMARY | 2025-09-17 16:26 | XMS_ITS | Encounter Summary ---
Author Organization [facility] Address [address] [place] [address] Care Team Providers Care Biomass Boiler Operator Name Role Phone Kang Love MD Primary Care Provider [phone] Reason for Visit * Reason Onset Date Comments refill request 07/21/2020 Encounter Details Date Type Department Care Team Description 07/21/2020 Refill Adult Medicine [address] [address] Kang Love MD [address] [place], [place] [phone] refill request Social History Tobacco Use Types Packs/Day Years Used Date Smoking Tobacco: Former Smokeless Tobacco: Never Alcohol Use Standard Drinks/Week Comments Yes 1 (1 standard drink = 0.6 oz pur e alcohol) 1-2 times a week Sex Assigned at Date Recorded Not on file documented as of this encounter Miscellaneous Notes * Telephone Encounter - Deepa Ivey M.A. - 07/21/2020 3:06 PM EDT Lab Results Component Value Date HGBA1C 6.8 01/15/2020 MALBUR 85.8 01/15/2020 MALBCR 71.5 01/15/2020 CHOL 149 01/15/2020 LDL 83 01/15/2020 HDL 43 01/15/2020 TRIG 118 01/15/2020 GLU 269 01/15/2020 CREAT 0.93 01/15/2020 * Telephone Encounter - Graeme Cheng - 07/21/2020 2:07 PM EDT Patient would like script to be: E-PRESCRIBED/FAXED TO PHARMACY WHEN WAS THE PATIENT'S LAST APPOINTMENT IN ADULT MEDICINE? 04/20/2020 WHEN WAS THE LAST TIME THE PATIENT SAW THEIR PCP? Same as above Does patient have an upcoming appointment? Yes 08/22/2020 (THE MEDICATION REQUESTED IS ON THE MED LIST ABOVE) All of the medications requested were on the CURRENT MEDS list Did you check the Pharmacy information above?: YES Patient wants: 90 -day supply Is this a mail order prescription request ? NO If the refill is from a FAXED refill request what is the RX # listed on the fax? N/A Patients current insurance carrier is: Payor: [employer] / Plan: [employer] SILVER TYPE 3 / Product Type: HMO [id number] documented in this encounter Plan of Treatment Not on file documented as of this encounter Visit Diagnoses Diagnosis Diabetes mellitus type 2, insulin dependent (HCC) Type II or unspecified type diabetes mellitus without mention of complication, not stated as uncontrolled documented in this encounter Care Teams Biomass Boiler Operator Relationship Specialty Start Date End Date Kang Love MD PCP - General Internal Medicine 02/16/19 documented as of this encounter
--- OUTSIDE RECORDS SUMMARY | 2025-09-17 16:26 | XMS_ITS | Encounter Summary ---
Author Organization [facility] Address [address] [place] [address] Care Team Providers Care Car Lubricator Name Role Phone Kang Love MD Primary Care Provider [phone] Encounter Details Date Type Department Care Team Description 12/11/2021 Refill Internal Medicine - [address], [address] [place], [place] [phone] Crystal Arizmendi MD [address] [place] [id number] Social History Tobacco Use Types Packs/Day Years Used Date Smoking Tobacco: Former Cigarettes Q uit: 08/22/1984 Smokeless Tobacco: Never Alcohol Use Standard Drinks/Week Comments Yes 1 (1 standard drink = 0.6 oz pur e alcohol) 1-2 times a week Sex Assigned at Date Recorded Not on file documented as of this encounter Miscellaneous Notes * Telephone Encounter - Peyton Saucedo - 12/11/2021 10:31 AM EST No visits with results within 1 Month(s) from this visit. Latest known visit with results is: Orders Only on 07/15/2021 Component Date Value ??? GLYCATED HEMOGLOBIN A1C 07/15/2021 7.1 (A) ??? ESTIMATED AVERAGE GLUCOSE 07/15/2021 157 ??? Cholesterol 07/15/2021 114 ??? TRIGLYCERIDES 07/15/2021 113 ??? HDL CHOLESTEROL 07/15/2021 43 ??? LDL CALCULATED 07/15/2021 49 ??? TC-HDLC RATIO 07/15/2021 2.7 ??? TSH CASCADE 07/15/2021 1.59 ??? WHITE BLOOD COUNT 07/15/2021 8.9 ??? RED BLOOD COUNT 07/15/2021 5.3 ??? Hemoglobin 07/15/2021 15.4 ??? Hematocrit 07/15/2021 43.6 ??? MEAN CORPUSCULAR VOLUME 07/15/2021 82.7 ??? MEAN CORPUSCULAR HEMOGLO* 07/15/2021 29.2 ??? MEAN CORPUSCULAR HGB CONC 07/15/2021 35.3 ??? RED CELL DISTRIBUTION WI* 07/15/2021 12.7 ??? PLT COUNT 07/15/2021 293 ??? MEAN PLATELET VOLUME 07/15/2021 10.7 ??? NRBC % AUTO 07/15/2021 0.0 ??? NEUTROPHILS % 07/15/2021 56.1 ??? LYMPH % 07/15/2021 31.0 ??? MONO % 07/15/2021 10.5 ??? EOS % 07/15/2021 1.2 ??? BASO % 07/15/2021 0.8 ??? IMMATURE GRANULOCYTES % 07/15/2021 0.4 ??? NRBC # AUTO 07/15/2021 0.00 ??? NEUT # 07/15/2021 4.99 ??? LYMPH # 07/15/2021 2.76 ??? MONO # 07/15/2021 0.94 ??? EOS # 07/15/2021 0.11 ??? BASO # 07/15/2021 0.07 ??? IMMATURE GRANULOCYTES # 07/15/2021 0.04 (A) ??? GLUCOSE 07/15/2021 157 (A) ??? Blood Urea Nitrogen 07/15/2021 20 ??? CREAT 07/15/2021 1.14 GLOMERULAR FILTRATION RA* 07/15/2021 > 60 ??? NA 07/15/2021 133 (A) ??? K 07/15/2021 3.4 (A) ??? CL 07/15/2021 97 ??? CARBON DIOXIDE (CO2) 07/15/2021 25 ??? ANION GAP 07/15/2021 11 ??? CALCIUM 07/15/2021 9.4 ??? TOTAL PROTEIN (TP) 07/15/2021 7.9 ??? Albumin 07/15/2021 4.3 ??? BILIRUBIN TOTAL 07/15/2021 0.9 ??? SGOT 07/15/2021 36 ??? SGPT 07/15/2021 63 (A) ??? ALK PHOS 07/15/2021 86 documented in this encounter Plan of Treatment Not on file documented as of this encounter Visit Diagnoses Not on filedocumented in this encounter Care Teams Car Lubricator Relationship Specialty Start Date End Date aKng Love MD PCP - General Internal Medicine 02/16/19 documented as of this encounter
--- OUTSIDE RECORDS SUMMARY | 2025-09-17 16:26 | XMS_ITS | Encounter Summary ---
Author Organization [facility] Address [address] [place] [address] Care Team Providers Care Barrel Polisher Inside Name Role Phone Kang Love MD Primary Care Provider [phone] Reason for Visit * Reason Comments E-prescribe Rx Request Encounter Details Date Type Department Care Team Description 03/21/2021 Refill Adult Med - [place] [address] [place], [place] [phone] Kang Love MD [address] [place], [place] [phone] E-prescribe Rx Request Social History Tobacco Use Types Packs/Day Years Used Date Smoking Tobacco: Former Cigarettes Q uit: 08/22/1984 Smokeless Tobacco: Never Alcohol Use Standard Drinks/Week Comments Yes 1 (1 standard drink = 0.6 oz pur e alcohol) 1-2 times a week Sex Assigned at Date Recorded Not on file documented as of this encounter Miscellaneous Notes * Telephone Encounter - Anita Alexander - 03/21/2021 11:43 AM EDT ERICA 10/03/2021 04/05/2021 BP Readings from Last 3 Encounters: 10/03/20 (!) 150/80 08/22/20 124/60 01/15/20 (!) 158/81 * Telephone Encounter - Yvette Balderrama - 03/21/2021 10:12 AM EDT ERICA 10/03/2021 04/05/2021 90 day supply. documented in this encounter Plan of Treatment Not on file documented as of this encounter Visit Diagnoses Not on filedocumented in this encounter Care Teams Barrel Polisher Inside Relationship Specialty Start Date End Date Kang Love MD PCP - General Internal Medicine 02/16/19 documented as of this encounter
--- OUTSIDE RECORDS SUMMARY | 2025-09-17 16:26 | XMS_ITS | Encounter Summary ---
Author Organization [facility] Address [address] [place] [address] Care Team Providers Care Cylinder Grinder Name Role Phone Kang Love MD Primary Care Provider [phone] Reason for Visit * Reason Comments E-prescribe Rx Request Encounter Details Date Type Department Care Team Description 07/11/2020 Refill Adult Medicine [address] [address] Kang Love MD [address] [place] [address] E-prescribe Rx Request Social History Tobacco Use Types Packs/Day Years Used Date Smoking Tobacco: Former Smokeless Tobacco: Never Alcohol Use Standard Drinks/Week Comments Yes 1 (1 standard drink = 0.6 oz pur e alcohol) 1-2 times a week Sex Assigned at Date Recorded Not on file documented as of this encounter Miscellaneous Notes * Telephone Encounter - Deepa Ivey M.A. - 07/12/2020 8:38 AM EDT Lab Results Component Value Date HGBA1C 6.8 01/15/2020 MALBUR 85.8 01/15/2020 MALBCR 71.5 01/15/2020 CHOL 149 01/15/2020 LDL 83 01/15/2020 HDL 43 01/15/2020 TRIG 118 01/15/2020 GLU 269 01/15/2020 CREAT 0.93 01/15/2020 * Telephone Encounter - Yvette Balderrama - 07/11/2020 4:48 PM EDT ERICA: 04/20/2020 NOV: 08/22/2020 90 day supply documented in this encounter Plan of Treatment Not on file documented as of this encounter Visit Diagnoses Diagnosis Type 2 diabetes mellitus with microalbuminuria, unspecified whether computer terminal operator insulin use documented in this encounter Care Teams Cylinder Grinder Relationship Specialty Start Date End Date Kang Love MD PCP - General Internal Medicine 02/16/19 documented as of this encounter
--- OUTSIDE RECORDS SUMMARY | 2025-09-17 16:26 | XMS_ITS | Encounter Summary ---
Author Organization [facility] Address [address] [place] [address] Care Team Providers Care Interactive Marketing Strategist Name Role Phone Kang Love MD Primary Care Provider [phone] Reason for Visit * Reason Comments E-prescribe Rx Request Encounter Details Date Type Department Care Team Description 06/19/2021 Refill Adult Medicine [address] [address] Kang Love MD [address] [place], [place] [phone] E-prescribe Rx Request Social History Tobacco Use Types Packs/Day Years Used Date Smoking Tobacco: Former Cigarettes Q uit: 08/22/1984 Smokeless Tobacco: Never Alcohol Use Standard Drinks/Week Comments Yes 1 (1 standard drink = 0.6 oz pur e alcohol) 1-2 times a week Sex Assigned at Date Recorded Not on file documented as of this encounter Miscellaneous Notes * Telephone Encounter - Peyton XAVIER - 06/20/2021 8:24 AM EDT No recent labs * Telephone Encounter - Sailaja Sneed - 06/19/2021 4:42 PM EDT Joselyn 05/07/21 Nov 08/11/21 documented in this encounter Plan of Treatment Not on file documented as of this encounter Visit Diagnoses Not on filedocumented in this encounter Care Teams Interactive Marketing Strategist Relationship Specialty Start Date End Date Kang Love MD PCP - General Internal Medicine 02/16/19 documented as of this encounter
--- OUTSIDE RECORDS SUMMARY | 2025-09-17 16:26 | XMS_ITS | Encounter Summary ---
Author Organization [facility] Address [address] [place] [address] Care Team Providers Care Manuscripts Archivist Name Role Phone Kang Love MD Primary Care Provider [phone] Encounter Details Date Type Department Care Team Description 12/11/2021 Refill Adult Medicine [address] [phone] Kang Love MD [address] [place], [place] [id number] Social History Tobacco Use Types Packs/Day Years Used Date Smoking Tobacco: Former Cigarettes Q uit: 08/22/1984 Smokeless Tobacco: Never Alcohol Use Standard Drinks/Week Comments Yes 1 (1 standard drink = 0.6 oz pur e alcohol) 1-2 times a week Sex Assigned at Date Recorded Not on file documented as of this encounter Miscellaneous Notes * Telephone Encounter - Peyton Saucedo - 12/11/2021 10:30 AM EST No visits with results within [...] 2 diabetes mellitus with microalbuminuria, unspecified whether manager intermediate insulin use documented in this encounter Care Teams Manuscripts Archivist Relationship Specialty Start Date End Date Kang Love MD PCP - General Internal Medicine 02/16/19 documented as of this encounter
--- OUTSIDE RECORDS SUMMARY | 2025-09-17 16:26 | XMS_ITS | Encounter Summary ---
Author Organization [facility] Address [address] [place] [address] Care Team Providers Care Box Toe Cementer Name Role Phone Kang Love MD Primary Care Provider Reason for Visit * Reason Comments E-prescribe Rx Request Encounter Details Date Type Department Care Team Description 01/07/2021 Refill Adult Med - [place] [address] [place], [place] [phone] Kang Love MD [address] [place], [place] [phone] E-prescribe Rx Request Social History Tobacco Use Types Packs/Day Years Used Date Smoking Tobacco: Former Cigarettes Q uit: 08/22/1984 Smokeless Tobacco: Never Alcohol Use Standard Drinks/Week Comments Yes 1 (1 standard drink = 0.6 oz pur e alcohol) 1-2 times a week Sex Assigned at Date Recorded Not on file documented as of this encounter Miscellaneous Notes * Telephone Encounter - Elizabeth DraperPHaileyNHailey - 01/10/2021 11:37 AM EST BP Readings from Last 5 Encounters: 10/03/20 (!) 150/80 08/22/20 124/60 01/15/20 (!) 158/81 09/17/19 116/72 08/05/19 (!) 144/78 Lab Results Component Value Date NA 137 09/22/2020 K 3.6 09/22/2020 CO2 28 09/22/2020 CL 101 09/22/2020 BUN 17 09/22/2020 CREAT 0.92 09/22/2020 GLU 188 09/22/2020 CA 9.7 09/22/2020 GFR > 60 09/22/2020 * Telephone Encounter - Margaret Gee - 01/10/2021 9:52 AM EST ERICA - 11..2019 - 04.05.2021 Refills - 1 documented in this encounter Plan of Treatment Not on file documented as of this encounter Visit Diagnoses Not on filedocumented in this encounter Care Teams Box Toe Cementer Relationship Specialty Start Date End Date Kang Love MD PCP - General Internal Medicine 02/16/19 documented as of this encounter
--- OUTSIDE RECORDS SUMMARY | 2025-09-17 16:26 | XMS_ITS | Clinical Summary ---
Author Organization [facility] Address [address] [place] [address] Care Team Providers Care Crop And Soil Scientist Name Role Phone Kang Love MD Primary Care Provider [phone] Allergies Active Allergy Reactions Severity Noted Date Comments Cyclobenzaprine Cough 02/25/2019 Medications Medication Sig Dispensed Refills Start Date End Date Status Insulin Pen Needle (BD PEN NEEDLE AMEE U/F) 32G X 4 MM Misc Inject 1 Device into the skin 4 times daily. 200 Each 5 03/04/2019 Active Insulin Aspart (NOVOLOG FLEXPEN) 100 UNIT/ML Solution Pen-injectorIndicati ons:Type 2 diabetes mellitus with microalbuminuria, unspecified whether terminal superintendent insulin use Inject 3 times a dwith meals per sliding scale: 150- 200- 4 units; 201-250; 6 units; 251-300: 8 units; 301-350: 10 units; 350-400: 12 units plus 2 more units for lunch and dinner 5 Device 4 03/14/2020 Active polyethylene glycol (GOLYTELY) 236 g suspension Take 4,000 mL by mouth once for 1 dose. Take 4 liter by mouth once for one dose, starting at 6pm the night before your procedure, drink one glass by mouth every 15 minutes until rectal runs clear. 4000 mL 0 10/17/2020 Active Continuous Blood Gluc Taper Operator (FREESTYLE TIP 14 DAY READER) Device 1 Device by Does not apply route continuous. Use reader to scan sensor at least every 8 hours 1 Device 0 01/31/2021 Active insulin glargine (LANTUS) 100 UNIT/ML injection Inject 20 Units into the skin at bedtime. 6 mL 12 07/31/2021 Active insulin aspart (NovoLOG) 100 UNIT/ML injection Inject 3 times a with meals per sliding scale: 150- 200- 4 units; 201-250; 6 units; 251-300: 8 units; 301-350: 10 units; 350-400: 12 units plus 2 more units for lunch and dinner 10 mL 4 07/31/2021 Active Insulin Syringe-Needle U-100 (INSULIN SYRINGE .5CC/28G) 28G X 1/2 0.5 ML Misc Use 4 times a day with insulin 200 Each 5 07/31/2021 Active Blood Glucose Monitoring Suppl (FreeStyle Lite) Device Use daily to check BS 1 Each 0 07/31/2021 Active Glucose Blood (FREESTYLE LITE) Strip 1 Strip by In Vitro route 4 times daily. 200 Strip 07/31/2021 Active FreeStyle Lancets Misc Use to check BS 4 times a day 200 Each 5 07/31/2021 Active simvastatin (ZOCOR) 20 MG tablet Take 1 tablet by mouth at bedtime. 90 tablet 2 12/12/2021 Active Continuous Blood Gluc Sensor (FreeStyle Tip 14 Day Sensor) MiscIndications:Type 2 diabetes mellitus with microalbuminuria, unspecified whether terminal superintendent insulin use Apply to back of arm every 14 days Dx: E11.9 2 Each 7 12/12/2021 Active sitagliptan (JANUVIA) 25 MG tabletIndications:Ty pe 2 diabetes mellitus with microalbuminuria, unspecified whether terminal superintendent insulin use Take 1 tablet by mouth daily. 90 tablet 3 12/12/2021 Active metformin (GLUCOPHAGE-XR) 750 MG 24 hr tablet Take 1 tablet by mouth 3 times daily. TAKE 1 TAB BY MOUTH IN THE MORNING AND TWO IN THE EVENING 270 tablet 1 12/12/2021 Active Insulin Glargine (Lantus SoloStar) 100 UNIT/ML Solution Pen-injector Inject 45 Units into the skin daily. 15 mL 5 12/12/2021 Active Omeprazole 20 MG Tab EC Take 1 Tablet by mouth daily. 90 Tablet 0 03/13/2022 Active valsartan (DIOVAN) 320 MG tablet Take 1 Tablet by mouth daily. 90 Tablet 1 06/12/2022 Active amlodipine (NORVASC) 10 MG tablet Take 1 Tablet by mouth daily. 90 Tablet 1 06/12/2022 Active hydrochlorothiazide (HYDRODIURIL) 12.5 MG tablet Take 1 Tablet by mouth daily. 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 Immunizations Name Administration Dates Next Due Influenza (> 6 Months) 07/23/2018 Influenza Vaccine-preservati ve Free-quadrivalent 4 Years 10/09/2019 Pneumoccoccal(Adult) Polysaccharide PPSV23 10/03,10/31/2007 Tdap 10/03/2020 Tdap (Adacel) 08/14/2006 Family History Medical History Relation Name Comments Cancer of the Lung Father [place] Father Relation Name Status Comments Father Social History Tobacco Use Types Packs/Day Years Used Date Smoking Tobacco: Former Cigarettes Q uit: 08/22/1984 Smokeless Tobacco: Never Alcohol Use Standard Drinks/Week Comments Yes 1 (1 standard drink = 0.6 oz pur e alcohol) 1-2 times a week Sex Assigned at Date Recorded Not on file Last Filed Vital Signs Vital Sign Reading Time Taken Comments Blood Pressure 150/80 10/03/2020 10:55 AM EST Pulse 64 10/03/2020 10:55 AM EST Temperature 37.1 C (98.8 F) 08/22/2020 2:05 PM EDT Respiratory Rate 14 08/22/2020 2:05 PM EDT Oxygen Saturation - - Inhaled Oxygen Concentration - - Weight 80.3 kg (177 lb) 10/03/2020 10:55 AM EST Height 170.2 cm (5' 7 ) 10/03/2020 10:55 AM EST Body Mass Index 27.72 10/03/2020 10:55 AM EST Plan of Treatment Health Maintenance Due Date Last Done Comments Covid-19 Vaccine (#1) 1956 DEPRESSION SCREEN 1968 HEPATITIS C SCREENING 1974 SHINGLES VACCINE (1 of 2) 2006 DIABETES: ANNUAL EYE EXAM 2020 2019 (Com pleted) DIABETES: ANNUAL FOOT EXAM 01/15/2021 01/15/2020 DIABETES: ANNUAL URINE PROTE IN TEST (MICROALBUMIN) 01/15/2021 01/15/2020, 03/05/2019 ABDOMINAL AORTIC ANEURYSM (A AA) SCREENING 2021 FALL RISK ASSESSMENT 2021 PNEUMOCOCCAL VACCINE (2 - PCV) 10/03/2021 10/03/2020 , 10/31/2007 DIABETES: BLOOD SUGAR CONTRO L TEST (HGBA1C) 10/15/2021 07/15/2021, 09/22/2020, 01/15/2020, Additional history exists DIABETES/HEART DISEASE: DARIEL LAWSON CHOLESTEROL (LDL) 07/15/2022 07/15/2021, 09/22/2020, 01/15/2020, Additional history exists BMI CHECK/ADVISE 12/02/2024 08/11/2021, 04/2021, 10/03/2020, Additional history exists DEPRESSION SCREENING/FOLLOWUP 12/02/2024 INFLUENZA (#1) 2025 10/09/2019, 07/23/2018 COLON CANCER SCREENING 11/01/2025 , 11/19/2018, 06/24/2006 DTAP/TDAP/TD (3 - Td or Tdap) 10/03/2030 10/03/2020, 08/14/2006 Care Teams Crop And Soil Scientist Relationship Specialty Start Date End Date Kang Love MD PCP - General Internal Medicine 02/16/19
--- OUTSIDE RECORDS SUMMARY | 2025-09-17 16:26 | XMS_ITS | Encounter Summary ---
Author Organization [facility] [facility] Address [address] [place] [address] Care Team Providers Care Zinc Miner Blasting Name Role Phone Kang Love MD Primary Care Provider [phone] Encounter Details Date Type Department Care Team Description 06/14/2021 Refill Internal Medicine - [address], [address] [place] [address] Kang Love MD [address] [place] [address] Social History Tobacco Use Types Packs/Day Years [...] 2 diabetes mellitus with microalbuminuria, unspecified whether rail car operator insulin use documented in this encounter Care Teams Zinc Miner Blasting Relationship Specialty Start Date End Date Kang Love MD PCP - General Internal Medicine 02/16/19 documented as of this encounter
--- OUTSIDE RECORDS SUMMARY | 2025-09-17 16:26 | XMS_ITS | Encounter Summary ---
Author Organization [facility] Address [address] [place] [address] Care Team Providers Care Spool Cleaner Name Role Phone Kang Love MD Primary Care Provider Encounter Details Date Type Department Care Team Description 07/12/2021 Hospital Medical Records [address] [place] [address] Warren Paul Social History Tobacco Use Types Packs/Day Years [...] on filedocumented in this encounter Care Teams Spool Cleaner Relationship Specialty Start Date End Date Kang Love MD PCP - General Internal Medicine 02/16/19 documented as of this encounter
--- OUTSIDE RECORDS SUMMARY | 2025-09-17 16:26 | XMS_ITS | Encounter Summary ---
Author Organization [facility] Address [address] [place] [address] Care Team Providers Care Heeler Machine Name Role Phone Kang Love MD Primary Care Provider [phone] Encounter Details Date Type Department Care Team Description 12/11/2021 Refill Adult Medicine [address] [id number] Radha Magaña PA-C Social History Tobacco Use Types Packs/Day Years Used Date Smoking Tobacco: Former Cigarettes Q uit: 08/22/1984 Smokeless Tobacco: Never Alcohol Use Standard Drinks/Week Comments Yes 1 (1 standard drink = 0.6 oz pur e alcohol) 1-2 times a week Sex Assigned at Date Recorded Not on file documented as of this encounter Miscellaneous Notes * Telephone Encounter - Pari Briggs M.A. - 12/12/2021 8:44 AM EST Joselyn 08/02/21 Nov not booked yet BP Readings from Last 5 Encounters: 10/03/20 (!) 150/80 08/22/20 124/60 01/15/20 (!) 158/81 09/17/19 116/72 08/05/19 (!) 144/78 Lab Results Component Value Date CHOL 114 07/15/2021 LDL 49 07/15/2021 HDL 43 07/15/2021 TRIG 113 07/15/2021 SGOT 36 07/15/2021 SGPT 63 07/15/2021 Lab Results Component Value Date HGBA1C 7.1 07/15/2021 HGBA1C 7.2 09/22/2020 HGBA1C 6.8 01/15/2020 HGBA1C 7.3 09/17/2019 HGBA1C 8.4 06/17/[address] fwd [address] love documented in this encounter Plan of Treatment Not on file documented as of this encounter Visit Diagnoses Diagnosis Type 2 diabetes mellitus with microalbuminuria, unspecified whether prestidigitator insulin use documented in this encounter Care Teams Heeler Machine Relationship Specialty Start Date End Date Kang Love MD PCP - General Internal Medicine 02/16/19 documented as of this encounter
--- OUTSIDE RECORDS SUMMARY | 2025-09-17 16:26 | XMS_ITS | Encounter Summary ---
Author Organization [facility] Address [address] [place] [address] Care Team Providers Care Digital Communications Manager Name Role Phone Kang Love MD Primary Care Provider [phone] Reason for Visit * Reason Onset Date Comments refill request 03/13/2022 Encounter Details Date Type Department Care Team Description 03/13/2022 Refill Internal Medicine - [address], [address] [place] [address] Kang Love MD [address] [place], [place] [phone] refill request Social History Tobacco Use Types Packs/Day Years Used Date Smoking Tobacco: Former Cigarettes Q uit: 08/22/1984 Smokeless Tobacco: Never Alcohol Use Standard Drinks/Week Comments Yes 1 (1 standard drink = 0.6 oz pur e alcohol) 1-2 times a week Sex Assigned at Date Recorded Not on file documented as of this encounter Miscellaneous Notes * Telephone Encounter - Ronit Vazquez - 03/13/2022 12:18 PM EDT Patient would like script to be: E-PRESCRIBED/FAXED TO PHARMACY WHEN WAS THE PATIENT'S LAST APPOINTMENT WITH THE PRESCRIBING PROVIDER? 08-11-2021 Does patient have an upcoming appointment? Yes 05-14-2022 (THE MEDICATION REQUESTED IS ON THE MED LIST ABOVE) Did you check the Pharmacy information above?: YES Patient wants: 90 -day supply Is this a mail order prescription request ? NO Patients current [place] is: [place] / [place] / Product Type: MED[place]ARE [id number] documented in this encounter Plan of Treatment Not on file documented as of this encounter Visit Diagnoses Not on filedocumented in this encounter Care Teams Digital Communications Manager Relationship Specialty Start Date End Date Kang Love MD PCP - General Internal Medicine 02/16/19 documented as of this encounter
--- OUTSIDE RECORDS SUMMARY | 2025-09-17 16:26 | XMS_ITS | Encounter Summary ---
Author Organization [facility] Address [address] [place] [address] Care Team Providers Care Qm Consultant Name Role Phone Kang Love MD Primary Care Provider [phone] Reason for Visit * Reason Comments E-prescribe Rx Request Encounter Details Date Type Department Care Team Description 06/21/2021 Refill Adult Med - [place] [address] [place], [place] [phone] Kang Love MD [address] [place], [place] [phone] E-prescribe Rx Request Social History Tobacco Use [...] * Telephone Encounter - Peyton XAVIER - 06/23/2021 3:30 PM EDT BP Readings from Last 3 Encounters: 10/03/20 (!) 150/80 08/22/20 124/60 01/15/20 (!) 158/81 * Telephone Encounter - Sailaja Sneed - 06/23/2021 3:16 PM EDT Joselyn 04/05/21 Nov 08/11/21 documented in this encounter Plan of Treatment Not on file documented as of this encounter Visit Diagnoses Not on filedocumented in this encounter Care Teams Qm Consultant Relationship Specialty Start Date End Date Kang Love MD PCP - General Internal Medicine 02/16/19 documented as of this encounter
--- OUTSIDE RECORDS SUMMARY | 2025-09-17 16:26 | XMS_ITS | Encounter Summary ---
Author Organization [employer] [facility] Address [address] [place] [address] Care Team Providers Care Mobile Ui/Ux Designer Name Role Phone Kang Love MD Primary Care Provider [phone] Reason for Visit * Reason Onset Date Comments refill request 12/29/2019 Encounter Details Date Type Department Care Team Description 12/29/2019 Refill Adult Medicine [address] [phone] Kang Love MD [address] [place], [place] [phone] refill request Social History Tobacco Use Types Packs/Day Years Used Date Smoking Tobacco: Former Smokeless Tobacco: Never Alcohol Use Standard Drinks/Week Comments Yes 1 (1 standard drink = 0.6 oz pur e alcohol) 1-2 times a week Sex Assigned at Date Recorded Not on file documented as of this encounter Miscellaneous Notes * Telephone Encounter - Narcisa Bowles - 12/29/2019 10:54 AM EST Patient would like script to be: E-PRESCRIBED/FAXED TO PHARMACY WHEN WAS THE PATIENT'S LAST APPOINTMENT IN ADULT MEDICINE? 08/05/19 WHEN WAS THE LAST TIME THE PATIENT SAW THEIR PCP? Has not seen pcp Does patient have an upcoming appointment? no (THE MEDICATION REQUESTED IS ON THE MED [...] N/A Patients current insurance carrier is: [facility] / Plan: [place] TYPE 3 / Product Type: HMO [id number] documented in this encounter Plan of Treatment Not on file documented as of this encounter Visit Diagnoses Not on filedocumented in this encounter Care Teams Mobile Ui/Ux Designer Relationship Specialty Start Date End Date Kang Love MD PCP - General Internal Medicine 02/16/19 documented as of this encounter
--- OUTSIDE RECORDS SUMMARY | 2025-09-17 16:26 | XMS_ITS | Encounter Summary ---
Author Organization [facility] Address [address] [place] [address] Care Team Providers Care Cartography/Mapping Technician Name Role Phone Kang Love MD Primary Care Provider [phone] Encounter Details Date Type Department Care Team Description 07/17/2021 Orders Only Internal Medicine - [address], [address] [place] [address] Kang Love MD [address] [place], [place] [phone] Social History Tobacco Use Types Packs/Day Years [...] on filedocumented in this encounter Care Teams Cartography/Mapping Technician Relationship Specialty Start Date End Date Kang Love MD PCP - General Internal Medicine 02/16/19 documented as of this encounter
--- OUTSIDE RECORDS SUMMARY | 2025-09-17 16:26 | XMS_ITS | Encounter Summary ---
Author Organization [facility] Address [address] [place] [address] Care Team Providers Care Make Ready Worker Name Role Phone Kang Love MD Primary Care Provider [phone] Encounter Details Date Type Department Care Team Description 03/11/2020 Refill Adult Med - [place] [address] [place] [address] Kang Love MD [address] [place], [place] [phone] Social History Tobacco Use Types Packs/Day Years Used Date Smoking Tobacco: Former Smokeless Tobacco: Never Alcohol Use Standard Drinks/Week Comments Yes 1 (1 standard drink = 0.6 oz pur e alcohol) 1-2 times a week Sex Assigned at Date Recorded Not on file documented as of this encounter Miscellaneous Notes * Telephone Encounter - Elizabeth Pak L.P.NHailey - 03/14/2020 9:11 AM EDT shireen 01/15/2020 Lab Results Component Value Date NA 134 01/15/2020 K 3.9 01/15/2020 CO2 29 01/15/2020 CL 100 01/15/2020 BUN 20 01/15/2020 CREAT 0.93 01/15/2020 GLU 269 01/15/2020 CA 10.0 01/15/2020 GFR > 60 01/15/2020 documented in this encounter Plan of Treatment Not on file documented as of this encounter Visit Diagnoses Not on filedocumented in this encounter Care Teams Make Ready Worker Relationship Specialty Start Date End Date Kang Love MD PCP - General Internal Medicine 02/16/19 documented as of this encounter
--- OUTSIDE RECORDS SUMMARY | 2025-09-17 16:26 | XMS_ITS | Encounter Summary ---
Author Organization [employer] [facility] Address [address] [place] [address] Care Team Providers Care System Development Manager Name Role Phone Kang Love MD Primary Care Provider [phone] Encounter Details Date Type Department Care Team Description 06/18/2019 CGM Report Medical Records [address] [place] [id number] Abstract, Provider Social History Tobacco Use Types [...] on filedocumented in this encounter Care Teams System Development Manager Relationship Specialty Start Date End Date Kang Love MD PCP - General Internal Medicine 02/16/19 documented as of this encounter
--- OUTSIDE RECORDS SUMMARY | 2025-09-17 16:26 | XMS_ITS | Encounter Summary ---
Author Organization [employer] [facility] Address [address] [place] [address] Care Team Providers Care Military Science Teacher Name Role Phone Kang Love MD Primary Care Provider [phone] Reason for Visit * Reason Comments E-prescribe Rx Request Encounter Details Date Type Department Care Team Description 01/27/2021 Refill Adult Medicine - [address] [address] Kang Love MD [address] [place] [address] E-prescribe Rx Request Social History Tobacco Use [...] 2 diabetes mellitus with microalbuminuria, unspecified whether gas fitter apprentice insulin use documented in this encounter Care Teams Military Science Teacher Relationship Specialty Start Date End Date Kang Love MD PCP - General Internal Medicine 02/16/19 documented as of this encounter
--- OUTSIDE RECORDS SUMMARY | 2025-09-17 16:26 | XMS_ITS | Encounter Summary ---
Author Organization [facility] Address [address] [place] [address] Care Team Providers Care Airport Engineer Name Role Phone Kang Love MD Primary Care Provider [phone] Reason for Visit * Reason Comments E-prescribe Rx Request Encounter Details Date Type Department Care Team Description 03/24/2021 Refill Adult Medicine [address] [address] Kang Love MD [address] [place] [address] E-prescribe Rx Request Social History Tobacco Use Types Packs/Day Years Used Date Smoking Tobacco: Former Cigarettes Q uit: 08/22/1984 Smokeless Tobacco: Never Alcohol Use Standard Drinks/Week Comments Yes 1 (1 standard drink = 0.6 oz pur e alcohol) 1-2 times a week Sex Assigned at Date Recorded Not on file documented as of this encounter Miscellaneous Notes * Telephone Encounter - Douglas Miramontes M.A. - 03/24/2021 4:34 PM EDT ERICA 10/03/2020 NOV 04/05/2021 BP Readings from Last 3 Encounters: 10/03/20 (!) 150/80 08/22/20 124/60 01/15/20 (!) 158/81 * Telephone Encounter - Gina Ingram - 03/24/2021 4:20 PM EDT Patient would like script to be: E-PRESCRIBED/FAXED TO PHARMACY WHEN WAS THE PATIENT'S LAST APPOINTMENT IN ADULT MEDICINE? 10/03/2020 WHEN WAS THE LAST TIME THE PATIENT SAW THEIR PCP? Same as above Does patient have an upcoming appointment? Yes 04/05/2021 (THE MEDICATION REQUESTED IS ON THE MED [...] N/A Patients current insurance carrier is: Payor: [employer] [facility] [place] [place] / Product Type: HMO [id number] documented in this encounter Plan of Treatment Not on file documented as of this encounter Visit Diagnoses Not on filedocumented in this encounter Care Teams Airport Engineer Relationship Specialty Start Date End Date Kang Love MD PCP - General Internal Medicine 02/16/19 documented as of this encounter
--- OUTSIDE RECORDS SUMMARY | 2025-09-17 16:26 | XMS_ITS | Encounter Summary ---
Author Organization [facility] Address [address] [place] [address] Care Team Providers Care Channel Development Manager Name Role Phone Kang Love MD Primary Care Provider [phone] Reason for Visit * Reason Onset Date Comments Medication 10/17/2020 COLON RESEND Encounter Details Date Type Department Care Team Description 10/17/2020 Refill Gastroenterology - [place] [address] [facility] [address] [place] [id number] Scotty Segovia MD [address] [facility] [address] [facility] [address] [place] [address] Medication (COLON RESEND) Social History Tobacco Use Types Packs/Day Years Used Date Smoking Tobacco: Former Cigarettes Q uit: 08/22/1984 Smokeless Tobacco: Never Alcohol Use Standard Drinks/Week Comments Yes 1 (1 standard drink = 0.6 oz pur e alcohol) 1-2 times a week Sex Assigned at Date Recorded Not on file COVID-19 Exposure Response Date Recorded In the last month, have you been in contact with someone who was confirmed or suspected to have Coronavirus / COVID-19? No / Unsure 10/03/2020 10:46 AM EST documented as of this encounter Plan of Treatment Not on file documented as of this encounter Visit Diagnoses Not on filedocumented in this encounter Care Teams Channel Development Manager Relationship Specialty Start Date End Date Kang Love MD PCP - General Internal Medicine 02/16/19 documented as of this encounter
--- OUTSIDE RECORDS SUMMARY | 2025-09-17 16:26 | XMS_ITS | Encounter Summary ---
Author Organization [facility] Address [address] [place] [address] Care Team Providers Care Seat Scooper Machine Name Role Phone Kang Love MD Primary Care Provider [phone] Encounter Details Date Type Department Care Team Description 11/05/2019 Pt. Non Urgent Medical Question Adult Medicine B - [address] [address] Hannah Felton PA-C [address] [place] [address] Social History Tobacco Use Types Packs/Day Years [...] on filedocumented in this encounter Care Teams Seat Scooper Machine Relationship Specialty Start Date End Date Kang Love MD PCP - General Internal Medicine 02/16/19 documented as of this encounter
--- OUTSIDE RECORDS SUMMARY | 2025-09-17 16:26 | XMS_ITS | Encounter Summary ---
Author Organization [facility] Address [address] [place] [address] Care Team Providers Care Senior Accounting Clerk Name Role Phone Kang Love MD Primary Care Provider [phone] Encounter Details Date Type Department Care Team Description 11/23/2021 Refill Adult Medicine [address] [phone] Kang Love MD [address] [place], [place] [phone] Social History Tobacco Use Types Packs/Day Years Used Date Smoking Tobacco: Former Cigarettes Q uit: 08/22/1984 Smokeless Tobacco: Never Alcohol Use Standard Drinks/Week Comments Yes 1 (1 standard drink = 0.6 oz pur e alcohol) 1-2 times a week Sex Assigned at Date Recorded Not on file documented as of this encounter Miscellaneous Notes * Telephone Encounter - Peyton Saucedo - 11/27/2021 8:50 AM EST No visits with results within 1 Month(s) from this visit. Latest known visit with results is: Orders Only on 07/15/2021 Component Date Value ??? GLYCATED HEMOGLOBIN A1C 07/15/2021 7.1* ??? ESTIMATED AVERAGE GLUCOSE 07/15/2021 157 ??? [...] 07/15/2021 0.07 ??? IMMATURE GRANULOCYTES # 07/15/2021 0.04* ??? GLUCOSE 07/15/2021 157* ??? Blood Urea Nitrogen 07/15/2021 20 ??? CREAT 07/15/2021 1.14 GLOMERULAR FILTRATION RA* 07/15/2021 > 60 ??? NA 07/15/2021 133* ??? K 07/15/2021 3.4* ??? CL 07/15/2021 97 ??? CARBON DIOXIDE (CO2) 07/15/2021 25 ??? ANION GAP 07/15/2021 11 ??? CALCIUM 07/15/2021 9.4 ??? TOTAL PROTEIN (TP) 07/15/2021 7.9 ??? Albumin 07/15/2021 4.3 ??? BILIRUBIN TOTAL 07/15/2021 0.9 ??? SGOT 07/15/2021 36 ??? SGPT 07/15/2021 63* ??? ALK PHOS 07/15/2021 86 documented in this encounter Plan of Treatment Not on file documented as of this encounter Visit Diagnoses Not on filedocumented in this encounter Care Teams Senior Accounting Clerk Relationship Specialty Start Date End Date Kang Love MD PCP - General Internal Medicine 02/16/19 documented as of this encounter
--- OUTSIDE RECORDS SUMMARY | 2025-09-17 16:26 | XMS_ITS | Encounter Summary ---
Author Organization [facility] Address [address] [place] [address] Care Team Providers Care Electron Tube Assembler Name Role Phone Kang Love MD Primary Care Provider [phone] Reason for Visit * Reason Comments E-prescribe Rx Request Encounter Details Date Type Department Care Team Description 01/19/2020 Refill Adult Med - [place] [address] [place], [place] [phone] Crystal Arizmendi MD [address] [place] [phone] E-prescribe Rx Request Social History Tobacco Use Types Packs/Day Years Used Date Smoking Tobacco: Former Smokeless Tobacco: Never Alcohol Use Standard Drinks/Week Comments Yes 1 (1 standard drink = 0.6 oz pur e alcohol) 1-2 times a week Sex Assigned at Date Recorded Not on file documented as of this encounter Miscellaneous Notes * Telephone Encounter - Madhu Brice - 01/19/2020 1:04 PM EST Patient would like script to be: E-PRESCRIBED/FAXED TO PHARMACY WHEN WAS THE PATIENT'S LAST APPOINTMENT IN ADULT MEDICINE? 08/05/19 WHEN WAS THE LAST TIME THE PATIENT SAW THEIR PCP? Same as above Does patient have an upcoming appointment? Yes 02/25/20 (THE MEDICATION REQUESTED IS ON THE MED [...] N/A Patients current insurance carrier is: Payor: [employer] [facility] [place] / Plan: CC-[employer] SILVER TYPE 3 / Product Type: HMO [id number] documented in this encounter Plan of Treatment Not on file documented as of this encounter Visit Diagnoses Not on filedocumented in this encounter Care Teams Electron Tube Assembler Relationship Specialty Start Date End Date Kang oLve MD PCP - General Internal Medicine 02/16/19 documented as of this encounter
--- OUTSIDE RECORDS SUMMARY | 2025-09-17 16:26 | XMS_ITS | Clinical Summary ---
Author Organization [facility] it Address [address] [place] [address] Care Team Providers Care Custom Leather Products Maker Name Role Phone Kang Love MD Primary [...] age to complete this topic Care Teams Custom Leather Products Maker Relationship Specialty Start Date End Date Kang Love MD PCP - General Internal Medicine 02/16/19
--- OUTSIDE RECORDS SUMMARY | 2025-09-17 16:26 | XMS_ITS | Encounter Summary ---
Author Organization [facility] Address [address] [place] [address] Care Team Providers Care Rehabilitation Tech Name Role Phone Kang Love MD Primary Care Provider [phone] Encounter Details Date Type Department Care Team Description 11/22/2021 Refill Adult Med - [place] [address] [place] [address] Kang Love MD [address] [place] [address] Social History Tobacco Use Types Packs/Day Years Used Date Smoking Tobacco: Former Cigarettes Q uit: 08/22/1984 Smokeless Tobacco: Never Alcohol Use Standard Drinks/Week Comments Yes 1 (1 standard drink = 0.6 oz pur e alcohol) 1-2 times a week Sex Assigned at Date Recorded Not on file documented as of this encounter Miscellaneous Notes * Telephone Encounter - Peyton Saucedo - 11/22/2021 1:11 PM EST BP Readings from Last 3 Encounters: 10/03/20 (!) 150/80 08/22/20 124/60 01/15/20 (!) 158/81 documented in this encounter Plan of Treatment Not on file documented as of this encounter Visit Diagnoses Not on filedocumented in this encounter Care Teams Rehabilitation Tech Relationship Specialty Start Date End Date Kang Love MD PCP - General Internal Medicine 02/16/19 documented as of this encounter
--- OUTSIDE RECORDS SUMMARY | 2025-09-17 16:26 | XMS_ITS | Encounter Summary ---
[facility] Address [address] [place] [address] Care Team Providers Care Retail Shift Manager Name Role Phone Kang Love MD Primary Care Provider [phone] Reason for Visit * Reason Onset Date Comments refill request 06/12/2022 Encounter Details Date Type Department Care Team Description 06/12/2022 Refill Internal Medicine - [address], [address] [place] [address] Kang Love MD [address] [place], [place] [phone] refill request Social History Tobacco Use Types Packs/Day Years Used Date Smoking Tobacco: Former Cigarettes Q uit: 08/22/1984 Smokeless Tobacco: Never Alcohol Use Standard Drinks/Week Comments Yes 1 (1 standard drink = 0.6 oz pur e alcohol) 1-2 times a week Sex Assigned at Date Recorded Not on file documented as of this encounter Miscellaneous Notes * Telephone Encounter - Margy Capps M.A. - 06/12/2022 1:41 PM EDT BP Readings from Last 5 Encounters: 10/03/20 (!) 150/80 08/22/20 124/60 01/15/20 (!) 158/81 09/17/19 116/72 08/05/19 (!) 144/78 Lab Results Component Value Date NA 133 07/15/2021 K 3.4 07/15/2021 CO2 25 07/15/2021 CL 97 07/15/2021 BUN 20 07/15/2021 CREAT 1.14 07/15/2021 GLU 157 07/15/2021 ALB 4.3 07/15/2021 SGOT 36 07/15/2021 SGPT 63 07/15/2021 TBILI 0.9 07/15/2021 ALKPHOS 86 07/15/2021 TP 7.9 07/15/2021 CA 9.4 07/15/2021 GFR > 60 07/15/2021 Rx last refilled on 12/12/2021 Hydrochlorothiazide & Valsartan and 01/30/2022 Amplodipine * Telephone Encounter - Shani Yoder - 06/12/2022 1:36 PM EDT ERICA 08/11/2021 NOV Left message for patient to schedule an appointment documented in this encounter Plan of Treatment Not on file documented as of this encounter Visit Diagnoses Not on filedocumented in this encounter Care Teams Retail Shift Manager Relationship Specialty Start Date End Date Kang Love MD PCP - General Internal Medicine 02/16/19 documented as of this encounter
--- OUTSIDE RECORDS SUMMARY | 2025-09-17 16:26 | XMS_ITS | Encounter Summary ---
Author Organization [facility] Address [address] [place] [address] Care Team Providers Care Senior Analyst Market Intelligence Name Role Phone Kang Love MD Primary Care Provider [phone] Encounter Details Date Type Department Care Team Description 01/17/2021 Refill Internal Medicine - [address], [address] [place], [place] [address] Kang Love MD [address] [place], [place] [phone] Social History Tobacco Use Types Packs/Day Years Used Date Smoking Tobacco: Former Cigarettes Q uit: 08/22/1984 Smokeless Tobacco: Never Alcohol Use Standard Drinks/Week Comments Yes 1 (1 standard drink = 0.6 oz pur e alcohol) 1-2 times a week Sex Assigned at Date Recorded Not on file documented as of this encounter Miscellaneous Notes * Telephone Encounter - Deepa Ivey M.A. - 01/18/2021 9:07 AM EST Lab Results Component Value Date NA 137 09/22/2020 K 3.6 09/22/2020 CO2 28 09/22/2020 CL 101 09/22/2020 BUN 17 09/22/2020 CREAT 0.92 09/22/2020 GLU 188 09/22/2020 CA 9.7 09/22/2020 GFR > 60 09/22/2020 * Telephone Encounter - Deepa Ivey M.A. - 01/18/2021 9:07 AM ESTFrom: Jluis Barraza Sent: 01/17/2021 5:31 PM EST Subject: Medication Renewal Request Jluis Barraza would like a refill of the following medications: Other - Omeprazole 20 MG. 90 day supply Preferred pharmacy: [id number] documented in this encounter Plan of Treatment Not on file documented as of this encounter Visit Diagnoses Not on filedocumented in this encounter Care Teams Senior Analyst Market Intelligence Relationship Specialty Start Date End Date Kang Love MD PCP - General Internal Medicine 02/16/19 documented as of this encounter
--- OUTSIDE RECORDS SUMMARY | 2025-09-17 16:27 | XMS_ITS | Encounter Summary ---
Author [facility] Address [address] [place] [address] Care Team Providers Care Ear Flap Binder Name Role Phone Kang Love MD Primary Care Provider [phone] Reason for Visit * Reason Comments E-prescribe Rx Request Encounter Details Date Type Department Care Team Description 10/30/2020 Refill Adult Medicine [address] [address] Kang Love MD [address] [place] [address] E-prescribe Rx Request Social History Tobacco Use [...] AM EST documented as of this encounter Miscellaneous Notes * Telephone Encounter - Elizabeth Pak L.P.N. - 11/03/2020 2:56 PM EST BP Readings from Last 5 Encounters: 10/03/20 (!) 150/80 08/22/20 124/60 01/15/20 (!) 158/81 09/17/19 116/72 08/05/19 (!) 144/78 Lab Results Component Value Date NA 137 09/22/2020 K 3.6 09/22/2020 CO2 28 09/22/2020 CL 101 09/22/2020 BUN 17 09/22/2020 CREAT 0.92 09/22/2020 GLU 188 09/22/2020 CA 9.7 09/22/2020 GFR > 60 09/22/2020 * Telephone Encounter - Yvette Balderrama - 11/03/2020 2:35 PM EST ERICA: 10/03/2020 NOV: 04/05/2021 90 day supply. documented in this encounter Plan of Treatment Not on file documented as of this encounter Visit Diagnoses Not on filedocumented in this encounter Care Teams Ear Flap Binder Relationship Specialty Start Date End Date Kang Love MD PCP - General Internal Medicine 02/16/19 documented as of this encounter
== END 2025-09-17 14:49 | disposition home or self-care (01) ==
LOC: HO.HMCH 13:58
PROVIDERS: PCP Internal Medicine; Visit Provider Internal Medicine
DX: E11.9 Type 2 diabetes mellitus without complications (principal); Z79.4 Long term (current) use of insulin; E78.00 Pure hypercholesterolemia, unspecified; I10 Essential (primary) hypertension; E55.9 Vitamin D deficiency, unspecified; H53.2 Diplopia; K21.9 Gastro-esophageal reflux disease without esophagitis; R79.89 Other specified abnormal findings of blood chemistry; G47.00 Insomnia, unspecified; E66.3 Overweight

== ENCOUNTER → 2025-09-17 13:57 | Outpatient (BNVA) | payer MEDICARE, SELFPAY | PROVIDERS: PCP Internal Medicine; Visit Provider Internal Medicine | DX: E11.9 Type 2 diabetes mellitus without complications (principal); E78.00 Pure hypercholesterolemia, unspecified; I10 Essential (primary) hypertension; E55.9 Vitamin D deficiency, unspecified; H53.2 Diplopia; K21.9 Gastro-esophageal reflux disease without esophagitis; R79.89 Other specified abnormal findings of blood chemistry; G47.00 Insomnia, unspecified; E66.3 Overweight; Z68.25 Body mass index [BMI] 25.0-25.9, adult; Z79.4 Long term (current) use of insulin | CPT/HCPCS: 99212 ==

== ENCOUNTER 2025-09-27 13:09 | Outpatient (AMB) | payer MEDICARE, SELFPAY ==
[2025-09-27 13:11] VITALS: BP 150/60; PULSE 73; O2SAT 98; BMI 28.7
--- NOTE | 2025-09-27 13:11 | A.OFFVIS_ITS ---
Vital Signs 09/27/25 13:11 Height 5 ft 7 in Weight 183 lb 3.266 oz BMI 28.7 BP 150/60 H Blood Pressure Location Lt brachial Position Sitting Pulse 73 Pulse Source Pulse Oximeter Pulse Oximetry (%) 98 Oxygen Delivery Method Room Air Intake Visit Reasons: DM Intake Note: Patient present today for Type 2 Diabetes Mellitus Last Diabetic eye exam: Last eye exam was around March 2025. Last Podiatry Visit: Doesn't have one Random Glucose: 192 mg/dl HgA1C: 7.5% 09/14/25 Carpenter'S Assistant Required: No Accompanied by: Self / Same As Patient Allergies cyclobenzaprine (From Flexeril) Allergy (Verified 09/27/25 13:17) Itching Medication List - Last Reconciled 09/27/25 by Martha Ferrari PA-C amlodipine 10 mg PO DAILY 90 days blood pressure monitor As directed blood sugar diagnostic (FreeStyle Lite Strips) Use daily As directed to check blood glucose blood-glucose sensor (FreeStyle Tip 3 Plus Sensor device) Use daily As directed to monitor glucose cholecalciferol (vitamin D3) 50 mcg PO DAILY 90 days glucose (Dex4 Glucose) 16 grams (4 x 4 gram) PO Q15M PRN 30 days hydrochlorothiazide 12.5 mg PO DAILY 90 days insulin glargine (Lantus Solostar U-100 Insulin) 30 units See Protocol subcut QAM insulin lispro (Humalog KwikPen (U-100) Insulin) 6 units (0.06 mL) subcut BID lancets (FreeStyle Lancets) use daily as directed to check blood glucose metformin 1,000 mg PO BID pantoprazole 40 mg PO .QD 90 days simvastatin 20 mg PO BEDTIME 90 days trazodone 50 mg PO BEDTIME PRN 30 days valsartan 320 mg PO DAILY 90 days HPI HPI DM: Details: Patient is a 69-year-old male with a significant past medical history of hypertension, hyperlipidemia, obesity, type 2 diabetes uncontrolled, prior CVA, anxiety , and Anthony's esophagus presenting today for a follow-up of his diabetes. Endo: DM-his A1c was 7.5. He was diagnosed with diabetes around 1999. States that his mother had type 2 diabetes/prediabetes for a long time. He is currently on Lantus 30 units nightly, Humalog 4 units BID, and metformin 1000 mg twice a day. He states sometimes his blood sugars are around 150 in the evening so he won't give himself any lantus. -tolerates mounjaro but too expensive. Previously was on Trulicity but expensive and caused nausea. He has been off of it for a couple of months. Ozempic with stopped this due to high co-pays, belching, nausea, and supply issues. Januvia stopped due to cost. CGM- showing usage 97% of the time, GMI 7.8, average glucose 189. Very Hyperglycemia 12%, hypergylcemia 43%, in range 45%, hypoglycemia at 0%. -He states that his blood sugars have been more elevated recently because of the increased stress at home. 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 Would like to see podiatry for routine foot care. CV: Blood pressure today in the office is 150/60. He is currently on amlodipine 10 mg, hydrochlorothiazide 12.5 mg daily, and valsartan 320 mg. He is compliant with simvastatin 20 mg at bedtime. Last lipids WNL. Psych: He has had some increase stressors with his personal life. [facility] Medical History (Updated 09/17/25 @ 14:56 by Mayank Darling MD) Insomnia Diabetes mellitus Overweight (BMI 25.0-29.9) GERD (gastroesophageal reflux disease) Pure hypercholesterolemia Benign essential hypertension CVA (cerebral vascular accident) Anxiety Surgical History History of esophagogastroduodenoscopy (EGD) H/O colonoscopy H/O uvulectomy Family History Father No problems noted. Mother Pre-diabetes Thyroid disease Social History Housing: Apartment Are you a primary foster care case manager to a significant other at home: No Do you presently have visiting nurse or other home services: No Alcohol intake: never Patient Tobacco Use Status: Former Tobacco user Tobacco use type: Cigarette Cigarette Packs Per Day: 1 Cigarettes Per Day: 20 Years Smoked: 12 e-Cigarette/Vaping Use: Never Used Second Hand Smoke Exposure: Yes service: No Current occupational status: retired Cognitive needs: No Hearing needs: No Vision needs: Yes (glasses) Physical Exam Vital Signs: Last Vital Signs Pulse 73 09/27/25 13:11 BP 150/60 H 09/27/25 13:11 Pulse Ox 98 09/27/25 13:11 Oxygen Delivery Method Room Air 09/27/25 13:11 BMI result Body Mass Index 28.7 Const Orientation/consciousness: patient oriented x3 HEENT Ears: hearing grossly normal bilaterally Neck Thyroid: Thyroid normal Lymphatic: no lymphadenopathy noted Resp Auscultation: clear to auscultation bilaterally Cardio Rate: regular rate Rhythm: regular rhythm Heart sounds: S1 normal heart sound present and S2 normal heart sound present Skin General skin exam: no rashes or lesions noted Neuro General: patient oriented x3, gait normal and no focal motor deficits Results Reviewed Results Reviewed: Laboratory Last Values Glucose (Clinic) 192 mg/dL (60-115) H 09/27/25 13:19 Assessment & Plan Assessment & Plan (1) Uncontrolled type 2 diabetes mellitus with hyperglycemia, with long-term current use of insulin: Code(s): E11.65 - Type 2 diabetes mellitus with hyperglycemia; Z79.4 - electric milkers installer (current) use of insulin Category: Medical Plan: We will try changing Lantus to 30 units QAM. He will take 1/2 dose tonight and then 1/2 dose tomorrow and then full dose following day. Continue Humalog to 6 units Continue metformin Back up testing supplies ordered Reviewed rule of 15 Follow up in 3 months. Labs prior. (2) HTN (hypertension): Code(s): I10 - Essential (primary) hypertension Category: Medical Qualifiers: Hypertension type: primary hypertension Qualified Code(s): I10 - Essential (primary) hypertension Plan: Continue current regimen (3) Pure hypercholesterolemia: Code(s): E78.00 - Pure hypercholesterolemia, unspecified Category: Medical Plan: Continue current regimen Orders: Referrals Podiatry Referral E11.65 - Type 2 diabetes mellitus with hyperglycemia, Z79.4 - USP (current) use of insulin Coding Level of Care Code Est Pt Level 4 (86093) Complex EM visit Add On G2211 Diagnoses Uncontrolled type 2 diabetes mellitus with hyperglycemia, with long-term current use of insulin E11.65; Z79.4 Primary hypertension I10 Hypertension type: primary hypertension Pure hypercholesterolemia E78.00
[2025-09-27 13:23] LABS: Glucose, Whole Blood 192 mg/dL (60-115)
--- OUTSIDE RECORDS SUMMARY | 2025-09-27 16:47 | XMS_ITS | Encounter Summary ---
Author Organization [facility] Address [address] [place] [address] Care Team Providers Care Case Filler Name Role Phone Kang Love MD Primary Care Provider [phone] Reason for Referral * Non HOWIE (Priority) - Closed Specialty Diagnoses / Procedures Referred By Contbrooklynn chiu Referred To Contact Endocrinology Procedures REFERRAL TO ENDOCRINOLOGY Kang Love MD [address] [place] [address] [facility]/[address] [address] Referral ID Status Reason Start Date Expiration Date Visits Re quested Visits Authorized [id number] Closed 07/14/2021 07/14/2022 1 1 Encounter Details Date Type Department Care Team Description 07/14/2021 Orders Only Internal Medicine - [address], [address] [place] [address] Kang Love MD [address] [place] [address] Social History Tobacco Use Types Packs/Day Years [...] on filedocumented in this encounter Care Teams Case Filler Relationship Specialty Start Date End Date Kang Love MD PCP - General Internal Medicine 02/16/19 documented as of this encounter
--- OUTSIDE RECORDS SUMMARY | 2025-09-27 16:47 | XMS_ITS | Encounter Summary ---
Author Organization [facility] Address [address] [place] [address] Care Team Providers Care Moving Consultant Name Role Phone Kang Love MD Primary Care Provider [phone] Reason for Visit * Reason Onset Date Comments Mychart Rx Refill 01/31/2021 Encounter Details Date Type Department Care Team Description 01/31/2021 Refill Adult Urgent Care - [address] [address] Alonzo Conteh MD Mychart Rx Refill Social History Tobacco Use Types Packs/Day Years Used Date Smoking Tobacco: Former Cigarettes Q uit: 08/22/1984 Smokeless Tobacco: Never Alcohol Use Standard Drinks/Week Comments Yes 1 (1 standard drink = 0.6 oz pur e alcohol) 1-2 times a week Sex Assigned at Date Recorded Not on file documented as of this encounter Miscellaneous Notes * Telephone Encounter - Yeimi Brizuela M.A. - 01/31/2021 1:11 PM EST Lab Results Component Value Date HGBA1C 7.2 09/22/2020 MALBUR 85.8 01/15/2020 MALBCR 71.5 01/15/2020 CHOL 130 09/22/2020 LDL 65 09/22/2020 HDL 45 09/22/2020 TRIG 104 09/22/2020 GLU 188 09/22/2020 CREAT 0.92 09/22/2020 documented in this encounter Plan of Treatment Not on file documented as of this encounter Visit Diagnoses Not on filedocumented in this encounter Care Teams Moving Consultant Relationship Specialty Start Date End Date Kang Love MD PCP - General Internal Medicine 02/16/19 documented as of this encounter
--- OUTSIDE RECORDS SUMMARY | 2025-09-27 16:47 | XMS_ITS | Encounter Summary ---
Author Organization [facility] Address [address] [place] [address] Care Team Providers Care Shuttle Veneering Supervisor Name Role Phone Kang Love MD Primary Care Provider [phone] Encounter Details Date Type Department Care Team Description 01/12/2021 Refill Adult Medicine [address] [address] Crystal Arizmendi MD [address] [place] [phone] Social History Tobacco Use Types Packs/Day Years Used Date Smoking Tobacco: Former Cigarettes Q uit: 08/22/1984 Smokeless Tobacco: Never Alcohol Use Standard Drinks/Week Comments Yes 1 (1 standard drink = 0.6 oz pur e alcohol) 1-2 times a week Sex Assigned at Date Recorded Not on file documented as of this encounter Miscellaneous Notes * Telephone Encounter - Peyton Alexander [place] - 01/12/2021 9:55 AM EST ERICA 10/03/20 F/U 04/05/21 No recent labs documented in this encounter Plan of Treatment Not on file documented as of this encounter Visit Diagnoses Not on filedocumented in this encounter Care Teams Shuttle Veneering Supervisor Relationship Specialty Start Date End Date Kang Love MD PCP - General Internal Medicine 02/16/19 documented as of this encounter
--- OUTSIDE RECORDS SUMMARY | 2025-09-27 16:47 | XMS_ITS | Encounter Summary ---
Author Organization [facility] Address [address] [place] [address] Care Team Providers Care Cloth Measurer Machine Name Role Phone Kang Love MD Primary Care Provider [phone] Reason for Visit * Reason Comments E-prescribe Rx Request Encounter Details Date Type Department Care Team Description 07/16/2020 Refill Adult Medicine [address] [address] Crystal Arizmendi MD [address] [place] [phone] E-prescribe Rx Request Social History Tobacco Use Types Packs/Day Years Used Date Smoking Tobacco: Former Smokeless Tobacco: Never Alcohol Use Standard Drinks/Week Comments Yes 1 (1 standard drink = 0.6 oz pur e alcohol) 1-2 times a week Sex Assigned at Date Recorded Not on file documented as of this encounter Miscellaneous Notes * Telephone Encounter - Elizabeth Pak L.P.N. - 07/20/2020 11:04 AM EDT Lab Results Component Value Date NA 134 01/15/2020 K 3.9 01/15/2020 CO2 29 01/15/2020 CL 100 01/15/2020 BUN 20 01/15/2020 CREAT 0.93 01/15/2020 GLU 269 01/15/2020 CA 10.0 01/15/2020 GFR > 60 01/15/2020 BP Readings from Last 5 Encounters: 01/15/20 (!) 158/81 09/17/19 116/72 08/05/19 (!) 144/78 06/17/19 110/60 06/03/19 114/68 * Telephone Encounter - Yvette Balderrama - 07/20/2020 9:36 AM EDT ERICA: 04/20/2020 NOV: 08/22/2020 90 day supply documented in this encounter Plan of Treatment Not on file documented as of this encounter Visit Diagnoses Not on filedocumented in this encounter Care Teams Cloth Measurer Machine Relationship Specialty Start Date End Date Kang Love MD PCP - General Internal Medicine 02/16/19 documented as of this encounter
--- OUTSIDE RECORDS SUMMARY | 2025-09-27 16:47 | XMS_ITS | Encounter Summary ---
Author Organization [employer] [facility] Address [address] [place] [address] Care Team Providers Care Construction Rigger Name Role Phone Kang Love MD Primary Care Provider [phone] Reason for Visit * Reason Comments E-prescribe Rx Request Encounter Details Date Type Department Care Team Description 01/27/2021 Refill Adult Medicine - [address] [address] Kang Love MD [address] [place] [address] E-prescribe Rx Request Social History Tobacco Use [...] 2 diabetes mellitus with microalbuminuria, unspecified whether ocean transportation intermediary insulin use documented in this encounter Care Teams Construction Rigger Relationship Specialty Start Date End Date Kang Love MD PCP - General Internal Medicine 02/16/19 documented as of this encounter
--- OUTSIDE RECORDS SUMMARY | 2025-09-27 16:47 | XMS_ITS | Encounter Summary ---
Author Organization [facility] Address [address] [place] [address] Care Team Providers Care Wound Care Nurse Name Role Phone Kang Love MD Primary Care Provider [phone] Reason for Visit * Reason Comments E-prescribe Rx Request Encounter Details Date Type Department Care Team Description 01/07/2021 Refill Adult Med - [place] [address] [place], [place] [phone] Kang Love MD [address] [place], [place] [phone] E-prescribe Rx Request Social History Tobacco Use [...] on filedocumented in this encounter Care Teams Wound Care Nurse Relationship Specialty Start Date End Date Kang Love MD PCP - General Internal Medicine 02/16/19 documented as of this encounter
--- OUTSIDE RECORDS SUMMARY | 2025-09-27 16:47 | XMS_ITS | Encounter Summary ---
Author Organization [facility] Address [address] [place] [address] Care Team Providers Care Sales And In Home Delivery Specialist Name Role Phone Kang Love MD Primary Care Provider [phone] Reason for Visit * Reason Onset Date Comments refill request 07/21/2020 Encounter Details Date Type Department Care Team Description 07/21/2020 Refill Adult Medicine [address] [address] Kang Love MD [address] [place], [place] [phone] refill request Social History Tobacco Use Types [...] N/A Patients current insurance carrier is: Payor: [employer] / Plan: CC-[facility] SILVER TYPE 3 / Product Type: HMO [id number] documented in this encounter Plan of Treatment Not on file documented as of this encounter Visit Diagnoses Diagnosis Diabetes mellitus type 2, insulin dependent (HCC) Type II or unspecified type diabetes mellitus without mention of complication, not stated as uncontrolled documented in this encounter Care Teams Sales And In Home Delivery Specialist Relationship Specialty Start Date End Date Kang Love MD PCP - General Internal Medicine 02/16/19 documented as of this encounter
--- OUTSIDE RECORDS SUMMARY | 2025-09-27 16:47 | XMS_ITS | Encounter Summary ---
Author Organization [facility] Address [address] [place] [address] Care Team Providers Care Back Sewer Name Role Phone Kang Love MD Primary Care Provider Reason for Visit * Reason Comments E-prescribe Rx Request Encounter Details Date Type Department Care Team Description 06/25/2020 Refill Adult Med - [place] [address] [place], [place] [phone] Kang Love MD [address] [place], [place] [phone] E-prescribe Rx Request Social History Tobacco Use Types Packs/Day Years Used Date Smoking Tobacco: Former Smokeless Tobacco: Never Alcohol Use Standard Drinks/Week Comments Yes 1 (1 standard drink = 0.6 oz pur e alcohol) 1-2 times a week Sex Assigned at Date Recorded Not on file documented as of this encounter Miscellaneous Notes * Telephone Encounter - Kym Cm M.A. - 06/29/2020 10:55 AM EDT Lab Results Component Value Date NA 134 01/15/2020 K 3.9 01/15/2020 CO2 29 01/15/2020 CL 100 01/15/2020 BUN 20 01/15/2020 CREAT 0.93 01/15/2020 GLU 269 01/15/2020 CA 10.0 01/15/2020 GFR > 60 01/15/2020 BP Readings from Last 5 Encounters: 01/15/20 (!) 158/81 09/17/19 116/72 08/05/19 (!) 144/78 06/17/19 110/60 06/03/19 114/68 * Telephone Encounter - Shilpa Ervin - 06/29/2020 9:14 AM EDT ERICA 04/20/2020 NOV 08/22/2020 30 day supply. documented in this encounter Plan of Treatment Not on file documented as of this encounter Visit Diagnoses Not on filedocumented in this encounter Care Teams Back Sewer Relationship Specialty Start Date End Date Kang Love MD PCP - General Internal Medicine 02/16/19 documented as of this encounter
--- OUTSIDE RECORDS SUMMARY | 2025-09-27 16:47 | XMS_ITS | Encounter Summary ---
Author Organization [facility] Address [address] [place] [address] Care Team Providers Care Weights And Measures Sealer Name Role Phone Kang Love MD Primary Care Provider [phone] Reason for Visit * Reason Comments E-prescribe Rx Request Encounter Details Date Type Department Care Team Description 03/21/2021 Refill Adult Med - [place] [address] [place], [place] [phone] Kang Love MD [address] [place], [place] [phone] E-prescribe Rx Request Social History Tobacco Use [...] on filedocumented in this encounter Care Teams Weights And Measures Sealer Relationship Specialty Start Date End Date Kang Love MD PCP - General Internal Medicine 02/16/19 documented as of this encounter
--- OUTSIDE RECORDS SUMMARY | 2025-09-27 16:47 | XMS_ITS | Encounter Summary ---
Author Organization [facility] Address [address] [place] [address] Care Team Providers Care Computer Designer Name Role Phone Kang Love MD Primary Care Provider Encounter Details Date Type Department Care Team Description 07/05/2021 Pt. Non Urgent Medical Question Internal Medicine - [address], [address] [place], [place] [phone] Kang Love MD [address] [place], [place] [phone] Social History Tobacco Use Types Packs/Day Years Used Date Smoking Tobacco: Former Cigarettes Q uit: 08/22/1984 Smokeless Tobacco: Never Alcohol Use Standard Drinks/Week Comments Yes 1 (1 standard drink = 0.6 oz pur e alcohol) 1-2 times a week Sex Assigned at Date Recorded Not on file documented as of this encounter Miscellaneous Notes * Telephone Encounter - Peyton Alexander [facility] - 07/05/2021 11:01 AM EDTFrom: Jluis Barraza To: Cm Love Sent: 07/05/2021 10:54 AM EDT Subject: The never ending insurance issue??? The Lantus Solostar that you switched me to, they have now jacked the weldon to $400+, and yesterdaythey informed me that they won???t approve the Freestyle Tip either. So as of today I cannot check my numbers, and I won???t be able to refill my insulin either. I???m ready to get the Insurance Commission involved. The ou trageous prices are only on my diabetes related meds and supplies. I can???t even accurately gauge how much insulin to give myself. documented in this encounter Plan of Treatment Not on file documented as of this encounter Visit Diagnoses Not on filedocumented in this encounter Care Teams Computer Designer Relationship Specialty Start Date End Date Kang Love MD PCP - General Internal Medicine 02/16/19 documented as of this encounter
--- OUTSIDE RECORDS SUMMARY | 2025-09-27 16:47 | XMS_ITS | Encounter Summary ---
Author Organization [facility] Address [address] [place] [address] Care Team Providers Care Elementary School Art Teacher Name Role Phone Kang Love MD Primary Care Provider [phone] Reason for Visit * Reason Comments E-prescribe Rx Request Encounter Details Date Type Department Care Team Description 07/11/2020 Refill Adult Medicine [address] [address] Kang Love MD [address] [place] [address] E-prescribe Rx Request Social History Tobacco Use [...] diabetes mellitus with microalbuminuria, unspecified whether terminal system operator insulin use documented in this encounter Care Teams Elementary School Art Teacher Relationship Specialty Start Date End Date Kang Love MD PCP - General Internal Medicine 02/16/19 documented as of this encounter
--- OUTSIDE RECORDS SUMMARY | 2025-09-27 16:47 | XMS_ITS | Encounter Summary ---
Author Organization [facility] Address [address] [place] [address] Care Team Providers Care Shuttlecock Assembler Name Role Phone Kang Love MD Primary Care Provider [phone] Reason for Visit * Reason Comments E-prescribe Rx Request Encounter Details Date Type Department Care Team Description 12/19/2019 Refill Adult Med - [place] [address] [place], [place] [phone] Radha Magaña PA-C E-prescribe Rx Request Social [...] an upcoming appointment? No-unable to reach left [facility] to call for appointment due to refill [...] N/A Patients current insurance carrier is: [facility] / Plan: [facility] SILVER TYPE 3 / Product Type: HMO [id number] documented in this encounter Plan of Treatment Not on file documented as of this encounter Visit Diagnoses Not on filedocumented in this encounter Care Teams Shuttlecock Assembler Relationship Specialty Start Date End Date Kang Love MD PCP - General Internal Medicine 02/16/19 documented as of this encounter
--- OUTSIDE RECORDS SUMMARY | 2025-09-27 16:47 | XMS_ITS | Encounter Summary ---
Author Organization [employer] [facility] Address [address] [place] [address] Care Team Providers Care Dry Wall Installations Mechanic Name Role Phone Kang Love MD Primary Care Provider [phone] Encounter Details Date Type Department Care Team Description 06/14/2021 Refill Internal Medicine - [address], [address] [place] [address] Kang Love MD [address] [place] [address] Social History Tobacco Use Types Packs/Day Years [...] 2 diabetes mellitus with microalbuminuria, unspecified whether supervisor long goods insulin use documented in this encounter Care Teams Dry Wall Installations Mechanic Relationship Specialty Start Date End Date Kang Love MD PCP - General Internal Medicine 02/16/19 documented as of this encounter
--- OUTSIDE RECORDS SUMMARY | 2025-09-27 16:47 | XMS_ITS | Encounter Summary ---
Author Organization [facility] Address [address] [place] [address] Care Team Providers Care Market Garden Worker Name Role Phone Kang Love MD Primary Care Provider [phone] Reason for Visit * Reason Comments E-prescribe Rx Request Encounter Details Date Type Department Care Team Description 10/25/2019 Refill Adult Medicine [address] [address] Hannah Felton PA-C [address] [place] [address] E-prescribe Rx Request Social History Tobacco Use Types Packs/Day Years Used Date Smoking Tobacco: Former Smokeless Tobacco: Never Alcohol Use Standard Drinks/Week Comments Yes 1 (1 standard drink = 0.6 oz pur e alcohol) 1-2 times a week Sex Assigned at Date Recorded Not on file documented as of this encounter Miscellaneous Notes * Telephone Encounter - Ca Vieyra - 10/26/2019 10:21 AM EST Patient would like script to be: E-PRESCRIBED/FAXED TO PHARMACY WHEN WAS THE PATIENT'S LAST APPOINTMENT IN ADULT MEDICINE? 09-17-19 WHEN WAS THE LAST TIME THE PATIENT SAW THEIR PCP? Never seen pcp Does patient have an upcoming appointment? Yes 02-17-20 (THE MEDICATION REQUESTED IS ON THE MED [...] N/A Patients current insurance carrier is: Payor: [employer] [facility] / Plan: CC-[facility] SILVER TYPE 3 / Product Type: HMO [id number] documented in this encounter Plan of Treatment Not on file documented as of this encounter Visit Diagnoses Not on filedocumented in this encounter Care Teams Market Garden Worker Relationship Specialty Start Date End Date Kang oLve MD PCP - General Internal Medicine 02/16/19 documented as of this encounter
--- OUTSIDE RECORDS SUMMARY | 2025-09-27 16:47 | XMS_ITS | Encounter Summary ---
Author Organization [facility] Address [address] [place] [address] Care Team Providers Care Wire Drawing Machine Tender Name Role Phone Kang Love MD Primary Care Provider [phone] Reason for Visit * Reason Comments E-prescribe Rx Request Encounter Details Date Type Department Care Team Description 06/19/2021 Refill Adult Medicine [address] [address] Kang Love MD [address] [place], [place] [phone] E-prescribe Rx Request Social History Tobacco Use [...] on filedocumented in this encounter Care Teams Wire Drawing Machine Tender Relationship Specialty Start Date End Date Kang Love MD PCP - General Internal Medicine 02/16/19 documented as of this encounter
--- OUTSIDE RECORDS SUMMARY | 2025-09-27 16:47 | XMS_ITS | Clinical Summary ---
Author Organization [facility] it Address [address] [place] [address] Care Team Providers Care Curator Of Collections Name Role Phone Kang Love MD Primary Care Provider [phone] Surgical History Surgery Date Site/Laterality Comments COLONOSCOPY [...] age to complete this topic Care Teams Curator Of Collections Relationship Specialty Start Date End Date Kang Love MD PCP - General Internal Medicine 02/16/19
--- OUTSIDE RECORDS SUMMARY | 2025-09-27 16:47 | XMS_ITS | Encounter Summary ---
Author Organization [facility] Address [address] [place] [address] Care Team Providers Care Emergency Veterinary Technician Name Role Phone Kang Love MD Primary Care Provider [phone] Encounter Details Date Type Department Care Team Description 07/12/2021 Hospital Medical Records [address] [place] [address] Warren Paul Social History Tobacco Use Types [...] on filedocumented in this encounter Care Teams Emergency Veterinary Technician Relationship Specialty Start Date End Date Kang Love MD PCP - General Internal Medicine 02/16/19 documented as of this encounter
--- OUTSIDE RECORDS SUMMARY | 2025-09-27 16:47 | XMS_ITS | Encounter Summary ---
Author Organization [facility] Address [address] [place] [address] Care Team Providers Care Composite Mechanic Name Role Phone Kang Love MD Primary Care Provider [phone] Encounter Details Date Type Department Care Team Description 07/17/2021 Orders Only Internal Medicine - [address], [address] [place] [address] Kang Love MD [address] [place], [place] [phone] Social History Tobacco Use Types Packs/Day Years [...] on filedocumented in this encounter Care Teams Composite Mechanic Relationship Specialty Start Date End Date Kang Love MD PCP - General Internal Medicine 02/16/19 documented as of this encounter
--- OUTSIDE RECORDS SUMMARY | 2025-09-27 16:47 | XMS_ITS | Encounter Summary ---
Author Organization [facility] Address [address] [place] [address] Care Team Providers Care Service Crew Supervisor Name Role Phone Kang Love MD Primary Care Provider [phone] Reason for Visit * Reason Comments E-prescribe Rx Request Encounter Details Date Type Department Care Team Description 05/02/2020 Refill Adult Med - [place] [address] [place] [address] Kang Love MD [address] [place], [place] [phone] E-prescribe Rx Request Social History Tobacco Use Types Packs/Day Years Used Date Smoking Tobacco: Former Smokeless Tobacco: Never Alcohol Use Standard Drinks/Week Comments Yes 1 (1 standard drink = 0.6 oz pur e alcohol) 1-2 times a week Sex Assigned at Date Recorded Not on file documented as of this encounter Miscellaneous Notes * Telephone Encounter - Rosemary Crain L.P.N. - 05/05/2020 3:45 PM EDT Last office visit 04/20/20 Lab Results Component Value Date NA 134 01/15/2020 K 3.9 01/15/2020 CO2 29 01/15/2020 CL 100 01/15/2020 BUN 20 01/15/2020 CREAT 0.93 01/15/2020 GLU 269 01/15/2020 CA 10.0 01/15/2020 GFR > 60 01/15/2020 * Telephone Encounter - Nalini Ashton - 05/04/2020 3:59 PM EDT Patient would like script to be: E-PRESCRIBED/FAXED TO PHARMACY WHEN WAS THE PATIENT'S LAST APPOINTMENT IN ADULT MEDICINE? 04/20/20 WHEN WAS THE LAST TIME THE PATIENT SAW THEIR PCP? Same as above Does patient have an upcoming appointment? NO will call back to book appointment (THE MEDICATION REQUESTED IS ON THE MED [...] N/A Patients current insurance carrier is: Payor: [employer] / Plan: CC-[facility] SILVER TYPE 3 / Product Type: HMO [id number] documented in this encounter Plan of Treatment Not on file documented as of this encounter Visit Diagnoses Not on filedocumented in this encounter Care Teams Service Crew Supervisor Relationship Specialty Start Date End Date Kang Love MD PCP - General Internal Medicine 02/16/19 documented as of this encounter
--- OUTSIDE RECORDS SUMMARY | 2025-09-27 16:47 | XMS_ITS | Encounter Summary ---
Author Organization [facility] Address [address] [place] [address] Care Team Providers Care Irrigator Sprinkling System Name Role Phone Kang Love MD Primary Care Provider [phone] Reason for Visit * Reason Comments E-prescribe Rx Request Encounter Details Date Type Department Care Team Description 02/16/2020 Refill Adult Medicine [address] [address] Alonzo Conteh MD E-prescribe Rx Request Social History Tobacco Use Types Packs/Day Years Used Date Smoking Tobacco: Former Smokeless Tobacco: Never Alcohol Use Standard Drinks/Week Comments Yes 1 (1 standard drink = 0.6 oz pur e alcohol) 1-2 times a week Sex Assigned at Date Recorded Not on file documented as of this encounter Miscellaneous Notes * Telephone Encounter - Jessica Saucedo - 02/16/2020 11:58 AM EDT Lab Results Component Value Date HGBA1C 6.8 01/15/2020 MALBUR 85.8 01/15/2020 MALBCR 71.5 01/15/2020 CHOL 149 01/15/2020 LDL 83 01/15/2020 HDL 43 01/15/2020 TRIG 118 01/15/2020 GLU 269 01/15/2020 CREAT 0.93 01/15/2020 documented in this encounter Plan of Treatment Not on file documented as of this encounter Visit Diagnoses Diagnosis Type 2 diabetes mellitus with microalbuminuria, unspecified whether advertising columnist insulin use documented in this encounter Care Teams Irrigator Sprinkling System Relationship Specialty Start Date End Date Kang Love MD PCP - General Internal Medicine 02/16/19 documented as of this encounter
--- OUTSIDE RECORDS SUMMARY | 2025-09-27 16:47 | XMS_ITS | Encounter Summary ---
Author Organization [facility] Address [address] [place] [address] Care Team Providers Care Automation Qa Analyst Name Role Phone Kang Love MD Primary Care Provider [phone] Reason for Visit * Reason Onset Date Comments refill request 12/29/2019 Encounter Details Date Type Department Care Team Description 12/29/2019 Refill Adult Medicine [address] [phone] Kang Love MD [address] [place], [place] [phone] refill request Social History Tobacco Use Types [...] N/A Patients current insurance carrier is: [facility] / Plan: CC-ROHAN RAMER TYPE 3 / Product Type: HMO [id number] documented in this encounter Plan of Treatment Not on file documented as of this encounter Visit Diagnoses Not on filedocumented in this encounter Care Teams Automation Qa Analyst Relationship Specialty Start Date End Date Kang Love MD PCP - General Internal Medicine 02/16/19 documented as of this encounter
--- OUTSIDE RECORDS SUMMARY | 2025-09-27 16:47 | XMS_ITS | Encounter Summary ---
Author Organization [facility] Address [address] [place] [address] Care Team Providers Care Fresh Foods Clerk Name Role Phone Kang Love MD Primary Care Provider [phone] Encounter Details Date Type Department Care Team Description 03/11/2020 Refill Adult Med - [place] [address] [place] [address] Kang Love MD [address] [place], [place] [phone] Social History Tobacco Use Types Packs/Day Years [...] on filedocumented in this encounter Care Teams Fresh Foods Clerk Relationship Specialty Start Date End Date Kang Love MD PCP - General Internal Medicine 02/16/19 documented as of this encounter
--- OUTSIDE RECORDS SUMMARY | 2025-09-27 16:47 | XMS_ITS | Clinical Summary ---
Author Organization [facility] Address [address] [place] [address] Care Team Providers Care Manager Of Pharmacy Name Role Phone Kang Love MD Primary Care Provider [phone] Allergies Active Allergy Reactions Severity Noted Date [...] 2 diabetes mellitus with microalbuminuria, unspecified whether director long term care insulin use Inject 3 times a dwith [...] mL 0 10/17/2020 Active Continuous Blood Gluc Field Ironworker (FREESTYLE TIP 14 DAY READER) Device 1 [...] 2 diabetes mellitus with microalbuminuria, unspecified whether director long term care insulin use Apply to back of arm every 14 days Dx: E11.9 2 Each 7 12/12/2021 Active sitagliptan (JANUVIA) 25 MG tabletIndications:Ty pe 2 diabetes mellitus with microalbuminuria, unspecified whether director long term care insulin use Take 1 tablet by mouth [...] Name Comments Cancer of the Lung Father [place] Father Relation Name Status Comments Father Social [...] or Tdap) 10/03/2030 10/03/2020, 08/14/2006 Care Teams Manager Of Pharmacy Relationship Specialty Start Date End Date Kang Love MD PCP - General Internal Medicine 02/16/19
--- OUTSIDE RECORDS SUMMARY | 2025-09-27 16:47 | XMS_ITS | Encounter Summary ---
Author Organization [facility] Address [address] [place] [address] Care Team Providers Care Home Appliance Tech Name Role Phone Kang Love MD Primary Care Provider [phone] Reason for Visit * Reason Onset Date Comments Form 06/25/2019 natalia Encounter Details Date Type Department Care Team Description 06/25/2019 Telephone Adult Medicine [address] [address] Hannah Felton PA-C [address] [place] [id number] Form (natalia) Social History Tobacco Use Types Packs/Day Years Used Date Smoking Tobacco: Former Smokeless Tobacco: Never Alcohol Use Standard Drinks/Week Comments Yes 1 (1 standard drink = 0.6 oz pur e alcohol) 1-2 times a week Sex Assigned at Date Recorded Not on file documented as of this encounter Miscellaneous Notes * Telephone Encounter - Kassy Olea M.A. - 06/25/2019 9:53 AM EDT Placed on Hannah bhatia * Telephone Encounter - Kym Bishop - 06/25/2019 8:19 AM EDT Natalia is looking for Hannah Felton to fill out form for continuous glucose monitor and sensors cmn & perscription order please fax back to [phone] documented in this encounter Plan of Treatment Not on file documented as of this encounter Visit Diagnoses Not on filedocumented in this encounter Care Teams Home Appliance Tech Relationship Specialty Start Date End Date Kang Love MD PCP - General Internal Medicine 02/16/19 documented as of this encounter
--- OUTSIDE RECORDS SUMMARY | 2025-09-27 16:47 | XMS_ITS | Encounter Summary ---
Author Organization [facility] Address [address] [place] [address] Care Team Providers Care Land Department Head Name Role Phone Kang Love MD Primary Care Provider [phone] Encounter Details Date Type Department Care Team Description 01/05/2020 Pt. Non Urgent Medical Question Adult Medicine [address] [address] Hannah Felton PA-C [address] [place] [id number] Social History Tobacco Use Types Packs/Day Years Used Date Smoking Tobacco: Former Smokeless Tobacco: Never Alcohol Use Standard Drinks/Week Comments Yes 1 (1 standard drink = 0.6 oz pur e alcohol) 1-2 times a week Sex Assigned at Date Recorded Not on file documented as of this encounter Progress Notes * Mirna Ferris M.A. - 01/05/2020 3:26 PM ESTFrom: Jluis Barraza To: Hannah Felton PA-C Sent: 01/05/2020 3:24 PM EST Subject: Metformin refills I have been on metformin 750 MG 3 per day for years. I picked up my refill and it is for 1 per day.Is this my new dosage or was this a mistake? This is at [facility] on [facility]. Thanks! Jluis Barraza documented in this encounter Plan of Treatment Not on file documented as of this encounter Visit Diagnoses Not on filedocumented in this encounter Care Teams Land Department Head Relationship Specialty Start Date End Date Kang Love MD PCP - General Internal Medicine 02/16/19 documented as of this encounter
--- OUTSIDE RECORDS SUMMARY | 2025-09-27 16:48 | XMS_ITS | Encounter Summary ---
Author Organization [facility] Address [address] [place] [address] Care Team Providers Care Cap And Stud Machine Operator Name Role Phone Kang Love MD Primary Care Provider [phone] Encounter Details Date Type Department Care Team Description 12/11/2021 Refill Adult Medicine [address] [id number] Radha Magaña PA-C Social History Tobacco Use [...] 2 diabetes mellitus with microalbuminuria, unspecified whether termite exterminator insulin use documented in this encounter Care Teams Cap And Stud Machine Operator Relationship Specialty Start Date End Date Kang Love MD PCP - General Internal Medicine 02/16/19 documented as of this encounter
--- OUTSIDE RECORDS SUMMARY | 2025-09-27 16:48 | XMS_ITS | Encounter Summary ---
Author Organization [facility] Address [address] [place] [address] Care Team Providers Care Cosmetic Consultant Name Role Phone Kang Love MD Primary Care Provider [phone] Reason for Visit * Reason Onset Date Comments Medication 10/17/2020 COLON RESEND Encounter Details Date Type Department Care Team Description 10/17/2020 Refill Gastroenterology - [place] [address] [facility] [address] [place] [phone] Scotty Segovia MD [address] [place] [address] Medication (COLON RESEND) Social History Tobacco Use [...] on filedocumented in this encounter Care Teams Cosmetic Consultant Relationship Specialty Start Date End Date Kang Love MD PCP - General Internal Medicine 02/16/19 documented as of this encounter
--- OUTSIDE RECORDS SUMMARY | 2025-09-27 16:48 | XMS_ITS | Encounter Summary ---
Author Organization [facility] Address [address] [place] [address] Care Team Providers Care Special Machine Operator Name Role Phone Kang Love MD Primary Care Provider [phone] Encounter Details Date Type Department Care Team Description 11/12/2020 Refill Adult Med - [place] [address] [place] [address] Kang Love MD [address] [place], [place] [phone] Social History Tobacco Use Types Packs/Day Years Used Date Smoking Tobacco: Former Cigarettes Q uit: 08/22/1984 Smokeless Tobacco: Never Alcohol Use Standard Drinks/Week Comments Yes 1 (1 standard drink = 0.6 oz pur e alcohol) 1-2 times a week Sex Assigned at Date Recorded Not on file documented as of this encounter Miscellaneous Notes * Telephone Encounter - Deepa Ivey M.A. - 11/14/2020 12:09 PM EST Lab Results Component Value Date NA 137 09/22/2020 K 3.6 09/22/2020 CO2 28 09/22/2020 CL 101 09/22/2020 BUN 17 09/22/2020 CREAT 0.92 09/22/2020 GLU 188 09/22/2020 CA 9.7 09/22/2020 GFR > 60 09/22/2020 BP Readings from Last 3 Encounters: 10/03/20 (!) 150/80 08/22/20 124/60 01/15/20 (!) 158/81 documented in this encounter Plan of Treatment Not on file documented as of this encounter Visit Diagnoses Not on filedocumented in this encounter Care Teams Special Machine Operator Relationship Specialty Start Date End Date Kang Love MD PCP - General Internal Medicine 02/16/19 documented as of this encounter
--- OUTSIDE RECORDS SUMMARY | 2025-09-27 16:48 | XMS_ITS | Encounter Summary ---
Author Organization [facility] Address [address] [place] [address] Care Team Providers Care Auto Driver Name Role Phone Kang Love MD Primary Care Provider [phone] Encounter Details Date Type Department Care Team Description 11/23/2021 Refill Adult Medicine [address] [phone] Kang Love MD [address] [place], [place] [phone] Social History Tobacco Use Types Packs/Day Years [...] on filedocumented in this encounter Care Teams Auto Driver Relationship Specialty Start Date End Date Kang Love MD PCP - General Internal Medicine 02/16/19 documented as of this encounter
--- OUTSIDE RECORDS SUMMARY | 2025-09-27 16:48 | XMS_ITS | Encounter Summary ---
Author Organization [facility] Address [address] [place] [address] Care Team Providers Care Viscosity Inspector Name Role Phone Kang Love MD Primary Care Provider [phone] Encounter Details Date Type Department Care Team Description 01/06/2021 Pt. Non Urgent Medical Question Internal Medicine - [address], [address] [place], [place] [address] Kang Love MD [address] [place] [address] Type 2 diabetes mellitus with microalbuminuria, unspecified whether skilled nursing insulin use (HCC) Social History Tobacco Use Types Packs/Day Years Used Date Smoking Tobacco: Former Cigarettes Q uit: 08/22/1984 Smokeless Tobacco: Never Alcohol Use Standard Drinks/Week Comments Yes 1 (1 standard drink = 0.6 oz pur e alcohol) 1-2 times a week Sex Assigned at Date Recorded Not on file documented as of this encounter Progress Notes * Deepa Ivey M.A. - 01/06/2021 1:24 PM ESTFrom: Jluis Barraza To: Kang Love MD Sent: 01/06/2021 11:57 AM EST Subject: [employer] system. According to med insurance ([employer]), a new request for approval must be submitted. They claim they didn???t approve it in 2019, even though I have used it since 2019 and it was covered. If not by them, then who? The new request should include that I have already been on it continuously since 2019. Thank you. Jluis Barraza documented in this encounter Plan of Treatment Not on file documented as of this encounter Visit Diagnoses Diagnosis Type 2 diabetes mellitus with microalbuminuria, unspecified whether superintendent marine oil terminal insulin use documented in this encounter Care Teams Viscosity Inspector Relationship Specialty Start Date End Date Kang Love MD PCP - General Internal Medicine 02/16/19 documented as of this encounter
--- OUTSIDE RECORDS SUMMARY | 2025-09-27 16:48 | XMS_ITS | Encounter Summary ---
Author Organization [facility] Address [address] [place] [address] Care Team Providers Care Knowledge Management Advisor Name Role Phone Kang Love MD Primary Care Provider [phone] Reason for Visit * Reason Comments E-prescribe Rx Request Encounter Details Date Type Department Care Team Description 10/30/2020 Refill Adult Medicine [address] [address] Kang Love MD [address] [place] [address] E-prescribe Rx Request Social History Tobacco Use [...] on filedocumented in this encounter Care Teams Knowledge Management Advisor Relationship Specialty Start Date End Date Kang Love MD PCP - General Internal Medicine 02/16/19 documented as of this encounter
--- OUTSIDE RECORDS SUMMARY | 2025-09-27 16:48 | XMS_ITS | Encounter Summary ---
Author Organization [facility] Address [address] [place] [address] Care Team Providers Care Information Support Project Manager Name Role Phone Kang Love MD Primary Care Provider [phone] Reason for Visit * Reason Comments E-prescribe Rx Request Encounter Details Date Type Department Care Team Description 01/26/2022 Refill Adult Med - [place] [address] [place], [place] [phone] Kang Love MD [address] [place], [place] [phone] E-prescribe Rx Request Social History Tobacco Use [...] Telephone Encounter - Pari Briggs M.A. - 01/30/2022 4:12 PM EST BP Readings from Last 5 [...] 9.4 07/15/2021 GFR > 60 07/15/2021 Rx pended fwd to dr. love * Telephone Encounter - Naomi Sweet - 01/30/2022 4:06 PM EST Joselyn [phone] documented in this encounter Plan of Treatment Not on file documented as of this encounter Visit Diagnoses Not on filedocumented in this encounter Care Teams Information Support Project Manager Relationship Specialty Start Date End Date Kang Love MD PCP - General Internal Medicine 02/16/19 documented as of this encounter
== END 2025-09-27 13:41 | disposition home or self-care (01) ==
LOC: HO.ENCR 13:10
PROVIDERS: PCP Internal Medicine; Visit Provider Physician Assistant
DX: E11.65 Type 2 diabetes mellitus with hyperglycemia (principal); Z79.4 Long term (current) use of insulin; I10 Essential (primary) hypertension; E78.00 Pure hypercholesterolemia, unspecified

== ENCOUNTER → 2025-09-27 13:09 | Outpatient (BNVA) | payer MEDICARE, SELFPAY | PROVIDERS: PCP Internal Medicine; Visit Provider Physician Assistant | DX: E11.65 Type 2 diabetes mellitus with hyperglycemia (principal); E78.00 Pure hypercholesterolemia, unspecified; I10 Essential (primary) hypertension; Z79.4 Long term (current) use of insulin | CPT/HCPCS: 82947; 99212 ==

== ENCOUNTER 2025-11-09 10:16 | Outpatient (AMB) | payer MEDICARE, SELFPAY ==
[2025-11-09 10:19] VITALS: BMI 28.7
--- NOTE | 2025-11-09 10:19 | A.OFFVIS_ITS ---
Vital Signs 11/09/25 10:19 Height 5 ft 7 in Weight 183 lb 3.226 oz BMI 28.7 Intake Visit Reasons: Diabetes Type 2 Intake Note: Jluis is a 70 year old male who presents to the office today as a new patient visit for Diabetes Type 2 referred by his Folder Taper Operator Martha Ferrari. Pt states his last glucose was 153. He also reports his last A1C was a 6.8%. He does report mild swelling, numbing and tingling around whole foot. Allergies cyclobenzaprine (From Flexeril) Allergy (Verified 11/09/25 10:27) Itching HPI HPI Diabetes Type 2: Details: 70-year-old male past medical history diabetes mellitus type 2, hypertension, hyperlipidemia, GERD, presents for annual diabetic foot evaluation. He notes overall difficulty performing routine foot care due to his nail deformities. He endorses occasional numbness and tingling to his feet, denies burning. He also notes concerns for left leg swelling that has occurred on and off. Denies any history of trauma. Denies calf pain, shortness of breath. [facility] Medical History (Updated 11/10/25 @ 21:00 by Rene Pro DPM) Insomnia Diabetes mellitus Overweight (BMI 25.0-29.9) GERD (gastroesophageal reflux disease) Pure hypercholesterolemia Benign essential hypertension CVA (cerebral vascular accident) Anxiety Surgical History History of esophagogastroduodenoscopy (EGD) H/O colonoscopy H/O uvulectomy Family History Father No problems noted. Mother Pre-diabetes Thyroid disease Social History Housing: Apartment Are you a primary health care administrator to a significant other at home: No Do you presently have visiting nurse or other home services: No Alcohol intake: never Patient Tobacco Use Status: Former Tobacco user Tobacco use type: Cigarette Cigarette Packs Per Day: 1 Cigarettes Per Day: 20 Years Smoked: 12 e-Cigarette/Vaping Use: Never Used Second Hand Smoke Exposure: Yes service: No Current occupational status: retired Cognitive needs: No Hearing needs: No Vision needs: Yes (glasses) Review of Systems Const All systems reviewed & are unremarkable except as noted in HPI and below Physical Exam Vital Signs: BMI result Body Mass Index 28.7 Extrem Other: *Bilateral Lower Extremity Focused Diabetic Foot Exam Vascular: DP/PT 1/4, CFT<3s to digits, TG warm to cool, no pedal edema, pedal hair absent Derm: Skin: No open lesions, ulcerations, or calluses. Interdigital spaces: Clear, no maceration or fungal infection. Nails: Thickened elongated dystrophic discolored toenails x 10 with subungual debris. Neuro: Carlton-paxton monofilament (10g) test 9/10 intact to right foot, 8/10 intact to left foot. Msk: Deformities: No evidence of hammertoes, bunions, Charcot changes, or other structural abnormalities. Muscle strength: 5/5 in all muscle groups. Gait: Normal, no antalgic or steppage gait observed. Footwear Assessment: Shoes inspected; appropriate fit, no excessive wear, or foreign objects noted. Office Procedures AMB Debridement /Avulsion Details: Procedure: Nail debridement Location: 10 nails, bilateral feet Anesthesia: N/A Description: The affected toenails were cleansed with an antiseptic solution. Using sterile nail nippers and a rotary isaiah, dystrophic and mycotic nail material was carefully debrided and reduced in thickness. Care was taken to avoid trauma to the surrounding skin and nail bed. All debris was removed as tolerated. The area was inspected for signs of infection or ulceration. Patient tolerated the procedure well without complications. Tolerance: Patient tolerated procedure well, no immediate complications. Class B findings as per physical exam findings above. The patient has a diagnosis of diabetes mellitus and presents with elongated, thickened toenails. Due to underlying diabetic neuropathy and mild vascular disease findings, the patient is at increased risk for complications such as ulceration, infection, and difficulty with self-care. Debridement of elongated toenails is medically necessary to prevent development of pressure-related lesions, reduce risk of secondary infection, and maintain foot health in high- risk comorbidities. [id number] of Nail 6+ Procedure code (CPT) selection complete Results Reviewed Results Reviewed: Laboratory Tests 09/14/25 08:06 Hemoglobin A1c % 7.5 H Assessment & Plan Assessment & Plan (1) Uncontrolled type 2 diabetes mellitus with hyperglycemia, with long-term current use of insulin: Code(s): E11.65 - Type 2 diabetes mellitus with hyperglycemia; Z79.4 - intermission coordinator (current) use of insulin Category: Medical Plan: Risk Stratification: Mild loss of protective sensation, skin changes consistent wtih mild peripheral arterial disease. No plans for further testing/referrals for non-invasive vascular studies. Patient is at mild-intermediate risk for diabetic foot complications at this time. Recommendations: Continue routine foot care and daily self-inspection. Recommend moisturizing daily. Recommend supportive proper fitting shoe-wear. The patient may require diabetic shoes in the future. Reinforced diabetic foot education and risks from peripheral neuropathy. (2) Left leg swelling: Code(s): M79.89 - Other specified soft tissue disorders Category: Medical Plan: * Rx venous ultrasound (3) Onychogryphosis: Code(s): L60.2 - Onychogryphosis Category: Medical Plan: * Debrided elongated nails x 10 Orders: Orders US venous duplex LE 11/09/25 M79.89 - Other specified soft tissue disorders Coding Level of Care Code New Pt Level 4 (57542) Diagnoses Uncontrolled type 2 diabetes mellitus with hyperglycemia, with long-term current use of insulin E11.65; Z79.4 Left leg swelling M79.89 Onychogryphosis L60.2 Time Spent (min) 35
== END 2025-11-09 10:51 | disposition home or self-care (01) ==
LOC: HO.HPODS 10:17
PROVIDERS: PCP Internal Medicine; Visit Provider Student in an Organized Health Care Education/Training Program
DX: E11.65 Type 2 diabetes mellitus with hyperglycemia (principal); Z79.4 Long term (current) use of insulin; M79.89 Other specified soft tissue disorders; L60.2 Onychogryphosis
CPT/HCPCS: 99204

== ENCOUNTER → 2025-11-09 10:16 | Outpatient (BNVA) | payer MEDICARE, SELFPAY | PROVIDERS: PCP Internal Medicine; Visit Provider Student in an Organized Health Care Education/Training Program | DX: E11.65 Type 2 diabetes mellitus with hyperglycemia (principal); I10 Essential (primary) hypertension; Z79.4 Long term (current) use of insulin; M79.89 Other specified soft tissue disorders; L60.2 Onychogryphosis | CPT/HCPCS: 99202 ==

== ENCOUNTER 2025-11-30 07:38 | Outpatient (REF) | payer MEDICARE, SELFPAY ==
--- NOTE | ~2025-11-30 | US_ITS ---
EXAMINATION: US LOWER EXTREMITY VEINS BILATERAL HISTORY: M79.89 - Other specified soft tissue disorders. Left leg swelling. COMPARISON: There are no prior studies available for comparison. TECHNIQUE: Duplex and color Doppler sonographic examination of the deep venous system of the bilateral lower extremities was performed. FINDINGS: The right common femoral, superficial femoral, and popliteal veins are patent demonstrating normal compressibility, spontaneous flow, and augmentation. There is a normal color and spectral Doppler waveform appearance of the visualized deep venous system above the knee. The posterior tibial and peroneal veins are patent. The left common femoral, superficial femoral, and popliteal veins are patent demonstrating normal compressibility, spontaneous flow, and augmentation. There is a normal color and spectral Doppler waveform appearance of the visualized deep venous system above the knee. The posterior tibial and peroneal veins are patent. US/US venous duplex LE BI IMPRESSION: No evidence of acute DVT in the bilateral lower extremities. Electronically signed by: Jaz Jeronimo MD 11/30/2025 10:35 AM [facility]
--- OUTSIDE RECORDS SUMMARY | 2025-11-30 09:07 | XMS_ITS | Clinical Summary ---
Author Organization [facility] Address [address] [place] [address] Care Team Providers Care Data Systems Manager Name Role Phone Kang Love MD Primary Care Provider [phone] Surgical History Surgery Date Site/Laterality Comments COLONOSCOPY [...] Years Used Date Smoking Tobacco: Former Cigarettes 0 Q uit: 08/22/1984 Smokeless Tobacco: Never Alcohol Use Standard Drinks/Week Comments Yes 1 (1 standard drink = 0.6 oz pur e alcohol) Sex and Gender Information Value Date Recorded Sex Assigned at Not on file Legal Sex Male 5:38 PM EST Gender Identity Not on file Sexual Orientation Not on file Plan of Treatment Health Maintenance Due Date [...] Depression Screening 12/02/2024 COVID-19 Vaccine (1 - 2024-2 6 season) 2025 Influenza Vaccine (#1) 2025 9, [...] age to complete this topic Care Teams Data Systems Manager Relationship Specialty Start Date End Date Kang Love MD PCP - General Internal Medicine 02/16/19
== END 2025-11-30 07:39 ==
LOC: HO.US 07:38
PROVIDERS: PCP Internal Medicine; Visit Provider Student in an Organized Health Care Education/Training Program
DX: M79.89 Other specified soft tissue disorders (principal)
CPT/HCPCS: 93970

== ENCOUNTER → 2025-11-30 07:38 | Outpatient (BNV) | payer MEDICARE, SELFPAY | PROVIDERS: PCP Internal Medicine; Visit Provider Radiology Diagnostic Radiology | DX: M79.89 Other specified soft tissue disorders (principal) | CPT/HCPCS: 93970 ==